=== PATIENT | male | born 1935 | race Caucasian/White ===

== ENCOUNTER 2017-03-29 08:00 | Outpatient (RCR) | payer MEDICARE, OTHER, SELFPAY ==
[2017-03-04 00:39] VITALS: BP 135/71; PULSE 114; RESP 18; TEMP 37.1; BMI 17.0
[2017-03-15 08:08] VITALS: BP 128/78; PULSE 99; RESP 18; TEMP 36.8; BMI 17.0
--- NOTE | 2017-03-15 09:07 | PN.PCM_ITS ---
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 Patient has spinal stenosis so bad that he has no feeling in his rectum. Patient has frequent large stools. during the night, and it lays against the skin of his rectal area and causes denuded skin. Patient appears here with an small superficial ulcer on the coccyx area History of Wound: Patient has been evaluated by Dr. Hitchcock for possible surgical consult, but he feels that unless there is bone exposed to continue with ulcer care as prescribed. Nutrition has been an issue and he needs to continue nutritional efforts. And if he requires frequent ulcer care than because of incontinence then so be it Progress of Wound: The ulcer is smaller everyweek now slightly removed a large portion of the thick callus and the ulcer is flatter this week. Does develop a lot of hyper granulation of the tissue around the edge of the ulcer like callus that has to be removed with nippers. His pre-albumin was 21 lower than it was at 23. The says she's been giving him a sitz bath daily and soaking the skin around the ulcer and seems to be helping also doing the dressing changes twice a day . No odor no redness noted. The patient has been offloading is much as possible. Patient is supplementing with high protein bars and diet, sggested [place] Instant breakfast with ice cream as a supplement and start vit C 1000 mg in chewies per day. Patient is also taking Z -hilary for wound healing. Patient was positive on cultures and was started on levofloxacin 750 mg p.o. daily for 14 days patient has 1 more week of antibiotic therapy. - Physical Exam Vital Signs Temp Pulse Resp BP 98.2 F 99 18 128/78 H 03/15/17 08:08 03/15/17 08:08 03/15/17 08:08 03/15/17 08:08 General: Oriented x3, Cooperative, Well developed HEENT: Atraumatic, PERRLA Oral: Moist Mucosa Neck: Supple, No JVD Lungs: Clear to auscultation, Normal air movement Cardiovascular: Regular rate, Regular Rhythm Abdomen: Bowel Sounds Present, Soft, Non Tender, No Hepato-splenomegaly Extremities: No clubbing, No edema Skin: - - Coccyx ulcer stage III Wound Measurements and Assessment WC - Nurse 1 - General Ulcer Measurement Start: 03/15/17 08:08 Freq: Status: Active Protocol: Activity Type Activity Date Activity User E-Sign Co-Sign Detail Recorded Client Recorded Date Recorded By Document 03/15/17 08:08 DL [id number] 03/15/17 08:13 DL 03/15/17 08:08 Wound Center Nurse 1 [Ulcer Assessment Protocol: WC.WD.LOC] 1. coccyx -Current Size (cm) - Length 1.5 -Current Size (cm) - Width 1.2 -Current Size (cm) - Depth 0.2 -Total Square Cm 1.80 -Photo Taken No -Exudate Amt Small (1-33%) -Exudate Type Serosanguineous -Wound Margin Thickened -Granulation Amt Large (67-100%) -Granulation Quality Red -Necrosis Amt Small (1-33%) -Necrotic Tissue Type Adherent Slough -Structure Exposed N/A -Texture (Pao-wound Skin Appearance) Callus -Moisture (Pao-wound Skin Appearance No Abnormality ) -Color (Pao-wound Skin Appearance) Rubor -Temperature (Pao-wound Skin No Abnormality Appearance) (Pt Warm) -Ulcer Cleansing Rinsed/ Irrigated with Saline -Foul Odor after Cleansing No -Anesthetic Used 4% Lidocaine Solution WC - Nurse 2 - General Ulcer CM Notes Start: 03/15/17 08:08 Freq: Status: Active Protocol: Activity Type Activity Date Activity User E-Sign Co-Sign Detail Recorded Client Recorded Date Recorded By Document 03/15/17 08:38 MW [id number] 03/15/17 08:40 MW 03/15/17 08:38 Wound Center Nurse 2 [Procedure/Treatment] -Time 08:38 -Correct Patient Yes -Correct Side, Site, Position Yes -Correct Procedure Yes -Procedure Performed Yes -Type of Procedure Debridement -Clinical Debridement Subcutaneous -Post Debridement Size (cm) - Length 1.4 -Post Debridement Size (cm) - Width 1.2 -Post Debridement Size (cm) - Depth 0.2 -Total Square Cm 1.68 -Wound/Ulcer Outcome Not Healed -Ulcer Cleansing Rinsed/ Irrigated with Saline -Foul Odor after Cleansing No -Bioengineered Tissue No -Cetacaine [place] No -Bleeding Controlled with Pressure -Treatment Response Procedure Tolerated Well [See Physician Procedure note for Specifics] Pain Scale: 0-10 Numeric [Pain] -Is Patient Pain Free? Yes Musculoskeletal: No Tenderness to Palpation of Joints or Extremities Lymphatic: No Cervical, Supraclavicular, or Inguinal Adenopathy Neurological: Cranial nerves II-XII grossly intact, Neuro grossly intact Psych/Mental Status: Normal Affect, Appropriate, Alert and oriented to time, place, person, mood and affect Debridement Note Post-Debridement Measurements/Treatment WC - Nurse 2 - General Ulcer CM Notes Start: 03/15/17 08:08 Freq: Status: Active Protocol: Activity Type Activity Date Activity User E-Sign Co-Sign Detail Recorded Client Recorded Date Recorded By Document 03/15/17 08:38 MW [id number] 03/15/17 08:40 MW 03/15/17 08:38 Wound Center Nurse 2 1. coccyx -Time 08:38 -Correct Patient Yes -Correct Side, Site, Position Yes -Correct Procedure Yes -Procedure Performed Yes -Type of Procedure Debridement -Clinical Debridement Subcutaneous -Post Debridement Size (cm) - Length 1.4 -Post Debridement Size (cm) - Width 1.2 -Post Debridement Size (cm) - Depth 0.2 -Total Square Cm 1.68 -Wound/Ulcer Outcome Not Healed -Ulcer Cleansing Rinsed/ Irrigated with Saline -Foul Odor after Cleansing No -Bioengineered Tissue No -Cetacaine [place] No -Bleeding Controlled with Pressure -Treatment Response Procedure Tolerated Well Pain Scale: 0-10 Numeric Is Patient Pain Free? Yes Wound debrided: Coccyx ulcer Wound Grade/Stage: Stage 3 Type of Debridement: Excisional debridement Anesthesia Used: 5% Lidocaine Gel Depth: Down to and including healthy tissue, in the subcutaneous layer Percentage of wound debrided: 100 Instrument Used: 5mm curette, - - Nippers Tissue Removed: Callus devitalized tissue fibrin Severity: Limited To Skin Breakdown Amount of bleeding with debridement: Moderate Bleeding Controlled with: Compression and gauze Patient tolerated procedure well Assessment/Plan Active Problems Malnutrition (Chronic) Difficulty walking (Chronic) Degenerative disc disease at L5-S1 level (Chronic) Decubitus ulcer of coccygeal region, stage 3 (Chronic) Infected decubitus ulcer (Chronic) Assessment: Chronic Pressure ulcer coccyx stage III. Malnutrition resolved. Difficulty walking. Infected decubitus ulcer Plan: Collagen hydrogel topically with collegen alginate overtop with ABD dressing and Medipore tape twice a day. continue to offload buttocks by lying flat in bed rather than in a chair as much as possible has a low air mattress. continue eating a highprotein diet and supplements. Follow-up 2 weeks. [place] instant breakfast with ice cream. Vitamin C 500 mg 2 by mouth daily. Information entered by nursing staff reviewed. This document was created using a voice recognition system. Errors in punctuation, spelling and grammar may not have been corrected prior to saving.
[2017-03-29 08:12] VITALS: BP 133/73; PULSE 104; RESP 16; TEMP 36.6; BMI 17.0
--- NOTE | 2017-03-29 10:00 | PCM.WC.PN ---
(1) Decubitus ulcer of coccygeal region, stage 3 Status: Chronic Current Visit: Yes Code(s): L89.153 - Pressure ulcer of sacral region, stage 3 (2) Infected decubitus ulcer Status: Chronic Current Visit: Yes Qualifiers: Code(s): L89.90 - Pressure ulcer of unspecified site, unspecified stage; L08.9 - Local infection of the skin and subcutaneous tissue, unspecified (3) Degenerative disc disease at L5-S1 level Status: Chronic Current Visit: Yes Code(s): M51.36 - Other intervertebral disc degeneration, lumbar region (4) Difficulty walking Status: Chronic Current Visit: Yes Code(s): R26.2 - Difficulty in walking, not elsewhere classified (5) Malnutrition Status: Chronic Current Visit: Yes Code(s): E46 - Unspecified protein-calorie malnutrition Type of Wound Date of Service: 03/29/17 Chief Complaint: 78-year-old white male emaciated living at home with his with many comorbidities. Patient has spinal stenosis so bad that he has no feeling in his rectum. Patient has frequent large stools. during the night, and it lays against the skin of his rectal area and causes denuded skin. Patient appears here with an small superficial ulcer on the coccyx area History of Wound: Patient has been evaluated by Dr. Hitchcock for possible surgical consult, but he feels that unless there is bone exposed to continue with ulcer care as prescribed. Nutrition has been an issue and he needs to continue nutritional efforts. And if he requires frequent ulcer care than because of incontinence then so be it Progress of Wound: The ulcer is smaller everyweek now . Removed a large portion of the thick callus and the ulcer is flatter this week. Does develop a lot of hyper granulation of the tissue around the edge of the ulcer like callus that has to be removed with nippers. His pre-albumin was 21 lower than it was at 23. The says he had blood drawn at Dr. Yousif's office and his pre-albumin was 25. No odor no redness noted. The patient has been offloading is much as possible. Patient is supplementing with high protein bars and diet, sggested [place] Instant breakfast with ice cream as a supplement and start vit C 1000 mg in chewies per day. Patient is also taking Z-hilary for wound healing. - Physical Exam Vital Signs Temp Pulse Resp BP 97.8 F 104 H 16 133/73 H 03/29/17 08:12 03/29/17 08:12 03/29/17 08:12 03/29/17 08:12 General: Oriented x3, Cooperative, Well developed HEENT: Atraumatic, PERRLA Oral: Moist Mucosa Neck: Supple, No JVD Lungs: Clear to auscultation, Normal air movement Cardiovascular: Regular rate, Regular Rhythm Abdomen: Bowel Sounds Present, Soft, Non Tender, No Hepato-splenomegaly Extremities: No clubbing, No edema Skin: Ulcer/ Wound - Coccyx ulcer stage III Wound Measurements and Assessment WC - Nurse 1 - General Ulcer Measurement Start: 03/15/17 08:08 Freq: Status: Active Protocol: Activity Type Activity Date Activity User E-Sign Co-Sign Detail Recorded Client Recorded Date Recorded By Document 03/29/17 08:12 DL [id number] 03/29/17 08:17 DL 03/29/17 08:12 Wound Center Nurse 1 [Ulcer Assessment Protocol: ETHAN.WD.LOC] 1. coccyx -Current Size (cm) - Length 1.3 -Current Size (cm) - Width 1 -Current Size (cm) - Depth 0.3 -Total Square Cm 1.3 -Photo Taken No -Exudate Amt Small (1-33%) -Exudate Type Serosanguineous -Wound Margin Thickened -Granulation Amt Large (67-100%) -Granulation Quality Red -Necrosis Amt Small (1-33%) -Necrotic Tissue Type Adherent Slough -Structure Exposed N/A -Texture (Pao-wound Skin Appearance) Callus -Moisture (Pao-wound Skin Appearance No Abnormality ) -Color (Pao-wound Skin Appearance) No Abnormality -Temperature (Pao-wound Skin No Abnormality Appearance) (Pt Warm) -Tenderness on Palpation (Pao-wound No Skin Appearance) -Ulcer Cleansing Rinsed/ Irrigated with Saline -Foul Odor after Cleansing No -Anesthetic Used 4% Lidocaine Solution WC - Nurse 2 - General Ulcer CM Notes Start: 03/15/17 08:08 Freq: Status: Active Protocol: Activity Type Activity Date Activity User E-Sign Co-Sign Detail Recorded Client Recorded Date Recorded By Document 03/29/17 08:32 MW [id number] 03/29/17 08:39 MW 03/29/17 08:32 Wound Center Nurse 2 [Procedure/Treatment] -Time 08:32 -Correct Patient Yes -Correct Side, Site, Position Yes -Correct Procedure Yes -Procedure Performed Yes -Type of Procedure Debridement -Clinical Debridement Subcutaneous -Post Debridement Size (cm) - Length 1.3 -Post Debridement Size (cm) - Width 1.1 -Post Debridement Size (cm) - Depth 0.2 -Total Square Cm 1.43 -Wound/Ulcer Outcome Not Healed -Ulcer Cleansing Rinsed/ Irrigated with Saline -Foul Odor after Cleansing No -Bioengineered Tissue No -Cetacaine [place] No -Bleeding Controlled with Pressure -Treatment Response Procedure Tolerated Well [See Physician Procedure note for Specifics] Pain Scale: 0-10 Numeric [Pain] -Is Patient Pain Free? Yes Musculoskeletal: No Tenderness to Palpation of Joints or Extremities Lymphatic: No Cervical, Supraclavicular, or Inguinal Adenopathy Neurological: Cranial nerves II-XII grossly intact, Neuro grossly intact Psych/Mental Status: Normal Affect, Appropriate, Alert and oriented to time, place, person, mood and affect Debridement Note Post-Debridement Measurements/Treatment WC - Nurse 2 - General Ulcer CM Notes Start: 03/15/17 08:08 Freq: Status: Active Protocol: Activity Type Activity Date Activity User E-Sign Co-Sign Detail Recorded Client Recorded Date Recorded By Document 03/15/17 08:38 MW [id number] 03/15/17 08:40 MW Document 03/29/17 08:32 MW [id number] 03/29/17 08:39 MW 03/15/1718 08:38 08:32 Wound Center Nurse 2 1. coccyx -Time 08:38 08:32 -Correct Patient Yes Yes -Correct Side, Site, Position Yes Yes -Correct Procedure Yes Yes -Procedure Performed Yes Yes -Type of Procedure Debridement Debridement -Clinical Debridement Subcutaneous Subcutaneous -Post Debridement Size (cm) - Length 1.4 1.3 -Post Debridement Size (cm) - Width 1.2 1.1 -Post Debridement Size (cm) - Depth 0.2 0.2 -Total Square Cm 1.68 1.43 -Wound/Ulcer Outcome Not Healed Not Healed -Ulcer Cleansing Rinsed/ Rinsed/ Irrigated with Irrigated with Saline Saline -Foul Odor after Cleansing No No -Bioengineered Tissue No No -Cetacaine [place] No No -Bleeding Controlled with Pressure Pressure -Treatment Response Procedure Procedure Tolerated Well Tolerated Well Pain Scale: 0-10 Numeric Is Patient Pain Free? 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 Malnutrition resolved. Difficulty walking. Infected decubitus ulcer Plan: Collagen hydrogel topically with collegen alginate overtop with ABD dressing and Medipore tape twice a day. continue to offload buttocks by lying flat in bed rather than in a chair as much as possible has a low air mattress. continue eating a highprotein diet and supplements. Follow-up 2 weeks. [place] instant breakfast with ice cream. Vitamin C 500 mg 2 by mouth daily. Information entered by nursing staff reviewed. This document was created using a voice recognition system. Errors in punctuation, spelling and grammar may not have been corrected prior to saving.
--- NOTE | 2017-03-29 10:05 | PN.PCM_ITS ---
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 Patient has spinal stenosis so bad that he has no feeling in his rectum. Patient has frequent large stools. during the night, and it lays against the skin of his rectal area and causes denuded skin. Patient appears here with an small superficial ulcer on the coccyx area History of Wound: Patient has been evaluated by Dr. Hitchcock for possible surgical consult, but he feels that unless there is bone exposed to continue with ulcer care as prescribed. Nutrition has been an issue and he needs to continue nutritional efforts. And if he requires frequent ulcer care than because of incontinence then so be it Progress of Wound: The ulcer is smaller everyweek now . Removed a large portion of the thick callus and the ulcer is flatter this week. Does develop a lot of hyper granulation of the tissue around the edge of the ulcer like callus that has to be removed with nippers. His pre-albumin was 21 lower than it was at 23. The says he had blood drawn at Dr. Yousif's office and his pre- albumin was 25. No odor no redness noted. The patient has been offloading is much as possible. Patient is supplementing with high protein bars and diet, sggested [place] Instant breakfast with ice cream as a supplement and start vit C 1000 mg in chewies per day. Patient is also taking Z-hilary for wound healing. - Physical Exam Vital Signs Temp Pulse Resp BP 97.8 F 104 H 16 133/73 H 03/29/17 08:12 03/29/17 08:12 03/29/17 08:12 03/29/17 08:12 General: Oriented x3, Cooperative, Well developed HEENT: Atraumatic, PERRLA Oral: Moist Mucosa Neck: Supple, No JVD Lungs: Clear to auscultation, Normal air movement Cardiovascular: Regular rate, Regular Rhythm Abdomen: Bowel Sounds Present, Soft, Non Tender, No Hepato-splenomegaly Extremities: No clubbing, No edema Skin: Ulcer/ Wound - Coccyx ulcer stage III Wound Measurements and Assessment WC - Nurse 1 - General Ulcer Measurement Start: 03/15/17 08:08 Freq: Status: Active Protocol: Activity Type Activity Date Activity User E-Sign Co-Sign Detail Recorded Client Recorded Date Recorded By Document 03/29/17 08:12 DL [id number] 03/29/17 08:17 DL 03/29/17 08:12 Wound Center Nurse 1 [Ulcer Assessment Protocol: ETHAN.WD.LOC] 1. coccyx -Current Size (cm) - Length 1.3 -Current Size (cm) - Width 1 -Current Size (cm) - Depth 0.3 -Total Square Cm 1.3 -Photo Taken No -Exudate Amt Small (1-33%) -Exudate Type Serosanguineous -Wound Margin Thickened -Granulation Amt Large (67-100%) -Granulation Quality Red -Necrosis Amt Small (1-33%) -Necrotic Tissue Type Adherent Slough -Structure Exposed N/A -Texture (Pao-wound Skin Appearance) Callus -Moisture (Pao-wound Skin Appearance No Abnormality ) -Color (Pao-wound Skin Appearance) No Abnormality -Temperature (Pao-wound Skin No Abnormality Appearance) (Pt Warm) -Tenderness on Palpation (Pao-wound No Skin Appearance) -Ulcer Cleansing Rinsed/ Irrigated with Saline -Foul Odor after Cleansing No -Anesthetic Used 4% Lidocaine Solution WC - Nurse 2 - General Ulcer CM Notes Start: 03/15/17 08:08 Freq: Status: Active Protocol: Activity Type Activity Date Activity User E-Sign Co-Sign Detail Recorded Client Recorded Date Recorded By Document 03/29/17 08:32 MW [id number] 03/29/17 08:39 MW 03/29/17 08:32 Wound Center Nurse 2 [Procedure/Treatment] -Time 08:32 -Correct Patient Yes -Correct Side, Site, Position Yes -Correct Procedure Yes -Procedure Performed Yes -Type of Procedure Debridement -Clinical Debridement Subcutaneous -Post Debridement Size (cm) - Length 1.3 -Post Debridement Size (cm) - Width 1.1 -Post Debridement Size (cm) - Depth 0.2 -Total Square Cm 1.43 -Wound/Ulcer Outcome Not Healed -Ulcer Cleansing Rinsed/ Irrigated with Saline -Foul Odor after Cleansing No -Bioengineered Tissue No -Cetacaine [place] No -Bleeding Controlled with Pressure -Treatment Response Procedure Tolerated Well [See Physician Procedure note for Specifics] Pain Scale: 0-10 Numeric [Pain] -Is Patient Pain Free? Yes Musculoskeletal: No Tenderness to Palpation of Joints or Extremities Lymphatic: No Cervical, Supraclavicular, or Inguinal Adenopathy Neurological: Cranial nerves II-XII grossly intact, Neuro grossly intact Psych/Mental Status: Normal Affect, Appropriate, Alert and oriented to time, place, person, mood and affect Debridement Note Post-Debridement Measurements/Treatment WC - Nurse 2 - General Ulcer CM Notes Start: 03/15/17 08:08 Freq: Status: Active Protocol: Activity Type Activity Date Activity User E-Sign Co-Sign Detail Recorded Client Recorded Date Recorded By Document 03/15/17 08:38 MW [id number] 03/15/17 08:40 MW Document 03/29/17 08:32 MW [id number] 03/29/17 08:39 MW 03/15/1718 08:38 08:32 Wound Center Nurse 2 1. coccyx -Time 08:38 08:32 -Correct Patient Yes Yes -Correct Side, Site, Position Yes Yes -Correct Procedure Yes Yes -Procedure Performed Yes Yes -Type of Procedure Debridement Debridement -Clinical Debridement Subcutaneous Subcutaneous -Post Debridement Size (cm) - Length 1.4 1.3 -Post Debridement Size (cm) - Width 1.2 1.1 -Post Debridement Size (cm) - Depth 0.2 0.2 -Total Square Cm 1.68 1.43 -Wound/Ulcer Outcome Not Healed Not Healed -Ulcer Cleansing Rinsed/ Rinsed/ Irrigated with Irrigated with Saline Saline -Foul Odor after Cleansing No No -Bioengineered Tissue No No -Cetacaine [place] No No -Bleeding Controlled with Pressure Pressure -Treatment Response Procedure Procedure Tolerated Well Tolerated Well Pain Scale: 0-10 Numeric Is Patient Pain Free? 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 Malnutrition resolved. Difficulty walking. Infected decubitus ulcer Plan: Collagen hydrogel topically with collegen alginate overtop with ABD dressing and Medipore tape twice a day. continue to offload buttocks by lying flat in bed rather than in a chair as much as possible has a low air mattress. continue eating a highprotein diet and supplements. Follow-up 2 weeks. [place] instant breakfast with ice cream. Vitamin C 500 mg 2 by mouth daily. Information entered by nursing staff reviewed. This document was created using a voice recognition system. Errors in punctuation, spelling and grammar may not have been corrected prior to saving.
== END 2017-04-03 23:59 ==
LOC: WC 08:00
PROVIDERS: Family Provider Family Medicine; PCP Family Medicine; Visit Provider Nurse Practitioner
DX: L89.153 Pressure ulcer of sacral region, stage 3 (principal); L08.9 Local infection of the skin and subcutaneous tissue, unspecified; M51.36 Other intervertebral disc degeneration, lumbar region; R26.2 Difficulty in walking, not elsewhere classified
CPT/HCPCS: 11042

== ENCOUNTER 2017-04-26 08:00 | Outpatient (RCR) | payer MEDICARE, OTHER, SELFPAY ==
[2017-03-29 08:12] VITALS: BP 133/73
[2017-04-04 00:31] VITALS: PULSE 104; RESP 16; TEMP 36.6
[2017-04-12 08:17] VITALS: BP 141/89; PULSE 100; RESP 18; TEMP 36.9; BMI 17.0
--- NOTE | 2017-04-12 13:08 | PCM.WC.PN ---
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 level Status: Chronic Current Visit: Yes Code(s): M51.36 - Other intervertebral disc degeneration, lumbar region (3) Difficulty walking Status: Chronic Current Visit: Yes Code(s): R26.2 - Difficulty in walking, not elsewhere classified (4) Infected decubitus ulcer Status: Chronic Current Visit: Yes Qualifiers: Code(s): L89.90 - Pressure ulcer of unspecified site, unspecified stage; L08.9 - Local infection of the skin and subcutaneous tissue, unspecified (5) Malnutrition Status: Chronic Current Visit: Yes Code(s): E46 - Unspecified protein-calorie malnutrition (6) Nonhealing nonsurgical wound Status: Chronic Current Visit: Yes Code(s): T14.8 - Other injury of unspecified body region Type of Wound Date of Service: 04/12/17 Chief Complaint: 78-year-old white male emaciated living at home with his with many comorbidities. Patient has spinal stenosis so bad that he has no feeling in his rectum. Patient has frequent large stools. during the night, and it lays against the skin of his rectal area and causes denuded skin. Patient appears here with an small superficial ulcer on the coccyx area History of Wound: Patient has been evaluated by Dr. Hitchcock for possible surgical consult, but he feels that unless there is bone exposed to continue with ulcer care as prescribed. Nutrition has been an issue and he needs to continue nutritional efforts. And if he requires frequent ulcer care than because of incontinence then so be it Progress of Wound: The ulcer is smaller everyweek now . Removed a large portion of the thick callus and the ulcer is flatter this week. Does develop a lot of hyper granulation of the tissue around the edge of the ulcer like callus that has to be removed with nippers. His pre-albumin was 21 lower than it was at 23. The says he had blood drawn at Dr. Yousif's office and his pre-albumin was 25. No odor no redness noted. The patient has been offloading is much as possible. Patient is supplementing with high protein bars and diet, sggested [place] Instant breakfast with ice cream as a supplement and start vit C 1000 mg in chewies per day. Patient is also taking Z-hilary for wound healing. Will apply for epi fix also for his ulcer - Physical Exam Vital Signs Temp Pulse Resp BP 98.4 F 100 18 141/89 H 04/12/17 08:17 04/12/17 08:17 04/12/17 08:17 04/12/17 08:17 General: Oriented x3, Cooperative, Well developed HEENT: Atraumatic, PERRLA Oral: Moist Mucosa Neck: Supple, No JVD Lungs: Clear to auscultation, Normal air movement Cardiovascular: Regular rate, Regular Rhythm Abdomen: Bowel Sounds Present, Soft, Non Tender, No Hepato-splenomegaly Extremities: No clubbing, No edema Skin: - - 6 ulcer stage III Wound Measurements and Assessment - Nurse 1 - General Ulcer Measurement Start: 04/12/17 08:17 Freq: Status: Active Protocol: Activity Type Activity Date Activity User E-Sign Co-Sign Detail Recorded Client Recorded Date Recorded By Document 04/12/17 08:17 [id number] 04/12/17 08:22 04/12/17 08:17 Wound Center Nurse 1 [Ulcer Assessment Protocol: .WD.LOC] 1. sacral ulcer stg III -Combined with other wound No -Current Size (cm) - Length 1.5 -Current Size (cm) - Width 0.5 -Current Size (cm) - Depth 0.2 -Total Square Cm 0.75 -Date of Last Picture (Recall this 04/12/17 field) -Photo Taken Yes -Epithelialization None Present -Tunneling No -Undermining/Tunneling No -Circular Undermining No -Classification - Thickness Full Thickness without Exposed Support Structure -Classification - Pressure Ulcer Stage 3 -Exudate Amt Small (1-33%) -Exudate Type Serosanguineous -Wound Margin Fibrotic Scar, Thickened Scar -Granulation Amt Medium (34-66%) -Granulation Quality [place] -Slough/Fibrin Yes -Necrosis Amt Medium (34-66%) -Necrotic Tissue Type Adherent Slough -Structure Exposed Fascia Fat Layer Exposed -Texture (Pao-wound Skin Appearance) Callus -Moisture (Pao-wound Skin Appearance No Abnormality ) -Color (Pao-wound Skin Appearance) Erythema -Temperature (Pao-wound Skin No Abnormality Appearance) (Pt Warm) -Tenderness on Palpation (Pao-wound No Skin Appearance) -Ulcer Cleansing Rinsed/ Irrigated with Saline -Foul Odor after Cleansing No -Anesthetic Used 5% Lidocaine Gel [Edema Assessment] -Lower Limb Edema Present No WC - Nurse 2 - General Ulcer CM Notes Start: 04/12/17 08:17 Freq: Status: Active Protocol: Activity Type Activity Date Activity User E-Sign Co-Sign Detail Recorded Client Recorded Date Recorded By Document 04/12/17 08:33 MW [id number] 04/12/17 08:38 MW 04/12/17 08:33 Wound Center Nurse 2 [Procedure/Treatment] 1. sacral ulcer stg III -Time 08:34 -Correct Patient Yes -Correct Side, Site, Position Yes -Correct Procedure Yes -Procedure Performed Yes -Type of Procedure Debridement -Clinical Debridement Subcutaneous -Post Debridement Size (cm) - Length 1.5 -Post Debridement Size (cm) - Width 1.0 -Post Debridement Size (cm) - Depth 0.2 -Total Square Cm 1.50 -Wound/Ulcer Outcome Not Healed -Ulcer Cleansing Rinsed/ Irrigated with Saline -Foul Odor after Cleansing No -Bioengineered Tissue No -Bleeding Controlled with Pressure -Treatment Response Procedure Tolerated Well [See Physician Procedure note for Specifics] Pain Scale: 0-10 Numeric [Pain] -Is Patient Pain Free? Yes Musculoskeletal: No Tenderness to Palpation of Joints or Extremities Lymphatic: No Cervical, Supraclavicular, or Inguinal Adenopathy Neurological: Cranial nerves II-XII grossly intact, Neuro grossly intact Psych/Mental Status: Normal Affect, Appropriate, Alert and oriented to time, place, person, mood and affect Debridement Note Post-Debridement Measurements/Treatment WC - Nurse 2 - General Ulcer CM Notes Start: 04/12/17 08:17 Freq: Status: Active Protocol: Activity Type Activity Date Activity User E-Sign Co-Sign Detail Recorded Client Recorded Date Recorded By Document 04/12/17 08:33 MW [id number] 04/12/17 08:38 MW 04/12/17 08:33 Wound Center Nurse 2 1. sacral ulcer stg III -Time 08:34 -Correct Patient Yes -Correct Side, Site, Position Yes -Correct Procedure Yes -Procedure Performed Yes -Type of Procedure Debridement -Clinical Debridement Subcutaneous -Post Debridement Size (cm) - Length 1.5 -Post Debridement Size (cm) - Width 1.0 -Post Debridement Size (cm) - Depth 0.2 -Total Square Cm 1.50 -Wound/Ulcer Outcome Not Healed -Ulcer Cleansing Rinsed/ Irrigated with Saline -Foul Odor after Cleansing No -Bioengineered Tissue No -Bleeding Controlled with Pressure -Treatment Response Procedure Tolerated Well Pain Scale: 0-10 Numeric Is Patient Pain Free? Yes Wound debrided: Coccyx ulcer Wound Grade/Stage: Stage III Type of Debridement: Excisional debridement Anesthesia Used: 5% Lidocaine Gel Depth: Down to and including healthy tissue, in the subcutaneous layer Percentage of wound debrided: 100 Instrument Used: 5mm curette, - - First Tissue Removed: Devitalized tissue fibrin Severity: Limited To Skin Breakdown Amount of bleeding with debridement: Moderate Bleeding Controlled with: Compression and gauze Patient tolerated procedure well Assessment/Plan Active Problems Nonhealing nonsurgical wound (Chronic) Degenerative disc disease at L5-S1 level (Chronic) Difficulty walking (Chronic) Malnutrition (Chronic) Infected decubitus ulcer (Chronic) Decubitus ulcer of coccygeal region, stage 3 (Chronic) Assessment: Chronic Pressure ulcer coccyx stage III. Malnutrition resolved. Difficulty walking. Infected decubitus ulcer Plan: Collagen hydrogel topically with collegen alginate overtop with ABD dressing and Medipore tape twice a day. continue to offload buttocks by lying flat in bed rather than in a chair as much as possible has a low air mattress. continue eating a highprotein diet and supplements. Follow-up 2 weeks\. Apply for epi-fix. [employer] instant breakfast with ice cream. Vitamin C 500 mg 2 by mouth daily. Information entered by nursing staff reviewed. This document was created using a voice recognition system. Errors in punctuation, spelling and grammar may not have been corrected prior to saving.
[2017-04-26 08:11] VITALS: BP 140/93; PULSE 93; RESP 18; TEMP 36.3; BMI 17.0
--- NOTE | 2017-04-26 09:27 | PCM.WC.PN ---
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 level Status: Chronic Current Visit: Yes Code(s): M51.36 - Other intervertebral disc degeneration, lumbar region (3) Difficulty walking Status: Chronic Current Visit: Yes Code(s): R26.2 - Difficulty in walking, not elsewhere classified (4) Infected decubitus ulcer Status: Chronic Current Visit: Yes Qualifiers: Code(s): L89.90 - Pressure ulcer of unspecified site, unspecified stage; L08.9 - Local infection of the skin and subcutaneous tissue, unspecified (5) Malnutrition Status: Chronic Current Visit: No Code(s): E46 - Unspecified protein-calorie malnutrition (6) Nonhealing nonsurgical wound Status: Chronic Current Visit: Yes Code(s): T14.8 - Other injury of unspecified body region Type of Wound Date of Service: 04/26/17 Chief Complaint: 78-year-old white male emaciated living at home with his with many comorbidities. Patient has spinal stenosis so bad that he has no feeling in his rectum. Patient has frequent large stools. during the night, and it lays against the skin of his rectal area and causes denuded skin. Patient appears here with an small superficial ulcer on the coccyx area History of Wound: Patient has been evaluated by Dr. Hitchcock for possible surgical consult, but he feels that unless there is bone exposed to continue with ulcer care as prescribed. Nutrition has been an issue and he needs to continue nutritional efforts. And if he requires frequent ulcer care than because of incontinence then so be it Progress of Wound: The ulcer is smaller everyweek now . Removed a large portion of the thick callus and the ulcer is flatter this week. Does develop a lot of hyper granulation of the tissue around the edge of the ulcer like callus that has to be removed with nippers. His pre-albumin was 21 lower than it was at 23. The says he had blood drawn at Dr. Yousif's office and his pre-albumin was 25. No odor no redness noted. The patient has been offloading is much as possible. Patient is supplementing with high protein bars and diet, sggested [place] Instant breakfast with ice cream as a supplement and start vit C 1000 mg in chewies per day. Patient is also taking Z-hilary for wound healing. Slide epi fix #1 To the coccyx area tolerated well . - Physical Exam Vital Signs Temp Pulse Resp BP 97.3 F L 93 18 140/93 H 04/26/17 08:11 04/26/17 08:11 04/26/17 08:11 04/26/17 08:11 General: Oriented x3, Cooperative, Well developed HEENT: Atraumatic, PERRLA Oral: Moist Mucosa Neck: Supple, No JVD Lungs: Clear to auscultation, Normal air movement Cardiovascular: Regular rate, Regular Rhythm Abdomen: Bowel Sounds Present, Soft, Non Tender, No Hepato-splenomegaly Extremities: No clubbing, No edema Skin: Ulcer/ Wound - 6 ulcers stage III Wound Measurements and Assessment WC - Nurse 1 - General Ulcer Measurement Start: 04/12/17 08:17 Freq: Status: Active Protocol: Activity Type Activity Date Activity User E-Sign Co-Sign Detail Recorded Client Recorded Date Recorded By Document 04/26/17 08:11 DL [id number] 04/26/17 08:20 DL 04/26/17 08:11 Wound Center Nurse 1 [Ulcer Assessment] 1. sacral ulcer stg III -Current Size (cm) - Length 1.2 -Current Size (cm) - Width 1.2 -Current Size (cm) - Depth 0.2 -Total Square Cm 1.44 -Photo Taken No -Exudate Amt Small (1-33%) -Exudate Type Serosanguineous -Wound Margin Thickened -Granulation Amt Medium (34-66%) -Granulation Quality [place] -Necrosis Amt Medium (34-66%) -Necrotic Tissue Type Adherent Slough -Structure Exposed N/A -Texture (Pao-wound Skin Appearance) Scarring -Moisture (Pao-wound Skin Appearance No Abnormality ) -Color (Pao-wound Skin Appearance) No Abnormality -Temperature (Pao-wound Skin No Abnormality Appearance) (Pt Warm) -Ulcer Cleansing Wound Cleanser -Foul Odor after Cleansing No -Anesthetic Used 4% Lidocaine Solution WC - Nurse 2 - General Ulcer CM Notes Start: 04/12/17 08:17 Freq: Status: Active Protocol: Activity Type Activity Date Activity User E-Sign Co-Sign Detail Recorded Client Recorded Date Recorded By Document 04/26/17 08:33 MW [id number] 04/26/17 08:46 MW 04/26/17 08:33 Wound Center Nurse 2 [Procedure/Treatment] -Time 08:33 -Correct Patient Yes -Correct Side, Site, Position Yes -Correct Procedure Yes -Procedure Performed Yes -Type of Procedure Debridement -Clinical Debridement Subcutaneous -Post Debridement Size (cm) - Length 1.4 -Post Debridement Size (cm) - Width 1.4 -Post Debridement Size (cm) - Depth 0.2 -Total Square Cm 1.96 -Wound/Ulcer Outcome Not Healed -Ulcer Cleansing Rinsed/ Irrigated with Saline -Foul Odor after Cleansing No -Type of bioengineered Tissue EPIFIX -Expiration Date 02/01/22 -Product Lot Number [id number] -Percent Used 100 -Saline Lot Number [id number] -Bleeding Controlled with Pressure -Treatment Response Procedure Tolerated Well [See Physician Procedure note for Specifics] Pain Scale: 0-10 Numeric [Pain] -Is Patient Pain Free? Yes Musculoskeletal: No Tenderness to Palpation of Joints or Extremities Lymphatic: No Cervical, Supraclavicular, or Inguinal Adenopathy Neurological: Cranial nerves II-XII grossly intact, Neuro grossly intact Psych/Mental Status: Normal Affect, Appropriate, Alert and oriented to time, place, person, mood and affect Debridement Note Post-Debridement Measurements/Treatment WC - Nurse 2 - General Ulcer CM Notes Start: 04/12/17 08:17 Freq: Status: Active Protocol: Activity Type Activity Date Activity User E-Sign Co-Sign Detail Recorded Client Recorded Date Recorded By Document 04/12/17 08:33 MW [id number] 04/12/17 08:38 MW Document 04/26/17 08:33 MW [id number] 04/26/17 08:46 MW 04/12/17 04/26/17 08:33 08:33 Wound Center Nurse 2 1. sacral ulcer stg III -Time 08:34 08:33 -Correct Patient Yes Yes -Correct Side, Site, Position Yes Yes -Correct Procedure Yes Yes -Procedure Performed Yes Yes -Type of Procedure Debridement Debridement -Clinical Debridement Subcutaneous Subcutaneous -Post Debridement Size (cm) - Length 1.5 1.4 -Post Debridement Size (cm) - Width 1.0 1.4 -Post Debridement Size (cm) - Depth 0.2 0.2 -Total Square Cm 1.50 1.96 -Wound/Ulcer Outcome Not Healed Not Healed -Ulcer Cleansing Rinsed/ Rinsed/ Irrigated with Irrigated with Saline Saline -Foul Odor after Cleansing No No -Bioengineered Tissue No -Type of bioengineered Tissue EPIFIX -Expiration Date 02/01/22 -Product Lot Number [id number] -Percent Used 100 -Saline Lot Number [id number] -Bleeding Controlled with Pressure Pressure -Treatment Response Procedure Procedure Tolerated Well Tolerated Well Pain Scale: 0-10 Numeric Is Patient Pain Free? 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 Malnutrition resolved. Difficulty walking. Infected decubitus ulcer resolved Plan: Collagen hydrogel topically with collegen alginate overtop with ABD dressing and Medipore tape twice a day. continue to offload buttocks by lying flat in bed rather than in a chair as much as possible has a low air mattress. continue eating a highprotein diet and supplements. Follow-up 2 weeks\. Apply for epi-fix. [place] instant breakfast with ice cream. Vitamin C 500 mg 2 by mouth daily. Information entered by nursing staff reviewed. This document was created using a voice recognition system. Errors in punctuation, spelling and grammar may not have been corrected prior to saving.
--- NOTE | 2017-04-26 09:30 | PN.PCM_ITS ---
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 level Status: Chronic Current Visit: Yes Code(s): M51.36 - Other intervertebral disc degeneration, lumbar region (3) Difficulty walking Status: Chronic Current Visit: Yes Code(s): R26.2 - Difficulty in walking, not elsewhere classified (4) Infected decubitus ulcer Status: Chronic Current Visit: Yes Qualifiers: Code(s): L89.90 - Pressure ulcer of unspecified site, unspecified stage; L08.9 - Local infection of the skin and subcutaneous tissue, unspecified (5) Malnutrition Status: Chronic Current Visit: No Code(s): E46 - Unspecified protein- calorie malnutrition (6) Nonhealing nonsurgical wound Status: Chronic Current Visit: Yes Code(s): T14.8 - Other injury of unspecified body region Type of Wound Date of Service: 04/26/17 Chief Complaint: 78-year-old white male emaciated living at home with his with many comorbidities. Patient has spinal stenosis so bad that he has no feeling in his rectum. Patient has frequent large stools. during the night, and it lays against the skin of his rectal area and causes denuded skin. Patient appears here with an small superficial ulcer on the coccyx area History of Wound: Patient has been evaluated by Dr. Hitchcock for possible surgical consult, but he feels that unless there is bone exposed to continue with ulcer care as prescribed. Nutrition has been an issue and he needs to continue nutritional efforts. And if he requires frequent ulcer care than because of incontinence then so be it Progress of Wound: The ulcer is smaller everyweek now . Removed a large portion of the thick callus and the ulcer is flatter this week. Does develop a lot of hyper granulation of the tissue around the edge of the ulcer like callus that has to be removed with nippers. His pre-albumin was 21 lower than it was at 23. The says he had blood drawn at Dr. Yousif's office and his pre- albumin was 25. No odor no redness noted. The patient has been offloading is much as possible. Patient is supplementing with high protein bars and diet, sggested [place] Instant breakfast with ice cream as a supplement and start vit C 1000 mg in chewies per day. Patient is also taking Z-hilary for wound healing. Slide epi fix #1 To the coccyx area tolerated well . - Physical Exam Vital Signs Temp Pulse Resp BP 97.3 F L 93 18 140/93 H 04/26/17 08:11 04/26/17 08:11 04/26/17 08:11 04/26/17 08:11 General: Oriented x3, Cooperative, Well developed HEENT: Atraumatic, PERRLA Oral: Moist Mucosa Neck: Supple, No JVD Lungs: Clear to auscultation, Normal air movement Cardiovascular: Regular rate, Regular Rhythm Abdomen: Bowel Sounds Present, Soft, Non Tender, No Hepato-splenomegaly Extremities: No clubbing, No edema Skin: Ulcer/ Wound - 6 ulcers stage III Wound Measurements and Assessment WC - Nurse 1 - General Ulcer Measurement Start: 04/12/17 08:17 Freq: Status: Active Protocol: Activity Type Activity Date Activity User E-Sign Co-Sign Detail Recorded Client Recorded Date Recorded By Document 04/26/17 08:11 DL [id number] 04/26/17 08:20 DL 04/26/17 08:11 Wound Center Nurse 1 [Ulcer Assessment] 1. sacral ulcer stg III -Current Size (cm) - Length 1.2 -Current Size (cm) - Width 1.2 -Current Size (cm) - Depth 0.2 -Total Square Cm 1.44 -Photo Taken No -Exudate Amt Small (1-33%) -Exudate Type Serosanguineous -Wound Margin Thickened -Granulation Amt Medium (34-66%) -Granulation Quality [place] -Necrosis Amt Medium (34-66%) -Necrotic Tissue Type Adherent Slough -Structure Exposed N/A -Texture (Pao-wound Skin Appearance) Scarring -Moisture (Pao-wound Skin Appearance No Abnormality ) -Color (Pao-wound Skin Appearance) No Abnormality -Temperature (Pao-wound Skin No Abnormality Appearance) (Pt Warm) -Ulcer Cleansing Wound Cleanser -Foul Odor after Cleansing No -Anesthetic Used 4% Lidocaine Solution WC - Nurse 2 - General Ulcer CM Notes Start: 04/12/17 08:17 Freq: Status: Active Protocol: Activity Type Activity Date Activity User E-Sign Co-Sign Detail Recorded Client Recorded Date Recorded By Document 04/26/17 08:33 MW [id number] 04/26/17 08:46 MW 04/26/17 08:33 Wound Center Nurse 2 [Procedure/Treatment] -Time 08:33 -Correct Patient Yes -Correct Side, Site, Position Yes -Correct Procedure Yes -Procedure Performed Yes -Type of Procedure Debridement -Clinical Debridement Subcutaneous -Post Debridement Size (cm) - Length 1.4 -Post Debridement Size (cm) - Width 1.4 -Post Debridement Size (cm) - Depth 0.2 -Total Square Cm 1.96 -Wound/Ulcer Outcome Not Healed -Ulcer Cleansing Rinsed/ Irrigated with Saline -Foul Odor after Cleansing No -Type of bioengineered Tissue EPIFIX -Expiration Date 02/01/22 -Product Lot Number [id number] -Percent Used 100 -Saline Lot Number [id number] -Bleeding Controlled with Pressure -Treatment Response Procedure Tolerated Well [See Physician Procedure note for Specifics] Pain Scale: 0-10 Numeric [Pain] -Is Patient Pain Free? Yes Musculoskeletal: No Tenderness to Palpation of Joints or Extremities Lymphatic: No Cervical, Supraclavicular, or Inguinal Adenopathy Neurological: Cranial nerves II-XII grossly intact, Neuro grossly intact Psych/Mental Status: Normal Affect, Appropriate, Alert and oriented to time, place, person, mood and affect Debridement Note Post-Debridement Measurements/Treatment WC - Nurse 2 - General Ulcer CM Notes Start: 04/12/17 08:17 Freq: Status: Active Protocol: Activity Type Activity Date Activity User E-Sign Co-Sign Detail Recorded Client Recorded Date Recorded By Document 04/12/17 08:33 MW [id number] 04/12/17 08:38 MW Document 04/26/17 08:33 MW [id number] 04/26/17 08:46 MW 04/12/17 04/26/17 08:33 08:33 Wound Center Nurse 2 1. sacral ulcer stg III -Time 08:34 08:33 -Correct Patient Yes Yes -Correct Side, Site, Position Yes Yes -Correct Procedure Yes Yes -Procedure Performed Yes Yes -Type of Procedure Debridement Debridement -Clinical Debridement Subcutaneous Subcutaneous -Post Debridement Size (cm) - Length 1.5 1.4 -Post Debridement Size (cm) - Width 1.0 1.4 -Post Debridement Size (cm) - Depth 0.2 0.2 -Total Square Cm 1.50 1.96 -Wound/Ulcer Outcome Not Healed Not Healed -Ulcer Cleansing Rinsed/ Rinsed/ Irrigated with Irrigated with Saline Saline -Foul Odor after Cleansing No No -Bioengineered Tissue No -Type of bioengineered Tissue EPIFIX -Expiration Date 02/01/22 -Product Lot Number [id number] -Percent Used 100 -Saline Lot Number [id number] -Bleeding Controlled with Pressure Pressure -Treatment Response Procedure Procedure Tolerated Well Tolerated Well Pain Scale: 0-10 Numeric Is Patient Pain Free? 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 Malnutrition resolved. Difficulty walking. Infected decubitus ulcer resolved Plan: Collagen hydrogel topically with collegen alginate overtop with ABD dressing and Medipore tape twice a day. continue to offload buttocks by lying flat in bed rather than in a chair as much as possible has a low air mattress. continue eating a highprotein diet and supplements. Follow-up 2 weeks\. Apply for epi-fix. [place] instant breakfast with ice cream. Vitamin C 500 mg 2 by mouth daily. Information entered by nursing staff reviewed. This document was created using a voice recognition system. Errors in punctuation, spelling and grammar may not have been corrected prior to saving.
== END 2017-05-01 23:59 ==
LOC: WC 08:00
PROVIDERS: Family Provider Family Medicine; PCP Family Medicine; Visit Provider Nurse Practitioner
DX: L89.153 Pressure ulcer of sacral region, stage 3 (principal); M51.36 Other intervertebral disc degeneration, lumbar region; R26.2 Difficulty in walking, not elsewhere classified; L08.9 Local infection of the skin and subcutaneous tissue, unspecified; R15.9 Full incontinence of feces
CPT/HCPCS: 11042; 15271; Q4131

== ENCOUNTER 2017-05-31 08:00 | Outpatient (RCR) | payer MEDICARE, OTHER, SELFPAY ==
[2017-05-02 00:28] VITALS: BP 141/89; PULSE 93; RESP 18; TEMP 36.3; BMI 17.0
[2017-05-03 08:36] VITALS: BP 149/90; PULSE 99; RESP 18; TEMP 36.9; BMI 17.0
--- NOTE | 2017-05-03 12:40 | PCM.WC.PN ---
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 level Status: Chronic Current Visit: Yes Code(s): M51.36 - Other intervertebral disc degeneration, lumbar region (3) Difficulty walking Status: Chronic Current Visit: Yes Code(s): R26.2 - Difficulty in walking, not elsewhere classified (4) Infected decubitus ulcer Status: Chronic Current Visit: Yes Qualifiers: Code(s): L89.90 - Pressure ulcer of unspecified site, unspecified stage; L08.9 - Local infection of the skin and subcutaneous tissue, unspecified (5) Nonhealing nonsurgical wound Status: Chronic Current Visit: Yes Code(s): T14.8 - Other injury of unspecified body region Type of Wound Date of Service: 05/03/17 Chief Complaint: 78-year-old white male emaciated living at home with his with many comorbidities. Patient has spinal stenosis so bad that he has no feeling in his rectum. Patient has frequent large stools. during the night, and it lays against the skin of his rectal area and causes denuded skin. Patient appears here with an small superficial ulcer on the coccyx area History of Wound: Patient has been evaluated by Dr. Hitchcock for possible surgical consult, but he feels that unless there is bone exposed to continue with ulcer care as prescribed. Nutrition has been an issue and he needs to continue nutritional efforts. And if he requires frequent ulcer care than because of incontinence then so be it Progress of Wound: Applied epi flex #1 last week and then patient proceeded to have diarrhea for 1 day following the application. It is a nurse practitioner was there and removed everything only because she said it was into the wound itself. She said she rinsed a lot but she was not sure if the skin application had was washed out. This week the ulcer looks pretty good we reapplied #2 epi fix to the wound and it seems like #1 did take a little bit and one corner the ulcer overall is developing well becoming smaller Removed a large portion of the thick callus and the ulcer is flatter this week. Does develop a lot of hyper granulation of the tissue around the edge of the ulcer like callus that has to be removed with nippers. His last pre-albumin at Dr. Dominguez office was 25 . No odor no redness noted. The patient has been offloading is much as possible. Patient is supplementing with high protein bars and diet, sggested [place] Instant breakfast with ice cream as a supplement and start vit C 1000 mg in chewies per day. Patient is also taking Z-hilary for wound healing. Slide epi fix #1 To the coccyx area tolerated well . - Physical Exam Vital Signs Temp Pulse Resp BP 98.4 F 99 18 149/90 H 05/03/17 08:36 05/03/17 08:36 05/03/17 08:36 05/03/17 08:36 General: Oriented x3, Cooperative, Well developed HEENT: Atraumatic, PERRLA Oral: Moist Mucosa Neck: Supple, No JVD Lungs: Clear to auscultation, Normal air movement Cardiovascular: Regular rate, Regular Rhythm Abdomen: Bowel Sounds Present, Soft, Non Tender, No Hepato-splenomegaly Extremities: No clubbing, No edema Skin: Ulcer/ Wound - Coccyx ulcer stage III Wound Measurements and Assessment WC - Nurse 1 - General Ulcer Measurement Start: 05/03/17 08:36 Freq: Status: Active Protocol: Activity Type Activity Date Activity User E-Sign Co-Sign Detail Recorded Client Recorded Date Recorded By Document 05/03/17 08:36 [id number] 05/03/17 08:39 05/03/17 08:36 Wound Center Nurse 1 [Ulcer Assessment] 1. sacral ulcer stg III -Combined with other wound No -Current Size (cm) - Length 1.3 -Current Size (cm) - Width 1.0 -Current Size (cm) - Depth 0.2 -Total Square Cm 1.30 -Photo Taken No -Epithelialization Small 1-33% -Tunneling No -Undermining/Tunneling No -Circular Undermining No -Classification - Thickness Full Thickness without Exposed Support Structure -Exudate Amt Small (1-33%) -Exudate Type Serosanguineous -Wound Margin Thickened -Granulation Amt Large (67-100%) -Granulation Quality [place] -Slough/Fibrin Yes -Necrosis Amt Small (1-33%) -Necrotic Tissue Type Adherent Slough -Structure Exposed Fascia Fat Layer Exposed -Texture (Pao-wound Skin Appearance) Callus -Moisture (Pao-wound Skin Appearance No Abnormality ) -Color (Pao-wound Skin Appearance) No Abnormality -Temperature (Pao-wound Skin No Abnormality Appearance) (Pt Warm) -Tenderness on Palpation (Pao-wound No Skin Appearance) -Ulcer Cleansing Rinsed/ Irrigated with Saline -Foul Odor after Cleansing No -Anesthetic Used 5% Lidocaine Gel [Edema Assessment] -Lower Limb Edema Present No WC - Nurse 2 - General Ulcer CM Notes Start: 05/03/17 08:36 Freq: Status: Active Protocol: Activity Type Activity Date Activity User E-Sign Co-Sign Detail Recorded Client Recorded Date Recorded By Document 05/03/17 08:52 MW [id number] 05/03/17 09:01 MW 05/03/17 08:52 Wound Center Nurse 2 [Procedure/Treatment] 1. sacral ulcer stg III -Time 08:59 -Correct Patient Yes -Correct Side, Site, Position Yes -Correct Procedure Yes -Procedure Performed Yes -Type of Procedure Debridement -Clinical Debridement Subcutaneous -Post Debridement Size (cm) - Length 1.3 -Post Debridement Size (cm) - Width 1.2 -Post Debridement Size (cm) - Depth 0.2 -Total Square Cm 1.56 -Wound/Ulcer Outcome Not Healed -Ulcer Cleansing Rinsed/ Irrigated with Saline -Foul Odor after Cleansing No -Type of bioengineered Tissue EPIFIX -Expiration Date 02/01/22 -Product Lot Number [id number] -Percent Used 100 -Saline Lot Number [id number] -Bleeding Controlled with Pressure -Treatment Response Procedure Tolerated Well [See Physician Procedure note for Specifics] Pain Scale: 0-10 Numeric [Pain] -Is Patient Pain Free? Yes Musculoskeletal: No Tenderness to Palpation of Joints or Extremities Lymphatic: No Cervical, Supraclavicular, or Inguinal Adenopathy Neurological: Cranial nerves II-XII grossly intact, Neuro grossly intact Psych/Mental Status: Normal Affect, Appropriate Debridement Note Post-Debridement Measurements/Treatment WC - Nurse 2 - General Ulcer CM Notes Start: 05/03/17 08:36 Freq: Status: Active Protocol: Activity Type Activity Date Activity User E-Sign Co-Sign Detail Recorded Client Recorded Date Recorded By Document 05/03/17 08:52 MW [id number] 05/03/17 09:01 MW 05/03/17 08:52 Wound Center Nurse 2 1. sacral ulcer stg III -Time 08:59 -Correct Patient Yes -Correct Side, Site, Position Yes -Correct Procedure Yes -Procedure Performed Yes -Type of Procedure Debridement -Clinical Debridement Subcutaneous -Post Debridement Size (cm) - Length 1.3 -Post Debridement Size (cm) - Width 1.2 -Post Debridement Size (cm) - Depth 0.2 -Total Square Cm 1.56 -Wound/Ulcer Outcome Not Healed -Ulcer Cleansing Rinsed/ Irrigated with Saline -Foul Odor after Cleansing No -Type of bioengineered Tissue EPIFIX -Expiration Date 02/01/22 -Product Lot Number [id number] -Percent Used 100 -Saline Lot Number [id number] -Bleeding Controlled with Pressure -Treatment Response Procedure Tolerated Well Pain Scale: 0-10 Numeric Is Patient Pain Free? 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 Malnutrition resolved. Difficulty walking. Infected decubitus ulcer resolved Plan: Epi-fix #2 Collagen hydrogel topically with veil ABD dressing and Medipore. continue to offload buttocks by lying flat in bed rather than in a chair as much as possible has a low air mattress. continue eating a highprotein diet and supplements. Follow-up 2 weeks\. [place] instant breakfast with ice cream. Vitamin C 500 mg 2 by mouth daily. Information entered by nursing staff reviewed. This document was created using a voice recognition system. Errors in punctuation, spelling and grammar may not have been corrected prior to saving.
--- NOTE | 2017-05-03 12:47 | PN.PCM_ITS ---
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 level Status: Chronic Current Visit: Yes Code(s): M51.36 - Other intervertebral disc degeneration, lumbar region (3) Difficulty walking Status: Chronic Current Visit: Yes Code(s): R26.2 - Difficulty in walking, not elsewhere classified (4) Infected decubitus ulcer Status: Chronic Current Visit: Yes Qualifiers: Code(s): L89.90 - Pressure ulcer of unspecified site, unspecified stage; L08.9 - Local infection of the skin and subcutaneous tissue, unspecified (5) Nonhealing nonsurgical wound Status: Chronic Current Visit: Yes Code(s): T14.8 - Other injury of unspecified body region Type of Wound Date of Service: 05/03/17 Chief Complaint: 78-year-old white male emaciated living at home with his with many comorbidities. Patient has spinal stenosis so bad that he has no feeling in his rectum. Patient has frequent large stools. during the night, and it lays against the skin of his rectal area and causes denuded skin. Patient appears here with an small superficial ulcer on the coccyx area History of Wound: Patient has been evaluated by Dr. Hitchcock for possible surgical consult, but he feels that unless there is bone exposed to continue with ulcer care as prescribed. Nutrition has been an issue and he needs to continue nutritional efforts. And if he requires frequent ulcer care than because of incontinence then so be it Progress of Wound: Applied epi flex #1 last week and then patient proceeded to have diarrhea for 1 day following the application. It is a nurse practitioner was there and removed everything only because she said it was into the wound itself. She said she rinsed a lot but she was not sure if the skin application had was washed out. This week the ulcer looks pretty good we reapplied #2 epi fix to the wound and it seems like #1 did take a little bit and one corner the ulcer overall is developing well becoming smaller Removed a large portion of the thick callus and the ulcer is flatter this week. Does develop a lot of hyper granulation of the tissue around the edge of the ulcer like callus that has to be removed with nippers. His last pre-albumin at Dr. Dominguez office was 25 . No odor no redness noted. The patient has been offloading is much as possible. Patient is supplementing with high protein bars and diet, sggested [place] Instant breakfast with ice cream as a supplement and start vit C 1000 mg in chewies per day. Patient is also taking Z-hilary for wound healing. Slide epi fix #1 To the coccyx area tolerated well . - Physical Exam Vital Signs Temp Pulse Resp BP 98.4 F 99 18 149/90 H 05/03/17 08:36 05/03/17 08:36 05/03/17 08:36 05/03/17 08:36 General: Oriented x3, Cooperative, Well developed HEENT: Atraumatic, PERRLA Oral: Moist Mucosa Neck: Supple, No JVD Lungs: Clear to auscultation, Normal air movement Cardiovascular: Regular rate, Regular Rhythm Abdomen: Bowel Sounds Present, Soft, Non Tender, No Hepato-splenomegaly Extremities: No clubbing, No edema Skin: Ulcer/ Wound - Coccyx ulcer stage III Wound Measurements and Assessment WC - Nurse 1 - General Ulcer Measurement Start: 05/03/17 08:36 Freq: Status: Active Protocol: Activity Type Activity Date Activity User E-Sign Co-Sign Detail Recorded Client Recorded Date Recorded By Document 05/03/17 08:36 [id number] 05/03/17 08:39 05/03/17 08:36 Wound Center Nurse 1 [Ulcer Assessment] 1. sacral ulcer stg III -Combined with other wound No -Current Size (cm) - Length 1.3 -Current Size (cm) - Width 1.0 -Current Size (cm) - Depth 0.2 -Total Square Cm 1.30 -Photo Taken No -Epithelialization Small 1-33% -Tunneling No -Undermining/Tunneling No -Circular Undermining No -Classification - Thickness Full Thickness without Exposed Support Structure -Exudate Amt Small (1-33%) -Exudate Type Serosanguineous -Wound Margin Thickened -Granulation Amt Large (67-100%) -Granulation Quality [place] -Slough/Fibrin Yes -Necrosis Amt Small (1-33%) -Necrotic Tissue Type Adherent Slough -Structure Exposed Fascia Fat Layer Exposed -Texture (Pao-wound Skin Appearance) Callus -Moisture (Pao-wound Skin Appearance No Abnormality ) -Color (Pao-wound Skin Appearance) No Abnormality -Temperature (Pao-wound Skin No Abnormality Appearance) (Pt Warm) -Tenderness on Palpation (Pao-wound No Skin Appearance) -Ulcer Cleansing Rinsed/ Irrigated with Saline -Foul Odor after Cleansing No -Anesthetic Used 5% Lidocaine Gel [Edema Assessment] -Lower Limb Edema Present No WC - Nurse 2 - General Ulcer CM Notes Start: 05/03/17 08:36 Freq: Status: Active Protocol: Activity Type Activity Date Activity User E-Sign Co-Sign Detail Recorded Client Recorded Date Recorded By Document 05/03/17 08:52 MW [id number] 05/03/17 09:01 MW 05/03/17 08:52 Wound Center Nurse 2 [Procedure/Treatment] 1. sacral ulcer stg III -Time 08:59 -Correct Patient Yes -Correct Side, Site, Position Yes -Correct Procedure Yes -Procedure Performed Yes -Type of Procedure Debridement -Clinical Debridement Subcutaneous -Post Debridement Size (cm) - Length 1.3 -Post Debridement Size (cm) - Width 1.2 -Post Debridement Size (cm) - Depth 0.2 -Total Square Cm 1.56 -Wound/Ulcer Outcome Not Healed -Ulcer Cleansing Rinsed/ Irrigated with Saline -Foul Odor after Cleansing No -Type of bioengineered Tissue EPIFIX -Expiration Date 02/01/22 -Product Lot Number [id number] -Percent Used 100 -Saline Lot Number [id number] -Bleeding Controlled with Pressure -Treatment Response Procedure Tolerated Well [See Physician Procedure note for Specifics] Pain Scale: 0-10 Numeric [Pain] -Is Patient Pain Free? Yes Musculoskeletal: No Tenderness to Palpation of Joints or Extremities Lymphatic: No Cervical, Supraclavicular, or Inguinal Adenopathy Neurological: Cranial nerves II-XII grossly intact, Neuro grossly intact Psych/Mental Status: Normal Affect, Appropriate Debridement Note Post-Debridement Measurements/Treatment WC - Nurse 2 - General Ulcer CM Notes Start: 05/03/17 08:36 Freq: Status: Active Protocol: Activity Type Activity Date Activity User E-Sign Co-Sign Detail Recorded Client Recorded Date Recorded By Document 05/03/17 08:52 MW [id number] 05/03/17 09:01 MW 05/03/17 08:52 Wound Center Nurse 2 1. sacral ulcer stg III -Time 08:59 -Correct Patient Yes -Correct Side, Site, Position Yes -Correct Procedure Yes -Procedure Performed Yes -Type of Procedure Debridement -Clinical Debridement Subcutaneous -Post Debridement Size (cm) - Length 1.3 -Post Debridement Size (cm) - Width 1.2 -Post Debridement Size (cm) - Depth 0.2 -Total Square Cm 1.56 -Wound/Ulcer Outcome Not Healed -Ulcer Cleansing Rinsed/ Irrigated with Saline -Foul Odor after Cleansing No -Type of bioengineered Tissue EPIFIX -Expiration Date 02/01/22 -Product Lot Number [id number] -Percent Used 100 -Saline Lot Number [id number] -Bleeding Controlled with Pressure -Treatment Response Procedure Tolerated Well Pain Scale: 0-10 Numeric Is Patient Pain Free? 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 Malnutrition resolved. Difficulty walking. Infected decubitus ulcer resolved Plan: Epi-fix #2 Collagen hydrogel topically with veil ABD dressing and Medipore. continue to offload buttocks by lying flat in bed rather than in a chair as much as possible has a low air mattress. continue eating a highprotein diet and supplements. Follow-up 2 weeks\. [place] instant breakfast with ice cream. Vitamin C 500 mg 2 by mouth daily. Information entered by nursing staff reviewed. This document was created using a voice recognition system. Errors in punctuation, spelling and grammar may not have been corrected prior to saving.
[2017-05-17 08:22] VITALS: BP 138/87; PULSE 103; RESP 18; TEMP 36.8; BMI 17.0
--- NOTE | 2017-05-17 09:40 | PCM.WC.PN ---
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 level Status: Chronic Current Visit: Yes Code(s): M51.36 - Other intervertebral disc degeneration, lumbar region (3) Difficulty walking Status: Chronic Current Visit: Yes Code(s): R26.2 - Difficulty in walking, not elsewhere classified (4) Infected decubitus ulcer Status: Chronic Current Visit: Yes Qualifiers: Code(s): L89.90 - Pressure ulcer of unspecified site, unspecified stage; L08.9 - Local infection of the skin and subcutaneous tissue, unspecified (5) Nonhealing nonsurgical wound Status: Chronic Current Visit: Yes Code(s): T14.8 - Other injury of unspecified body region Type of Wound Date of Service: 05/17/17 Chief Complaint: 78-year-old white male emaciated living at home with his with many comorbidities. Patient has spinal stenosis so bad that he has no feeling in his rectum. Patient has frequent large stools. during the night, and it lays against the skin of his rectal area and causes denuded skin. Patient appears here with an small superficial ulcer on the coccyx area History of Wound: Patient has been evaluated by Dr. Hitchcock for possible surgical consult, but he feels that unless there is bone exposed to continue with ulcer care as prescribed. Nutrition has been an issue and he needs to continue nutritional efforts. And if he requires frequent ulcer care than because of incontinence then so be it Progress of Wound: Applied epi flix# 2 2 weeks ago. This week the ulcer looks pretty good we reapplied #3 epi fix to the wound and it seems like skin buds are forming. Still making a large portion of the thick callus around the edge but the ulcer is flatter this week. His last pre-albumin at Dr. Dominguez office was 25 . No odor no redness noted. The patient has been offloading is much as possible. Patient is supplementing with high protein bars and diet, sggested [place] Instant breakfast with ice cream as a supplement and start vit C 1000 mg in chewies per day. Patient is also taking Z-hilary for wound healing. - Physical Exam Vital Signs Temp Pulse Resp BP 98.2 F 103 H 18 138/87 H 03/16/18 08:22 05/17/17 08:22 05/17/17 08:22 05/17/17 08:22 General: Oriented x3, Cooperative, Well developed HEENT: Atraumatic, PERRLA Oral: Moist Mucosa Neck: Supple, No JVD Lungs: Clear to auscultation, Normal air movement Cardiovascular: Regular rate, Regular Rhythm Abdomen: Bowel Sounds Present, Soft, Non Tender, No Hepato-splenomegaly Extremities: No clubbing, No edema Skin: Ulcer/ Wound - Coccyx ulcer Wound Measurements and Assessment WC - Nurse 1 - General Ulcer Measurement Start: 05/03/17 08:36 Freq: Status: Active Protocol: Activity Type Activity Date Activity User E-Sign Co-Sign Detail Recorded Client Recorded Date Recorded By Document 05/17/17 08:22 [id number] 05/17/17 08:24 TM 05/17/17 08:22 Wound Center Nurse 1 [Ulcer Assessment] 1. sacral ulcer stg III -Combined with other wound No -Current Size (cm) - Length 1.0 -Current Size (cm) - Width 1.1 -Current Size (cm) - Depth 0.2 -Total Square Cm 1.10 -Date of Last Picture (Recall this 05/17/17 field) -Photo Taken Yes -Epithelialization None Present -Tunneling No -Undermining/Tunneling No -Circular Undermining No -Classification - Thickness Full Thickness without Exposed Support Structure -Exudate Amt Small (1-33%) -Exudate Type Serosanguineous -Wound Margin Fibrotic Scar, Thickened Scar -Granulation Amt Large (67-100%) -Granulation Quality [place] -Slough/Fibrin Yes -Necrosis Amt Small (1-33%) -Necrotic Tissue Type Adherent Slough -Structure Exposed Fascia Fat Layer Exposed -Texture (Pao-wound Skin Appearance) Callus -Moisture (Pao-wound Skin Appearance Maceration ) -Color (Pao-wound Skin Appearance) No Abnormality -Temperature (Pao-wound Skin No Abnormality Appearance) (Pt Warm) -Tenderness on Palpation (Pao-wound No Skin Appearance) -Ulcer Cleansing Rinsed/ Irrigated with Saline -Foul Odor after Cleansing No -Anesthetic Used 5% Lidocaine Gel [Edema Assessment] -Lower Limb Edema Present No WC - Nurse 2 - General Ulcer CM Notes Start: 03/02/18 08:36 Freq: Status: Active Protocol: Activity Type Activity Date Activity User E-Sign Co-Sign Detail Recorded Client Recorded Date Recorded By Document 05/17/17 08:43 MW [id number] 05/17/17 08:57 MW 05/17/17 08:43 Wound Center Nurse 2 [Procedure/Treatment] 1. sacral ulcer stg III -Time 08:45 -Correct Patient Yes -Correct Side, Site, Position Yes -Correct Procedure Yes -Procedure Performed Yes -Type of Procedure Debridement -Clinical Debridement Subcutaneous -Post Debridement Size (cm) - Length 1.0 -Post Debridement Size (cm) - Width 1.1 -Post Debridement Size (cm) - Depth 0.2 -Total Square Cm 1.10 -Wound/Ulcer Outcome Not Healed -Ulcer Cleansing Rinsed/ Irrigated with Saline -Foul Odor after Cleansing No -Bioengineered Tissue Yes -Type of bioengineered Tissue EPIFIX -Expiration Date 03/04/22 -Product Lot Number [id number] -Percent Used 75 -Saline Lot Number [id number] -Bleeding Controlled with Pressure -Treatment Response Procedure Tolerated Well [See Physician Procedure note for Specifics] Pain Scale: 0-10 Numeric [Pain] -Is Patient Pain Free? Yes Musculoskeletal: No Tenderness to Palpation of Joints or Extremities Lymphatic: No Cervical, Supraclavicular, or Inguinal Adenopathy Neurological: Cranial nerves II-XII grossly intact, Neuro grossly intact Psych/Mental Status: Normal Affect, Appropriate, Alert and oriented to time, place, person, mood and affect Debridement Note Post-Debridement Measurements/Treatment WC - Nurse 2 - General Ulcer CM Notes Start: 05/03/17 08:36 Freq: Status: Active Protocol: Activity Type Activity Date Activity User E-Sign Co-Sign Detail Recorded Client Recorded Date Recorded By Document 05/03/17 08:52 MW [id number] 05/03/17 09:01 MW Document 05/17/17 08:43 MW [id number] 05/17/17 08:57 MW 05/03/17 05/17/17 08:52 08:43 Wound Center Nurse 2 1. sacral ulcer stg III -Time 08:59 08:45 -Correct Patient Yes Yes -Correct Side, Site, Position Yes Yes -Correct Procedure Yes Yes -Procedure Performed Yes Yes -Type of Procedure Debridement Debridement -Clinical Debridement Subcutaneous Subcutaneous -Post Debridement Size (cm) - Length 1.3 1.0 -Post Debridement Size (cm) - Width 1.2 1.1 -Post Debridement Size (cm) - Depth 0.2 0.2 -Total Square Cm 1.56 1.10 -Wound/Ulcer Outcome Not Healed Not Healed -Ulcer Cleansing Rinsed/ Rinsed/ Irrigated with Irrigated with Saline Saline -Foul Odor after Cleansing No No -Bioengineered Tissue Yes -Type of bioengineered Tissue EPIFIX EPIFIX -Expiration Date 02/01/22 03/04/22 -Product Lot Number [id number] -Percent Used 100 75 -Saline Lot Number [id number] -Bleeding Controlled with Pressure Pressure -Treatment Response Procedure Procedure Tolerated Well Tolerated Well Pain Scale: 0-10 Numeric Is Patient Pain Free? 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 Malnutrition resolved. Difficulty walking. Infected decubitus ulcer resolved Plan: Epi-fix #3 Collagen hydrogel topically with veil ABD dressing and Medipore. continue to offload buttocks by lying flat in bed rather than in a chair as much as possible has a low air mattress. continue eating a highprotein diet and supplements. Follow-up 1 weeks\. [place] instant breakfast with ice cream. Vitamin C 500 mg 2 by mouth daily. Information entered by nursing staff reviewed. This document was created using a voice recognition system. Errors in punctuation, spelling and grammar may not have been corrected prior to saving.
--- NOTE | 2017-05-17 09:46 | PN.PCM_ITS ---
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 level Status: Chronic Current Visit: Yes Code(s): M51.36 - Other intervertebral disc degeneration, lumbar region (3) Difficulty walking Status: Chronic Current Visit: Yes Code(s): R26.2 - Difficulty in walking, not elsewhere classified (4) Infected decubitus ulcer Status: Chronic Current Visit: Yes Qualifiers: Code(s): L89.90 - Pressure ulcer of unspecified site, unspecified stage; L08.9 - Local infection of the skin and subcutaneous tissue, unspecified (5) Nonhealing nonsurgical wound Status: Chronic Current Visit: Yes Code(s): T14.8 - Other injury of unspecified body region Type of Wound Date of Service: 05/17/17 Chief Complaint: 78-year-old white male emaciated living at home with his with many comorbidities. Patient has spinal stenosis so bad that he has no feeling in his rectum. Patient has frequent large stools. during the night, and it lays against the skin of his rectal area and causes denuded skin. Patient appears here with an small superficial ulcer on the coccyx area History of Wound: Patient has been evaluated by Dr. Hitchcock for possible surgical consult, but he feels that unless there is bone exposed to continue with ulcer care as prescribed. Nutrition has been an issue and he needs to continue nutritional efforts. And if he requires frequent ulcer care than because of incontinence then so be it Progress of Wound: Applied epi flix# 2 2 weeks ago. This week the ulcer looks pretty good we reapplied #3 epi fix to the wound and it seems like skin buds are forming. Still making a large portion of the thick callus around the edge but the ulcer is flatter this week. His last pre-albumin at Dr. Dominguez office was 25 . No odor no redness noted. The patient has been offloading is much as possible. Patient is supplementing with high protein bars and diet, sggested [place] Instant breakfast with ice cream as a supplement and start vit C 1000 mg in chewies per day. Patient is also taking Z-hilary for wound healing. - Physical Exam Vital Signs Temp Pulse Resp BP 98.2 F 103 H 18 138/87 H 03/16/18 08:22 05/17/17 08:22 05/17/17 08:22 05/17/17 08:22 General: Oriented x3, Cooperative, Well developed HEENT: Atraumatic, PERRLA Oral: Moist Mucosa Neck: Supple, No JVD Lungs: Clear to auscultation, Normal air movement Cardiovascular: Regular rate, Regular Rhythm Abdomen: Bowel Sounds Present, Soft, Non Tender, No Hepato-splenomegaly Extremities: No clubbing, No edema Skin: Ulcer/ Wound - Coccyx ulcer Wound Measurements and Assessment WC - Nurse 1 - General Ulcer Measurement Start: 05/03/17 08:36 Freq: Status: Active Protocol: Activity Type Activity Date Activity User E-Sign Co-Sign Detail Recorded Client Recorded Date Recorded By Document 05/17/17 08:22 [id number] 05/17/17 08:24 TM 05/17/17 08:22 Wound Center Nurse 1 [Ulcer Assessment] 1. sacral ulcer stg III -Combined with other wound No -Current Size (cm) - Length 1.0 -Current Size (cm) - Width 1.1 -Current Size (cm) - Depth 0.2 -Total Square Cm 1.10 -Date of Last Picture (Recall this 05/17/17 field) -Photo Taken Yes -Epithelialization None Present -Tunneling No -Undermining/Tunneling No -Circular Undermining No -Classification - Thickness Full Thickness without Exposed Support Structure -Exudate Amt Small (1-33%) -Exudate Type Serosanguineous -Wound Margin Fibrotic Scar, Thickened Scar -Granulation Amt Large (67-100%) -Granulation Quality [place] -Slough/Fibrin Yes -Necrosis Amt Small (1-33%) -Necrotic Tissue Type Adherent Slough -Structure Exposed Fascia Fat Layer Exposed -Texture (Pao-wound Skin Appearance) Callus -Moisture (Pao-wound Skin Appearance Maceration ) -Color (Pao-wound Skin Appearance) No Abnormality -Temperature (Pao-wound Skin No Abnormality Appearance) (Pt Warm) -Tenderness on Palpation (Pao-wound No Skin Appearance) -Ulcer Cleansing Rinsed/ Irrigated with Saline -Foul Odor after Cleansing No -Anesthetic Used 5% Lidocaine Gel [Edema Assessment] -Lower Limb Edema Present No WC - Nurse 2 - General Ulcer CM Notes Start: 03/02/18 08:36 Freq: Status: Active Protocol: Activity Type Activity Date Activity User E-Sign Co-Sign Detail Recorded Client Recorded Date Recorded By Document 05/17/17 08:43 MW [id number] 05/17/17 08:57 MW 05/17/17 08:43 Wound Center Nurse 2 [Procedure/Treatment] 1. sacral ulcer stg III -Time 08:45 -Correct Patient Yes -Correct Side, Site, Position Yes -Correct Procedure Yes -Procedure Performed Yes -Type of Procedure Debridement -Clinical Debridement Subcutaneous -Post Debridement Size (cm) - Length 1.0 -Post Debridement Size (cm) - Width 1.1 -Post Debridement Size (cm) - Depth 0.2 -Total Square Cm 1.10 -Wound/Ulcer Outcome Not Healed -Ulcer Cleansing Rinsed/ Irrigated with Saline -Foul Odor after Cleansing No -Bioengineered Tissue Yes -Type of bioengineered Tissue EPIFIX -Expiration Date 03/04/22 -Product Lot Number [id number] -Percent Used 75 -Saline Lot Number [id number] -Bleeding Controlled with Pressure -Treatment Response Procedure Tolerated Well [See Physician Procedure note for Specifics] Pain Scale: 0-10 Numeric [Pain] -Is Patient Pain Free? Yes Musculoskeletal: No Tenderness to Palpation of Joints or Extremities Lymphatic: No Cervical, Supraclavicular, or Inguinal Adenopathy Neurological: Cranial nerves II-XII grossly intact, Neuro grossly intact Psych/Mental Status: Normal Affect, Appropriate, Alert and oriented to time, place, person, mood and affect Debridement Note Post-Debridement Measurements/Treatment WC - Nurse 2 - General Ulcer CM Notes Start: 05/03/17 08:36 Freq: Status: Active Protocol: Activity Type Activity Date Activity User E-Sign Co-Sign Detail Recorded Client Recorded Date Recorded By Document 05/03/17 08:52 MW [id number] 05/03/17 09:01 MW Document 05/17/17 08:43 MW [id number] 05/17/17 08:57 MW 05/03/17 05/17/17 08:52 08:43 Wound Center Nurse 2 1. sacral ulcer stg III -Time 08:59 08:45 -Correct Patient Yes Yes -Correct Side, Site, Position Yes Yes -Correct Procedure Yes Yes -Procedure Performed Yes Yes -Type of Procedure Debridement Debridement -Clinical Debridement Subcutaneous Subcutaneous -Post Debridement Size (cm) - Length 1.3 1.0 -Post Debridement Size (cm) - Width 1.2 1.1 -Post Debridement Size (cm) - Depth 0.2 0.2 -Total Square Cm 1.56 1.10 -Wound/Ulcer Outcome Not Healed Not Healed -Ulcer Cleansing Rinsed/ Rinsed/ Irrigated with Irrigated with Saline Saline -Foul Odor after Cleansing No No -Bioengineered Tissue Yes -Type of bioengineered Tissue EPIFIX EPIFIX -Expiration Date 02/01/22 03/04/22 -Product Lot Number [id number] -Percent Used 100 75 -Saline Lot Number [id number] -Bleeding Controlled with Pressure Pressure -Treatment Response Procedure Procedure Tolerated Well Tolerated Well Pain Scale: 0-10 Numeric Is Patient Pain Free? 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 Malnutrition resolved. Difficulty walking. Infected decubitus ulcer resolved Plan: Epi-fix #3 Collagen hydrogel topically with veil ABD dressing and Medipore. continue to offload buttocks by lying flat in bed rather than in a chair as much as possible has a low air mattress. continue eating a highprotein diet and supplements. Follow-up 1 weeks\. [place] instant breakfast with ice cream. Vitamin C 500 mg 2 by mouth daily. Information entered by nursing staff reviewed. This document was created using a voice recognition system. Errors in punctuation, spelling and grammar may not have been corrected prior to saving.
[2017-05-24 08:07] VITALS: BP 137/76; PULSE 106; RESP 16; TEMP 35.4; BMI 17.0
--- NOTE | 2017-05-24 09:17 | PCM.WC.PN ---
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 level Status: Chronic Current Visit: Yes Code(s): M51.36 - Other intervertebral disc degeneration, lumbar region (3) Difficulty walking Status: Chronic Current Visit: Yes Code(s): R26.2 - Difficulty in walking, not elsewhere classified (4) Infected decubitus ulcer Status: Chronic Current Visit: Yes Qualifiers: Code(s): L89.90 - Pressure ulcer of unspecified site, unspecified stage; L08.9 - Local infection of the skin and subcutaneous tissue, unspecified (5) Nonhealing nonsurgical wound Status: Chronic Current Visit: Yes Code(s): T14.8 - Other injury of unspecified body region Type of Wound Date of Service: 05/24/17 Chief Complaint: 78-year-old white male emaciated living at home with his with many comorbidities. Patient has spinal stenosis so bad that he has no feeling in his rectum. Patient has frequent large stools. during the night, and it lays against the skin of his rectal area and causes denuded skin. Patient appears here with an small superficial ulcer on the coccyx area History of Wound: Patient has been evaluated by Dr. Hitchcock for possible surgical consult, but he feels that unless there is bone exposed to continue with ulcer care as prescribed. Nutrition has been an issue and he needs to continue nutritional efforts. And if he requires frequent ulcer care than because of incontinence then so be it Progress of Wound: Applied epi flix#4 this week the ulcer looks pretty good . New skin buds are forming. Still making a large portion of the thick callus around the edge but the ulcer is flatter this week. His last pre-albumin at Dr. Dominguez office was 25 . No odor no redness noted. The patient has been offloading is much as possible. Patient is supplementing with high protein bars and diet, sggested [place] Instant breakfast with ice cream as a supplement and start vit C 1000 mg in chewies per day. Patient is also taking Z-hilary for wound healing. - Physical Exam Vital Signs Temp Pulse Resp BP 95.7 F L 106 H 16 137/76 H 05/24/17 08:07 05/24/17 08:07 05/24/17 08:07 05/24/17 08:07 General: Oriented x3, Cooperative, Well developed HEENT: Atraumatic, PERRLA Oral: Moist Mucosa Neck: Supple, No JVD Lungs: Clear to auscultation, Normal air movement Cardiovascular: Regular rate, Regular Rhythm Abdomen: Bowel Sounds Present, Soft, Non Tender, No Hepato-splenomegaly Extremities: No clubbing, No edema Skin: Ulcer/ Wound - coccyx ulcer Wound Measurements and Assessment WC - Nurse 1 - General Ulcer Measurement Start: 05/03/17 08:36 Freq: Status: Active Protocol: Activity Type Activity Date Activity User E-Sign Co-Sign Detail Recorded Client Recorded Date Recorded By Document 05/24/17 08:07 [facility] [id number] 05/24/17 08:15 BMF 05/24/17 08:07 Wound Center Nurse 1 [Ulcer Assessment] 1. sacral ulcer stg III -Combined with other wound No -Current Size (cm) - Length 1.3 -Current Size (cm) - Width 1 -Current Size (cm) - Depth 0.2 -Total Square Cm 1.3 -Photo Taken No -Epithelialization None Present -Tunneling No -Undermining/Tunneling No -Exudate Amt Small (1-33%) -Exudate Type Serosanguineous -Wound Margin Distinct, Outline Attached -Granulation Amt Large (67-100%) -Granulation Quality [place] -Slough/Fibrin Yes -Necrosis Amt Small (1-33%) -Necrotic Tissue Type Adherent Slough -Structure Exposed None/Limited to Skin Breakdown -Texture (Pao-wound Skin Appearance) Callus Scarring Rash -Moisture (Pao-wound Skin Appearance Dry/Scaly ) -Color (Pao-wound Skin Appearance) Erythema -Temperature (Pao-wound Skin No Abnormality Appearance) (Pt Warm) -Tenderness on Palpation (Pao-wound No Skin Appearance) -Ulcer Cleansing Rinsed/ Irrigated with Saline -Foul Odor after Cleansing No -Anesthetic Used 4% Lidocaine Solution WC - Nurse 2 - General Ulcer CM Notes Start: 05/03/17 08:36 Freq: Status: Active Protocol: Activity Type Activity Date Activity User E-Sign Co-Sign Detail Recorded Client Recorded Date Recorded By Document 05/24/17 08:33 MW [id number] 05/24/17 08:35 MW 05/24/17 08:33 Wound Center Nurse 2 [Procedure/Treatment] -Time 08:33 -Correct Patient Yes -Correct Side, Site, Position Yes -Correct Procedure Yes -Procedure Performed Yes -Type of Procedure Debridement -Clinical Debridement Subcutaneous -Post Debridement Size (cm) - Length 1.0 -Post Debridement Size (cm) - Width 1.7 -Post Debridement Size (cm) - Depth 0.2 -Total Square Cm 1.70 -Wound/Ulcer Outcome Not Healed -Ulcer Cleansing Rinsed/ Irrigated with Saline -Foul Odor after Cleansing No -Bioengineered Tissue Yes -Type of bioengineered Tissue EPIFIX -Expiration Date 03/04/22 -Product Lot Number [id number] -Percent Used 75 -Saline Lot Number [id number] -Bleeding Controlled with Pressure -Treatment Response Procedure Tolerated Well [See Physician Procedure note for Specifics] Pain Scale: 0-10 Numeric [Pain] -Is Patient Pain Free? Yes Musculoskeletal: No Tenderness to Palpation of Joints or Extremities Lymphatic: No Cervical, Supraclavicular, or Inguinal Adenopathy Neurological: Cranial nerves II-XII grossly intact, Neuro grossly intact Psych/Mental Status: Normal Affect, Appropriate, Alert and oriented to time, place, person, mood and affect Debridement Note Post-Debridement Measurements/Treatment WC - Nurse 2 - General Ulcer CM Notes Start: 05/03/17 08:36 Freq: Status: Active Protocol: Activity Type Activity Date Activity User E-Sign Co-Sign Detail Recorded Client Recorded Date Recorded By Document 05/03/17 08:52 MW [id number] 05/03/17 09:01 MW Document 05/17/17 08:43 MW [id number] 05/17/17 08:57 MW Document 05/24/17 08:33 MW [id number] 05/24/17 08:35 MW 05/03/17 05/17/17 05/24/17 08:52 08:43 08:33 Wound Center Nurse 2 1. sacral ulcer stg III -Time 08:59 08:45 08:33 -Correct Patient Yes Yes Yes -Correct Side, Site, Position Yes Yes Yes -Correct Procedure Yes Yes Yes -Procedure Performed Yes Yes Yes -Type of Procedure Debridement Debridement Debridement -Clinical Debridement Subcutaneous Subcutaneous Subcutaneous -Post Debridement Size (cm) - Length 1.3 1.0 1.0 -Post Debridement Size (cm) - Width 1.2 1.1 1.7 -Post Debridement Size (cm) - Depth 0.2 0.2 0.2 -Total Square Cm 1.56 1.10 1.70 -Wound/Ulcer Outcome Not Healed Not Healed Not Healed -Ulcer Cleansing Rinsed/ Rinsed/ Rinsed/ Irrigated with Irrigated with Irrigated with Saline Saline Saline -Foul Odor after Cleansing No No No -Bioengineered Tissue Yes Yes -Type of bioengineered Tissue EPIFIX EPIFIX EPIFIX -Expiration Date 02/01/22 03/04/22 03/04/22 -Product Lot Number [id number] -Percent Used 100 75 75 -Saline Lot Number [id number] -Bleeding Controlled with Pressure Pressure Pressure -Treatment Response Procedure Procedure Procedure Tolerated Well Tolerated Well Tolerated Well Pain Scale: 0-10 Numeric Is Patient Pain Free? 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 Malnutrition resolved. Difficulty walking. Infected decubitus ulcer resolved Plan: Epi-fix #4 with veil ABD dressing and Medipore. continue to offload buttocks by lying flat in bed rather than in a chair as much as possible has a low air mattress. continue eating a highprotein diet and supplements. Follow-up 1 weeks\. [place] instant breakfast with ice cream. Vitamin C 500 mg 2 by mouth daily. Information entered by nursing staff reviewed. This document was created using a voice recognition system. Errors in punctuation, spelling and grammar may not have been corrected prior to saving.
--- NOTE | 2017-05-24 09:21 | PN.PCM_ITS ---
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 level Status: Chronic Current Visit: Yes Code(s): M51.36 - Other intervertebral disc degeneration, lumbar region (3) Difficulty walking Status: Chronic Current Visit: Yes Code(s): R26.2 - Difficulty in walking, not elsewhere classified (4) Infected decubitus ulcer Status: Chronic Current Visit: Yes Qualifiers: Code(s): L89.90 - Pressure ulcer of unspecified site, unspecified stage; L08.9 - Local infection of the skin and subcutaneous tissue, unspecified (5) Nonhealing nonsurgical wound Status: Chronic Current Visit: Yes Code(s): T14.8 - Other injury of unspecified body region Type of Wound Date of Service: 05/24/17 Chief Complaint: 78-year-old white male emaciated living at home with his with many comorbidities. Patient has spinal stenosis so bad that he has no feeling in his rectum. Patient has frequent large stools. during the night, and it lays against the skin of his rectal area and causes denuded skin. Patient appears here with an small superficial ulcer on the coccyx area History of Wound: Patient has been evaluated by Dr. Hitchcock for possible surgical consult, but he feels that unless there is bone exposed to continue with ulcer care as prescribed. Nutrition has been an issue and he needs to continue nutritional efforts. And if he requires frequent ulcer care than because of incontinence then so be it Progress of Wound: Applied epi flix#4 this week the ulcer looks pretty good . New skin buds are forming. Still making a large portion of the thick callus around the edge but the ulcer is flatter this week. His last pre-albumin at Dr. Dominguez office was 25 . No odor no redness noted. The patient has been offloading is much as possible. Patient is supplementing with high protein bars and diet, sggested [place] Instant breakfast with ice cream as a supplement and start vit C 1000 mg in chewies per day. Patient is also taking Z -hilary for wound healing. - Physical Exam Vital Signs Temp Pulse Resp BP 95.7 F L 106 H 16 137/76 H 05/24/17 08:07 05/24/17 08:07 05/24/17 08:07 05/24/17 08:07 General: Oriented x3, Cooperative, Well developed HEENT: Atraumatic, PERRLA Oral: Moist Mucosa Neck: Supple, No JVD Lungs: Clear to auscultation, Normal air movement Cardiovascular: Regular rate, Regular Rhythm Abdomen: Bowel Sounds Present, Soft, Non Tender, No Hepato-splenomegaly Extremities: No clubbing, No edema Skin: Ulcer/ Wound - coccyx ulcer Wound Measurements and Assessment WC - Nurse 1 - General Ulcer Measurement Start: 05/03/17 08:36 Freq: Status: Active Protocol: Activity Type Activity Date Activity User E-Sign Co-Sign Detail Recorded Client Recorded Date Recorded By Document 05/24/17 08:07 [facility] [id number] 05/24/17 08:15 BMF 05/24/17 08:07 Wound Center Nurse 1 [Ulcer Assessment] 1. sacral ulcer stg III -Combined with other wound No -Current Size (cm) - Length 1.3 -Current Size (cm) - Width 1 -Current Size (cm) - Depth 0.2 -Total Square Cm 1.3 -Photo Taken No -Epithelialization None Present -Tunneling No -Undermining/Tunneling No -Exudate Amt Small (1-33%) -Exudate Type Serosanguineous -Wound Margin Distinct, Outline Attached -Granulation Amt Large (67-100%) -Granulation Quality [place] -Slough/Fibrin Yes -Necrosis Amt Small (1-33%) -Necrotic Tissue Type Adherent Slough -Structure Exposed None/Limited to Skin Breakdown -Texture (Pao-wound Skin Appearance) Callus Scarring Rash -Moisture (Pao-wound Skin Appearance Dry/Scaly ) -Color (Pao-wound Skin Appearance) Erythema -Temperature (Pao-wound Skin No Abnormality Appearance) (Pt Warm) -Tenderness on Palpation (Pao-wound No Skin Appearance) -Ulcer Cleansing Rinsed/ Irrigated with Saline -Foul Odor after Cleansing No -Anesthetic Used 4% Lidocaine Solution WC - Nurse 2 - General Ulcer CM Notes Start: 05/03/17 08:36 Freq: Status: Active Protocol: Activity Type Activity Date Activity User E-Sign Co-Sign Detail Recorded Client Recorded Date Recorded By Document 05/24/17 08:33 MW [id number] 05/24/17 08:35 MW 05/24/17 08:33 Wound Center Nurse 2 [Procedure/Treatment] -Time 08:33 -Correct Patient Yes -Correct Side, Site, Position Yes -Correct Procedure Yes -Procedure Performed Yes -Type of Procedure Debridement -Clinical Debridement Subcutaneous -Post Debridement Size (cm) - Length 1.0 -Post Debridement Size (cm) - Width 1.7 -Post Debridement Size (cm) - Depth 0.2 -Total Square Cm 1.70 -Wound/Ulcer Outcome Not Healed -Ulcer Cleansing Rinsed/ Irrigated with Saline -Foul Odor after Cleansing No -Bioengineered Tissue Yes -Type of bioengineered Tissue EPIFIX -Expiration Date 03/04/22 -Product Lot Number [id number] -Percent Used 75 -Saline Lot Number [id number] -Bleeding Controlled with Pressure -Treatment Response Procedure Tolerated Well [See Physician Procedure note for Specifics] Pain Scale: 0-10 Numeric [Pain] -Is Patient Pain Free? Yes Musculoskeletal: No Tenderness to Palpation of Joints or Extremities Lymphatic: No Cervical, Supraclavicular, or Inguinal Adenopathy Neurological: Cranial nerves II-XII grossly intact, Neuro grossly intact Psych/Mental Status: Normal Affect, Appropriate, Alert and oriented to time, place, person, mood and affect Debridement Note Post-Debridement Measurements/Treatment WC - Nurse 2 - General Ulcer CM Notes Start: 05/03/17 08:36 Freq: Status: Active Protocol: Activity Type Activity Date Activity User E-Sign Co-Sign Detail Recorded Client Recorded Date Recorded By Document 05/03/17 08:52 MW [id number] 05/03/17 09:01 MW Document 05/17/17 08:43 MW [id number] 05/17/17 08:57 MW Document 05/24/17 08:33 MW [id number] 05/24/17 08:35 MW 05/03/17 05/17/17 05/24/17 08:52 08:43 08:33 Wound Center Nurse 2 1. sacral ulcer stg III -Time 08:59 08:45 08:33 -Correct Patient Yes Yes Yes -Correct Side, Site, Position Yes Yes Yes -Correct Procedure Yes Yes Yes -Procedure Performed Yes Yes Yes -Type of Procedure Debridement Debridement Debridement -Clinical Debridement Subcutaneous Subcutaneous Subcutaneous -Post Debridement Size (cm) - Length 1.3 1.0 1.0 -Post Debridement Size (cm) - Width 1.2 1.1 1.7 -Post Debridement Size (cm) - Depth 0.2 0.2 0.2 -Total Square Cm 1.56 1.10 1.70 -Wound/Ulcer Outcome Not Healed Not Healed Not Healed -Ulcer Cleansing Rinsed/ Rinsed/ Rinsed/ Irrigated with Irrigated with Irrigated with Saline Saline Saline -Foul Odor after Cleansing No No No -Bioengineered Tissue Yes Yes -Type of bioengineered Tissue EPIFIX EPIFIX EPIFIX -Expiration Date 02/01/22 03/04/22 03/04/22 -Product Lot Number [id number] -Percent Used 100 75 75 -Saline Lot Number [id number] -Bleeding Controlled with Pressure Pressure Pressure -Treatment Response Procedure Procedure Procedure Tolerated Well Tolerated Well Tolerated Well Pain Scale: 0-10 Numeric Is Patient Pain Free? 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 Malnutrition resolved. Difficulty walking. Infected decubitus ulcer resolved Plan: Epi-fix #4 with veil ABD dressing and Medipore. continue to offload buttocks by lying flat in bed rather than in a chair as much as possible has a low air mattress. continue eating a highprotein diet and supplements. Follow- up 1 weeks\. [place] instant breakfast with ice cream. Vitamin C 500 mg 2 by mouth daily. Information entered by nursing staff reviewed. This document was created using a voice recognition system. Errors in punctuation, spelling and grammar may not have been corrected prior to saving.
[2017-05-31 08:21] VITALS: BP 141/96; PULSE 99; RESP 18; TEMP 36.3; BMI 17.0
--- NOTE | 2017-05-31 09:19 | PCM.WC.PN ---
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 level Status: Chronic Current Visit: Yes Code(s): M51.36 - Other intervertebral disc degeneration, lumbar region (3) Difficulty walking Status: Chronic Current Visit: Yes Code(s): R26.2 - Difficulty in walking, not elsewhere classified (4) Infected decubitus ulcer Status: Chronic Current Visit: Yes Qualifiers: Code(s): L89.90 - Pressure ulcer of unspecified site, unspecified stage; L08.9 - Local infection of the skin and subcutaneous tissue, unspecified (5) Nonhealing nonsurgical wound Status: Chronic Current Visit: Yes Code(s): T14.8 - Other injury of unspecified body region Type of Wound Date of Service: 05/31/17 Chief Complaint: 78-year-old white male emaciated living at home with his with many comorbidities. Patient has spinal stenosis so bad that he has no feeling in his rectum. Patient has frequent large stools. during the night, and it lays against the skin of his rectal area and causes denuded skin. Patient appears here with an small superficial ulcer on the coccyx area History of Wound: Patient has been evaluated by Dr. Hitchcock for possible surgical consult, but he feels that unless there is bone exposed to continue with ulcer care as prescribed. Nutrition has been an issue and he needs to continue nutritional efforts. And if he requires frequent ulcer care than because of incontinence then so be it Progress of Wound: Applied epi flix#5 this week the ulcer looks pretty good . New skin buds are forming. Still making a large portion of the thick callus around the edge but the ulcer is flatter this week. His last pre-albumin at Dr. Dominguez office was 25 . No odor no redness noted. The patient has been offloading is much as possible. Patient is supplementing with high protein bars and diet, sggested [place] Instant breakfast with ice cream as a supplement and start vit C 1000 mg in chewies per day. Patient is also taking Z-hilary for wound healing. - Physical Exam Vital Signs Temp Pulse Resp BP 97.3 F L 99 18 141/96 H 05/31/17 08:21 05/31/17 08:21 03/30/18 08:21 05/31/17 08:21 General: Oriented x3, Cooperative, Well developed HEENT: Atraumatic, PERRLA Oral: Moist Mucosa Neck: Supple, No JVD Lungs: Clear to auscultation, Normal air movement Cardiovascular: Regular rate, Regular Rhythm Abdomen: Bowel Sounds Present, Soft, Non Tender, No Hepato-splenomegaly Extremities: No clubbing, No edema Skin: Ulcer/ Wound - coccyx ulcer stage III Wound Measurements and Assessment WC - Nurse 1 - General Ulcer Measurement Start: 05/03/17 08:36 Freq: Status: Active Protocol: Activity Type Activity Date Activity User E-Sign Co-Sign Detail Recorded Client Recorded Date Recorded By Document 05/31/17 08:21 [id number] 05/31/17 08:23 05/31/17 08:21 Wound Center Nurse 1 [Ulcer Assessment] 1. sacral ulcer stg III -Combined with other wound No -Current Size (cm) - Length 1.1 -Current Size (cm) - Width 1.1 -Current Size (cm) - Depth 0.3 -Total Square Cm 1.21 -Photo Taken No -Epithelialization Small 1-33% -Tunneling No -Undermining/Tunneling No -Circular Undermining No -Classification - Thickness Full Thickness without Exposed Support Structure -Exudate Amt Small (1-33%) -Exudate Type Serosanguineous -Wound Margin Thickened & Rolled Under -Granulation Amt Large (67-100%) -Granulation Quality Red -Slough/Fibrin Yes -Necrosis Amt Small (1-33%) -Necrotic Tissue Type Adherent Slough -Structure Exposed Fascia Fat Layer Exposed -Texture (Pao-wound Skin Appearance) Scarring -Moisture (Pao-wound Skin Appearance Maceration ) -Color (Pao-wound Skin Appearance) Erythema -Temperature (Pao-wound Skin No Abnormality Appearance) (Pt Warm) -Tenderness on Palpation (Pao-wound No Skin Appearance) -Ulcer Cleansing Rinsed/ Irrigated with Saline -Foul Odor after Cleansing No -Anesthetic Used 5% Lidocaine Gel [Edema Assessment] -Lower Limb Edema Present No WC - Nurse 2 - General Ulcer CM Notes Start: 05/03/17 08:36 Freq: Status: Active Protocol: Activity Type Activity Date Activity User E-Sign Co-Sign Detail Recorded Client Recorded Date Recorded By Document 05/31/17 08:42 MW [id number] 05/31/17 08:50 MW 05/31/17 08:42 Wound Center Nurse 2 [Procedure/Treatment] 1. sacral ulcer stg III -Time 08:43 -Correct Patient Yes -Correct Side, Site, Position Yes -Correct Procedure Yes -Procedure Performed Yes -Type of Procedure Debridement -Clinical Debridement Subcutaneous -Post Debridement Size (cm) - Length 1.0 -Post Debridement Size (cm) - Width 1.0 -Post Debridement Size (cm) - Depth 0.2 -Total Square Cm 1.00 -Wound/Ulcer Outcome Not Healed -Ulcer Cleansing Rinsed/ Irrigated with Saline -Foul Odor after Cleansing No -Bioengineered Tissue Yes -Type of bioengineered Tissue EPIFIX -Expiration Date 03/04/22 -Product Lot Number [id number] -Percent Used 50 -Saline Lot Number [id number] -Bleeding Controlled with Pressure -Treatment Response Procedure Tolerated Well [See Physician Procedure note for Specifics] Pain Scale: 0-10 Numeric [Pain] -Is Patient Pain Free? Yes Musculoskeletal: No Tenderness to Palpation of Joints or Extremities Lymphatic: No Cervical, Supraclavicular, or Inguinal Adenopathy Neurological: Cranial nerves II-XII grossly intact, Neuro grossly intact Psych/Mental Status: Normal Affect, Appropriate Debridement Note Post-Debridement Measurements/Treatment WC - Nurse 2 - General Ulcer CM Notes Start: 05/03/17 08:36 Freq: Status: Active Protocol: Activity Type Activity Date Activity User E-Sign Co-Sign Detail Recorded Client Recorded Date Recorded By Document 05/03/17 08:52 MW [id number] 05/03/17 09:01 MW Document 05/17/17 08:43 MW [id number] 05/17/17 08:57 MW Document 05/24/17 08:33 MW [id number] 05/24/17 08:35 MW Document 05/31/17 08:42 MW [id number] 05/31/17 08:50 MW 05/03/17 05/17/17 05/24/17 08:52 08:43 08:33 Wound Center Nurse 2 1. sacral ulcer stg III -Time 08:59 08:45 08:33 -Correct Patient Yes Yes Yes -Correct Side, Site, Position Yes Yes Yes -Correct Procedure Yes Yes Yes -Procedure Performed Yes Yes Yes -Type of Procedure Debridement Debridement Debridement -Clinical Debridement Subcutaneous Subcutaneous Subcutaneous -Post Debridement Size (cm) - Length 1.3 1.0 1.0 -Post Debridement Size (cm) - Width 1.2 1.1 1.7 -Post Debridement Size (cm) - Depth 0.2 0.2 0.2 -Total Square Cm 1.56 1.10 1.70 -Wound/Ulcer Outcome Not Healed Not Healed Not Healed -Ulcer Cleansing Rinsed/ Rinsed/ Rinsed/ Irrigated with Irrigated with Irrigated with Saline Saline Saline -Foul Odor after Cleansing No No No -Bioengineered Tissue Yes Yes -Type of bioengineered Tissue EPIFIX EPIFIX EPIFIX -Expiration Date 02/01/22 03/04/22 03/04/22 -Product Lot Number [id number] -Percent Used 100 75 75 -Saline Lot Number [id number] -Bleeding Controlled with Pressure Pressure Pressure -Treatment Response Procedure Procedure Procedure Tolerated Well Tolerated Well Tolerated Well Pain Scale: 0-10 Numeric Is Patient Pain Free? Yes Yes Yes 05/31/17 08:42 Wound Center Nurse 2 1. sacral ulcer stg III -Time 08:43 -Correct Patient Yes -Correct Side, Site, Position Yes -Correct Procedure Yes -Procedure Performed Yes -Type of Procedure Debridement -Clinical Debridement Subcutaneous -Post Debridement Size (cm) - Length 1.0 -Post Debridement Size (cm) - Width 1.0 -Post Debridement Size (cm) - Depth 0.2 -Total Square Cm 1.00 -Wound/Ulcer Outcome Not Healed -Ulcer Cleansing Rinsed/ Irrigated with Saline -Foul Odor after Cleansing No -Bioengineered Tissue Yes -Type of bioengineered Tissue EPIFIX -Expiration Date 03/04/22 -Product Lot Number [id number] -Percent Used 50 -Saline Lot Number [id number] -Bleeding Controlled with Pressure -Treatment Response Procedure Tolerated Well Pain Scale: 0-10 Numeric Is Patient Pain Free? 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 Malnutrition resolved. Difficulty walking. Infected decubitus ulcer resolved Plan: Epi-fix #5 with veil ABD dressing and Medipore. continue to offload buttocks by lying flat in bed rather than in a chair as much as possible has a low air mattress. continue eating a highprotein diet and supplements. Follow-up 1 weeks\. [place] instant breakfast with ice cream. Vitamin C 500 mg 2 by mouth daily. Information entered by nursing staff reviewed. This document was created using a voice recognition system. Errors in punctuation, spelling and grammar may not have been corrected prior to saving.
--- NOTE | 2017-05-31 09:22 | PN.PCM_ITS ---
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 level Status: Chronic Current Visit: Yes Code(s): M51.36 - Other intervertebral disc degeneration, lumbar region (3) Difficulty walking Status: Chronic Current Visit: Yes Code(s): R26.2 - Difficulty in walking, not elsewhere classified (4) Infected decubitus ulcer Status: Chronic Current Visit: Yes Qualifiers: Code(s): L89.90 - Pressure ulcer of unspecified site, unspecified stage; L08.9 - Local infection of the skin and subcutaneous tissue, unspecified (5) Nonhealing nonsurgical wound Status: Chronic Current Visit: Yes Code(s): T14.8 - Other injury of unspecified body region Type of Wound Date of Service: 05/31/17 Chief Complaint: 78-year-old white male emaciated living at home with his with many comorbidities. Patient has spinal stenosis so bad that he has no feeling in his rectum. Patient has frequent large stools. during the night, and it lays against the skin of his rectal area and causes denuded skin. Patient appears here with an small superficial ulcer on the coccyx area History of Wound: Patient has been evaluated by Dr. Hitchcock for possible surgical consult, but he feels that unless there is bone exposed to continue with ulcer care as prescribed. Nutrition has been an issue and he needs to continue nutritional efforts. And if he requires frequent ulcer care than because of incontinence then so be it Progress of Wound: Applied epi flix#5 this week the ulcer looks pretty good . New skin buds are forming. Still making a large portion of the thick callus around the edge but the ulcer is flatter this week. His last pre-albumin at Dr. Dominguez office was 25 . No odor no redness noted. The patient has been offloading is much as possible. Patient is supplementing with high protein bars and diet, sggested [place] Instant breakfast with ice cream as a supplement and start vit C 1000 mg in chewies per day. Patient is also taking Z -hilary for wound healing. - Physical Exam Vital Signs Temp Pulse Resp BP 97.3 F L 99 18 141/96 H 05/31/17 08:21 05/31/17 08:21 03/30/18 08:21 05/31/17 08:21 General: Oriented x3, Cooperative, Well developed HEENT: Atraumatic, PERRLA Oral: Moist Mucosa Neck: Supple, No JVD Lungs: Clear to auscultation, Normal air movement Cardiovascular: Regular rate, Regular Rhythm Abdomen: Bowel Sounds Present, Soft, Non Tender, No Hepato-splenomegaly Extremities: No clubbing, No edema Skin: Ulcer/ Wound - coccyx ulcer stage III Wound Measurements and Assessment WC - Nurse 1 - General Ulcer Measurement Start: 05/03/17 08:36 Freq: Status: Active Protocol: Activity Type Activity Date Activity User E-Sign Co-Sign Detail Recorded Client Recorded Date Recorded By Document 05/31/17 08:21 [id number] 05/31/17 08:23 05/31/17 08:21 Wound Center Nurse 1 [Ulcer Assessment] 1. sacral ulcer stg III -Combined with other wound No -Current Size (cm) - Length 1.1 -Current Size (cm) - Width 1.1 -Current Size (cm) - Depth 0.3 -Total Square Cm 1.21 -Photo Taken No -Epithelialization Small 1-33% -Tunneling No -Undermining/Tunneling No -Circular Undermining No -Classification - Thickness Full Thickness without Exposed Support Structure -Exudate Amt Small (1-33%) -Exudate Type Serosanguineous -Wound Margin Thickened & Rolled Under -Granulation Amt Large (67-100%) -Granulation Quality Red -Slough/Fibrin Yes -Necrosis Amt Small (1-33%) -Necrotic Tissue Type Adherent Slough -Structure Exposed Fascia Fat Layer Exposed -Texture (Pao-wound Skin Appearance) Scarring -Moisture (Pao-wound Skin Appearance Maceration ) -Color (Pao-wound Skin Appearance) Erythema -Temperature (Pao-wound Skin No Abnormality Appearance) (Pt Warm) -Tenderness on Palpation (Pao-wound No Skin Appearance) -Ulcer Cleansing Rinsed/ Irrigated with Saline -Foul Odor after Cleansing No -Anesthetic Used 5% Lidocaine Gel [Edema Assessment] -Lower Limb Edema Present No WC - Nurse 2 - General Ulcer CM Notes Start: 05/03/17 08:36 Freq: Status: Active Protocol: Activity Type Activity Date Activity User E-Sign Co-Sign Detail Recorded Client Recorded Date Recorded By Document 05/31/17 08:42 MW [id number] 05/31/17 08:50 MW 05/31/17 08:42 Wound Center Nurse 2 [Procedure/Treatment] 1. sacral ulcer stg III -Time 08:43 -Correct Patient Yes -Correct Side, Site, Position Yes -Correct Procedure Yes -Procedure Performed Yes -Type of Procedure Debridement -Clinical Debridement Subcutaneous -Post Debridement Size (cm) - Length 1.0 -Post Debridement Size (cm) - Width 1.0 -Post Debridement Size (cm) - Depth 0.2 -Total Square Cm 1.00 -Wound/Ulcer Outcome Not Healed -Ulcer Cleansing Rinsed/ Irrigated with Saline -Foul Odor after Cleansing No -Bioengineered Tissue Yes -Type of bioengineered Tissue EPIFIX -Expiration Date 03/04/22 -Product Lot Number [id number] -Percent Used 50 -Saline Lot Number [id number] -Bleeding Controlled with Pressure -Treatment Response Procedure Tolerated Well [See Physician Procedure note for Specifics] Pain Scale: 0-10 Numeric [Pain] -Is Patient Pain Free? Yes Musculoskeletal: No Tenderness to Palpation of Joints or Extremities Lymphatic: No Cervical, Supraclavicular, or Inguinal Adenopathy Neurological: Cranial nerves II-XII grossly intact, Neuro grossly intact Psych/Mental Status: Normal Affect, Appropriate Debridement Note Post-Debridement Measurements/Treatment WC - Nurse 2 - General Ulcer CM Notes Start: 05/03/17 08:36 Freq: Status: Active Protocol: Activity Type Activity Date Activity User E-Sign Co-Sign Detail Recorded Client Recorded Date Recorded By Document 05/03/17 08:52 MW [id number] 05/03/17 09:01 MW Document 05/17/17 08:43 MW [id number] 05/17/17 08:57 MW Document 05/24/17 08:33 MW [id number] 05/24/17 08:35 MW Document 05/31/17 08:42 MW [id number] 05/31/17 08:50 MW 05/03/17 05/17/17 05/24/17 08:52 08:43 08:33 Wound Center Nurse 2 1. sacral ulcer stg III -Time 08:59 08:45 08:33 -Correct Patient Yes Yes Yes -Correct Side, Site, Position Yes Yes Yes -Correct Procedure Yes Yes Yes -Procedure Performed Yes Yes Yes -Type of Procedure Debridement Debridement Debridement -Clinical Debridement Subcutaneous Subcutaneous Subcutaneous -Post Debridement Size (cm) - Length 1.3 1.0 1.0 -Post Debridement Size (cm) - Width 1.2 1.1 1.7 -Post Debridement Size (cm) - Depth 0.2 0.2 0.2 -Total Square Cm 1.56 1.10 1.70 -Wound/Ulcer Outcome Not Healed Not Healed Not Healed -Ulcer Cleansing Rinsed/ Rinsed/ Rinsed/ Irrigated with Irrigated with Irrigated with Saline Saline Saline -Foul Odor after Cleansing No No No -Bioengineered Tissue Yes Yes -Type of bioengineered Tissue EPIFIX EPIFIX EPIFIX -Expiration Date 02/01/22 03/04/22 03/04/22 -Product Lot Number [id number] -Percent Used 100 75 75 -Saline Lot Number [id number] -Bleeding Controlled with Pressure Pressure Pressure -Treatment Response Procedure Procedure Procedure Tolerated Well Tolerated Well Tolerated Well Pain Scale: 0-10 Numeric Is Patient Pain Free? Yes Yes Yes 05/31/17 08:42 Wound Center Nurse 2 1. sacral ulcer stg III -Time 08:43 -Correct Patient Yes -Correct Side, Site, Position Yes -Correct Procedure Yes -Procedure Performed Yes -Type of Procedure Debridement -Clinical Debridement Subcutaneous -Post Debridement Size (cm) - Length 1.0 -Post Debridement Size (cm) - Width 1.0 -Post Debridement Size (cm) - Depth 0.2 -Total Square Cm 1.00 -Wound/Ulcer Outcome Not Healed -Ulcer Cleansing Rinsed/ Irrigated with Saline -Foul Odor after Cleansing No -Bioengineered Tissue Yes -Type of bioengineered Tissue EPIFIX -Expiration Date 03/04/22 -Product Lot Number [id number] -Percent Used 50 -Saline Lot Number [id number] -Bleeding Controlled with Pressure -Treatment Response Procedure Tolerated Well Pain Scale: 0-10 Numeric Is Patient Pain Free? 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 Malnutrition resolved. Difficulty walking. Infected decubitus ulcer resolved Plan: Epi-fix #5 with veil ABD dressing and Medipore. continue to offload buttocks by lying flat in bed rather than in a chair as much as possible has a low air mattress. continue eating a highprotein diet and supplements. Follow- up 1 weeks\. [place] instant breakfast with ice cream. Vitamin C 500 mg 2 by mouth daily. Information entered by nursing staff reviewed. This document was created using a voice recognition system. Errors in punctuation, spelling and grammar may not have been corrected prior to saving.
== END 2017-06-01 23:59 ==
LOC: WC 08:00
PROVIDERS: Family Provider Family Medicine; PCP Family Medicine; Visit Provider Nurse Practitioner
DX: L89.153 Pressure ulcer of sacral region, stage 3 (principal); M51.36 Other intervertebral disc degeneration, lumbar region; R26.2 Difficulty in walking, not elsewhere classified; L08.9 Local infection of the skin and subcutaneous tissue, unspecified
CPT/HCPCS: 15271; Q4131

== ENCOUNTER 2017-06-21 08:00 | Outpatient (RCR) | payer MEDICARE, OTHER, SELFPAY ==
[2017-06-02 00:28] VITALS: BP 141/89; PULSE 99; RESP 18; TEMP 36.3; BMI 17.0
[2017-06-07 08:09] VITALS: BP 140/79; PULSE 99; RESP 18; TEMP 36.6; BMI 17.0
--- NOTE | 2017-06-07 08:44 | PCM.WC.PN ---
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-S1 level Status: Chronic Current Visit: No Code(s): M51.36 - Other intervertebral disc degeneration, lumbar region (3) Infected decubitus ulcer Status: Chronic Current Visit: No Qualifiers: Code(s): L89.90 - Pressure ulcer of unspecified site, unspecified stage; L08.9 - Local infection of the skin and subcutaneous tissue, unspecified (4) Malnutrition Status: Chronic Current Visit: No Code(s): E46 - Unspecified protein-calorie malnutrition (5) Nonhealing nonsurgical wound Status: Chronic Current Visit: Yes Code(s): T14.8 - Other injury of unspecified body region Type of Wound Date of Service: 06/07/17 Chief Complaint: 78-year-old white male emaciated living at home with his with many comorbidities. Patient has spinal stenosis so bad that he has no feeling in his rectum. Patient has frequent large stools. during the night, and it lays against the skin of his rectal area and causes denuded skin. Patient appears here with an small superficial ulcer on the coccyx area History of Wound: Patient has been evaluated by Dr. Hitchcock for possible surgical consult, but he feels that unless there is bone exposed to continue with ulcer care as prescribed. Nutrition has been an issue and he needs to continue nutritional efforts. And if he requires frequent ulcer care than because of incontinence then so be it Progress of Wound: Applied epi flix#6 this week the ulcer looks pretty good . New skin buds are forming. Still making a large portion of the thick callus around the edge but the ulcer is flatter this week. Is medically necessary to heal this ulcer and is doing a very good job. His last pre-albumin at Dr. Dominguez office was 25 . No odor no redness noted. The patient has been offloading is much as possible. Patient is supplementing with high protein bars and diet, sggested [place] Instant breakfast with ice cream as a supplement and start vit C 1000 mg in chewies per day. Patient is also taking Z-hilary for wound healing. - Physical Exam Vital Signs Temp Pulse Resp BP 97.8 F 99 18 140/79 H 06/07/17 08:09 06/07/17 08:09 06/07/17 08:09 06/07/17 08:09 General: Oriented x3, Cooperative, Well developed HEENT: Atraumatic, PERRLA Oral: Moist Mucosa Neck: Supple, No JVD Lungs: Clear to auscultation, Normal air movement Cardiovascular: Regular rate, Regular Rhythm Abdomen: Bowel Sounds Present, Soft, Non Tender, No Hepato-splenomegaly Extremities: No clubbing, No edema Skin: Ulcer/ Wound, - - Coccyx ulcer Wound Measurements and Assessment WC - Nurse 1 - General Ulcer Measurement Start: 06/07/17 08:09 Freq: Status: Active Protocol: Activity Type Activity Date Activity User E-Sign Co-Sign Detail Recorded Client Recorded Date Recorded By Document 06/07/17 08:09 [id number] 06/07/17 08:11 TM 06/07/17 08:09 Wound Center Nurse 1 [Ulcer Assessment] 1. sacral ulcer stg III -Combined with other wound No -Current Size (cm) - Length 1.2 -Current Size (cm) - Width 1.0 -Current Size (cm) - Depth 0.2 -Total Square Cm 1.20 -Photo Taken No -Epithelialization Small 1-33% -Tunneling No -Undermining/Tunneling No -Circular Undermining No -Classification - Thickness Full Thickness without Exposed Support Structure -Exudate Amt Small (1-33%) -Exudate Type Serosanguineous -Wound Margin Fibrotic Scar, Thickened Scar -Granulation Amt Large (67-100%) -Granulation Quality Pale [place] -Slough/Fibrin Yes -Necrosis Amt Small (1-33%) -Necrotic Tissue Type Adherent Slough -Structure Exposed Fascia Fat Layer Exposed -Texture (Pao-wound Skin Appearance) Callus Scarring -Moisture (Pao-wound Skin Appearance Maceration ) -Color (Pao-wound Skin Appearance) No Abnormality -Temperature (Pao-wound Skin No Abnormality Appearance) (Pt Warm) -Tenderness on Palpation (Pao-wound No Skin Appearance) -Ulcer Cleansing Rinsed/ Irrigated with Saline -Foul Odor after Cleansing No -Anesthetic Used 4% Lidocaine Solution [Edema Assessment] -Lower Limb Edema Present No WC - Nurse 2 - General Ulcer CM Notes Start: 06/07/17 08:09 Freq: Status: Active Protocol: Activity Type Activity Date Activity User E-Sign Co-Sign Detail Recorded Client Recorded Date Recorded By Document 06/07/17 08:30 MW [id number] 06/07/17 08:42 MW 06/07/17 08:30 Wound Center Nurse 2 [Procedure/Treatment] 1. sacral ulcer stg III -Time 08:32 -Correct Patient Yes -Correct Side, Site, Position Yes -Correct Procedure Yes -Procedure Performed Yes -Type of Procedure Debridement -Clinical Debridement Subcutaneous -Post Debridement Size (cm) - Length 1.0 -Post Debridement Size (cm) - Width 0.8 -Post Debridement Size (cm) - Depth 0.2 -Total Square Cm 0.80 -Wound/Ulcer Outcome Not Healed -Ulcer Cleansing Rinsed/ Irrigated with Saline -Foul Odor after Cleansing No -Bioengineered Tissue Yes -Type of bioengineered Tissue EPIFIX -Expiration Date 03/04/22 -Product Lot Number [id number] -Percent Used 25 -Saline Lot Number [id number] -Bleeding Controlled with Pressure -Treatment Response Procedure Tolerated Well [See Physician Procedure note for Specifics] Pain Scale: 0-10 Numeric [Pain] -Is Patient Pain Free? Yes Musculoskeletal: No Tenderness to Palpation of Joints or Extremities Lymphatic: No Cervical, Supraclavicular, or Inguinal Adenopathy Neurological: Cranial nerves II-XII grossly intact, Neuro grossly intact Psych/Mental Status: Normal Affect, Appropriate, Alert and oriented to time, place, person, mood and affect Debridement Note Post-Debridement Measurements/Treatment WC - Nurse 2 - General Ulcer CM Notes Start: 06/07/17 08:09 Freq: Status: Active Protocol: Activity Type Activity Date Activity User E-Sign Co-Sign Detail Recorded Client Recorded Date Recorded By Document 06/07/17 08:30 MW [id number] 06/07/17 08:42 MW 06/07/17 08:30 Wound Center Nurse 2 1. sacral ulcer stg III -Time 08:32 -Correct Patient Yes -Correct Side, Site, Position Yes -Correct Procedure Yes -Procedure Performed Yes -Type of Procedure Debridement -Clinical Debridement Subcutaneous -Post Debridement Size (cm) - Length 1.0 -Post Debridement Size (cm) - Width 0.8 -Post Debridement Size (cm) - Depth 0.2 -Total Square Cm 0.80 -Wound/Ulcer Outcome Not Healed -Ulcer Cleansing Rinsed/ Irrigated with Saline -Foul Odor after Cleansing No -Bioengineered Tissue Yes -Type of bioengineered Tissue EPIFIX -Expiration Date 03/04/22 -Product Lot Number [id number] -Percent Used 25 -Saline Lot Number [id number] -Bleeding Controlled with Pressure -Treatment Response Procedure Tolerated Well Pain Scale: 0-10 Numeric Is Patient Pain Free? Yes Wound debrided: Coccyx ulcer Wound Grade/Stage: Stage III Type of Debridement: Excisional debridement Anesthesia Used: 5% Lidocaine Gel Depth: Down to and including healthy tissue, in the subcutaneous layer Instrument Used: 7mm curette Tissue Removed: Fibrin callus Severity: Limited To Skin Breakdown Amount of bleeding with debridement: None Bleeding Controlled with: Pressure Patient tolerated procedure well Assessment/Plan Active Problems Nonhealing nonsurgical wound (Chronic) Assessment: Chronic Pressure ulcer coccyx stage III. Malnutrition resolved. Difficulty walking. Infected decubitus ulcer resolved Plan: Epi-fix #6 with veil ABD dressing and Medipore. continue to offload buttocks by lying flat in bed rather than in a chair as much as possible has a low air mattress. continue eating a highprotein diet and supplements. Follow-up 1 weeks\. [place] instant breakfast with ice cream. Vitamin C 500 mg 2 by mouth daily. Information entered by nursing staff reviewed. This document was created using a voice recognition system. Errors in punctuation, spelling and grammar may not have been corrected prior to saving.
--- NOTE | 2017-06-07 08:47 | PN.PCM_ITS ---
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-S1 level Status: Chronic Current Visit: No Code(s): M51.36 - Other intervertebral disc degeneration, lumbar region (3) Infected decubitus ulcer Status: Chronic Current Visit: No Qualifiers: Code(s): L89.90 - Pressure ulcer of unspecified site, unspecified stage; L08.9 - Local infection of the skin and subcutaneous tissue, unspecified (4) Malnutrition Status: Chronic Current Visit: No Code(s): E46 - Unspecified protein- calorie malnutrition (5) Nonhealing nonsurgical wound Status: Chronic Current Visit: Yes Code(s): T14.8 - Other injury of unspecified body region Type of Wound Date of Service: 06/07/17 Chief Complaint: 78-year-old white male emaciated living at home with his with many comorbidities. Patient has spinal stenosis so bad that he has no feeling in his rectum. Patient has frequent large stools. during the night, and it lays against the skin of his rectal area and causes denuded skin. Patient appears here with an small superficial ulcer on the coccyx area History of Wound: Patient has been evaluated by Dr. Hitchcock for possible surgical consult, but he feels that unless there is bone exposed to continue with ulcer care as prescribed. Nutrition has been an issue and he needs to continue nutritional efforts. And if he requires frequent ulcer care than because of incontinence then so be it Progress of Wound: Applied epi flix#6 this week the ulcer looks pretty good . New skin buds are forming. Still making a large portion of the thick callus around the edge but the ulcer is flatter this week. Is medically necessary to heal this ulcer and is doing a very good job. His last pre-albumin at Dr. Dominguez office was 25 . No odor no redness noted. The patient has been offloading is much as possible. Patient is supplementing with high protein bars and diet, sggested [place] Instant breakfast with ice cream as a supplement and start vit C 1000 mg in chewies per day. Patient is also taking Z -hilary for wound healing. - Physical Exam Vital Signs Temp Pulse Resp BP 97.8 F 99 18 140/79 H 06/07/17 08:09 06/07/17 08:09 06/07/17 08:09 06/07/17 08:09 General: Oriented x3, Cooperative, Well developed HEENT: Atraumatic, PERRLA Oral: Moist Mucosa Neck: Supple, No JVD Lungs: Clear to auscultation, Normal air movement Cardiovascular: Regular rate, Regular Rhythm Abdomen: Bowel Sounds Present, Soft, Non Tender, No Hepato-splenomegaly Extremities: No clubbing, No edema Skin: Ulcer/ Wound, - - Coccyx ulcer Wound Measurements and Assessment WC - Nurse 1 - General Ulcer Measurement Start: 06/07/17 08:09 Freq: Status: Active Protocol: Activity Type Activity Date Activity User E-Sign Co-Sign Detail Recorded Client Recorded Date Recorded By Document 06/07/17 08:09 [id number] 06/07/17 08:11 TM 06/07/17 08:09 Wound Center Nurse 1 [Ulcer Assessment] 1. sacral ulcer stg III -Combined with other wound No -Current Size (cm) - Length 1.2 -Current Size (cm) - Width 1.0 -Current Size (cm) - Depth 0.2 -Total Square Cm 1.20 -Photo Taken No -Epithelialization Small 1-33% -Tunneling No -Undermining/Tunneling No -Circular Undermining No -Classification - Thickness Full Thickness without Exposed Support Structure -Exudate Amt Small (1-33%) -Exudate Type Serosanguineous -Wound Margin Fibrotic Scar, Thickened Scar -Granulation Amt Large (67-100%) -Granulation Quality Pale [place] -Slough/Fibrin Yes -Necrosis Amt Small (1-33%) -Necrotic Tissue Type Adherent Slough -Structure Exposed Fascia Fat Layer Exposed -Texture (Pao-wound Skin Appearance) Callus Scarring -Moisture (Pao-wound Skin Appearance Maceration ) -Color (Pao-wound Skin Appearance) No Abnormality -Temperature (Pao-wound Skin No Abnormality Appearance) (Pt Warm) -Tenderness on Palpation (Pao-wound No Skin Appearance) -Ulcer Cleansing Rinsed/ Irrigated with Saline -Foul Odor after Cleansing No -Anesthetic Used 4% Lidocaine Solution [Edema Assessment] -Lower Limb Edema Present No WC - Nurse 2 - General Ulcer CM Notes Start: 06/07/17 08:09 Freq: Status: Active Protocol: Activity Type Activity Date Activity User E-Sign Co-Sign Detail Recorded Client Recorded Date Recorded By Document 06/07/17 08:30 MW [id number] 06/07/17 08:42 MW 06/07/17 08:30 Wound Center Nurse 2 [Procedure/Treatment] 1. sacral ulcer stg III -Time 08:32 -Correct Patient Yes -Correct Side, Site, Position Yes -Correct Procedure Yes -Procedure Performed Yes -Type of Procedure Debridement -Clinical Debridement Subcutaneous -Post Debridement Size (cm) - Length 1.0 -Post Debridement Size (cm) - Width 0.8 -Post Debridement Size (cm) - Depth 0.2 -Total Square Cm 0.80 -Wound/Ulcer Outcome Not Healed -Ulcer Cleansing Rinsed/ Irrigated with Saline -Foul Odor after Cleansing No -Bioengineered Tissue Yes -Type of bioengineered Tissue EPIFIX -Expiration Date 03/04/22 -Product Lot Number [id number] -Percent Used 25 -Saline Lot Number [id number] -Bleeding Controlled with Pressure -Treatment Response Procedure Tolerated Well [See Physician Procedure note for Specifics] Pain Scale: 0-10 Numeric [Pain] -Is Patient Pain Free? Yes Musculoskeletal: No Tenderness to Palpation of Joints or Extremities Lymphatic: No Cervical, Supraclavicular, or Inguinal Adenopathy Neurological: Cranial nerves II-XII grossly intact, Neuro grossly intact Psych/Mental Status: Normal Affect, Appropriate, Alert and oriented to time, place, person, mood and affect Debridement Note Post-Debridement Measurements/Treatment WC - Nurse 2 - General Ulcer CM Notes Start: 06/07/17 08:09 Freq: Status: Active Protocol: Activity Type Activity Date Activity User E-Sign Co-Sign Detail Recorded Client Recorded Date Recorded By Document 06/07/17 08:30 MW [id number] 06/07/17 08:42 MW 06/07/17 08:30 Wound Center Nurse 2 1. sacral ulcer stg III -Time 08:32 -Correct Patient Yes -Correct Side, Site, Position Yes -Correct Procedure Yes -Procedure Performed Yes -Type of Procedure Debridement -Clinical Debridement Subcutaneous -Post Debridement Size (cm) - Length 1.0 -Post Debridement Size (cm) - Width 0.8 -Post Debridement Size (cm) - Depth 0.2 -Total Square Cm 0.80 -Wound/Ulcer Outcome Not Healed -Ulcer Cleansing Rinsed/ Irrigated with Saline -Foul Odor after Cleansing No -Bioengineered Tissue Yes -Type of bioengineered Tissue EPIFIX -Expiration Date 03/04/22 -Product Lot Number [id number] -Percent Used 25 -Saline Lot Number [id number] -Bleeding Controlled with Pressure -Treatment Response Procedure Tolerated Well Pain Scale: 0-10 Numeric Is Patient Pain Free? Yes Wound debrided: Coccyx ulcer Wound Grade/Stage: Stage III Type of Debridement: Excisional debridement Anesthesia Used: 5% Lidocaine Gel Depth: Down to and including healthy tissue, in the subcutaneous layer Instrument Used: 7mm curette Tissue Removed: Fibrin callus Severity: Limited To Skin Breakdown Amount of bleeding with debridement: None Bleeding Controlled with: Pressure Patient tolerated procedure well Assessment/Plan Active Problems Nonhealing nonsurgical wound (Chronic) Assessment: Chronic Pressure ulcer coccyx stage III. Malnutrition resolved. Difficulty walking. Infected decubitus ulcer resolved Plan: Epi-fix #6 with veil ABD dressing and Medipore. continue to offload buttocks by lying flat in bed rather than in a chair as much as possible has a low air mattress. continue eating a highprotein diet and supplements. Follow- up 1 weeks\. [place] instant breakfast with ice cream. Vitamin C 500 mg 2 by mouth daily. Information entered by nursing staff reviewed. This document was created using a voice recognition system. Errors in punctuation, spelling and grammar may not have been corrected prior to saving.
[2017-06-14 08:28] VITALS: BP 134/69; PULSE 98; RESP 16; TEMP 36.4; BMI 17.0
--- NOTE | 2017-06-14 09:42 | PCM.WC.PN ---
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-S1 level Status: Chronic Current Visit: No Code(s): M51.36 - Other intervertebral disc degeneration, lumbar region (3) Infected decubitus ulcer Status: Chronic Current Visit: No Qualifiers: Code(s): L89.90 - Pressure ulcer of unspecified site, unspecified stage; L08.9 - Local infection of the skin and subcutaneous tissue, unspecified (4) Malnutrition Status: Chronic Current Visit: No Code(s): E46 - Unspecified protein-calorie malnutrition (5) Nonhealing nonsurgical wound Status: Chronic Current Visit: Yes Code(s): T14.8 - Other injury of unspecified body region Type of Wound Date of Service: 06/14/17 Chief Complaint: 78-year-old white male emaciated living at home with his with many comorbidities. Patient has spinal stenosis so bad that he has no feeling in his rectum. Patient has frequent large stools. during the night, and it lays against the skin of his rectal area and causes denuded skin. Patient appears here with an small superficial ulcer on the coccyx area History of Wound: Patient has been evaluated by Dr. Hitchcock for possible surgical consult, but he feels that unless there is bone exposed to continue with ulcer care as prescribed. Nutrition has been an issue and he needs to continue nutritional efforts. And if he requires frequent ulcer care than because of incontinence then so be it Progress of Wound: Applied epi flix#7 this week the ulcer looks pretty good . New skin buds are forming. Still making a large portion of the thick callus around the edge but the ulcer is flatter this week. Is medically necessary to heal this ulcer and is doing a very good job. His last pre-albumin at Dr. Dominguez office was 25 . No odor no redness noted. The patient has been offloading is much as possible. Patient is supplementing with high protein bars and diet, sggested [place] Instant breakfast with ice cream as a supplement and start vit C 1000 mg in chewies per day. Patient is also taking Z-hilary for wound healing. - Physical Exam Vital Signs Temp Pulse Resp BP 97.5 F L 98 16 134/69 H 06/14/17 08:28 06/14/17 08:28 06/14/17 08:28 06/14/17 08:28 General: Oriented x3, Cooperative, Well developed HEENT: Atraumatic, PERRLA Oral: Moist Mucosa Neck: Supple, No JVD Lungs: Clear to auscultation, Normal air movement Cardiovascular: Regular rate, Regular Rhythm Abdomen: Bowel Sounds Present, Soft, Non Tender, No Hepato-splenomegaly Extremities: No clubbing, No edema Skin: Ulcer/ Wound - Coccyx ulcer stage III Wound Measurements and Assessment WC - Nurse 1 - General Ulcer Measurement Start: 06/07/17 08:09 Freq: Status: Active Protocol: Activity Type Activity Date Activity User E-Sign Co-Sign Detail Recorded Client Recorded Date Recorded By Document 06/14/17 08:28 DV [id number] 06/14/17 08:36 DV 06/14/17 08:28 Wound Center Nurse 1 [Ulcer Assessment] 1. sacral ulcer stg III -Combined with other wound No -Current Size (cm) - Length 1.2 -Current Size (cm) - Width 0.8 -Current Size (cm) - Depth 0.2 -Total Square Cm 0.96 -Date of Last Picture (Recall this 06/14/17 field) -Photo Taken Yes -Epithelialization None Present -Tunneling No -Undermining/Tunneling No -Classification - Thickness Full Thickness without Exposed Support Structure -Exudate Amt Medium (34-66%) -Exudate Type Serosanguineous -Wound Margin Indistinct, Non -Visible -Granulation Amt Small (1-33%) -Granulation Quality Pale [place] -Slough/Fibrin Yes -Necrosis Amt Medium (34-66%) -Necrotic Tissue Type Adherent Slough -Structure Exposed None/Limited to Skin Breakdown -Texture (Pao-wound Skin Appearance) Assessed Scarring -Moisture (Pao-wound Skin Appearance Assessed ) Weeping -Color (Pao-wound Skin Appearance) No Abnormality Assessed -Temperature (Pao-wound Skin No Abnormality Appearance) (Pt Warm) -Ulcer Cleansing Rinsed/ Irrigated with Saline -Foul Odor after Cleansing No -Anesthetic Used 4% Lidocaine Solution WC - Nurse 2 - General Ulcer CM Notes Start: 06/07/17 08:09 Freq: Status: Active Protocol: Activity Type Activity Date Activity User E-Sign Co-Sign Detail Recorded Client Recorded Date Recorded By Document 04/13/18 08:54 MW [id number] 06/14/17 09:04 MW 06/14/17 08:54 Wound Center Nurse 2 [Procedure/Treatment] -Time 08:56 -Correct Patient Yes -Correct Side, Site, Position Yes -Correct Procedure Yes -Procedure Performed Yes -Type of Procedure Debridement -Clinical Debridement Subcutaneous -Post Debridement Size (cm) - Length 1.0 -Post Debridement Size (cm) - Width 0.9 -Post Debridement Size (cm) - Depth 0.2 -Total Square Cm 0.90 -Wound/Ulcer Outcome Not Healed -Ulcer Cleansing Rinsed/ Irrigated with Saline -Foul Odor after Cleansing No -Bioengineered Tissue Yes -Type of bioengineered Tissue EPIFIX -Expiration Date 03/04/22 -Product Lot Number [id number] -Saline Lot Number [id number] -Bleeding Controlled with Pressure -Treatment Response Procedure Tolerated Well [See Physician Procedure note for Specifics] Pain Scale: 0-10 Numeric [Pain] -Is Patient Pain Free? Yes Musculoskeletal: No Tenderness to Palpation of Joints or Extremities Lymphatic: No Cervical, Supraclavicular, or Inguinal Adenopathy Neurological: Cranial nerves II-XII grossly intact, Neuro grossly intact Psych/Mental Status: Normal Affect, Appropriate, Alert and oriented to time, place, person, mood and affect Debridement Note Post-Debridement Measurements/Treatment WC - Nurse 2 - General Ulcer CM Notes Start: 06/07/17 08:09 Freq: Status: Active Protocol: Activity Type Activity Date Activity User E-Sign Co-Sign Detail Recorded Client Recorded Date Recorded By Document 06/07/17 08:30 MW [id number] 06/07/17 08:42 MW Document 06/14/17 08:54 MW [id number] 06/14/17 09:04 MW 06/07/17 06/14/17 08:30 08:54 Wound Center Nurse 2 1. sacral ulcer stg III -Time 08:32 08:56 -Correct Patient Yes Yes -Correct Side, Site, Position Yes Yes -Correct Procedure Yes Yes -Procedure Performed Yes Yes -Type of Procedure Debridement Debridement -Clinical Debridement Subcutaneous Subcutaneous -Post Debridement Size (cm) - Length 1.0 1.0 -Post Debridement Size (cm) - Width 0.8 0.9 -Post Debridement Size (cm) - Depth 0.2 0.2 -Total Square Cm 0.80 0.90 -Wound/Ulcer Outcome Not Healed Not Healed -Ulcer Cleansing Rinsed/ Rinsed/ Irrigated with Irrigated with Saline Saline -Foul Odor after Cleansing No No -Bioengineered Tissue Yes Yes -Type of bioengineered Tissue EPIFIX EPIFIX -Expiration Date 03/04/22 03/04/22 -Product Lot Number [id number] -Percent Used 25 -Saline Lot Number [id number] -Bleeding Controlled with Pressure Pressure -Treatment Response Procedure Procedure Tolerated Well Tolerated Well Pain Scale: 0-10 Numeric Is Patient Pain Free? Yes Yes Wound debrided: coccyx ulcer Wound Grade/Stage: Stage III Type of Debridement: Excisional debridement Anesthesia Used: 5% Lidocaine Gel Depth: Down to and including healthy tissue, in the subcutaneous layer Percentage of wound debrided: 100 Instrument Used: 7mm curette, - - nippers Tissue Removed: Fibrin and callus Severity: Limited To Skin Breakdown Amount of bleeding with debridement: Moderate Bleeding Controlled with: Compression and gauze Patient tolerated procedure well Assessment/Plan Active Problems Nonhealing nonsurgical wound (Chronic) Assessment: Chronic Pressure ulcer coccyx stage III. Malnutrition resolved. Difficulty walking. Infected decubitus ulcer resolved Plan: Epi-fix #7 with veil steri-strips ABD dressing and Medipore. continue to offload buttocks by lying flat in bed rather than in a chair as much as possible has a low air mattress. continue eating a highprotein diet and supplements. Follow-up 1 weeks\. Max instant breakfast with ice cream. Vitamin C 500 mg 2 by mouth daily. Information entered by nursing staff reviewed. This document was created using a voice recognition system. Errors in punctuation, spelling and grammar may not have been corrected prior to saving.
--- NOTE | 2017-06-14 09:45 | PN.PCM_ITS ---
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-S1 level Status: Chronic Current Visit: No Code(s): M51.36 - Other intervertebral disc degeneration, lumbar region (3) Infected decubitus ulcer Status: Chronic Current Visit: No Qualifiers: Code(s): L89.90 - Pressure ulcer of unspecified site, unspecified stage; L08.9 - Local infection of the skin and subcutaneous tissue, unspecified (4) Malnutrition Status: Chronic Current Visit: No Code(s): E46 - Unspecified protein- calorie malnutrition (5) Nonhealing nonsurgical wound Status: Chronic Current Visit: Yes Code(s): T14.8 - Other injury of unspecified body region Type of Wound Date of Service: 06/14/17 Chief Complaint: 78-year-old white male emaciated living at home with his with many comorbidities. Patient has spinal stenosis so bad that he has no feeling in his rectum. Patient has frequent large stools. during the night, and it lays against the skin of his rectal area and causes denuded skin. Patient appears here with an small superficial ulcer on the coccyx area History of Wound: Patient has been evaluated by Dr. Hitchcock for possible surgical consult, but he feels that unless there is bone exposed to continue with ulcer care as prescribed. Nutrition has been an issue and he needs to continue nutritional efforts. And if he requires frequent ulcer care than because of incontinence then so be it Progress of Wound: Applied epi flix#7 this week the ulcer looks pretty good . New skin buds are forming. Still making a large portion of the thick callus around the edge but the ulcer is flatter this week. Is medically necessary to heal this ulcer and is doing a very good job. His last pre-albumin at Dr. Dominguez office was 25 . No odor no redness noted. The patient has been offloading is much as possible. Patient is supplementing with high protein bars and diet, sggested [place] Instant breakfast with ice cream as a supplement and start vit C 1000 mg in chewies per day. Patient is also taking Z -hilary for wound healing. - Physical Exam Vital Signs Temp Pulse Resp BP 97.5 F L 98 16 134/69 H 06/14/17 08:28 06/14/17 08:28 06/14/17 08:28 06/14/17 08:28 General: Oriented x3, Cooperative, Well developed HEENT: Atraumatic, PERRLA Oral: Moist Mucosa Neck: Supple, No JVD Lungs: Clear to auscultation, Normal air movement Cardiovascular: Regular rate, Regular Rhythm Abdomen: Bowel Sounds Present, Soft, Non Tender, No Hepato-splenomegaly Extremities: No clubbing, No edema Skin: Ulcer/ Wound - Coccyx ulcer stage III Wound Measurements and Assessment WC - Nurse 1 - General Ulcer Measurement Start: 06/07/17 08:09 Freq: Status: Active Protocol: Activity Type Activity Date Activity User E-Sign Co-Sign Detail Recorded Client Recorded Date Recorded By Document 06/14/17 08:28 DV [id number] 06/14/17 08:36 DV 06/14/17 08:28 Wound Center Nurse 1 [Ulcer Assessment] 1. sacral ulcer stg III -Combined with other wound No -Current Size (cm) - Length 1.2 -Current Size (cm) - Width 0.8 -Current Size (cm) - Depth 0.2 -Total Square Cm 0.96 -Date of Last Picture (Recall this 06/14/17 field) -Photo Taken Yes -Epithelialization None Present -Tunneling No -Undermining/Tunneling No -Classification - Thickness Full Thickness without Exposed Support Structure -Exudate Amt Medium (34-66%) -Exudate Type Serosanguineous -Wound Margin Indistinct, Non -Visible -Granulation Amt Small (1-33%) -Granulation Quality Pale [place] -Slough/Fibrin Yes -Necrosis Amt Medium (34-66%) -Necrotic Tissue Type Adherent Slough -Structure Exposed None/Limited to Skin Breakdown -Texture (Pao-wound Skin Appearance) Assessed Scarring -Moisture (Pao-wound Skin Appearance Assessed ) Weeping -Color (Pao-wound Skin Appearance) No Abnormality Assessed -Temperature (Pao-wound Skin No Abnormality Appearance) (Pt Warm) -Ulcer Cleansing Rinsed/ Irrigated with Saline -Foul Odor after Cleansing No -Anesthetic Used 4% Lidocaine Solution WC - Nurse 2 - General Ulcer CM Notes Start: 06/07/17 08:09 Freq: Status: Active Protocol: Activity Type Activity Date Activity User E-Sign Co-Sign Detail Recorded Client Recorded Date Recorded By Document 04/13/18 08:54 MW [id number] 06/14/17 09:04 MW 06/14/17 08:54 Wound Center Nurse 2 [Procedure/Treatment] -Time 08:56 -Correct Patient Yes -Correct Side, Site, Position Yes -Correct Procedure Yes -Procedure Performed Yes -Type of Procedure Debridement -Clinical Debridement Subcutaneous -Post Debridement Size (cm) - Length 1.0 -Post Debridement Size (cm) - Width 0.9 -Post Debridement Size (cm) - Depth 0.2 -Total Square Cm 0.90 -Wound/Ulcer Outcome Not Healed -Ulcer Cleansing Rinsed/ Irrigated with Saline -Foul Odor after Cleansing No -Bioengineered Tissue Yes -Type of bioengineered Tissue EPIFIX -Expiration Date 03/04/22 -Product Lot Number [id number] -Saline Lot Number [id number] -Bleeding Controlled with Pressure -Treatment Response Procedure Tolerated Well [See Physician Procedure note for Specifics] Pain Scale: 0-10 Numeric [Pain] -Is Patient Pain Free? Yes Musculoskeletal: No Tenderness to Palpation of Joints or Extremities Lymphatic: No Cervical, Supraclavicular, or Inguinal Adenopathy Neurological: Cranial nerves II-XII grossly intact, Neuro grossly intact Psych/Mental Status: Normal Affect, Appropriate, Alert and oriented to time, place, person, mood and affect Debridement Note Post-Debridement Measurements/Treatment WC - Nurse 2 - General Ulcer CM Notes Start: 06/07/17 08:09 Freq: Status: Active Protocol: Activity Type Activity Date Activity User E-Sign Co-Sign Detail Recorded Client Recorded Date Recorded By Document 06/07/17 08:30 MW [id number] 06/07/17 08:42 MW Document 06/14/17 08:54 MW [id number] 06/14/17 09:04 MW 06/07/17 06/14/17 08:30 08:54 Wound Center Nurse 2 1. sacral ulcer stg III -Time 08:32 08:56 -Correct Patient Yes Yes -Correct Side, Site, Position Yes Yes -Correct Procedure Yes Yes -Procedure Performed Yes Yes -Type of Procedure Debridement Debridement -Clinical Debridement Subcutaneous Subcutaneous -Post Debridement Size (cm) - Length 1.0 1.0 -Post Debridement Size (cm) - Width 0.8 0.9 -Post Debridement Size (cm) - Depth 0.2 0.2 -Total Square Cm 0.80 0.90 -Wound/Ulcer Outcome Not Healed Not Healed -Ulcer Cleansing Rinsed/ Rinsed/ Irrigated with Irrigated with Saline Saline -Foul Odor after Cleansing No No -Bioengineered Tissue Yes Yes -Type of bioengineered Tissue EPIFIX EPIFIX -Expiration Date 03/04/22 03/04/22 -Product Lot Number [id number] -Percent Used 25 -Saline Lot Number [id number] -Bleeding Controlled with Pressure Pressure -Treatment Response Procedure Procedure Tolerated Well Tolerated Well Pain Scale: 0-10 Numeric Is Patient Pain Free? Yes Yes Wound debrided: coccyx ulcer Wound Grade/Stage: Stage III Type of Debridement: Excisional debridement Anesthesia Used: 5% Lidocaine Gel Depth: Down to and including healthy tissue, in the subcutaneous layer Percentage of wound debrided: 100 Instrument Used: 7mm curette, - - nippers Tissue Removed: Fibrin and callus Severity: Limited To Skin Breakdown Amount of bleeding with debridement: Moderate Bleeding Controlled with: Compression and gauze Patient tolerated procedure well Assessment/Plan Active Problems Nonhealing nonsurgical wound (Chronic) Assessment: Chronic Pressure ulcer coccyx stage III. Malnutrition resolved. Difficulty walking. Infected decubitus ulcer resolved Plan: Epi-fix #7 with veil steri-strips ABD dressing and Medipore. continue to offload buttocks by lying flat in bed rather than in a chair as much as possible has a low air mattress. continue eating a highprotein diet and supplements. Follow-up 1 weeks\. [place] instant breakfast with ice cream. Vitamin C 500 mg 2 by mouth daily. Information entered by nursing staff reviewed. This document was created using a voice recognition system. Errors in punctuation, spelling and grammar may not have been corrected prior to saving.
[2017-06-21 08:19] VITALS: BP 136/77; PULSE 102; RESP 18; TEMP 36.3; BMI 17.0
--- NOTE | 2017-06-21 09:10 | PCM.WC.PN ---
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 level Status: Chronic Current Visit: Yes Code(s): M51.36 - Other intervertebral disc degeneration, lumbar region (3) Infected decubitus ulcer Status: Chronic Current Visit: Yes Qualifiers: Code(s): L89.90 - Pressure ulcer of unspecified site, unspecified stage; L08.9 - Local infection of the skin and subcutaneous tissue, unspecified (4) Malnutrition Status: Chronic Current Visit: Yes Code(s): E46 - Unspecified protein-calorie malnutrition (5) Nonhealing nonsurgical wound Status: Chronic Current Visit: Yes Code(s): T14.8 - Other injury of unspecified body region Type of Wound Date of Service: 06/21/17 Chief Complaint: 78-year-old white male emaciated living at home with his with many comorbidities. Patient has spinal stenosis so bad that he has no feeling in his rectum. Patient has frequent large stools. during the night, and it lays against the skin of his rectal area and causes denuded skin. Patient appears here with an small superficial ulcer on the coccyx area History of Wound: Patient has been evaluated by Dr. Hitchcock for possible surgical consult, but he feels that unless there is bone exposed to continue with ulcer care as prescribed. Nutrition has been an issue and he needs to continue nutritional efforts. And if he requires frequent ulcer care than because of incontinence then so be it Progress of Wound: Applied epi flix#8 this week the ulcer looks pretty good . New skin buds are forming. Still making a large portion of the thick callus around the edge but the ulcer is flatter this week. Is medically necessary to heal this ulcer and is doing a very good job. His last pre-albumin at Dr. Dominguez office was 25 recheck CBC and a prealbumin today. No odor no redness noted. The patient has been offloading is much as possible. Patient is supplementing with high protein bars and diet, sggested [place] Instant breakfast with ice cream as a supplement and start vit C 1000 mg in chewies per day. Patient is also taking Z-hilary for wound healing. - Physical Exam Vital Signs Temp Pulse Resp BP 97.3 F L 102 H 18 136/77 H 06/21/17 08:19 06/21/17 08:19 06/21/17 08:19 06/21/17 08:19 General: Oriented x3, Cooperative, Well developed HEENT: Atraumatic, PERRLA Oral: Moist Mucosa Neck: Supple, No JVD Lungs: Clear to auscultation, Normal air movement Cardiovascular: Regular rate, Regular Rhythm Abdomen: Bowel Sounds Present, Soft, Non Tender, No Hepato-splenomegaly Extremities: No clubbing, No edema Skin: Ulcer/ Wound - 6 ulcer stage III Wound Measurements and Assessment WC - Nurse 1 - General Ulcer Measurement Start: 06/07/17 08:09 Freq: Status: Active Protocol: Activity Type Activity Date Activity User E-Sign Co-Sign Detail Recorded Client Recorded Date Recorded By Document 06/21/17 08:19 [id number] 06/21/17 08:21 TM 06/21/17 08:19 Wound Center Nurse 1 [Ulcer Assessment] 1. sacral ulcer stg III -Combined with other wound No -Current Size (cm) - Length 1.4 -Current Size (cm) - Width 1.4 -Current Size (cm) - Depth 0.1 -Total Square Cm 1.96 -Date of Last Picture (Recall this 06/21/17 field) -Photo Taken Yes -Epithelialization Small 1-33% -Tunneling No -Undermining/Tunneling No -Circular Undermining No -Classification - Thickness Full Thickness without Exposed Support Structure -Exudate Amt Small (1-33%) -Exudate Type Serosanguineous -Wound Margin Fibrotic Scar, Thickened Scar -Granulation Amt Large (67-100%) -Granulation Quality Red -Slough/Fibrin Yes -Necrosis Amt Small (1-33%) -Necrotic Tissue Type Adherent Slough -Structure Exposed Fascia Fat Layer Exposed -Texture (Pao-wound Skin Appearance) No Abnormality -Moisture (Pao-wound Skin Appearance Maceration ) -Color (Pao-wound Skin Appearance) Erythema -Temperature (Pao-wound Skin No Abnormality Appearance) (Pt Warm) -Tenderness on Palpation (Pao-wound No Skin Appearance) -Ulcer Cleansing Rinsed/ Irrigated with Saline -Foul Odor after Cleansing No -Anesthetic Used 5% Lidocaine Gel [Edema Assessment] -Lower Limb Edema Present No WC - Nurse 2 - General Ulcer CM Notes Start: 06/07/17 08:09 Freq: Status: Active Protocol: Activity Type Activity Date Activity User E-Sign Co-Sign Detail Recorded Client Recorded Date Recorded By Document 06/21/17 08:45 MW [id number] 06/21/17 08:46 MW 06/21/17 08:45 Wound Center Nurse 2 [Procedure/Treatment] 1. sacral ulcer stg III -Time 08:45 -Correct Patient Yes -Correct Side, Site, Position Yes -Correct Procedure Yes -Procedure Performed Yes -Type of Procedure Debridement -Clinical Debridement Subcutaneous -Post Debridement Size (cm) - Length 1.0 -Post Debridement Size (cm) - Width 1.0 -Post Debridement Size (cm) - Depth 0.2 -Total Square Cm 1.00 -Wound/Ulcer Outcome Not Healed -Ulcer Cleansing Rinsed/ Irrigated with Saline -Foul Odor after Cleansing No -Bioengineered Tissue Yes -Type of bioengineered Tissue EPIFIX -Expiration Date 03/04/22 -Product Lot Number [id number] -Percent Used 100 -Saline Lot Number [id number] -Bleeding Controlled with Pressure -Treatment Response Procedure Tolerated Well [See Physician Procedure note for Specifics] Pain Scale: 0-10 Numeric [Pain] -Is Patient Pain Free? Yes Musculoskeletal: No Tenderness to Palpation of Joints or Extremities Lymphatic: No Cervical, Supraclavicular, or Inguinal Adenopathy Neurological: Cranial nerves II-XII grossly intact, Neuro grossly intact Psych/Mental Status: Normal Affect, Appropriate, Alert and oriented to time, place, person, mood and affect Debridement Note Post-Debridement Measurements/Treatment WC - Nurse 2 - General Ulcer CM Notes Start: 06/07/17 08:09 Freq: Status: Active Protocol: Activity Type Activity Date Activity User E-Sign Co-Sign Detail Recorded Client Recorded Date Recorded By Document 06/07/17 08:30 MW [id number] 06/07/17 08:42 MW Document 06/14/17 08:54 MW [id number] 06/14/17 09:04 MW Document 06/21/17 08:45 MW [id number] 06/21/17 08:46 MW 06/07/17 06/14/17 06/21/17 08:30 08:54 08:45 Wound Center Nurse 2 1. sacral ulcer stg III -Time 08:32 08:56 08:45 -Correct Patient Yes Yes Yes -Correct Side, Site, Position Yes Yes Yes -Correct Procedure Yes Yes Yes -Procedure Performed Yes Yes Yes -Type of Procedure Debridement Debridement Debridement -Clinical Debridement Subcutaneous Subcutaneous Subcutaneous -Post Debridement Size (cm) - Length 1.0 1.0 1.0 -Post Debridement Size (cm) - Width 0.8 0.9 1.0 -Post Debridement Size (cm) - Depth 0.2 0.2 0.2 -Total Square Cm 0.80 0.90 1.00 -Wound/Ulcer Outcome Not Healed Not Healed Not Healed -Ulcer Cleansing Rinsed/ Rinsed/ Rinsed/ Irrigated with Irrigated with Irrigated with Saline Saline Saline -Foul Odor after Cleansing No No No -Bioengineered Tissue Yes Yes Yes -Type of bioengineered Tissue EPIFIX EPIFIX EPIFIX -Expiration Date 03/04/22 03/04/22 03/04/22 -Product Lot Number [id number] -Percent Used 25 100 -Saline Lot Number [id number] -Bleeding Controlled with Pressure Pressure Pressure -Treatment Response Procedure Procedure Procedure Tolerated Well Tolerated Well Tolerated Well Pain Scale: 0-10 Numeric Is Patient Pain Free? Yes Yes Yes Wound debrided: coccyx ulcer stage III Wound Grade/Stage: stage III Type of Debridement: Excisional debridement Anesthesia Used: 5% Lidocaine Gel Depth: Down to and including healthy tissue, in the subcutaneous layer Percentage of wound debrided: 100 Instrument Used: 7mm curette, - - Ears Tissue Removed: Fibrin and devitalized tissue callus Severity: Limited To Skin Breakdown Amount of bleeding with debridement: Moderate Patient tolerated procedure well Assessment/Plan Active Problems Nonhealing nonsurgical wound (Chronic) Degenerative disc disease at L5-S1 level (Chronic) Malnutrition (Chronic) Infected decubitus ulcer (Chronic) Decubitus ulcer of coccygeal region, stage 3 (Chronic) Assessment: Chronic Pressure ulcer coccyx stage III. Malnutrition resolved. Difficulty walking. Infected decubitus ulcer resolved Plan: Epi-fix #8 with veil steri-strips ABD dressing and Medipore. continue to offload buttocks by lying flat in bed rather than in a chair as much as possible has a low air mattress. continue eating a highprotein diet and supplements. Follow-up 2 weeks\. [place] instant breakfast with ice cream. Vitamin C 500 mg 2 by mouth daily. Information entered by nursing staff reviewed. This document was created using a voice recognition system. Errors in punctuation, spelling and grammar may not have been corrected prior to saving.
--- NOTE | 2017-06-21 09:13 | PN.PCM_ITS ---
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 level Status: Chronic Current Visit: Yes Code(s): M51.36 - Other intervertebral disc degeneration, lumbar region (3) Infected decubitus ulcer Status: Chronic Current Visit: Yes Qualifiers: Code(s): L89.90 - Pressure ulcer of unspecified site, unspecified stage; L08.9 - Local infection of the skin and subcutaneous tissue, unspecified (4) Malnutrition Status: Chronic Current Visit: Yes Code(s): E46 - Unspecified protein- calorie malnutrition (5) Nonhealing nonsurgical wound Status: Chronic Current Visit: Yes Code(s): T14.8 - Other injury of unspecified body region Type of Wound Date of Service: 06/21/17 Chief Complaint: 78-year-old white male emaciated living at home with his with many comorbidities. Patient has spinal stenosis so bad that he has no feeling in his rectum. Patient has frequent large stools. during the night, and it lays against the skin of his rectal area and causes denuded skin. Patient appears here with an small superficial ulcer on the coccyx area History of Wound: Patient has been evaluated by Dr. Hitchcock for possible surgical consult, but he feels that unless there is bone exposed to continue with ulcer care as prescribed. Nutrition has been an issue and he needs to continue nutritional efforts. And if he requires frequent ulcer care than because of incontinence then so be it Progress of Wound: Applied epi flix#8 this week the ulcer looks pretty good . New skin buds are forming. Still making a large portion of the thick callus around the edge but the ulcer is flatter this week. Is medically necessary to heal this ulcer and is doing a very good job. His last pre-albumin at Dr. Dominguez office was 25 recheck CBC and a prealbumin today. No odor no redness noted. The patient has been offloading is much as possible. Patient is supplementing with high protein bars and diet, sggested [place] Instant breakfast with ice cream as a supplement and start vit C 1000 mg in chewies per day. Patient is also taking Z-hilary for wound healing. - Physical Exam Vital Signs Temp Pulse Resp BP 97.3 F L 102 H 18 136/77 H 06/21/17 08:19 06/21/17 08:19 06/21/17 08:19 06/21/17 08:19 General: Oriented x3, Cooperative, Well developed HEENT: Atraumatic, PERRLA Oral: Moist Mucosa Neck: Supple, No JVD Lungs: Clear to auscultation, Normal air movement Cardiovascular: Regular rate, Regular Rhythm Abdomen: Bowel Sounds Present, Soft, Non Tender, No Hepato-splenomegaly Extremities: No clubbing, No edema Skin: Ulcer/ Wound - 6 ulcer stage III Wound Measurements and Assessment WC - Nurse 1 - General Ulcer Measurement Start: 06/07/17 08:09 Freq: Status: Active Protocol: Activity Type Activity Date Activity User E-Sign Co-Sign Detail Recorded Client Recorded Date Recorded By Document 06/21/17 08:19 [id number] 06/21/17 08:21 TM 06/21/17 08:19 Wound Center Nurse 1 [Ulcer Assessment] 1. sacral ulcer stg III -Combined with other wound No -Current Size (cm) - Length 1.4 -Current Size (cm) - Width 1.4 -Current Size (cm) - Depth 0.1 -Total Square Cm 1.96 -Date of Last Picture (Recall this 06/21/17 field) -Photo Taken Yes -Epithelialization Small 1-33% -Tunneling No -Undermining/Tunneling No -Circular Undermining No -Classification - Thickness Full Thickness without Exposed Support Structure -Exudate Amt Small (1-33%) -Exudate Type Serosanguineous -Wound Margin Fibrotic Scar, Thickened Scar -Granulation Amt Large (67-100%) -Granulation Quality Red -Slough/Fibrin Yes -Necrosis Amt Small (1-33%) -Necrotic Tissue Type Adherent Slough -Structure Exposed Fascia Fat Layer Exposed -Texture (Pao-wound Skin Appearance) No Abnormality -Moisture (Pao-wound Skin Appearance Maceration ) -Color (Pao-wound Skin Appearance) Erythema -Temperature (Pao-wound Skin No Abnormality Appearance) (Pt Warm) -Tenderness on Palpation (Pao-wound No Skin Appearance) -Ulcer Cleansing Rinsed/ Irrigated with Saline -Foul Odor after Cleansing No -Anesthetic Used 5% Lidocaine Gel [Edema Assessment] -Lower Limb Edema Present No WC - Nurse 2 - General Ulcer CM Notes Start: 06/07/17 08:09 Freq: Status: Active Protocol: Activity Type Activity Date Activity User E-Sign Co-Sign Detail Recorded Client Recorded Date Recorded By Document 06/21/17 08:45 MW [id number] 06/21/17 08:46 MW 06/21/17 08:45 Wound Center Nurse 2 [Procedure/Treatment] 1. sacral ulcer stg III -Time 08:45 -Correct Patient Yes -Correct Side, Site, Position Yes -Correct Procedure Yes -Procedure Performed Yes -Type of Procedure Debridement -Clinical Debridement Subcutaneous -Post Debridement Size (cm) - Length 1.0 -Post Debridement Size (cm) - Width 1.0 -Post Debridement Size (cm) - Depth 0.2 -Total Square Cm 1.00 -Wound/Ulcer Outcome Not Healed -Ulcer Cleansing Rinsed/ Irrigated with Saline -Foul Odor after Cleansing No -Bioengineered Tissue Yes -Type of bioengineered Tissue EPIFIX -Expiration Date 03/04/22 -Product Lot Number [id number] -Percent Used 100 -Saline Lot Number [id number] -Bleeding Controlled with Pressure -Treatment Response Procedure Tolerated Well [See Physician Procedure note for Specifics] Pain Scale: 0-10 Numeric [Pain] -Is Patient Pain Free? Yes Musculoskeletal: No Tenderness to Palpation of Joints or Extremities Lymphatic: No Cervical, Supraclavicular, or Inguinal Adenopathy Neurological: Cranial nerves II-XII grossly intact, Neuro grossly intact Psych/Mental Status: Normal Affect, Appropriate, Alert and oriented to time, place, person, mood and affect Debridement Note Post-Debridement Measurements/Treatment WC - Nurse 2 - General Ulcer CM Notes Start: 06/07/17 08:09 Freq: Status: Active Protocol: Activity Type Activity Date Activity User E-Sign Co-Sign Detail Recorded Client Recorded Date Recorded By Document 06/07/17 08:30 MW [id number] 06/07/17 08:42 MW Document 06/14/17 08:54 MW [id number] 06/14/17 09:04 MW Document 06/21/17 08:45 MW [id number] 06/21/17 08:46 MW 06/07/17 06/14/17 06/21/17 08:30 08:54 08:45 Wound Center Nurse 2 1. sacral ulcer stg III -Time 08:32 08:56 08:45 -Correct Patient Yes Yes Yes -Correct Side, Site, Position Yes Yes Yes -Correct Procedure Yes Yes Yes -Procedure Performed Yes Yes Yes -Type of Procedure Debridement Debridement Debridement -Clinical Debridement Subcutaneous Subcutaneous Subcutaneous -Post Debridement Size (cm) - Length 1.0 1.0 1.0 -Post Debridement Size (cm) - Width 0.8 0.9 1.0 -Post Debridement Size (cm) - Depth 0.2 0.2 0.2 -Total Square Cm 0.80 0.90 1.00 -Wound/Ulcer Outcome Not Healed Not Healed Not Healed -Ulcer Cleansing Rinsed/ Rinsed/ Rinsed/ Irrigated with Irrigated with Irrigated with Saline Saline Saline -Foul Odor after Cleansing No No No -Bioengineered Tissue Yes Yes Yes -Type of bioengineered Tissue EPIFIX EPIFIX EPIFIX -Expiration Date 03/04/22 03/04/22 03/04/22 -Product Lot Number [id number] -Percent Used 25 100 -Saline Lot Number [id number] -Bleeding Controlled with Pressure Pressure Pressure -Treatment Response Procedure Procedure Procedure Tolerated Well Tolerated Well Tolerated Well Pain Scale: 0-10 Numeric Is Patient Pain Free? Yes Yes Yes Wound debrided: coccyx ulcer stage III Wound Grade/Stage: stage III Type of Debridement: Excisional debridement Anesthesia Used: 5% Lidocaine Gel Depth: Down to and including healthy tissue, in the subcutaneous layer Percentage of wound debrided: 100 Instrument Used: 7mm curette, - - Ears Tissue Removed: Fibrin and devitalized tissue callus Severity: Limited To Skin Breakdown Amount of bleeding with debridement: Moderate Patient tolerated procedure well Assessment/Plan Active Problems Nonhealing nonsurgical wound (Chronic) Degenerative disc disease at L5-S1 level (Chronic) Malnutrition (Chronic) Infected decubitus ulcer (Chronic) Decubitus ulcer of coccygeal region, stage 3 (Chronic) Assessment: Chronic Pressure ulcer coccyx stage III. Malnutrition resolved. Difficulty walking. Infected decubitus ulcer resolved Plan: Epi-fix #8 with veil steri-strips ABD dressing and Medipore. continue to offload buttocks by lying flat in bed rather than in a chair as much as possible has a low air mattress. continue eating a highprotein diet and supplements. Follow-up 2 weeks\. [place] instant breakfast with ice cream. Vitamin C 500 mg 2 by mouth daily. Information entered by nursing staff reviewed. This document was created using a voice recognition system. Errors in punctuation, spelling and grammar may not have been corrected prior to saving.
[2017-06-21 16:08] LABS: Absolute Lymphocyte Count 0.99 X10^3/ul (0.83-4.51); Absolute Neutrophil Count 4.8 X10^3/uL (2.0-7.7); Basophil# 0.05 X10^3/uL; Basophil% 0.8 % (0-1); Eosinophil# 0.13 X10^3/uL; Hematocrit 44.8 % (40-54); Hemoglobin 14.4 g/dl (13.0-16.5); Lymphocyte # 0.99 X10^3/ul (4.0); Lymphocyte % 15.6 % (19-41); Mean Corp Hgb Conc 32.1 g/gl (32-36); Mean Corpuscular Hgb 31.2 pg (27.0-32.0); Mean Platelet Vol. 9.7 fl (6.2-12.0); Monocyte# 0.36 X10^3/uL; Monocyte% 5.7 % (0-10); Neutrophil # 4.83 X10^3/uL (2.7-7.7); Neutrophil % 75.9 % (47-70); Platelet Count 323 K/mm3 (150-450); RBC Distribution Width CV 13.7 % (11.6-14.6); RBC Distribution Width SD 48.5 fl (35.1-43.9); Red Blood Count 4.62 M/mm3 (4.6-6.2); White Blood Count 6.4 K/mm3 (4.4-11.0)
[2017-06-21 16:17] LABS: Prealbumin 20.2 mg/dL (20.0-40.0)
[2017-06-21 16:24] LABS: POSITIVE COUNT NO; POSITIVE DIFFERENTIAL NO; POSITIVE MORPHOLOGY NO
== END 2017-07-01 23:59 ==
LOC: WC 08:00
PROVIDERS: Family Provider Family Medicine; PCP Family Medicine; Visit Provider Nurse Practitioner
DX: L89.153 Pressure ulcer of sacral region, stage 3 (principal); M51.36 Other intervertebral disc degeneration, lumbar region; L08.9 Local infection of the skin and subcutaneous tissue, unspecified; R32 Unspecified urinary incontinence; L84 Corns and callosities
CPT/HCPCS: 15271; 84134; 85025; Q4131

== ENCOUNTER 2017-07-26 08:00 | Outpatient (RCR) | payer MEDICARE, OTHER, SELFPAY ==
[2017-07-02 00:27] VITALS: BP 141/89; PULSE 102; RESP 18; TEMP 36.3; BMI 17.0
[2017-07-05 08:33] VITALS: BP 135/74; PULSE 101; RESP 18; TEMP 36.6; BMI 17.0
--- NOTE | 2017-07-05 09:12 | PCM.WC.PN ---
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 level Status: Chronic Current Visit: Yes Code(s): M51.36 - Other intervertebral disc degeneration, lumbar region (3) Infected decubitus ulcer Status: Chronic Current Visit: Yes Qualifiers: Code(s): L89.90 - Pressure ulcer of unspecified site, unspecified stage; L08.9 - Local infection of the skin and subcutaneous tissue, unspecified (4) Malnutrition Status: Chronic Current Visit: No Code(s): E46 - Unspecified protein-calorie malnutrition (5) Nonhealing nonsurgical wound Status: Chronic Current Visit: Yes Code(s): T14.8 - Other injury of unspecified body region Type of Wound Date of Service: 07/05/17 Chief Complaint: 78-year-old white male emaciated living at home with his with many comorbidities. Patient has spinal stenosis so bad that he has no feeling in his rectum. Patient has frequent large stools. during the night, and it lays against the skin of his rectal area and causes denuded skin. Patient appears here with an small superficial ulcer on the coccyx area History of Wound: Patient has been evaluated by Dr. Hitchcock for possible surgical consult, but he feels that unless there is bone exposed to continue with ulcer care as prescribed. Nutrition has been an issue and he needs to continue nutritional efforts. And if he requires frequent ulcer care than because of incontinence then so be it Progress of Wound: Applied epi flix#9 this week the ulcer looks pretty good . New skin buds are forming. Still making a large portion of the thick callus around the edge but the ulcer is flatter this week. Is medically necessary to heal this ulcer and is doing a very good job. His last pre-albumin at Dr. Dominguez office was 25 recheck 06/21/17 id now down to 20.2 CBC shows no anemia. No odor no redness noted. The patient has been offloading is much as possible. Patient is supplementing with high protein bars and diet, sggested [place] Instant breakfast with ice cream as a supplement and start vit C 1000 mg in chewies per day. Patient is also taking Z-hilary for wound healing. - Physical Exam Vital Signs Temp Pulse Resp BP 97.8 F 101 H 18 135/74 H 07/05/17 08:33 07/05/17 08:33 07/05/17 08:33 07/05/17 08:33 General: Oriented x3, Cooperative, Well developed HEENT: Atraumatic, PERRLA Oral: Moist Mucosa Neck: Supple, No JVD Lungs: Clear to auscultation, Normal air movement Cardiovascular: Regular rate, Regular Rhythm Abdomen: Bowel Sounds Present, Soft, Non Tender, No Hepato-splenomegaly Extremities: No clubbing, No edema Skin: Ulcer/ Wound - Coccyx ulcer stage III Wound Measurements and Assessment WC - Nurse 1 - General Ulcer Measurement Start: 07/05/17 08:33 Freq: Status: Active Protocol: Activity Type Activity Date Activity User E-Sign Co-Sign Detail Recorded Client Recorded Date Recorded By Document 07/05/17 08:33 [id number] 07/05/17 08:37 07/05/17 08:33 Wound Center Nurse 1 [Ulcer Assessment] 1. sacral ulcer stg III -Combined with other wound No -Current Size (cm) - Length 1.5 -Current Size (cm) - Width 1.2 -Current Size (cm) - Depth 0.3 -Total Square Cm 1.80 -Epithelialization None Present -Tunneling No -Undermining/Tunneling No -Circular Undermining No -Classification - Thickness Full Thickness without Exposed Support Structure -Exudate Amt Small (1-33%) -Exudate Type Serosanguineous -Wound Margin Fibrotic Scar, Thickened Scar -Granulation Amt Small (1-33%) -Granulation Quality Red -Slough/Fibrin Yes -Necrosis Amt None Present (0 %) -Necrotic Tissue Type Adherent Slough -Structure Exposed Fascia Fat Layer Exposed -Texture (Pao-wound Skin Appearance) Friable Scarring -Moisture (Pao-wound Skin Appearance Maceration ) -Color (Pao-wound Skin Appearance) No Abnormality -Temperature (Pao-wound Skin No Abnormality Appearance) (Pt Warm) -Tenderness on Palpation (Pao-wound No Skin Appearance) -Ulcer Cleansing Rinsed/ Irrigated with Saline -Foul Odor after Cleansing No -Anesthetic Used 4% Lidocaine Solution [Edema Assessment] -Lower Limb Edema Present No Musculoskeletal: No Tenderness to Palpation of Joints or Extremities Lymphatic: No Cervical, Supraclavicular, or Inguinal Adenopathy Neurological: Cranial nerves II-XII grossly intact, Neuro grossly intact Psych/Mental Status: Normal Affect, Appropriate Debridement Note Wound debrided: Coccyx ulcer Wound Grade/Stage: Stage III Type of Debridement: Excisional debridement Anesthesia Used: 5% Lidocaine Gel Depth: Down to and including healthy tissue, in the subcutaneous layer Percentage of wound debrided: 100 Instrument Used: 7mm curette, Forceps, - - Nippers Tissue Removed: Fibrin and callus Severity: Limited To Skin Breakdown Amount of bleeding with debridement: Mild Bleeding Controlled with: Compression and gauze Patient tolerated procedure well Assessment/Plan Active Problems Nonhealing nonsurgical wound (Chronic) 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 Malnutrition resolved. Difficulty walking. Infected decubitus ulcer resolved Plan: Epi-fix #9 with veil steri-strips ABD dressing and Medipore. continue to offload buttocks by lying flat in bed rather than in a chair as much as possible has a low air mattress. continue eating a highprotein diet and supplements. Follow-up 1 weeks\. [place] instant breakfast with ice cream. Vitamin C 500 mg 2 by mouth daily. Information entered by nursing staff reviewed. This document was created using a voice recognition system. Errors in punctuation, spelling and grammar may not have been corrected prior to saving.
[2017-07-26 08:26] VITALS: BP 137/83; PULSE 94; RESP 18; TEMP 36.5; BMI 17.0
--- NOTE | 2017-07-26 09:26 | PCM.WC.PN ---
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 level Status: Chronic Current Visit: Yes Code(s): M51.36 - Other intervertebral disc degeneration, lumbar region (3) Infected decubitus ulcer Status: Chronic Current Visit: Yes Qualifiers: Code(s): L89.90 - Pressure ulcer of unspecified site, unspecified stage; L08.9 - Local infection of the skin and subcutaneous tissue, unspecified (4) Malnutrition Status: Chronic Current Visit: No Code(s): E46 - Unspecified protein-calorie malnutrition (5) Nonhealing nonsurgical wound Status: Chronic Current Visit: Yes Code(s): T14.8 - Other injury of unspecified body region Type of Wound Date of Service: 07/26/17 Chief Complaint: 78-year-old white male emaciated living at home with his with many comorbidities. Patient has spinal stenosis so bad that he has no feeling in his rectum. Patient has frequent large stools. during the night, and it lays against the skin of his rectal area and causes denuded skin. Patient appears here with an small superficial ulcer on the coccyx area History of Wound: Patient has been evaluated by Dr. Hitchcock for possible surgical consult, but he feels that unless there is bone exposed to continue with ulcer care as prescribed. Nutrition has been an issue and he needs to continue nutritional efforts. And if he requires frequent ulcer care than because of incontinence then so be it Progress of Wound: Applied epi flix#10 this week the ulcer looks pretty good . Has not been here for 3 weeks though still callus build up around the edge ,skin buds developing. Is medically necessary to heal this ulcer and is doing a very good job. His last pre-albumin at Dr. Dominguez office was 25 recheck 06/21/17 id now down to 20.2 CBC shows no anemia. No odor no redness noted. The patient has been offloading is much as possible. Patient is supplementing with high protein bars and diet, sggested [place] Instant breakfast with ice cream as a supplement and start vit C 1000 mg in chewies per day. Patient is also taking Z-hilary for wound healing. Will apply for theraskin next. - Physical Exam Vital Signs Temp Pulse Resp BP 97.7 F L 94 18 137/83 H 07/26/17 08:26 07/26/17 08:26 07/26/17 08:26 07/26/17 08:26 General: Oriented x3, Cooperative, Well developed HEENT: Atraumatic, PERRLA Oral: Moist Mucosa Neck: Supple, No JVD Lungs: Clear to auscultation, Normal air movement Cardiovascular: Regular rate, Regular Rhythm Abdomen: Bowel Sounds Present, Soft, Non Tender, No Hepato-splenomegaly Extremities: No clubbing, No edema Skin: Ulcer/ Wound - coccyx ulcer stage 3 Wound Measurements and Assessment WC - Nurse 1 - General Ulcer Measurement Start: 07/05/17 08:33 Freq: Status: Active Protocol: Activity Type Activity Date Activity User E-Sign Co-Sign Detail Recorded Client Recorded Date Recorded By Document 07/26/17 08:26 DV [id number] 07/26/17 08:29 DV 07/26/17 08:26 Wound Center Nurse 1 [Ulcer Assessment] 1. sacral ulcer stg III -Combined with other wound No -Current Size (cm) - Length 1.7 -Current Size (cm) - Width 1.0 -Current Size (cm) - Depth 0.3 -Total Square Cm 1.70 -Photo Taken Yes -Epithelialization None Present -Tunneling No -Undermining/Tunneling No -Circular Undermining No -Classification - Thickness Full Thickness without Exposed Support Structure -Exudate Amt None Present (0 %) -Wound Margin Indistinct, Non -Visible -Granulation Amt None Present (0 %) -Granulation Quality N/A -Slough/Fibrin Yes -Necrosis Amt Large (67-100%) -Necrotic Tissue Type Adherent Slough -Structure Exposed None/Limited to Skin Breakdown -Texture (Pao-wound Skin Appearance) No Abnormality Assessed -Moisture (Pao-wound Skin Appearance Assessed ) Dry/Scaly -Color (Pao-wound Skin Appearance) No Abnormality Assessed -Temperature (Pao-wound Skin No Abnormality Appearance) (Pt Warm) -Tenderness on Palpation (Pao-wound No Skin Appearance) -Ulcer Cleansing Rinsed/ Irrigated with Saline -Foul Odor after Cleansing No WC - Nurse 2 - General Ulcer CM Notes Start: 07/05/17 08:33 Freq: Status: Active Protocol: Activity Type Activity Date Activity User E-Sign Co-Sign Detail Recorded Client Recorded Date Recorded By Document 07/26/17 08:59 DV [id number] 07/26/17 09:15 DV 07/26/17 08:59 Wound Center Nurse 2 [Procedure/Treatment] -Time 09:00 -Correct Patient Yes -Correct Side, Site, Position Yes -Correct Procedure Yes -Procedure Performed Yes -Type of Procedure Debridement -Clinical Debridement Subcutaneous -Post Debridement Size (cm) - Length 1.4 -Post Debridement Size (cm) - Width 1.0 -Post Debridement Size (cm) - Depth 0.3 -Total Square Cm 1.40 -Wound/Ulcer Outcome Not Healed -Ulcer Cleansing Rinsed/ Irrigated with Saline -Foul Odor after Cleansing No -Bioengineered Tissue Yes -Type of bioengineered Tissue EPIFIX -Expiration Date 05/02/22 -Product Lot Number [id number] -Percent Used 95 -Saline Lot Number [id number] -Topical Lidocaine (%) 4 -Bleeding Controlled with Pressure -Treatment Response Procedure Tolerated Well [See Physician Procedure note for Specifics] Pain Scale: 0-10 Numeric [Pain] -Is Patient Pain Free? Yes Musculoskeletal: No Tenderness to Palpation of Joints or Extremities Lymphatic: No Cervical, Supraclavicular, or Inguinal Adenopathy Neurological: Cranial nerves II-XII grossly intact, Neuro grossly intact Psych/Mental Status: Normal Affect, Appropriate, Alert and oriented to time, place, person, mood and affect Debridement Note Post-Debridement Measurements/Treatment WC - Nurse 2 - General Ulcer CM Notes Start: 07/05/17 08:33 Freq: Status: Active Protocol: Activity Type Activity Date Activity User E-Sign Co-Sign Detail Recorded Client Recorded Date Recorded By Document 07/26/17 08:59 DV [id number] 07/26/17 09:15 DV 07/26/17 08:59 Wound Center Nurse 2 1. sacral ulcer stg III -Time 09:00 -Correct Patient Yes -Correct Side, Site, Position Yes -Correct Procedure Yes -Procedure Performed Yes -Type of Procedure Debridement -Clinical Debridement Subcutaneous -Post Debridement Size (cm) - Length 1.4 -Post Debridement Size (cm) - Width 1.0 -Post Debridement Size (cm) - Depth 0.3 -Total Square Cm 1.40 -Wound/Ulcer Outcome Not Healed -Ulcer Cleansing Rinsed/ Irrigated with Saline -Foul Odor after Cleansing No -Bioengineered Tissue Yes -Type of bioengineered Tissue EPIFIX -Expiration Date 05/02/22 -Product Lot Number [id number] -Percent Used 95 -Saline Lot Number [id number] -Topical Lidocaine (%) 4 -Bleeding Controlled with Pressure -Treatment Response Procedure Tolerated Well Pain Scale: 0-10 Numeric Is Patient Pain Free? 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 Malnutrition resolved. Difficulty walking. Infected decubitus ulcer resolved Plan: Epi-fix #10 with veil steri-strips ABD dressing and Medipore. continue to offload buttocks by lying flat in bed rather than in a chair as much as possible has a low air mattress. continue eating a highprotein diet and supplements. Follow-up 1 week. [place] instant breakfast with ice cream. Vitamin C 500 mg 2 by mouth daily. Information entered by nursing staff reviewed. This document was created using a voice recognition system. Errors in punctuation, spelling and grammar may not have been corrected prior to saving.
--- NOTE | 2017-07-26 09:32 | PN.PCM_ITS ---
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 level Status: Chronic Current Visit: Yes Code(s): M51.36 - Other intervertebral disc degeneration, lumbar region (3) Infected decubitus ulcer Status: Chronic Current Visit: Yes Qualifiers: Code(s): L89.90 - Pressure ulcer of unspecified site, unspecified stage; L08.9 - Local infection of the skin and subcutaneous tissue, unspecified (4) Malnutrition Status: Chronic Current Visit: No Code(s): E46 - Unspecified protein- calorie malnutrition (5) Nonhealing nonsurgical wound Status: Chronic Current Visit: Yes Code(s): T14.8 - Other injury of unspecified body region Type of Wound Date of Service: 07/26/17 Chief Complaint: 78-year-old white male emaciated living at home with his with many comorbidities. Patient has spinal stenosis so bad that he has no feeling in his rectum. Patient has frequent large stools. during the night, and it lays against the skin of his rectal area and causes denuded skin. Patient appears here with an small superficial ulcer on the coccyx area History of Wound: Patient has been evaluated by Dr. Hitchcock for possible surgical consult, but he feels that unless there is bone exposed to continue with ulcer care as prescribed. Nutrition has been an issue and he needs to continue nutritional efforts. And if he requires frequent ulcer care than because of incontinence then so be it Progress of Wound: Applied epi flix#10 this week the ulcer looks pretty good . Has not been here for 3 weeks though still callus build up around the edge , skin buds developing. Is medically necessary to heal this ulcer and is doing a very good job. His last pre-albumin at Dr. Dominguez office was 25 recheck id now down to 20.2 CBC shows no anemia. No odor no redness noted. The patient has been offloading is much as possible. Patient is supplementing with high protein bars and diet, sggested [place] Instant breakfast with ice cream as a supplement and start vit C 1000 mg in chewies per day. Patient is also taking Z-hilary for wound healing. Will apply for theraskin next. - Physical Exam Vital Signs Temp Pulse Resp BP 97.7 F L 94 18 137/83 H 07/26/17 08:26 07/26/17 08:26 07/26/17 08:26 07/26/17 08:26 General: Oriented x3, Cooperative, Well developed HEENT: Atraumatic, PERRLA Oral: Moist Mucosa Neck: Supple, No JVD Lungs: Clear to auscultation, Normal air movement Cardiovascular: Regular rate, Regular Rhythm Abdomen: Bowel Sounds Present, Soft, Non Tender, No Hepato-splenomegaly Extremities: No clubbing, No edema Skin: Ulcer/ Wound - coccyx ulcer stage 3 Wound Measurements and Assessment WC - Nurse 1 - General Ulcer Measurement Start: 07/05/17 08:33 Freq: Status: Active Protocol: Activity Type Activity Date Activity User E-Sign Co-Sign Detail Recorded Client Recorded Date Recorded By Document 07/26/17 08:26 DV [id number] 07/26/17 08:29 DV 07/26/17 08:26 Wound Center Nurse 1 [Ulcer Assessment] 1. sacral ulcer stg III -Combined with other wound No -Current Size (cm) - Length 1.7 -Current Size (cm) - Width 1.0 -Current Size (cm) - Depth 0.3 -Total Square Cm 1.70 -Photo Taken Yes -Epithelialization None Present -Tunneling No -Undermining/Tunneling No -Circular Undermining No -Classification - Thickness Full Thickness without Exposed Support Structure -Exudate Amt None Present (0 %) -Wound Margin Indistinct, Non -Visible -Granulation Amt None Present (0 %) -Granulation Quality N/A -Slough/Fibrin Yes -Necrosis Amt Large (67-100%) -Necrotic Tissue Type Adherent Slough -Structure Exposed None/Limited to Skin Breakdown -Texture (Pao-wound Skin Appearance) No Abnormality Assessed -Moisture (Pao-wound Skin Appearance Assessed ) Dry/Scaly -Color (Pao-wound Skin Appearance) No Abnormality Assessed -Temperature (Pao-wound Skin No Abnormality Appearance) (Pt Warm) -Tenderness on Palpation (Pao-wound No Skin Appearance) -Ulcer Cleansing Rinsed/ Irrigated with Saline -Foul Odor after Cleansing No WC - Nurse 2 - General Ulcer CM Notes Start: 07/05/17 08:33 Freq: Status: Active Protocol: Activity Type Activity Date Activity User E-Sign Co-Sign Detail Recorded Client Recorded Date Recorded By Document 07/26/17 08:59 DV [id number] 07/26/17 09:15 DV 07/26/17 08:59 Wound Center Nurse 2 [Procedure/Treatment] -Time 09:00 -Correct Patient Yes -Correct Side, Site, Position Yes -Correct Procedure Yes -Procedure Performed Yes -Type of Procedure Debridement -Clinical Debridement Subcutaneous -Post Debridement Size (cm) - Length 1.4 -Post Debridement Size (cm) - Width 1.0 -Post Debridement Size (cm) - Depth 0.3 -Total Square Cm 1.40 -Wound/Ulcer Outcome Not Healed -Ulcer Cleansing Rinsed/ Irrigated with Saline -Foul Odor after Cleansing No -Bioengineered Tissue Yes -Type of bioengineered Tissue EPIFIX -Expiration Date 05/02/22 -Product Lot Number [id number] -Percent Used 95 -Saline Lot Number [id number] -Topical Lidocaine (%) 4 -Bleeding Controlled with Pressure -Treatment Response Procedure Tolerated Well [See Physician Procedure note for Specifics] Pain Scale: 0-10 Numeric [Pain] -Is Patient Pain Free? Yes Musculoskeletal: No Tenderness to Palpation of Joints or Extremities Lymphatic: No Cervical, Supraclavicular, or Inguinal Adenopathy Neurological: Cranial nerves II-XII grossly intact, Neuro grossly intact Psych/Mental Status: Normal Affect, Appropriate, Alert and oriented to time, place, person, mood and affect Debridement Note Post-Debridement Measurements/Treatment WC - Nurse 2 - General Ulcer CM Notes Start: 07/05/17 08:33 Freq: Status: Active Protocol: Activity Type Activity Date Activity User E-Sign Co-Sign Detail Recorded Client Recorded Date Recorded By Document 07/26/17 08:59 DV [id number] 07/26/17 09:15 DV 07/26/17 08:59 Wound Center Nurse 2 1. sacral ulcer stg III -Time 09:00 -Correct Patient Yes -Correct Side, Site, Position Yes -Correct Procedure Yes -Procedure Performed Yes -Type of Procedure Debridement -Clinical Debridement Subcutaneous -Post Debridement Size (cm) - Length 1.4 -Post Debridement Size (cm) - Width 1.0 -Post Debridement Size (cm) - Depth 0.3 -Total Square Cm 1.40 -Wound/Ulcer Outcome Not Healed -Ulcer Cleansing Rinsed/ Irrigated with Saline -Foul Odor after Cleansing No -Bioengineered Tissue Yes -Type of bioengineered Tissue EPIFIX -Expiration Date 05/02/22 -Product Lot Number [id number] -Percent Used 95 -Saline Lot Number [id number] -Topical Lidocaine (%) 4 -Bleeding Controlled with Pressure -Treatment Response Procedure Tolerated Well Pain Scale: 0-10 Numeric Is Patient Pain Free? 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 Malnutrition resolved. Difficulty walking. Infected decubitus ulcer resolved Plan: Epi-fix #10 with veil steri-strips ABD dressing and Medipore. continue to offload buttocks by lying flat in bed rather than in a chair as much as possible has a low air mattress. continue eating a highprotein diet and supplements. Follow-up 1 week. [place] instant breakfast with ice cream. Vitamin C 500 mg 2 by mouth daily. Information entered by nursing staff reviewed. This document was created using a voice recognition system. Errors in punctuation, spelling and grammar may not have been corrected prior to saving.
== END 2017-08-01 23:59 ==
LOC: WC 08:00
PROVIDERS: Family Provider Family Medicine; PCP Family Medicine; Visit Provider Nurse Practitioner
DX: L89.153 Pressure ulcer of sacral region, stage 3 (principal); L08.9 Local infection of the skin and subcutaneous tissue, unspecified; M51.36 Other intervertebral disc degeneration, lumbar region; E46 Unspecified protein-calorie malnutrition
CPT/HCPCS: 15271; Q4131

== ENCOUNTER → 2017-07-30 15:04 | Outpatient (CLI) | payer MEDICARE, OTHER, SELFPAY ==
[2017-07-30 15:08] LABS: Mucous, Urine 0 SEEN /hpf (<or=2+); Red Blood Cells-Urine 0 SEEN /hpf (0-5); Squamous Epithelial Cells - UA 0 SEEN /hpf (0-5)
[2017-07-30 17:41] LABS: Color, Urine Yellow (Yellow); Glucose, Dipstick Normal (Normal); Ketone-Dipstick Negative (Negative); Leukocyte Esterase-Dipstick 500 /ul (Negative); Nitrite-Dipstick Negative (Negative); Occult Blood-Urine 10 /ul (Negative); Protein-Dipstick Negative (Negative); Specific Gravity, Urine 1.005 (1.002-1.030); Urine Bilirubin Dipstick Negative (Negative); Urine Clarity Clear (Clear); Urine Urobilinogen Normal (Normal)
[2017-07-30 17:52] LABS: Bacteria 1+ /hpf (None Seen); White Blood Cells 10-25 SEEN /hpf (0-5)
== END ==
PROVIDERS: Family Provider Family Medicine; PCP Family Medicine; Visit Provider Family Medicine
DX: R30.0 Dysuria (principal)
CPT/HCPCS: 81001; 87086; 87088; 87186

== ENCOUNTER 2017-08-30 08:00 | Outpatient (RCR) | payer MEDICARE, OTHER, SELFPAY ==
[2017-08-02 00:28] VITALS: BP 137/83; PULSE 94; RESP 18; TEMP 36.5; BMI 17.0
[2017-08-02 08:19] VITALS: BP 132/75; PULSE 94; RESP 18; TEMP 36.6; BMI 17.0
--- NOTE | 2017-08-02 08:41 | PCM.WC.PN ---
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 level Status: Chronic Current Visit: Yes Code(s): M51.36 - Other intervertebral disc degeneration, lumbar region (3) Difficulty walking Status: Chronic Current Visit: Yes Code(s): R26.2 - Difficulty in walking, not elsewhere classified (4) Malnutrition Status: Chronic Current Visit: Yes Code(s): E46 - Unspecified protein-calorie malnutrition (5) Nonhealing nonsurgical wound Status: Chronic Current Visit: Yes Code(s): T14.8 - Other injury of unspecified body region Type of Wound Date of Service: 08/02/17 Chief Complaint: 78-year-old white male emaciated living at home with his with many comorbidities. Patient has spinal stenosis so bad that he has no feeling in his rectum. Patient has frequent large stools. during the night, and it lays against the skin of his rectal area and causes denuded skin. Patient appears here with an small superficial ulcer on the coccyx area History of Wound: Patient has been evaluated by Dr. Hitchcock for possible surgical consult, but he feels that unless there is bone exposed to continue with ulcer care as prescribed. Nutrition has been an issue and he needs to continue nutritional efforts. And if he requires frequent ulcer care than because of incontinence then so be it Progress of Wound: Applied epi flix#10 this past week the ulcer looks pretty good . The ulcer is slowly closing with scar tissue but closing. Is medically necessary to heal this ulcer and the skin substitues have shown to help in this capacity and is doing a very good job. His last pre-albumin at Dr. Dominguez office was 25 recheck 06/21/17 id now down to 20.2 CBC shows no anemia. No odor no redness noted. The patient has been offloading is much as possible. We started promogran this week and see how it works to close and will apply for another skin substutute. Patient is supplementing with high protein bars and diet, sggested [place] Instant breakfast with ice cream as a supplement and start vit C 1000 mg in chewies per day. Patient is also taking Z-hilary for wound healing. Will apply for theraskin next. - Physical Exam Vital Signs Temp Pulse Resp BP 97.8 F 94 18 132/75 H 08/02/17 08:19 08/02/17 08:19 08/02/17 08:19 08/02/17 08:19 General: Oriented x3, Cooperative, Well developed HEENT: Atraumatic, PERRLA Oral: Moist Mucosa Neck: Supple, No JVD Lungs: Clear to auscultation, Normal air movement Cardiovascular: Regular rate, Regular Rhythm Abdomen: Bowel Sounds Present, Soft, Non Tender, No Hepato-splenomegaly Extremities: No clubbing, No edema Skin: Ulcer/ Wound - skin ulcer stage 3 on the coccxy Wound Measurements and Assessment WC - Nurse 1 - General Ulcer Measurement Start: 08/02/17 08:18 Freq: Status: Active Protocol: Activity Type Activity Date Activity User E-Sign Co-Sign Detail Recorded Client Recorded Date Recorded By Document 08/02/17 08:19 DL [id number] 08/02/17 08:21 DL 08/02/17 08:19 Wound Center Nurse 1 [Ulcer Assessment] 1. sacral ulcer stg III -Current Size (cm) - Length 1.2 -Current Size (cm) - Width 0.8 -Current Size (cm) - Depth 0.3 -Total Square Cm 0.96 -Photo Taken No -Maximum Distance #2 (cm) 0.3 -Circular Undermining Yes -Exudate Amt Small (1-33%) -Exudate Type Serosanguineous -Wound Margin Thickened -Granulation Amt Medium (34-66%) -Granulation Quality Red -Necrosis Amt Medium (34-66%) -Necrotic Tissue Type Adherent Slough -Structure Exposed N/A -Texture (Pao-wound Skin Appearance) Callus Scarring -Moisture (Pao-wound Skin Appearance No Abnormality ) -Color (Pao-wound Skin Appearance) No Abnormality -Temperature (Pao-wound Skin No Abnormality Appearance) (Pt Warm) -Ulcer Cleansing Rinsed/ Irrigated with Saline -Foul Odor after Cleansing No -Anesthetic Used 4% Lidocaine Solution WC - Nurse 2 - General Ulcer CM Notes Start: 08/02/17 08:18 Freq: Status: Active Protocol: Activity Type Activity Date Activity User E-Sign Co-Sign Detail Recorded Client Recorded Date Recorded By Document 08/02/17 08:33 [email or web address] [id number] 08/02/17 08:33 08/02/17 08:33 Wound Center Nurse 2 [Procedure/Treatment] -Time 08:33 -Correct Patient Yes -Correct Side, Site, Position Yes -Correct Procedure Yes -Procedure Performed Yes -Type of Procedure Debridement -Clinical Debridement Subcutaneous -Post Debridement Size (cm) - Length 1 -Post Debridement Size (cm) - Width 1 -Post Debridement Size (cm) - Depth 0.3 -Total Square Cm 1 -Wound/Ulcer Outcome Not Healed -Ulcer Cleansing Rinsed/ Irrigated with Saline -Foul Odor after Cleansing No -Bioengineered Tissue No -Bleeding Controlled with Pressure -Treatment Response Procedure Tolerated Well [See Physician Procedure note for Specifics] Pain Scale: 0-10 Numeric [Pain] -Is Patient Pain Free? Yes Musculoskeletal: No Tenderness to Palpation of Joints or Extremities Lymphatic: No Cervical, Supraclavicular, or Inguinal Adenopathy Neurological: Cranial nerves II-XII grossly intact, Neuro grossly intact Psych/Mental Status: Normal Affect, Appropriate Debridement Note Post-Debridement Measurements/Treatment WC - Nurse 2 - General Ulcer CM Notes Start: 08/02/17 08:18 Freq: Status: Active Protocol: Activity Type Activity Date Activity User E-Sign Co-Sign Detail Recorded Client Recorded Date Recorded By Document 08/02/17 08:33 [id number] 08/02/17 08:33 08/02/17 08:33 Wound Center Nurse 2 1. sacral ulcer stg III -Time 08:33 -Correct Patient Yes -Correct Side, Site, Position Yes -Correct Procedure Yes -Procedure Performed Yes -Type of Procedure Debridement -Clinical Debridement Subcutaneous -Post Debridement Size (cm) - Length 1 -Post Debridement Size (cm) - Width 1 -Post Debridement Size (cm) - Depth 0.3 -Total Square Cm 1 -Wound/Ulcer Outcome Not Healed -Ulcer Cleansing Rinsed/ Irrigated with Saline -Foul Odor after Cleansing No -Bioengineered Tissue No -Bleeding Controlled with Pressure -Treatment Response Procedure Tolerated Well Pain Scale: 0-10 Numeric Is Patient Pain Free? Yes Wound debrided: coccyx ulcer Wound Grade/Stage: stage3 Type of Debridement: Excisional debridement Anesthesia Used: 5% Lidocaine Gel Depth: Down to and including healthy tissue, in the subcutaneous layer Percentage of wound debrided: 100 Instrument Used: 5mm curette, - - nippers Tissue Removed: callus and fibrin Severity: Limited To Skin Breakdown Amount of bleeding with debridement: Mild Bleeding Controlled with: Compression and gauze Patient tolerated procedure well Assessment/Plan recultured ulcer Active Problems Nonhealing nonsurgical wound (Chronic) Degenerative disc disease at L5-S1 level (Chronic) Difficulty walking (Chronic) Malnutrition (Chronic) Decubitus ulcer of coccygeal region, stage 3 (Chronic) Assessment: Chronic Pressure ulcer coccyx stage III. Malnutrition resolved. Difficulty walking. Infected decubitus ulcer Plan: promogran moistened with moistened fluff guaze ABD dressing and Medipore. continue to offload buttocks by lying flat in bed rather than in a chair as much as possible has a low air mattress. continue eating a highprotein diet and supplements. will call with Cx results. Follow-up 1 week. [place] instant breakfast with ice cream. Vitamin C 500 mg 2 by mouth daily. Information entered by nursing staff reviewed. This document was created using a voice recognition system. Errors in punctuation, spelling and grammar may not have been corrected prior to saving.
--- NOTE | 2017-08-02 08:50 | PN.PCM_ITS ---
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 level Status: Chronic Current Visit: Yes Code(s): M51.36 - Other intervertebral disc degeneration, lumbar region (3) Difficulty walking Status: Chronic Current Visit: Yes Code(s): R26.2 - Difficulty in walking, not elsewhere classified (4) Malnutrition Status: Chronic Current Visit: Yes Code(s): E46 - Unspecified protein- calorie malnutrition (5) Nonhealing nonsurgical wound Status: Chronic Current Visit: Yes Code(s): T14.8 - Other injury of unspecified body region Type of Wound Date of Service: 08/02/17 Chief Complaint: 78-year-old white male emaciated living at home with his with many comorbidities. Patient has spinal stenosis so bad that he has no feeling in his rectum. Patient has frequent large stools. during the night, and it lays against the skin of his rectal area and causes denuded skin. Patient appears here with an small superficial ulcer on the coccyx area History of Wound: Patient has been evaluated by Dr. Hitchcock for possible surgical consult, but he feels that unless there is bone exposed to continue with ulcer care as prescribed. Nutrition has been an issue and he needs to continue nutritional efforts. And if he requires frequent ulcer care than because of incontinence then so be it Progress of Wound: Applied epi flix#10 this past week the ulcer looks pretty good . The ulcer is slowly closing with scar tissue but closing. Is medically necessary to heal this ulcer and the skin substitues have shown to help in this capacity and is doing a very good job. His last pre-albumin at Dr. Dominguez office was 25 recheck 06/21/17 id now down to 20.2 CBC shows no anemia. No odor no redness noted. The patient has been offloading is much as possible. We started promogran this week and see how it works to close and will apply for another skin substutute. Patient is supplementing with high protein bars and diet, sggested [place] Instant breakfast with ice cream as a supplement and start vit C 1000 mg in chewies per day. Patient is also taking Z-hilary for wound healing. Will apply for theraskin next. - Physical Exam Vital Signs Temp Pulse Resp BP 97.8 F 94 18 132/75 H 08/02/17 08:19 08/02/17 08:19 08/02/17 08:19 08/02/17 08:19 General: Oriented x3, Cooperative, Well developed HEENT: Atraumatic, PERRLA Oral: Moist Mucosa Neck: Supple, No JVD Lungs: Clear to auscultation, Normal air movement Cardiovascular: Regular rate, Regular Rhythm Abdomen: Bowel Sounds Present, Soft, Non Tender, No Hepato-splenomegaly Extremities: No clubbing, No edema Skin: Ulcer/ Wound - skin ulcer stage 3 on the coccxy Wound Measurements and Assessment WC - Nurse 1 - General Ulcer Measurement Start: 08/02/17 08:18 Freq: Status: Active Protocol: Activity Type Activity Date Activity User E-Sign Co-Sign Detail Recorded Client Recorded Date Recorded By Document 08/02/17 08:19 DL [id number] 08/02/17 08:21 DL 08/02/17 08:19 Wound Center Nurse 1 [Ulcer Assessment] 1. sacral ulcer stg III -Current Size (cm) - Length 1.2 -Current Size (cm) - Width 0.8 -Current Size (cm) - Depth 0.3 -Total Square Cm 0.96 -Photo Taken No -Maximum Distance #2 (cm) 0.3 -Circular Undermining Yes -Exudate Amt Small (1-33%) -Exudate Type Serosanguineous -Wound Margin Thickened -Granulation Amt Medium (34-66%) -Granulation Quality Red -Necrosis Amt Medium (34-66%) -Necrotic Tissue Type Adherent Slough -Structure Exposed N/A -Texture (Pao-wound Skin Appearance) Callus Scarring -Moisture (Pao-wound Skin Appearance No Abnormality ) -Color (Pao-wound Skin Appearance) No Abnormality -Temperature (Pao-wound Skin No Abnormality Appearance) (Pt Warm) -Ulcer Cleansing Rinsed/ Irrigated with Saline -Foul Odor after Cleansing No -Anesthetic Used 4% Lidocaine Solution WC - Nurse 2 - General Ulcer CM Notes Start: 08/02/17 08:18 Freq: Status: Active Protocol: Activity Type Activity Date Activity User E-Sign Co-Sign Detail Recorded Client Recorded Date Recorded By Document 08/02/17 08:33 JOVON [id number] 08/02/17 08:33 08/02/17 08:33 Wound Center Nurse 2 [Procedure/Treatment] -Time 08:33 -Correct Patient Yes -Correct Side, Site, Position Yes -Correct Procedure Yes -Procedure Performed Yes -Type of Procedure Debridement -Clinical Debridement Subcutaneous -Post Debridement Size (cm) - Length 1 -Post Debridement Size (cm) - Width 1 -Post Debridement Size (cm) - Depth 0.3 -Total Square Cm 1 -Wound/Ulcer Outcome Not Healed -Ulcer Cleansing Rinsed/ Irrigated with Saline -Foul Odor after Cleansing No -Bioengineered Tissue No -Bleeding Controlled with Pressure -Treatment Response Procedure Tolerated Well [See Physician Procedure note for Specifics] Pain Scale: 0-10 Numeric [Pain] -Is Patient Pain Free? Yes Musculoskeletal: No Tenderness to Palpation of Joints or Extremities Lymphatic: No Cervical, Supraclavicular, or Inguinal Adenopathy Neurological: Cranial nerves II-XII grossly intact, Neuro grossly intact Psych/Mental Status: Normal Affect, Appropriate Debridement Note Post-Debridement Measurements/Treatment WC - Nurse 2 - General Ulcer CM Notes Start: 08/02/17 08:18 Freq: Status: Active Protocol: Activity Type Activity Date Activity User E-Sign Co-Sign Detail Recorded Client Recorded Date Recorded By Document 08/02/17 08:33 [id number] 08/02/17 08:33 08/02/17 08:33 Wound Center Nurse 2 1. sacral ulcer stg III -Time 08:33 -Correct Patient Yes -Correct Side, Site, Position Yes -Correct Procedure Yes -Procedure Performed Yes -Type of Procedure Debridement -Clinical Debridement Subcutaneous -Post Debridement Size (cm) - Length 1 -Post Debridement Size (cm) - Width 1 -Post Debridement Size (cm) - Depth 0.3 -Total Square Cm 1 -Wound/Ulcer Outcome Not Healed -Ulcer Cleansing Rinsed/ Irrigated with Saline -Foul Odor after Cleansing No -Bioengineered Tissue No -Bleeding Controlled with Pressure -Treatment Response Procedure Tolerated Well Pain Scale: 0-10 Numeric Is Patient Pain Free? Yes Wound debrided: coccyx ulcer Wound Grade/Stage: stage3 Type of Debridement: Excisional debridement Anesthesia Used: 5% Lidocaine Gel Depth: Down to and including healthy tissue, in the subcutaneous layer Percentage of wound debrided: 100 Instrument Used: 5mm curette, - - nippers Tissue Removed: callus and fibrin Severity: Limited To Skin Breakdown Amount of bleeding with debridement: Mild Bleeding Controlled with: Compression and gauze Patient tolerated procedure well Assessment/Plan recultured ulcer Active Problems Nonhealing nonsurgical wound (Chronic) Degenerative disc disease at L5-S1 level (Chronic) Difficulty walking (Chronic) Malnutrition (Chronic) Decubitus ulcer of coccygeal region, stage 3 (Chronic) Assessment: Chronic Pressure ulcer coccyx stage III. Malnutrition resolved. Difficulty walking. Infected decubitus ulcer Plan: promogran moistened with moistened fluff guaze ABD dressing and Medipore. continue to offload buttocks by lying flat in bed rather than in a chair as much as possible has a low air mattress. continue eating a highprotein diet and supplements. will call with Cx results. Follow-up 1 week. [place] instant breakfast with ice cream. Vitamin C 500 mg 2 by mouth daily. Information entered by nursing staff reviewed. This document was created using a voice recognition system. Errors in punctuation, spelling and grammar may not have been corrected prior to saving.
[2017-08-16 08:15] VITALS: BP 140/85; PULSE 101; RESP 16; TEMP 36; BMI 17.0
--- NOTE | 2017-08-16 09:25 | PCM.WC.PN ---
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 level Status: Chronic Current Visit: Yes Code(s): M51.36 - Other intervertebral disc degeneration, lumbar region (3) Difficulty walking Status: Chronic Current Visit: Yes Code(s): R26.2 - Difficulty in walking, not elsewhere classified (4) Malnutrition Status: Chronic Current Visit: Yes Code(s): E46 - Unspecified protein-calorie malnutrition (5) Nonhealing nonsurgical wound Status: Chronic Current Visit: Yes Code(s): T14.8 - Other injury of unspecified body region Type of Wound Date of Service: 08/16/17 Chief Complaint: 78-year-old white male emaciated living at home with his with many comorbidities. Patient has spinal stenosis so bad that he has no feeling in his rectum. Patient has frequent large stools. during the night, and it lays against the skin of his rectal area and causes denuded skin. Patient appears here with an small superficial ulcer on the coccyx area History of Wound: Patient has been evaluated by Dr. Hitchcock for possible surgical consult, but he feels that unless there is bone exposed to continue with ulcer care as prescribed. Nutrition has been an issue and he needs to continue nutritional efforts. And if he requires frequent ulcer care than because of incontinence then so be it Progress of Wound: Applied epi flix#11 this past week the ulcer looks pretty good . The ulcer is slowly closing with scar tissue but closing. Is medically necessary to heal this ulcer and the skin substitues have shown to help in this capacity and is doing a very good job. His last pre-albumin at Dr. Dominguez office was 25 recheck 06/21/17 id now down to 20.2 CBC shows no anemia. No odor no redness noted. The patient has been offloading is much as possible. We started promogran this week and see how it works to close and will apply for another skin substutute. Patient is supplementing with high protein bars and diet, sggested [place] Instant breakfast with ice cream as a supplement and start vit C 1000 mg in chewies per day. Patient is also taking Z-hilary for wound healing. Will apply for theraskin next. - Physical Exam Vital Signs Temp Pulse Resp BP 96.8 F L 101 H 16 140/85 H 08/16/17 08:15 08/16/17 08:15 08/16/17 08:15 08/16/17 08:15 General: Oriented x3, Cooperative, Well developed HEENT: Atraumatic, PERRLA Oral: Moist Mucosa Neck: Supple, No JVD Lungs: Clear to auscultation, Normal air movement Cardiovascular: Regular rate, Regular Rhythm Abdomen: Bowel Sounds Present, Soft, Non Tender, No Hepato-splenomegaly Extremities: No clubbing, No edema Skin: - - Coccyx ulcer stage III Wound Measurements and Assessment WC - Nurse 1 - General Ulcer Measurement Start: 08/02/17 08:18 Freq: Status: Active Protocol: Activity Type Activity Date Activity User E-Sign Co-Sign Detail Recorded Client Recorded Date Recorded By Document 08/16/17 08:15 DL [id number] 08/16/17 08:19 DL 08/16/17 08:15 Wound Center Nurse 1 [Ulcer Assessment] 1. sacral ulcer stg III -Current Size (cm) - Length 1.4 -Current Size (cm) - Width 0.5 -Current Size (cm) - Depth 0.3 -Total Square Cm 0.70 -Photo Taken Yes -Maximum Distance #2 (cm) 0.3 -Circular Undermining Yes -Exudate Amt Medium (34-66%) -Exudate Type Serosanguineous -Wound Margin Thickened & Rolled Under -Granulation Amt Medium (34-66%) -Granulation Quality Red -Necrosis Amt Small (1-33%) -Necrotic Tissue Type Adherent Slough -Structure Exposed N/A -Texture (Pao-wound Skin Appearance) Callus -Moisture (Pao-wound Skin Appearance Maceration ) -Color (Pao-wound Skin Appearance) No Abnormality -Temperature (Pao-wound Skin No Abnormality Appearance) (Pt Warm) -Ulcer Cleansing Rinsed/ Irrigated with Saline -Anesthetic Used 4% Lidocaine Solution WC - Nurse 2 - General Ulcer CM Notes Start: 08/02/17 08:18 Freq: Status: Active Protocol: Activity Type Activity Date Activity User E-Sign Co-Sign Detail Recorded Client Recorded Date Recorded By Document 08/16/17 08:44 DV [id number] 08/16/17 08:52 DV 08/16/17 08:44 Wound Center Nurse 2 [Procedure/Treatment] -Time 08:48 -Correct Patient Yes -Correct Side, Site, Position Yes -Correct Procedure Yes -Procedure Performed Yes -Type of Procedure Debridement -Clinical Debridement Subcutaneous -Post Debridement Size (cm) - Length 1.0 -Post Debridement Size (cm) - Width 1.0 -Post Debridement Size (cm) - Depth 0.2 -Total Square Cm 1.00 -Wound/Ulcer Outcome Not Healed -Ulcer Cleansing Rinsed/ Irrigated with Saline -Foul Odor after Cleansing No -Bioengineered Tissue Yes -Type of bioengineered Tissue EPIFIX -Expiration Date 06/02/22 -Product Lot Number [id number] -Percent Used 100 -Saline Lot Number [id number] -Bleeding Controlled with Pressure -Treatment Response Procedure Tolerated Well [See Physician Procedure note for Specifics] Pain Scale: 0-10 Numeric [Pain] -Is Patient Pain Free? Yes Musculoskeletal: No Tenderness to Palpation of Joints or Extremities Lymphatic: No Cervical, Supraclavicular, or Inguinal Adenopathy Neurological: Cranial nerves II-XII grossly intact, Neuro grossly intact Psych/Mental Status: Normal Affect, Appropriate, Alert and oriented to time, place, person, mood and affect Debridement Note Post-Debridement Measurements/Treatment WC - Nurse 2 - General Ulcer CM Notes Start: 08/02/17 08:18 Freq: Status: Active Protocol: Activity Type Activity Date Activity User E-Sign Co-Sign Detail Recorded Client Recorded Date Recorded By Document 08/02/17 08:33 [email or web address] [id number] 08/02/17 08:33 Document 08/16/17 08:44 DV [id number] 08/16/17 08:52 DV 08/02/17 08/16/17 08:33 08:44 Wound Center Nurse 2 1. sacral ulcer stg III -Time 08:33 08:48 -Correct Patient Yes Yes -Correct Side, Site, Position Yes Yes -Correct Procedure Yes Yes -Procedure Performed Yes Yes -Type of Procedure Debridement Debridement -Clinical Debridement Subcutaneous Subcutaneous -Post Debridement Size (cm) - Length 1 1.0 -Post Debridement Size (cm) - Width 1 1.0 -Post Debridement Size (cm) - Depth 0.3 0.2 -Total Square Cm 1 1.00 -Wound/Ulcer Outcome Not Healed Not Healed -Ulcer Cleansing Rinsed/ Rinsed/ Irrigated with Irrigated with Saline Saline -Foul Odor after Cleansing No No -Bioengineered Tissue No Yes -Type of bioengineered Tissue EPIFIX -Expiration Date 06/02/22 -Product Lot Number [id number] -Percent Used 100 -Saline Lot Number [id number] -Bleeding Controlled with Pressure Pressure -Treatment Response Procedure Procedure Tolerated Well Tolerated Well Pain Scale: 0-10 Numeric Is Patient Pain Free? 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 Malnutrition resolved. Difficulty walking. Infected decubitus ulcer Plan: Epi fix #11 covered with thin veil and Steri-Strips gauze dressing and tape Medipore. continue to offload buttocks by lying flat in bed rather than in a chair as much as possible has a low air mattress. continue eating a highprotein diet and supplements. Finish aloe up 1 week antibiotics of ciprofloxacin. Follow-up 1 week. [place] instant breakfast with ice cream. Vitamin C 500 mg 2 by mouth daily. Information entered by nursing staff reviewed. This document was created using a voice recognition system. Errors in punctuation, spelling and grammar may not have been corrected prior to saving.
--- NOTE | 2017-08-16 09:30 | PN.PCM_ITS ---
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 level Status: Chronic Current Visit: Yes Code(s): M51.36 - Other intervertebral disc degeneration, lumbar region (3) Difficulty walking Status: Chronic Current Visit: Yes Code(s): R26.2 - Difficulty in walking, not elsewhere classified (4) Malnutrition Status: Chronic Current Visit: Yes Code(s): E46 - Unspecified protein- calorie malnutrition (5) Nonhealing nonsurgical wound Status: Chronic Current Visit: Yes Code(s): T14.8 - Other injury of unspecified body region Type of Wound Date of Service: 08/16/17 Chief Complaint: 78-year-old white male emaciated living at home with his with many comorbidities. Patient has spinal stenosis so bad that he has no feeling in his rectum. Patient has frequent large stools. during the night, and it lays against the skin of his rectal area and causes denuded skin. Patient appears here with an small superficial ulcer on the coccyx area History of Wound: Patient has been evaluated by Dr. Hitchcock for possible surgical consult, but he feels that unless there is bone exposed to continue with ulcer care as prescribed. Nutrition has been an issue and he needs to continue nutritional efforts. And if he requires frequent ulcer care than because of incontinence then so be it Progress of Wound: Applied epi flix#11 this past week the ulcer looks pretty good . The ulcer is slowly closing with scar tissue but closing. Is medically necessary to heal this ulcer and the skin substitues have shown to help in this capacity and is doing a very good job. His last pre-albumin at Dr. Dominguez office was 25 recheck 06/21/17 id now down to 20.2 CBC shows no anemia. No odor no redness noted. The patient has been offloading is much as possible. We started promogran this week and see how it works to close and will apply for another skin substutute. Patient is supplementing with high protein bars and diet, sggested [place] Instant breakfast with ice cream as a supplement and start vit C 1000 mg in chewies per day. Patient is also taking Z-hilary for wound healing. Will apply for theraskin next. - Physical Exam Vital Signs Temp Pulse Resp BP 96.8 F L 101 H 16 140/85 H 08/16/17 08:15 08/16/17 08:15 08/16/17 08:15 08/16/17 08:15 General: Oriented x3, Cooperative, Well developed HEENT: Atraumatic, PERRLA Oral: Moist Mucosa Neck: Supple, No JVD Lungs: Clear to auscultation, Normal air movement Cardiovascular: Regular rate, Regular Rhythm Abdomen: Bowel Sounds Present, Soft, Non Tender, No Hepato-splenomegaly Extremities: No clubbing, No edema Skin: - - Coccyx ulcer stage III Wound Measurements and Assessment WC - Nurse 1 - General Ulcer Measurement Start: 08/02/17 08:18 Freq: Status: Active Protocol: Activity Type Activity Date Activity User E-Sign Co-Sign Detail Recorded Client Recorded Date Recorded By Document 08/16/17 08:15 DL [id number] 08/16/17 08:19 DL 08/16/17 08:15 Wound Center Nurse 1 [Ulcer Assessment] 1. sacral ulcer stg III -Current Size (cm) - Length 1.4 -Current Size (cm) - Width 0.5 -Current Size (cm) - Depth 0.3 -Total Square Cm 0.70 -Photo Taken Yes -Maximum Distance #2 (cm) 0.3 -Circular Undermining Yes -Exudate Amt Medium (34-66%) -Exudate Type Serosanguineous -Wound Margin Thickened & Rolled Under -Granulation Amt Medium (34-66%) -Granulation Quality Red -Necrosis Amt Small (1-33%) -Necrotic Tissue Type Adherent Slough -Structure Exposed N/A -Texture (Pao-wound Skin Appearance) Callus -Moisture (Pao-wound Skin Appearance Maceration ) -Color (Pao-wound Skin Appearance) No Abnormality -Temperature (Pao-wound Skin No Abnormality Appearance) (Pt Warm) -Ulcer Cleansing Rinsed/ Irrigated with Saline -Anesthetic Used 4% Lidocaine Solution WC - Nurse 2 - General Ulcer CM Notes Start: 08/02/17 08:18 Freq: Status: Active Protocol: Activity Type Activity Date Activity User E-Sign Co-Sign Detail Recorded Client Recorded Date Recorded By Document 08/16/17 08:44 DV [id number] 08/16/17 08:52 DV 08/16/17 08:44 Wound Center Nurse 2 [Procedure/Treatment] -Time 08:48 -Correct Patient Yes -Correct Side, Site, Position Yes -Correct Procedure Yes -Procedure Performed Yes -Type of Procedure Debridement -Clinical Debridement Subcutaneous -Post Debridement Size (cm) - Length 1.0 -Post Debridement Size (cm) - Width 1.0 -Post Debridement Size (cm) - Depth 0.2 -Total Square Cm 1.00 -Wound/Ulcer Outcome Not Healed -Ulcer Cleansing Rinsed/ Irrigated with Saline -Foul Odor after Cleansing No -Bioengineered Tissue Yes -Type of bioengineered Tissue EPIFIX -Expiration Date 06/02/22 -Product Lot Number [id number] -Percent Used 100 -Saline Lot Number [id number] -Bleeding Controlled with Pressure -Treatment Response Procedure Tolerated Well [See Physician Procedure note for Specifics] Pain Scale: 0-10 Numeric [Pain] -Is Patient Pain Free? Yes Musculoskeletal: No Tenderness to Palpation of Joints or Extremities Lymphatic: No Cervical, Supraclavicular, or Inguinal Adenopathy Neurological: Cranial nerves II-XII grossly intact, Neuro grossly intact Psych/Mental Status: Normal Affect, Appropriate, Alert and oriented to time, place, person, mood and affect Debridement Note Post-Debridement Measurements/Treatment WC - Nurse 2 - General Ulcer CM Notes Start: 08/02/17 08:18 Freq: Status: Active Protocol: Activity Type Activity Date Activity User E-Sign Co-Sign Detail Recorded Client Recorded Date Recorded By Document 08/02/17 08:33 JF [id number] 08/02/17 08:33 Document 08/16/17 08:44 DV [id number] 08/16/17 08:52 DV 08/02/17 08/16/17 08:33 08:44 Wound Center Nurse 2 1. sacral ulcer stg III -Time 08:33 08:48 -Correct Patient Yes Yes -Correct Side, Site, Position Yes Yes -Correct Procedure Yes Yes -Procedure Performed Yes Yes -Type of Procedure Debridement Debridement -Clinical Debridement Subcutaneous Subcutaneous -Post Debridement Size (cm) - Length 1 1.0 -Post Debridement Size (cm) - Width 1 1.0 -Post Debridement Size (cm) - Depth 0.3 0.2 -Total Square Cm 1 1.00 -Wound/Ulcer Outcome Not Healed Not Healed -Ulcer Cleansing Rinsed/ Rinsed/ Irrigated with Irrigated with Saline Saline -Foul Odor after Cleansing No No -Bioengineered Tissue No Yes -Type of bioengineered Tissue EPIFIX -Expiration Date 06/02/22 -Product Lot Number [id number] -Percent Used 100 -Saline Lot Number [id number] -Bleeding Controlled with Pressure Pressure -Treatment Response Procedure Procedure Tolerated Well Tolerated Well Pain Scale: 0-10 Numeric Is Patient Pain Free? 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 Malnutrition resolved. Difficulty walking. Infected decubitus ulcer Plan: Epi fix #11 covered with thin veil and Steri-Strips gauze dressing and tape Medipore. continue to offload buttocks by lying flat in bed rather than in a chair as much as possible has a low air mattress. continue eating a highprotein diet and supplements. Finish aloe up 1 week antibiotics of ciprofloxacin. Follow-up 1 week. [place] instant breakfast with ice cream. Vitamin C 500 mg 2 by mouth daily. Information entered by nursing staff reviewed. This document was created using a voice recognition system. Errors in punctuation, spelling and grammar may not have been corrected prior to saving.
[2017-08-23 08:14] VITALS: BP 133/79; PULSE 96; RESP 18; TEMP 36; BMI 17.0
--- NOTE | 2017-08-23 13:04 | PCM.WC.PN ---
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 level Status: Chronic Current Visit: Yes Code(s): M51.36 - Other intervertebral disc degeneration, lumbar region (3) Difficulty walking Status: Chronic Current Visit: Yes Code(s): R26.2 - Difficulty in walking, not elsewhere classified (4) Malnutrition Status: Chronic Current Visit: Yes Code(s): E46 - Unspecified protein-calorie malnutrition (5) Nonhealing nonsurgical wound Status: Chronic Current Visit: Yes Code(s): T14.8 - Other injury of unspecified body region Type of Wound Date of Service: 08/23/17 Chief Complaint: 78-year-old white male emaciated living at home with his with many comorbidities. Patient has spinal stenosis so bad that he has no feeling in his rectum. Patient has frequent large stools. during the night, and it lays against the skin of his rectal area and causes denuded skin. Patient appears here with an small superficial ulcer on the coccyx area History of Wound: Patient has been evaluated by Dr. Hitchcock for possible surgical consult, but he feels that unless there is bone exposed to continue with ulcer care as prescribed. Nutrition has been an issue and he needs to continue nutritional efforts. And if he requires frequent ulcer care than because of incontinence then so be it Progress of Wound: Applied epi flix#12 this past week the ulcer looks pretty good . The ulcer is slowly closing with scar tissue but closing. Is medically necessary to heal this ulcer and the skin substitues have shown to help in this capacity and is doing a very good job. His last pre-albumin at Dr. Dominguez office was 25 recheck 06/21/17 id now down to 20.2 CBC shows no anemia. No odor no redness noted. The patient has been offloading is much as possible. We started promogran this week and see how it works to close and will apply for another skin substutute. Patient is supplementing with high protein bars and diet, sggested [place] Instant breakfast with ice cream as a supplement and start vit C 1000 mg in chewies per day. Patient is also taking Z-hilary for wound healing. Will apply for theraskin next. - Physical Exam Vital Signs Temp Pulse Resp BP 96.8 F L 96 18 133/79 H 08/23/17 08:14 08/23/17 08:14 08/23/17 08:14 08/23/17 08:14 General: Oriented x3, Cooperative, Well developed HEENT: Atraumatic, PERRLA Oral: Moist Mucosa Neck: Supple, No JVD Lungs: Clear to auscultation, Normal air movement Cardiovascular: Regular rate, Regular Rhythm Abdomen: Bowel Sounds Present, Soft, Non Tender, No Hepato-splenomegaly Extremities: No clubbing, No edema Skin: Ulcer/ Wound - coccyx area Wound Measurements and Assessment WC - Nurse 1 - General Ulcer Measurement Start: 08/02/17 08:18 Freq: Status: Active Protocol: Activity Type Activity Date Activity User E-Sign Co-Sign Detail Recorded Client Recorded Date Recorded By Document 08/23/17 08:14 [id number] 08/23/17 08:32 CS 08/23/17 08:14 Wound Center Nurse 1 [Ulcer Assessment] 1. sacral ulcer stg III -Combined with other wound No -Current Size (cm) - Length 1 -Current Size (cm) - Width 0.5 -Current Size (cm) - Depth 0.6 -Total Square Cm 0.5 -Date of Last Picture (Recall this 08/23/17 field) -Photo Taken Yes -Epithelialization None Present -Undermining/Tunneling Yes -Undermining/Tunneling Starts (O' 1 clock) -Undermining/Tunneling Ends (O'clock) 4 -Undermining/Tunneling Starts #2 (O' 7 clock) -Undermining/Tunneling Ends #2 (O' 10 clock) -Maximum Distance #2 (cm) 0.4 -Circular Undermining No -Classification - Thickness Full Thickness without Exposed Support Structure -Exudate Amt Small (1-33%) -Wound Margin Distinct, Outline Attached -Granulation Amt None Present (0 %) -Granulation Quality N/A -Slough/Fibrin Yes -Necrosis Amt Large (67-100%) -Necrotic Tissue Type Adherent Slough -Structure Exposed None/Limited to Skin Breakdown -Texture (Pao-wound Skin Appearance) Assessed Callus -Moisture (Pao-wound Skin Appearance Assessed ) Maceration -Color (Pao-wound Skin Appearance) No Abnormality Assessed -Temperature (Pao-wound Skin No Abnormality Appearance) (Pt Warm) -Tenderness on Palpation (Pao-wound No Skin Appearance) -Ulcer Cleansing Rinsed/ Irrigated with Saline -Foul Odor after Cleansing No -Anesthetic Used 4% Lidocaine Solution [Edema Assessment] -Lower Limb Edema Present NA - Nurse 2 - General Ulcer CM Notes Start: 08/02/17 08:18 Freq: Status: Active Protocol: Activity Type Activity Date Activity User E-Sign Co-Sign Detail Recorded Client Recorded Date Recorded By Document 08/23/17 09:44 DV [id number] 08/23/17 09:53 DV 08/23/17 09:44 Wound Center Nurse 2 [Procedure/Treatment] 1. sacral ulcer stg III -Time 09:45 -Correct Patient Yes -Correct Side, Site, Position Yes -Correct Procedure Yes -Procedure Performed Yes -Type of Procedure Debridement -Clinical Debridement Subcutaneous -Post Debridement Size (cm) - Length 1.0 -Post Debridement Size (cm) - Width 0.5 -Post Debridement Size (cm) - Depth 0.3 -Total Square Cm 0.50 -Wound/Ulcer Outcome Not Healed -Ulcer Cleansing Rinsed/ Irrigated with Saline -Foul Odor after Cleansing No -Bioengineered Tissue Yes -Type of bioengineered Tissue EPIFIX -Expiration Date 06/02/22 -Product Lot Number [id number] -Percent Used 100 -Bleeding Controlled with NA -Other HYDROGEL -Treatment Response Procedure Tolerated Well [See Physician Procedure note for Specifics] Pain Scale: 0-10 Numeric [Pain] -Is Patient Pain Free? Yes Musculoskeletal: No Tenderness to Palpation of Joints or Extremities Lymphatic: No Cervical, Supraclavicular, or Inguinal Adenopathy Neurological: Cranial nerves II-XII grossly intact, Neuro grossly intact Psych/Mental Status: Normal Affect, Appropriate, Alert and oriented to time, place, person, mood and affect Debridement Note Post-Debridement Measurements/Treatment WC - Nurse 2 - General Ulcer CM Notes Start: 08/02/17 08:18 Freq: Status: Active Protocol: Activity Type Activity Date Activity User E-Sign Co-Sign Detail Recorded Client Recorded Date Recorded By Document 08/02/17 08:33 JF [id number] 08/02/17 08:33 JF Document 08/16/17 08:44 DV [id number] 08/16/17 08:52 DV Document 08/23/17 09:44 DV [id number] 08/23/17 09:53 DV 08/02/17 08/16/17 08/23/17 08:33 08:44 09:44 Wound Center Nurse 2 1. sacral ulcer stg III -Time 08:33 08:48 09:45 -Correct Patient Yes Yes Yes -Correct Side, Site, Position Yes Yes Yes -Correct Procedure Yes Yes Yes -Procedure Performed Yes Yes Yes -Type of Procedure Debridement Debridement Debridement -Clinical Debridement Subcutaneous Subcutaneous Subcutaneous -Post Debridement Size (cm) - Length 1 1.0 1.0 -Post Debridement Size (cm) - Width 1 1.0 0.5 -Post Debridement Size (cm) - Depth 0.3 0.2 0.3 -Total Square Cm 1 1.00 0.50 -Wound/Ulcer Outcome Not Healed Not Healed Not Healed -Ulcer Cleansing Rinsed/ Rinsed/ Rinsed/ Irrigated with Irrigated with Irrigated with Saline Saline Saline -Foul Odor after Cleansing No No No -Bioengineered Tissue No Yes Yes -Type of bioengineered Tissue EPIFIX EPIFIX -Expiration Date 06/02/22 06/02/22 -Product Lot Number [id number] -Percent Used 100 100 -Saline Lot Number [id number] -Bleeding Controlled with Pressure Pressure NA -Other HYDROGEL -Treatment Response Procedure Procedure Procedure Tolerated Well Tolerated Well Tolerated Well Pain Scale: 0-10 Numeric Is Patient Pain Free? 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 Malnutrition resolved. Difficulty walking. Infected decubitus ulcer Plan: Epi fix #11 covered with thin veil and Steri-Strips gauze dressing and tape Medipore. Continue finishing antibiotic therapy. continue to offload buttocks by lying flat in bed rather than in a chair as much as possible has a low air mattress. continue eating a highprotein diet and supplements. Finish aloe up 1 week antibiotics of ciprofloxacin. Follow-up 1 week. [place] instant breakfast with ice cream. Vitamin C 500 mg 2 by mouth daily. Information entered by nursing staff reviewed. This document was created using a voice recognition system. Errors in punctuation, spelling and grammar may not have been corrected prior to saving.
--- NOTE | 2017-08-23 13:07 | PN.PCM_ITS ---
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 level Status: Chronic Current Visit: Yes Code(s): M51.36 - Other intervertebral disc degeneration, lumbar region (3) Difficulty walking Status: Chronic Current Visit: Yes Code(s): R26.2 - Difficulty in walking, not elsewhere classified (4) Malnutrition Status: Chronic Current Visit: Yes Code(s): E46 - Unspecified protein- calorie malnutrition (5) Nonhealing nonsurgical wound Status: Chronic Current Visit: Yes Code(s): T14.8 - Other injury of unspecified body region Type of Wound Date of Service: 08/23/17 Chief Complaint: 78-year-old white male emaciated living at home with his with many comorbidities. Patient has spinal stenosis so bad that he has no feeling in his rectum. Patient has frequent large stools. during the night, and it lays against the skin of his rectal area and causes denuded skin. Patient appears here with an small superficial ulcer on the coccyx area History of Wound: Patient has been evaluated by Dr. Hitchcock for possible surgical consult, but he feels that unless there is bone exposed to continue with ulcer care as prescribed. Nutrition has been an issue and he needs to continue nutritional efforts. And if he requires frequent ulcer care than because of incontinence then so be it Progress of Wound: Applied epi flix#12 this past week the ulcer looks pretty good . The ulcer is slowly closing with scar tissue but closing. Is medically necessary to heal this ulcer and the skin substitues have shown to help in this capacity and is doing a very good job. His last pre-albumin at Dr. Dominguez office was 25 recheck 06/21/17 id now down to 20.2 CBC shows no anemia. No odor no redness noted. The patient has been offloading is much as possible. We started promogran this week and see how it works to close and will apply for another skin substutute. Patient is supplementing with high protein bars and diet, sggested [place] Instant breakfast with ice cream as a supplement and start vit C 1000 mg in chewies per day. Patient is also taking Z-hilary for wound healing. Will apply for theraskin next. - Physical Exam Vital Signs Temp Pulse Resp BP 96.8 F L 96 18 133/79 H 08/23/17 08:14 08/23/17 08:14 08/23/17 08:14 08/23/17 08:14 General: Oriented x3, Cooperative, Well developed HEENT: Atraumatic, PERRLA Oral: Moist Mucosa Neck: Supple, No JVD Lungs: Clear to auscultation, Normal air movement Cardiovascular: Regular rate, Regular Rhythm Abdomen: Bowel Sounds Present, Soft, Non Tender, No Hepato-splenomegaly Extremities: No clubbing, No edema Skin: Ulcer/ Wound - coccyx area Wound Measurements and Assessment WC - Nurse 1 - General Ulcer Measurement Start: 08/02/17 08:18 Freq: Status: Active Protocol: Activity Type Activity Date Activity User E-Sign Co-Sign Detail Recorded Client Recorded Date Recorded By Document 08/23/17 08:14 [id number] 08/23/17 08:32 CS 08/23/17 08:14 Wound Center Nurse 1 [Ulcer Assessment] 1. sacral ulcer stg III -Combined with other wound No -Current Size (cm) - Length 1 -Current Size (cm) - Width 0.5 -Current Size (cm) - Depth 0.6 -Total Square Cm 0.5 -Date of Last Picture (Recall this 08/23/17 field) -Photo Taken Yes -Epithelialization None Present -Undermining/Tunneling Yes -Undermining/Tunneling Starts (O' 1 clock) -Undermining/Tunneling Ends (O'clock) 4 -Undermining/Tunneling Starts #2 (O' 7 clock) -Undermining/Tunneling Ends #2 (O' 10 clock) -Maximum Distance #2 (cm) 0.4 -Circular Undermining No -Classification - Thickness Full Thickness without Exposed Support Structure -Exudate Amt Small (1-33%) -Wound Margin Distinct, Outline Attached -Granulation Amt None Present (0 %) -Granulation Quality N/A -Slough/Fibrin Yes -Necrosis Amt Large (67-100%) -Necrotic Tissue Type Adherent Slough -Structure Exposed None/Limited to Skin Breakdown -Texture (Pao-wound Skin Appearance) Assessed Callus -Moisture (Pao-wound Skin Appearance Assessed ) Maceration -Color (Pao-wound Skin Appearance) No Abnormality Assessed -Temperature (Pao-wound Skin No Abnormality Appearance) (Pt Warm) -Tenderness on Palpation (Pao-wound No Skin Appearance) -Ulcer Cleansing Rinsed/ Irrigated with Saline -Foul Odor after Cleansing No -Anesthetic Used 4% Lidocaine Solution [Edema Assessment] -Lower Limb Edema Present NA - Nurse 2 - General Ulcer CM Notes Start: 08/02/17 08:18 Freq: Status: Active Protocol: Activity Type Activity Date Activity User E-Sign Co-Sign Detail Recorded Client Recorded Date Recorded By Document 08/23/17 09:44 DV [id number] 08/23/17 09:53 DV 08/23/17 09:44 Wound Center Nurse 2 [Procedure/Treatment] 1. sacral ulcer stg III -Time 09:45 -Correct Patient Yes -Correct Side, Site, Position Yes -Correct Procedure Yes -Procedure Performed Yes -Type of Procedure Debridement -Clinical Debridement Subcutaneous -Post Debridement Size (cm) - Length 1.0 -Post Debridement Size (cm) - Width 0.5 -Post Debridement Size (cm) - Depth 0.3 -Total Square Cm 0.50 -Wound/Ulcer Outcome Not Healed -Ulcer Cleansing Rinsed/ Irrigated with Saline -Foul Odor after Cleansing No -Bioengineered Tissue Yes -Type of bioengineered Tissue EPIFIX -Expiration Date 06/02/22 -Product Lot Number [id number] -Percent Used 100 -Bleeding Controlled with NA -Other HYDROGEL -Treatment Response Procedure Tolerated Well [See Physician Procedure note for Specifics] Pain Scale: 0-10 Numeric [Pain] -Is Patient Pain Free? Yes Musculoskeletal: No Tenderness to Palpation of Joints or Extremities Lymphatic: No Cervical, Supraclavicular, or Inguinal Adenopathy Neurological: Cranial nerves II-XII grossly intact, Neuro grossly intact Psych/Mental Status: Normal Affect, Appropriate, Alert and oriented to time, place, person, mood and affect Debridement Note Post-Debridement Measurements/Treatment WC - Nurse 2 - General Ulcer CM Notes Start: 08/02/17 08:18 Freq: Status: Active Protocol: Activity Type Activity Date Activity User E-Sign Co-Sign Detail Recorded Client Recorded Date Recorded By Document 08/02/17 08:33 JF [id number] 08/02/17 08:33 JF Document 08/16/17 08:44 DV [id number] 08/16/17 08:52 DV Document 08/23/17 09:44 DV [id number] 08/23/17 09:53 DV 08/02/17 08/16/17 08/23/17 08:33 08:44 09:44 Wound Center Nurse 2 1. sacral ulcer stg III -Time 08:33 08:48 09:45 -Correct Patient Yes Yes Yes -Correct Side, Site, Position Yes Yes Yes -Correct Procedure Yes Yes Yes -Procedure Performed Yes Yes Yes -Type of Procedure Debridement Debridement Debridement -Clinical Debridement Subcutaneous Subcutaneous Subcutaneous -Post Debridement Size (cm) - Length 1 1.0 1.0 -Post Debridement Size (cm) - Width 1 1.0 0.5 -Post Debridement Size (cm) - Depth 0.3 0.2 0.3 -Total Square Cm 1 1.00 0.50 -Wound/Ulcer Outcome Not Healed Not Healed Not Healed -Ulcer Cleansing Rinsed/ Rinsed/ Rinsed/ Irrigated with Irrigated with Irrigated with Saline Saline Saline -Foul Odor after Cleansing No No No -Bioengineered Tissue No Yes Yes -Type of bioengineered Tissue EPIFIX EPIFIX -Expiration Date 06/02/22 06/02/22 -Product Lot Number [id number] -Percent Used 100 100 -Saline Lot Number [id number] -Bleeding Controlled with Pressure Pressure NA -Other HYDROGEL -Treatment Response Procedure Procedure Procedure Tolerated Well Tolerated Well Tolerated Well Pain Scale: 0-10 Numeric Is Patient Pain Free? 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 Malnutrition resolved. Difficulty walking. Infected decubitus ulcer Plan: Epi fix #11 covered with thin veil and Steri-Strips gauze dressing and tape Medipore. Continue finishing antibiotic therapy. continue to offload buttocks by lying flat in bed rather than in a chair as much as possible has a low air mattress. continue eating a highprotein diet and supplements. Finish aloe up 1 week antibiotics of ciprofloxacin. Follow-up 1 week. [place] instant breakfast with ice cream. Vitamin C 500 mg 2 by mouth daily. Information entered by nursing staff reviewed. This document was created using a voice recognition system. Errors in punctuation, spelling and grammar may not have been corrected prior to saving.
[2017-08-30 08:13] VITALS: BP 132/74; PULSE 93; RESP 18; TEMP 36.6; BMI 17.0
--- NOTE | 2017-08-30 09:49 | PCM.WC.PN ---
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 level Status: Chronic Current Visit: Yes Code(s): M51.36 - Other intervertebral disc degeneration, lumbar region (3) Difficulty walking Status: Chronic Current Visit: Yes Code(s): R26.2 - Difficulty in walking, not elsewhere classified (4) Malnutrition Status: Chronic Current Visit: Yes Code(s): E46 - Unspecified protein-calorie malnutrition (5) Nonhealing nonsurgical wound Status: Chronic Current Visit: Yes Code(s): T14.8 - Other injury of unspecified body region Type of Wound Date of Service: 08/30/17 Chief Complaint: 78-year-old white male emaciated living at home with his with many comorbidities. Patient has spinal stenosis so bad that he has no feeling in his rectum. Patient has frequent large stools. during the night, and it lays against the skin of his rectal area and causes denuded skin. Patient appears here with an small superficial ulcer on the coccyx area History of Wound: Patient has been evaluated by Dr. Hitchcock for possible surgical consult, but he feels that unless there is bone exposed to continue with ulcer care as prescribed. Nutrition has been an issue and he needs to continue nutritional efforts. And if he requires frequent ulcer care than because of incontinence then so be it Progress of Wound: Applied epi flix#13 this past week the ulcer looks pretty good . The ulcer is slowly closing with scar tissue but closing. Is medically necessary to heal this ulcer and the skin substitues have shown to help in this capacity and is doing a very good job. His last pre-albumin at Dr. Dominguez office was 25 recheck 06/21/17 id now down to 20.2 CBC shows no anemia. No odor no redness noted. The patient has been offloading is much as possible. We started promogran this week and see how it works to close and will apply for another skin substutute. Patient is supplementing with high protein bars and diet, sggested [place] Instant breakfast with ice cream as a supplement and start vit C 1000 mg in chewies per day. Patient is also taking Z-hilary for wound healing. Will apply for theraskin next. - Physical Exam Vital Signs Temp Pulse Resp BP 97.8 F 93 18 132/74 H 08/30/17 08:13 08/30/17 08:13 08/30/17 08:13 08/30/17 08:13 General: Oriented x3, Cooperative, Well developed HEENT: Atraumatic, PERRLA Oral: Moist Mucosa Neck: Supple, No JVD Lungs: Clear to auscultation, Normal air movement Cardiovascular: Regular rate, Regular Rhythm Abdomen: Bowel Sounds Present, Soft, Non Tender, No Hepato-splenomegaly Extremities: No clubbing, No edema Skin: Ulcer/ Wound - Coccyx ulcer stage III Wound Measurements and Assessment WC - Nurse 1 - General Ulcer Measurement Start: 08/02/17 08:18 Freq: Status: Active Protocol: Activity Type Activity Date Activity User E-Sign Co-Sign Detail Recorded Client Recorded Date Recorded By Document 08/30/17 08:13 DL [id number] 08/30/17 08:19 DL 08/30/17 08:13 Wound Center Nurse 1 [Ulcer Assessment] 1. sacral ulcer stg III -Combined with other wound No -Current Size (cm) - Length 0.9 -Current Size (cm) - Width 0.7 -Current Size (cm) - Depth 0.2 -Total Square Cm 0.63 -Photo Taken No -Epithelialization None Present -Tunneling No -Undermining/Tunneling No -Circular Undermining No -Classification - Thickness Full Thickness without Exposed Support Structure -Exudate Amt Small (1-33%) -Exudate Type Serosanguineous -Wound Margin Fibrotic Scar, Thickened Scar -Granulation Amt Large (67-100%) -Granulation Quality Red -Slough/Fibrin Yes -Necrosis Amt Small (1-33%) -Necrotic Tissue Type Eschar -Structure Exposed Fascia Fat Layer Exposed -Texture (Pao-wound Skin Appearance) Scarring Rash -Moisture (Pao-wound Skin Appearance Maceration ) -Color (Pao-wound Skin Appearance) Erythema -Temperature (Pao-wound Skin No Abnormality Appearance) (Pt Warm) -Tenderness on Palpation (Pao-wound No Skin Appearance) -Ulcer Cleansing Rinsed/ Irrigated with Saline -Foul Odor after Cleansing No -Anesthetic Used 4% Lidocaine Solution [Edema Assessment] -Lower Limb Edema Present No Musculoskeletal: No Tenderness to Palpation of Joints or Extremities Lymphatic: No Cervical, Supraclavicular, or Inguinal Adenopathy Neurological: Cranial nerves II-XII grossly intact, Neuro grossly intact Psych/Mental Status: Normal Affect, Appropriate Debridement Note Post-Debridement Measurements/Treatment WC - Nurse 2 - General Ulcer CM Notes Start: 08/02/17 08:18 Freq: Status: Active Protocol: Activity Type Activity Date Activity User E-Sign Co-Sign Detail Recorded Client Recorded Date Recorded By Document 08/02/17 08:33 JF [id number] 08/02/17 08:33 Document 08/16/17 08:44 DV [id number] 08/16/17 08:52 DV Document 08/23/17 09:44 DV [id number] 08/23/17 09:53 DV 08/02/17 08/16/17 08/23/17 08:33 08:44 09:44 Wound Center Nurse 2 1. sacral ulcer stg III -Time 08:33 08:48 09:45 -Correct Patient Yes Yes Yes -Correct Side, Site, Position Yes Yes Yes -Correct Procedure Yes Yes Yes -Procedure Performed Yes Yes Yes -Type of Procedure Debridement Debridement Debridement -Clinical Debridement Subcutaneous Subcutaneous Subcutaneous -Post Debridement Size (cm) - Length 1 1.0 1.0 -Post Debridement Size (cm) - Width 1 1.0 0.5 -Post Debridement Size (cm) - Depth 0.3 0.2 0.3 -Total Square Cm 1 1.00 0.50 -Wound/Ulcer Outcome Not Healed Not Healed Not Healed -Ulcer Cleansing Rinsed/ Rinsed/ Rinsed/ Irrigated with Irrigated with Irrigated with Saline Saline Saline -Foul Odor after Cleansing No No No -Bioengineered Tissue No Yes Yes -Type of bioengineered Tissue EPIFIX EPIFIX -Expiration Date 06/02/22 06/02/22 -Product Lot Number [id number] -Percent Used 100 100 -Saline Lot Number [id number] -Bleeding Controlled with Pressure Pressure NA -Other HYDROGEL -Treatment Response Procedure Procedure Procedure Tolerated Well Tolerated Well Tolerated Well Pain Scale: 0-10 Numeric Is Patient Pain Free? Yes Yes Yes Wound debrided: Coccyx ulcer Wound Grade/Stage: Stage III Type of Debridement: Excisional debridement Anesthesia Used: 5% Lidocaine Gel Depth: Down to and including healthy tissue, in the subcutaneous layer Percentage of wound debrided: 100 Instrument Used: 3mm curette Tissue Removed: Fibrin Severity: Limited To Skin Breakdown Amount of bleeding with debridement: None Bleeding Controlled with: Pressure Patient tolerated procedure well Assessment/Plan Active Problems Nonhealing nonsurgical wound (Chronic) Degenerative disc disease at L5-S1 level (Chronic) Difficulty walking (Chronic) Malnutrition (Chronic) Decubitus ulcer of coccygeal region, stage 3 (Chronic) Assessment: Chronic Pressure ulcer coccyx stage III. Malnutrition resolved. Difficulty walking. Infected decubitus ulcer Plan: Epi fix #12 covered with thin veil and Steri-Strips gauze dressing and tape Medipore. continue to offload buttocks by lying flat in bed rather than in a chair as much as possible has a low air mattress. continue eating a highprotein diet and supplements. Follow-up 1 week. [place] instant breakfast with ice cream. Vitamin C 500 mg 2 by mouth daily. Information entered by nursing staff reviewed. This document was created using a voice recognition system. Errors in punctuation, spelling and grammar may not have been corrected prior to saving.
--- NOTE | 2017-08-30 09:52 | PN.PCM_ITS ---
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 level Status: Chronic Current Visit: Yes Code(s): M51.36 - Other intervertebral disc degeneration, lumbar region (3) Difficulty walking Status: Chronic Current Visit: Yes Code(s): R26.2 - Difficulty in walking, not elsewhere classified (4) Malnutrition Status: Chronic Current Visit: Yes Code(s): E46 - Unspecified protein- calorie malnutrition (5) Nonhealing nonsurgical wound Status: Chronic Current Visit: Yes Code(s): T14.8 - Other injury of unspecified body region Type of Wound Date of Service: 08/30/17 Chief Complaint: 78-year-old white male emaciated living at home with his with many comorbidities. Patient has spinal stenosis so bad that he has no feeling in his rectum. Patient has frequent large stools. during the night, and it lays against the skin of his rectal area and causes denuded skin. Patient appears here with an small superficial ulcer on the coccyx area History of Wound: Patient has been evaluated by Dr. Hitchcock for possible surgical consult, but he feels that unless there is bone exposed to continue with ulcer care as prescribed. Nutrition has been an issue and he needs to continue nutritional efforts. And if he requires frequent ulcer care than because of incontinence then so be it Progress of Wound: Applied epi flix#13 this past week the ulcer looks pretty good . The ulcer is slowly closing with scar tissue but closing. Is medically necessary to heal this ulcer and the skin substitues have shown to help in this capacity and is doing a very good job. His last pre-albumin at Dr. Dominguez office was 25 recheck 06/21/17 id now down to 20.2 CBC shows no anemia. No odor no redness noted. The patient has been offloading is much as possible. We started promogran this week and see how it works to close and will apply for another skin substutute. Patient is supplementing with high protein bars and diet, sggested [place] Instant breakfast with ice cream as a supplement and start vit C 1000 mg in chewies per day. Patient is also taking Z-hilary for wound healing. Will apply for theraskin next. - Physical Exam Vital Signs Temp Pulse Resp BP 97.8 F 93 18 132/74 H 08/30/17 08:13 08/30/17 08:13 08/30/17 08:13 08/30/17 08:13 General: Oriented x3, Cooperative, Well developed HEENT: Atraumatic, PERRLA Oral: Moist Mucosa Neck: Supple, No JVD Lungs: Clear to auscultation, Normal air movement Cardiovascular: Regular rate, Regular Rhythm Abdomen: Bowel Sounds Present, Soft, Non Tender, No Hepato-splenomegaly Extremities: No clubbing, No edema Skin: Ulcer/ Wound - Coccyx ulcer stage III Wound Measurements and Assessment WC - Nurse 1 - General Ulcer Measurement Start: 08/02/17 08:18 Freq: Status: Active Protocol: Activity Type Activity Date Activity User E-Sign Co-Sign Detail Recorded Client Recorded Date Recorded By Document 08/30/17 08:13 DL [id number] 08/30/17 08:19 DL 08/30/17 08:13 Wound Center Nurse 1 [Ulcer Assessment] 1. sacral ulcer stg III -Combined with other wound No -Current Size (cm) - Length 0.9 -Current Size (cm) - Width 0.7 -Current Size (cm) - Depth 0.2 -Total Square Cm 0.63 -Photo Taken No -Epithelialization None Present -Tunneling No -Undermining/Tunneling No -Circular Undermining No -Classification - Thickness Full Thickness without Exposed Support Structure -Exudate Amt Small (1-33%) -Exudate Type Serosanguineous -Wound Margin Fibrotic Scar, Thickened Scar -Granulation Amt Large (67-100%) -Granulation Quality Red -Slough/Fibrin Yes -Necrosis Amt Small (1-33%) -Necrotic Tissue Type Eschar -Structure Exposed Fascia Fat Layer Exposed -Texture (Pao-wound Skin Appearance) Scarring Rash -Moisture (Pao-wound Skin Appearance Maceration ) -Color (Pao-wound Skin Appearance) Erythema -Temperature (Pao-wound Skin No Abnormality Appearance) (Pt Warm) -Tenderness on Palpation (Pao-wound No Skin Appearance) -Ulcer Cleansing Rinsed/ Irrigated with Saline -Foul Odor after Cleansing No -Anesthetic Used 4% Lidocaine Solution [Edema Assessment] -Lower Limb Edema Present No Musculoskeletal: No Tenderness to Palpation of Joints or Extremities Lymphatic: No Cervical, Supraclavicular, or Inguinal Adenopathy Neurological: Cranial nerves II-XII grossly intact, Neuro grossly intact Psych/Mental Status: Normal Affect, Appropriate Debridement Note Post-Debridement Measurements/Treatment WC - Nurse 2 - General Ulcer CM Notes Start: 08/02/17 08:18 Freq: Status: Active Protocol: Activity Type Activity Date Activity User E-Sign Co-Sign Detail Recorded Client Recorded Date Recorded By Document 08/02/17 08:33 JF [id number] 08/02/17 08:33 Document 08/16/17 08:44 DV [id number] 08/16/17 08:52 DV Document 08/23/17 09:44 DV [id number] 08/23/17 09:53 DV 08/02/17 08/16/17 08/23/17 08:33 08:44 09:44 Wound Center Nurse 2 1. sacral ulcer stg III -Time 08:33 08:48 09:45 -Correct Patient Yes Yes Yes -Correct Side, Site, Position Yes Yes Yes -Correct Procedure Yes Yes Yes -Procedure Performed Yes Yes Yes -Type of Procedure Debridement Debridement Debridement -Clinical Debridement Subcutaneous Subcutaneous Subcutaneous -Post Debridement Size (cm) - Length 1 1.0 1.0 -Post Debridement Size (cm) - Width 1 1.0 0.5 -Post Debridement Size (cm) - Depth 0.3 0.2 0.3 -Total Square Cm 1 1.00 0.50 -Wound/Ulcer Outcome Not Healed Not Healed Not Healed -Ulcer Cleansing Rinsed/ Rinsed/ Rinsed/ Irrigated with Irrigated with Irrigated with Saline Saline Saline -Foul Odor after Cleansing No No No -Bioengineered Tissue No Yes Yes -Type of bioengineered Tissue EPIFIX EPIFIX -Expiration Date 06/02/22 06/02/22 -Product Lot Number [id number] -Percent Used 100 100 -Saline Lot Number [id number] -Bleeding Controlled with Pressure Pressure NA -Other HYDROGEL -Treatment Response Procedure Procedure Procedure Tolerated Well Tolerated Well Tolerated Well Pain Scale: 0-10 Numeric Is Patient Pain Free? Yes Yes Yes Wound debrided: Coccyx ulcer Wound Grade/Stage: Stage III Type of Debridement: Excisional debridement Anesthesia Used: 5% Lidocaine Gel Depth: Down to and including healthy tissue, in the subcutaneous layer Percentage of wound debrided: 100 Instrument Used: 3mm curette Tissue Removed: Fibrin Severity: Limited To Skin Breakdown Amount of bleeding with debridement: None Bleeding Controlled with: Pressure Patient tolerated procedure well Assessment/Plan Active Problems Nonhealing nonsurgical wound (Chronic) Degenerative disc disease at L5-S1 level (Chronic) Difficulty walking (Chronic) Malnutrition (Chronic) Decubitus ulcer of coccygeal region, stage 3 (Chronic) Assessment: Chronic Pressure ulcer coccyx stage III. Malnutrition resolved. Difficulty walking. Infected decubitus ulcer Plan: Epi fix #12 covered with thin veil and Steri-Strips gauze dressing and tape Medipore. continue to offload buttocks by lying flat in bed rather than in a chair as much as possible has a low air mattress. continue eating a highprotein diet and supplements. Follow-up 1 week. [place] instant breakfast with ice cream. Vitamin C 500 mg 2 by mouth daily. Information entered by nursing staff reviewed. This document was created using a voice recognition system. Errors in punctuation, spelling and grammar may not have been corrected prior to saving.
== END 2017-08-31 23:59 ==
LOC: WC 08:00
PROVIDERS: Family Provider Family Medicine; PCP Family Medicine; Visit Provider Nurse Practitioner
DX: L89.153 Pressure ulcer of sacral region, stage 3 (principal); M51.36 Other intervertebral disc degeneration, lumbar region; R26.2 Difficulty in walking, not elsewhere classified
CPT/HCPCS: 11042; 15271; 87070; 87075; 87077; 87186; 87205; Q4131

== ENCOUNTER → 2017-09-25 10:34 | Outpatient (CLI) | payer MEDICARE, OTHER, SELFPAY ==
[2017-09-25 12:10] LABS: Color, Urine Yellow (Yellow); Glucose, Dipstick Normal (Normal); Ketone-Dipstick 5 mg/dl (Negative); Leukocyte Esterase-Dipstick 500 /ul (Negative); Nitrite-Dipstick Positive (Negative); Occult Blood-Urine 10 /ul (Negative); Protein-Dipstick 15 mg/dl (Negative); Urine Bilirubin Dipstick Negative (Negative); Urine Clarity Cloudy (Clear); Urine Urobilinogen Normal (Normal)
== END ==
PROVIDERS: Family Provider Family Medicine; PCP Family Medicine; Visit Provider Family Medicine
DX: R30.0 Dysuria (principal)
CPT/HCPCS: 81002; 87077; 87086; 87088; 87186

== ENCOUNTER 2017-09-27 08:00 | Outpatient (RCR) | payer MEDICARE, OTHER, SELFPAY ==
[2017-09-01 00:30] VITALS: BP 132/74; PULSE 93; RESP 18; TEMP 36.6; BMI 17.0
[2017-09-06 08:12] VITALS: BP 125/73; PULSE 95; RESP 18; TEMP 36.6; BMI 17.0
--- NOTE | 2017-09-06 09:29 | PCM.WC.PN ---
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 level Status: Chronic Current Visit: Yes Code(s): M51.36 - Other intervertebral disc degeneration, lumbar region (3) Infected decubitus ulcer Status: Chronic Current Visit: Yes Code(s): L89.90 - Pressure ulcer of unspecified site, unspecified stage; L08.9 - Local infection of the skin and subcutaneous tissue, unspecified (4) Malnutrition Status: Chronic Current Visit: Yes Code(s): E46 - Unspecified protein-calorie malnutrition (5) Nonhealing nonsurgical wound Status: Chronic Current Visit: Yes Code(s): T14.8 - Other injury of unspecified body region Type of Wound Date of Service: 09/06/17 Chief Complaint: 78-year-old white male emaciated living at home with his with many comorbidities. Patient has spinal stenosis so bad that he has no feeling in his rectum. Patient has frequent large stools. during the night, and it lays against the skin of his rectal area and causes denuded skin. Patient appears here with an small superficial ulcer on the coccyx area History of Wound: Patient has been evaluated by Dr. Hitchcock for possible surgical consult, but he feels that unless there is bone exposed to continue with ulcer care as prescribed. Nutrition has been an issue and he needs to continue nutritional efforts. And if he requires frequent ulcer care than because of incontinence then so be it Progress of Wound: Applied epi flix#13 this past week the ulcer looks pretty good . The ulcer is slowly closing with scar tissue but closing. Is medically necessary to heal this ulcer and the skin substitues have shown to help in this capacity and is doing a very good job. His last pre-albumin at Dr. Dominguez office was 25 recheck 06/21/17 id now down to 20.2 CBC shows no anemia. No odor no redness noted. The patient has been offloading is much as possible. We started promogran this week and see how it works to close and will apply for another skin substutute. Patient is supplementing with high protein bars and diet, sggested [place] Instant breakfast with ice cream as a supplement and start vit C 1000 mg in chewies per day. Patient is also taking Z-hilary for wound healing. Applied #14 epi fix to coccyx area today - Physical Exam Vital Signs Temp Pulse Resp BP 97.8 F 95 18 125/73 H 09/06/17 08:12 09/06/17 08:12 09/06/17 08:12 09/06/17 08:12 General: Oriented x3, Cooperative, Well developed HEENT: Atraumatic, PERRLA Oral: Moist Mucosa Neck: Supple, No JVD Lungs: Clear to auscultation, Normal air movement Cardiovascular: Regular rate, Regular Rhythm Abdomen: Bowel Sounds Present, Soft, Non Tender, No Hepato-splenomegaly Extremities: No clubbing, No edema Skin: Ulcer/ Wound - Coccyx area stage III Wound Measurements and Assessment WC - Nurse 1 - General Ulcer Measurement Start: 09/06/17 08:12 Freq: Status: Active Protocol: Activity Type Activity Date Activity User E-Sign Co-Sign Detail Recorded Client Recorded Date Recorded By Document 09/06/17 08:12 [id number] 09/06/17 08:15 09/06/17 08:12 Wound Center Nurse 1 [Ulcer Assessment] 1. sacral ulcer stg III -Combined with other wound No -Current Size (cm) - Length 0.8 -Current Size (cm) - Width 0.6 -Current Size (cm) - Depth 0.5 -Total Square Cm 0.48 -Photo Taken No -Epithelialization None Present -Tunneling No -Undermining/Tunneling No -Circular Undermining No -Exudate Amt Small (1-33%) -Exudate Type Serosanguineous -Wound Margin Distinct, Outline Attached -Granulation Amt Large (67-100%) -Granulation Quality [place] Red -Slough/Fibrin Yes -Necrosis Amt None Present (0 %) -Necrotic Tissue Type Adherent Slough -Structure Exposed None/Limited to Skin Breakdown -Texture (Pao-wound Skin Appearance) Assessed Callus -Moisture (Pao-wound Skin Appearance Assessed ) Maceration -Color (Pao-wound Skin Appearance) No Abnormality Assessed -Temperature (Pao-wound Skin No Abnormality Appearance) (Pt Warm) -Tenderness on Palpation (Pao-wound No Skin Appearance) -Ulcer Cleansing Rinsed/ Irrigated with Saline -Foul Odor after Cleansing No -Anesthetic Used 4% Lidocaine Solution [Edema Assessment] -Lower Limb Edema Present No WC - Nurse 2 - General Ulcer CM Notes Start: 09/06/17 08:12 Freq: Status: Active Protocol: Activity Type Activity Date Activity User E-Sign Co-Sign Detail Recorded Client Recorded Date Recorded By Document 09/06/17 08:31 NIRMALA [id number] 09/06/17 08:34 [email or web address] 09/06/17 08:31 Wound Center Nurse 2 [Procedure/Treatment] 1. sacral ulcer stg III -Time 08:32 -Correct Patient Yes -Correct Side, Site, Position Yes -Correct Procedure Yes -Procedure Performed Yes -Type of Procedure Debridement -Clinical Debridement Subcutaneous -Post Debridement Size (cm) - Length 1 -Post Debridement Size (cm) - Width 0.8 -Post Debridement Size (cm) - Depth 0.2 -Total Square Cm 0.8 -Wound/Ulcer Outcome Not Healed -Ulcer Cleansing Rinsed/ Irrigated with Saline -Foul Odor after Cleansing No -Bioengineered Tissue Yes -Type of bioengineered Tissue EPIFIX -Expiration Date 06/02/22 -Product Lot Number [id number] -Percent Used 100 -Saline Lot Number [id number] -Bleeding Controlled with NA -Treatment Response Procedure Tolerated Well [See Physician Procedure note for Specifics] Pain Scale: 0-10 Numeric [Pain] -Is Patient Pain Free? Yes Musculoskeletal: No Tenderness to Palpation of Joints or Extremities Lymphatic: No Cervical, Supraclavicular, or Inguinal Adenopathy Neurological: Cranial nerves II-XII grossly intact, Neuro grossly intact Psych/Mental Status: Normal Affect, Appropriate, Alert and oriented to time, place, person, mood and affect Debridement Note Post-Debridement Measurements/Treatment - Nurse 2 - General Ulcer CM Notes Start: 09/06/17 08:12 Freq: Status: Active Protocol: Activity Type Activity Date Activity User E-Sign Co-Sign Detail Recorded Client Recorded Date Recorded By Document 09/06/17 08:31 [email or web address] [id number] 09/06/17 08:34 09/06/17 08:31 Wound Center Nurse 2 1. sacral ulcer stg III -Time 08:32 -Correct Patient Yes -Correct Side, Site, Position Yes -Correct Procedure Yes -Procedure Performed Yes -Type of Procedure Debridement -Clinical Debridement Subcutaneous -Post Debridement Size (cm) - Length 1 -Post Debridement Size (cm) - Width 0.8 -Post Debridement Size (cm) - Depth 0.2 -Total Square Cm 0.8 -Wound/Ulcer Outcome Not Healed -Ulcer Cleansing Rinsed/ Irrigated with Saline -Foul Odor after Cleansing No -Bioengineered Tissue Yes -Type of bioengineered Tissue EPIFIX -Expiration Date 06/02/22 -Product Lot Number [id number] -Percent Used 100 -Saline Lot Number [id number] -Bleeding Controlled with NA -Treatment Response Procedure Tolerated Well Pain Scale: 0-10 Numeric Is Patient Pain Free? 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 Malnutrition resolved. Difficulty walking. Infected decubitus ulcer Plan: Epi fix #14 covered with thin veil and Steri-Strips gauze dressing and tape Medipore. continue to offload buttocks by lying flat in bed rather than in a chair as much as possible has a low air mattress. continue eating a highprotein diet and supplements. Follow-up 1 week. [place] instant breakfast with ice cream. Vitamin C 500 mg 2 by mouth daily. Information entered by nursing staff reviewed. This document was created using a voice recognition system. Errors in punctuation, spelling and grammar may not have been corrected prior to saving.
--- NOTE | 2017-09-06 09:33 | PN.PCM_ITS ---
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 level Status: Chronic Current Visit: Yes Code(s): M51.36 - Other intervertebral disc degeneration, lumbar region (3) Infected decubitus ulcer Status: Chronic Current Visit: Yes Code(s): L89.90 - Pressure ulcer of unspecified site, unspecified stage; L08.9 - Local infection of the skin and subcutaneous tissue, unspecified (4) Malnutrition Status: Chronic Current Visit: Yes Code(s): E46 - Unspecified protein- calorie malnutrition (5) Nonhealing nonsurgical wound Status: Chronic Current Visit: Yes Code(s): T14.8 - Other injury of unspecified body region Type of Wound Date of Service: 09/06/17 Chief Complaint: 78-year-old white male emaciated living at home with his with many comorbidities. Patient has spinal stenosis so bad that he has no feeling in his rectum. Patient has frequent large stools. during the night, and it lays against the skin of his rectal area and causes denuded skin. Patient appears here with an small superficial ulcer on the coccyx area History of Wound: Patient has been evaluated by Dr. Hitchcock for possible surgical consult, but he feels that unless there is bone exposed to continue with ulcer care as prescribed. Nutrition has been an issue and he needs to continue nutritional efforts. And if he requires frequent ulcer care than because of incontinence then so be it Progress of Wound: Applied epi flix#13 this past week the ulcer looks pretty good . The ulcer is slowly closing with scar tissue but closing. Is medically necessary to heal this ulcer and the skin substitues have shown to help in this capacity and is doing a very good job. His last pre-albumin at Dr. Dominguez office was 25 recheck 06/21/17 id now down to 20.2 CBC shows no anemia. No odor no redness noted. The patient has been offloading is much as possible. We started promogran this week and see how it works to close and will apply for another skin substutute. Patient is supplementing with high protein bars and diet, sggested [employer] Instant breakfast with ice cream as a supplement and start vit C 1000 mg in chewies per day. Patient is also taking Z-hilary for wound healing. Applied #14 epi fix to coccyx area today - Physical Exam Vital Signs Temp Pulse Resp BP 97.8 F 95 18 125/73 H 09/06/17 08:12 09/06/17 08:12 09/06/17 08:12 09/06/17 08:12 General: Oriented x3, Cooperative, Well developed HEENT: Atraumatic, PERRLA Oral: Moist Mucosa Neck: Supple, No JVD Lungs: Clear to auscultation, Normal air movement Cardiovascular: Regular rate, Regular Rhythm Abdomen: Bowel Sounds Present, Soft, Non Tender, No Hepato-splenomegaly Extremities: No clubbing, No edema Skin: Ulcer/ Wound - Coccyx area stage III Wound Measurements and Assessment WC - Nurse 1 - General Ulcer Measurement Start: 09/06/17 08:12 Freq: Status: Active Protocol: Activity Type Activity Date Activity User E-Sign Co-Sign Detail Recorded Client Recorded Date Recorded By Document 09/06/17 08:12 [id number] 09/06/17 08:15 09/06/17 08:12 Wound Center Nurse 1 [Ulcer Assessment] 1. sacral ulcer stg III -Combined with other wound No -Current Size (cm) - Length 0.8 -Current Size (cm) - Width 0.6 -Current Size (cm) - Depth 0.5 -Total Square Cm 0.48 -Photo Taken No -Epithelialization None Present -Tunneling No -Undermining/Tunneling No -Circular Undermining No -Exudate Amt Small (1-33%) -Exudate Type Serosanguineous -Wound Margin Distinct, Outline Attached -Granulation Amt Large (67-100%) -Granulation Quality [place] Red -Slough/Fibrin Yes -Necrosis Amt None Present (0 %) -Necrotic Tissue Type Adherent Slough -Structure Exposed None/Limited to Skin Breakdown -Texture (Pao-wound Skin Appearance) Assessed Callus -Moisture (Pao-wound Skin Appearance Assessed ) Maceration -Color (Pao-wound Skin Appearance) No Abnormality Assessed -Temperature (Pao-wound Skin No Abnormality Appearance) (Pt Warm) -Tenderness on Palpation (Pao-wound No Skin Appearance) -Ulcer Cleansing Rinsed/ Irrigated with Saline -Foul Odor after Cleansing No -Anesthetic Used 4% Lidocaine Solution [Edema Assessment] -Lower Limb Edema Present No WC - Nurse 2 - General Ulcer CM Notes Start: 09/06/17 08:12 Freq: Status: Active Protocol: Activity Type Activity Date Activity User E-Sign Co-Sign Detail Recorded Client Recorded Date Recorded By Document 09/06/17 08:31 [email or web address] [id number] 09/06/17 08:34 NIRMALA 09/06/17 08:31 Wound Center Nurse 2 [Procedure/Treatment] 1. sacral ulcer stg III -Time 08:32 -Correct Patient Yes -Correct Side, Site, Position Yes -Correct Procedure Yes -Procedure Performed Yes -Type of Procedure Debridement -Clinical Debridement Subcutaneous -Post Debridement Size (cm) - Length 1 -Post Debridement Size (cm) - Width 0.8 -Post Debridement Size (cm) - Depth 0.2 -Total Square Cm 0.8 -Wound/Ulcer Outcome Not Healed -Ulcer Cleansing Rinsed/ Irrigated with Saline -Foul Odor after Cleansing No -Bioengineered Tissue Yes -Type of bioengineered Tissue EPIFIX -Expiration Date 06/02/22 -Product Lot Number [id number] -Percent Used 100 -Saline Lot Number [id number] -Bleeding Controlled with NA -Treatment Response Procedure Tolerated Well [See Physician Procedure note for Specifics] Pain Scale: 0-10 Numeric [Pain] -Is Patient Pain Free? Yes Musculoskeletal: No Tenderness to Palpation of Joints or Extremities Lymphatic: No Cervical, Supraclavicular, or Inguinal Adenopathy Neurological: Cranial nerves II-XII grossly intact, Neuro grossly intact Psych/Mental Status: Normal Affect, Appropriate, Alert and oriented to time, place, person, mood and affect Debridement Note Post-Debridement Measurements/Treatment - Nurse 2 - General Ulcer CM Notes Start: 09/06/17 08:12 Freq: Status: Active Protocol: Activity Type Activity Date Activity User E-Sign Co-Sign Detail Recorded Client Recorded Date Recorded By Document 09/06/17 08:31 [email or web address] [id number] 09/06/17 08:34 09/06/17 08:31 Wound Center Nurse 2 1. sacral ulcer stg III -Time 08:32 -Correct Patient Yes -Correct Side, Site, Position Yes -Correct Procedure Yes -Procedure Performed Yes -Type of Procedure Debridement -Clinical Debridement Subcutaneous -Post Debridement Size (cm) - Length 1 -Post Debridement Size (cm) - Width 0.8 -Post Debridement Size (cm) - Depth 0.2 -Total Square Cm 0.8 -Wound/Ulcer Outcome Not Healed -Ulcer Cleansing Rinsed/ Irrigated with Saline -Foul Odor after Cleansing No -Bioengineered Tissue Yes -Type of bioengineered Tissue EPIFIX -Expiration Date 06/02/22 -Product Lot Number [id number] -Percent Used 100 -Saline Lot Number [id number] -Bleeding Controlled with NA -Treatment Response Procedure Tolerated Well Pain Scale: 0-10 Numeric Is Patient Pain Free? 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 Malnutrition resolved. Difficulty walking. Infected decubitus ulcer Plan: Epi fix #14 covered with thin veil and Steri-Strips gauze dressing and tape Medipore. continue to offload buttocks by lying flat in bed rather than in a chair as much as possible has a low air mattress. continue eating a highprotein diet and supplements. Follow-up 1 week. [employer] instant breakfast with ice cream. Vitamin C 500 mg 2 by mouth daily. Information entered by nursing staff reviewed. This document was created using a voice recognition system. Errors in punctuation, spelling and grammar may not have been corrected prior to saving.
[2017-09-13 08:12] VITALS: BP 130/74; PULSE 94; RESP 16; TEMP 36.2; BMI 17.0
--- NOTE | 2017-09-13 09:45 | PCM.WC.PN ---
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 level Status: Chronic Current Visit: Yes Code(s): M51.36 - Other intervertebral disc degeneration, lumbar region (3) Infected decubitus ulcer Status: Chronic Current Visit: Yes Code(s): L89.90 - Pressure ulcer of unspecified site, unspecified stage; L08.9 - Local infection of the skin and subcutaneous tissue, unspecified (4) Malnutrition Status: Chronic Current Visit: Yes Code(s): E46 - Unspecified protein-calorie malnutrition (5) Nonhealing nonsurgical wound Status: Chronic Current Visit: Yes Code(s): T14.8 - Other injury of unspecified body region Type of Wound Date of Service: 09/13/17 Chief Complaint: 78-year-old white male emaciated living at home with his with many comorbidities. Patient has spinal stenosis so bad that he has no feeling in his rectum. Patient has frequent large stools. during the night, and it lays against the skin of his rectal area and causes denuded skin. Patient appears here with an small superficial ulcer on the coccyx area History of Wound: Patient has been evaluated by Dr. Hitchcock for possible surgical consult, but he feels that unless there is bone exposed to continue with ulcer care as prescribed. Nutrition has been an issue and he needs to continue nutritional efforts. And if he requires frequent ulcer care than because of incontinence then so be it Progress of Wound: Applied epi flix#14 this past week the ulcer looks pretty good . The ulcer is developing epithelial tissue in the center completely covered . Still developing callus around the edge of the ulcer that needs to be trimmed weekly. Is medically necessary to heal this ulcer and the skin substitues have shown to help in this capacity and is doing a very good job. His last pre-albumin at Dr. Dominguez office was 25 recheck 06/21/17 id now down to 20.2 CBC shows no anemia. No odor no redness noted. The patient has been offloading is much as possible. We started promogran this week and see how it works to close and will apply for another skin substutute. Patient is supplementing with high protein bars and diet, sggested [employer] Instant breakfast with ice cream as a supplement and start vit C 1000 mg in chewies per day. Patient is also taking Z-hilary for wound healing. Applied #15 epi fix to coccyx area today - Physical Exam Vital Signs Temp Pulse Resp BP 97.1 F L 94 16 130/74 H 09/13/17 08:12 09/13/17 08:12 09/13/17 08:12 09/13/17 08:12 General: Oriented x3, Cooperative, Well developed HEENT: Atraumatic, PERRLA Oral: Moist Mucosa Neck: Supple, No JVD Lungs: Clear to auscultation, Normal air movement Cardiovascular: Regular rate, Regular Rhythm Abdomen: Bowel Sounds Present, Soft, Non Tender, No Hepato-splenomegaly Extremities: No clubbing, No edema Skin: Ulcer/ Wound - Stage III coccyx ulcer Wound Measurements and Assessment WC - Nurse 1 - General Ulcer Measurement Start: 09/06/17 08:12 Freq: Status: Active Protocol: Activity Type Activity Date Activity User E-Sign Co-Sign Detail Recorded Client Recorded Date Recorded By Document 09/13/17 08:12 [id number] 09/13/17 08:14 09/13/17 08:12 Wound Center Nurse 1 [Ulcer Assessment] 1. sacral ulcer stg III -Combined with other wound No -Current Size (cm) - Length 1.2 -Current Size (cm) - Width 0.7 -Current Size (cm) - Depth 0.2 -Total Square Cm 0.84 -Photo Taken No -Epithelialization None Present -Tunneling No -Undermining/Tunneling No -Circular Undermining No -Exudate Amt Small (1-33%) -Exudate Type Serosanguineous -Wound Margin Thickened -Granulation Amt Small (1-33%) -Granulation Quality [place] Red -Slough/Fibrin Yes -Necrosis Amt Medium (34-66%) -Necrotic Tissue Type Adherent Slough -Structure Exposed None/Limited to Skin Breakdown -Texture (Pao-wound Skin Appearance) Assessed Callus -Moisture (Pao-wound Skin Appearance Assessed ) Maceration -Color (Pao-wound Skin Appearance) No Abnormality Assessed -Temperature (Pao-wound Skin No Abnormality Appearance) (Pt Warm) -Tenderness on Palpation (Pao-wound No Skin Appearance) -Ulcer Cleansing Rinsed/ Irrigated with Saline -Foul Odor after Cleansing No -Anesthetic Used 4% Lidocaine Solution [Edema Assessment] -Lower Limb Edema Present NA WC - Nurse 2 - General Ulcer CM Notes Start: 09/06/17 08:12 Freq: Status: Active Protocol: Activity Type Activity Date Activity User E-Sign Co-Sign Detail Recorded Client Recorded Date Recorded By Document 09/13/17 08:40 [id number] 09/13/17 08:43 JS 09/13/17 08:40 Wound Center Nurse 2 [Procedure/Treatment] 1. sacral ulcer stg III -Time 08:40 -Correct Patient Yes -Correct Side, Site, Position Yes -Correct Procedure Yes -Procedure Performed Yes -Type of Procedure Debridement -Clinical Debridement Subcutaneous -Post Debridement Size (cm) - Length 1 -Post Debridement Size (cm) - Width 0.8 -Post Debridement Size (cm) - Depth 0.2 -Total Square Cm 0.8 -Wound/Ulcer Outcome Not Healed -Ulcer Cleansing Rinsed/ Irrigated with Saline -Foul Odor after Cleansing No -Bioengineered Tissue Yes -Type of bioengineered Tissue EPIFIX -Expiration Date 07/02/22 -Product Lot Number [id number] -Percent Used 100 -Saline Lot Number [id number] -Bleeding Controlled with NA -Treatment Response Procedure Tolerated Well [See Physician Procedure note for Specifics] Pain Scale: 0-10 Numeric [Pain] -Is Patient Pain Free? Yes Musculoskeletal: No Tenderness to Palpation of Joints or Extremities Lymphatic: No Cervical, Supraclavicular, or Inguinal Adenopathy Neurological: Cranial nerves II-XII grossly intact, Neuro grossly intact Psych/Mental Status: Normal Affect, Appropriate, Alert and oriented to time, place, person, mood and affect Debridement Note Post-Debridement Measurements/Treatment WC - Nurse 2 - General Ulcer CM Notes Start: 09/06/17 08:12 Freq: Status: Active Protocol: Activity Type Activity Date Activity User E-Sign Co-Sign Detail Recorded Client Recorded Date Recorded By Document 09/06/17 08:31 [id number] 09/06/17 08:34 JS Document 09/13/17 08:40 [id number] 09/13/17 08:43 09/06/17 09/13/17 08:31 08:40 Wound Center Nurse 2 1. sacral ulcer stg III -Time 08:32 08:40 -Correct Patient Yes Yes -Correct Side, Site, Position Yes Yes -Correct Procedure Yes Yes -Procedure Performed Yes Yes -Type of Procedure Debridement Debridement -Clinical Debridement Subcutaneous Subcutaneous -Post Debridement Size (cm) - Length 1 1 -Post Debridement Size (cm) - Width 0.8 0.8 -Post Debridement Size (cm) - Depth 0.2 0.2 -Total Square Cm 0.8 0.8 -Wound/Ulcer Outcome Not Healed Not Healed -Ulcer Cleansing Rinsed/ Rinsed/ Irrigated with Irrigated with Saline Saline -Foul Odor after Cleansing No No -Bioengineered Tissue Yes Yes -Type of bioengineered Tissue EPIFIX EPIFIX -Expiration Date 06/02/22 07/02/22 -Product Lot Number [id number] -Percent Used 100 100 -Saline Lot Number [id number] -Bleeding Controlled with NA NA -Treatment Response Procedure Procedure Tolerated Well Tolerated Well Pain Scale: 0-10 Numeric Is Patient Pain Free? 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 Malnutrition resolved. Difficulty walking. Infected decubitus ulcer Plan: Epi fix #15 covered with thin veil and Steri-Strips gauze dressing and tape Medipore. continue to offload buttocks by lying flat in bed rather than in a chair as much as possible has a low air mattress. continue eating a highprotein diet and supplements. Follow-up 1 week. [employer] instant breakfast with ice cream. Vitamin C 500 mg 2 by mouth daily. Information entered by nursing staff reviewed. This document was created using a voice recognition system. Errors in punctuation, spelling and grammar may not have been corrected prior to saving.
--- NOTE | 2017-09-13 09:48 | PN.PCM_ITS ---
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 level Status: Chronic Current Visit: Yes Code(s): M51.36 - Other intervertebral disc degeneration, lumbar region (3) Infected decubitus ulcer Status: Chronic Current Visit: Yes Code(s): L89.90 - Pressure ulcer of unspecified site, unspecified stage; L08.9 - Local infection of the skin and subcutaneous tissue, unspecified (4) Malnutrition Status: Chronic Current Visit: Yes Code(s): E46 - Unspecified protein- calorie malnutrition (5) Nonhealing nonsurgical wound Status: Chronic Current Visit: Yes Code(s): T14.8 - Other injury of unspecified body region Type of Wound Date of Service: 09/13/17 Chief Complaint: 78-year-old white male emaciated living at home with his with many comorbidities. Patient has spinal stenosis so bad that he has no feeling in his rectum. Patient has frequent large stools. during the night, and it lays against the skin of his rectal area and causes denuded skin. Patient appears here with an small superficial ulcer on the coccyx area History of Wound: Patient has been evaluated by Dr. Hitchcock for possible surgical consult, but he feels that unless there is bone exposed to continue with ulcer care as prescribed. Nutrition has been an issue and he needs to continue nutritional efforts. And if he requires frequent ulcer care than because of incontinence then so be it Progress of Wound: Applied epi flix#14 this past week the ulcer looks pretty good . The ulcer is developing epithelial tissue in the center completely covered . Still developing callus around the edge of the ulcer that needs to be trimmed weekly. Is medically necessary to heal this ulcer and the skin substitues have shown to help in this capacity and is doing a very good job. His last pre-albumin at Dr. Dominguez office was 25 recheck 06/21/17 id now down to 20.2 CBC shows no anemia. No odor no redness noted. The patient has been offloading is much as possible. We started promogran this week and see how it works to close and will apply for another skin substutute. Patient is supplementing with high protein bars and diet, sggested [place] Instant breakfast with ice cream as a supplement and start vit C 1000 mg in chewies per day. Patient is also taking Z-hilary for wound healing. Applied #15 epi fix to coccyx area today - Physical Exam Vital Signs Temp Pulse Resp BP 97.1 F L 94 16 130/74 H 09/13/17 08:12 09/13/17 08:12 09/13/17 08:12 09/13/17 08:12 General: Oriented x3, Cooperative, Well developed HEENT: Atraumatic, PERRLA Oral: Moist Mucosa Neck: Supple, No JVD Lungs: Clear to auscultation, Normal air movement Cardiovascular: Regular rate, Regular Rhythm Abdomen: Bowel Sounds Present, Soft, Non Tender, No Hepato-splenomegaly Extremities: No clubbing, No edema Skin: Ulcer/ Wound - Stage III coccyx ulcer Wound Measurements and Assessment WC - Nurse 1 - General Ulcer Measurement Start: 09/06/17 08:12 Freq: Status: Active Protocol: Activity Type Activity Date Activity User E-Sign Co-Sign Detail Recorded Client Recorded Date Recorded By Document 09/13/17 08:12 [id number] 09/13/17 08:14 09/13/17 08:12 Wound Center Nurse 1 [Ulcer Assessment] 1. sacral ulcer stg III -Combined with other wound No -Current Size (cm) - Length 1.2 -Current Size (cm) - Width 0.7 -Current Size (cm) - Depth 0.2 -Total Square Cm 0.84 -Photo Taken No -Epithelialization None Present -Tunneling No -Undermining/Tunneling No -Circular Undermining No -Exudate Amt Small (1-33%) -Exudate Type Serosanguineous -Wound Margin Thickened -Granulation Amt Small (1-33%) -Granulation Quality [place] Red -Slough/Fibrin Yes -Necrosis Amt Medium (34-66%) -Necrotic Tissue Type Adherent Slough -Structure Exposed None/Limited to Skin Breakdown -Texture (Pao-wound Skin Appearance) Assessed Callus -Moisture (Pao-wound Skin Appearance Assessed ) Maceration -Color (Pao-wound Skin Appearance) No Abnormality Assessed -Temperature (Pao-wound Skin No Abnormality Appearance) (Pt Warm) -Tenderness on Palpation (Pao-wound No Skin Appearance) -Ulcer Cleansing Rinsed/ Irrigated with Saline -Foul Odor after Cleansing No -Anesthetic Used 4% Lidocaine Solution [Edema Assessment] -Lower Limb Edema Present NA WC - Nurse 2 - General Ulcer CM Notes Start: 09/06/17 08:12 Freq: Status: Active Protocol: Activity Type Activity Date Activity User E-Sign Co-Sign Detail Recorded Client Recorded Date Recorded By Document 09/13/17 08:40 [id number] 09/13/17 08:43 JS 09/13/17 08:40 Wound Center Nurse 2 [Procedure/Treatment] 1. sacral ulcer stg III -Time 08:40 -Correct Patient Yes -Correct Side, Site, Position Yes -Correct Procedure Yes -Procedure Performed Yes -Type of Procedure Debridement -Clinical Debridement Subcutaneous -Post Debridement Size (cm) - Length 1 -Post Debridement Size (cm) - Width 0.8 -Post Debridement Size (cm) - Depth 0.2 -Total Square Cm 0.8 -Wound/Ulcer Outcome Not Healed -Ulcer Cleansing Rinsed/ Irrigated with Saline -Foul Odor after Cleansing No -Bioengineered Tissue Yes -Type of bioengineered Tissue EPIFIX -Expiration Date 07/02/22 -Product Lot Number [id number] -Percent Used 100 -Saline Lot Number [id number] -Bleeding Controlled with NA -Treatment Response Procedure Tolerated Well [See Physician Procedure note for Specifics] Pain Scale: 0-10 Numeric [Pain] -Is Patient Pain Free? Yes Musculoskeletal: No Tenderness to Palpation of Joints or Extremities Lymphatic: No Cervical, Supraclavicular, or Inguinal Adenopathy Neurological: Cranial nerves II-XII grossly intact, Neuro grossly intact Psych/Mental Status: Normal Affect, Appropriate, Alert and oriented to time, place, person, mood and affect Debridement Note Post-Debridement Measurements/Treatment WC - Nurse 2 - General Ulcer CM Notes Start: 09/06/17 08:12 Freq: Status: Active Protocol: Activity Type Activity Date Activity User E-Sign Co-Sign Detail Recorded Client Recorded Date Recorded By Document 09/06/17 08:31 [id number] 09/06/17 08:34 JS Document 09/13/17 08:40 [id number] 09/13/17 08:43 09/06/17 09/13/17 08:31 08:40 Wound Center Nurse 2 1. sacral ulcer stg III -Time 08:32 08:40 -Correct Patient Yes Yes -Correct Side, Site, Position Yes Yes -Correct Procedure Yes Yes -Procedure Performed Yes Yes -Type of Procedure Debridement Debridement -Clinical Debridement Subcutaneous Subcutaneous -Post Debridement Size (cm) - Length 1 1 -Post Debridement Size (cm) - Width 0.8 0.8 -Post Debridement Size (cm) - Depth 0.2 0.2 -Total Square Cm 0.8 0.8 -Wound/Ulcer Outcome Not Healed Not Healed -Ulcer Cleansing Rinsed/ Rinsed/ Irrigated with Irrigated with Saline Saline -Foul Odor after Cleansing No No -Bioengineered Tissue Yes Yes -Type of bioengineered Tissue EPIFIX EPIFIX -Expiration Date 06/02/22 07/02/22 -Product Lot Number [id number] -Percent Used 100 100 -Saline Lot Number [id number] -Bleeding Controlled with NA NA -Treatment Response Procedure Procedure Tolerated Well Tolerated Well Pain Scale: 0-10 Numeric Is Patient Pain Free? 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 Malnutrition resolved. Difficulty walking. Infected decubitus ulcer Plan: Epi fix #15 covered with thin veil and Steri-Strips gauze dressing and tape Medipore. continue to offload buttocks by lying flat in bed rather than in a chair as much as possible has a low air mattress. continue eating a highprotein diet and supplements. Follow-up 1 week. [place] instant breakfast with ice cream. Vitamin C 500 mg 2 by mouth daily. Information entered by nursing staff reviewed. This document was created using a voice recognition system. Errors in punctuation, spelling and grammar may not have been corrected prior to saving.
[2017-09-20 08:12] VITALS: BP 135/83; PULSE 94; RESP 16; TEMP 36.3; BMI 17.0
--- NOTE | 2017-09-20 09:24 | PCM.WC.PN ---
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 level Status: Chronic Current Visit: Yes Code(s): M51.36 - Other intervertebral disc degeneration, lumbar region (3) Infected decubitus ulcer Status: Chronic Current Visit: Yes Code(s): L89.90 - Pressure ulcer of unspecified site, unspecified stage; L08.9 - Local infection of the skin and subcutaneous tissue, unspecified (4) Malnutrition Status: Chronic Current Visit: Yes Code(s): E46 - Unspecified protein-calorie malnutrition (5) Nonhealing nonsurgical wound Status: Chronic Current Visit: Yes Code(s): T14.8 - Other injury of unspecified body region Type of Wound Date of Service: 09/20/17 Chief Complaint: 78-year-old white male emaciated living at home with his with many comorbidities. Patient has spinal stenosis so bad that he has no feeling in his rectum. Patient has frequent large stools. during the night, and it lays against the skin of his rectal area and causes denuded skin. Patient appears here with an small superficial ulcer on the coccyx area History of Wound: Patient has been evaluated by Dr. Hitchcock for possible surgical consult, but he feels that unless there is bone exposed to continue with ulcer care as prescribed. Nutrition has been an issue and he needs to continue nutritional efforts. And if he requires frequent ulcer care than because of incontinence then so be it Progress of Wound: Applied epi flix#15 this past week the ulcer looks pretty good . He has developed islands of new skin. The ulcer is developing epithelial tissue in the center completely covered . Still developing callus around the edge of the ulcer that needs to be trimmed weekly. Is medically necessary to heal this ulcer and the skin substitues have shown to help in this capacity and is doing a very good job. His last pre-albumin at Dr. Dominguez office was 25 recheck 06/21/17 id now down to 20.2 CBC shows no anemia. No odor no redness noted. The patient has been offloading is much as possible. We started promogran this week and see how it works to close and will apply for another skin substutute. Patient is supplementing with high protein bars and diet, sggested [place] Instant breakfast with ice cream as a supplement and start vit C 1000 mg in chewies per day. Patient is also taking Z-hilary for wound healing. Today we will go back to Promogran after culturing him and will get another pre-albumin to see if he can finish them off he is slowly healing but it has been a long fall on getting him to produce new skin. - Physical Exam Vital Signs Temp Pulse Resp BP 97.3 F L 94 16 135/83 H 09/20/17 08:12 09/20/17 08:12 09/20/17 08:12 09/20/17 08:12 General: Oriented x3, Cooperative, Well developed HEENT: Atraumatic, PERRLA Oral: Moist Mucosa Neck: Supple, No JVD Lungs: Clear to auscultation, Normal air movement Cardiovascular: Regular rate, Regular Rhythm Abdomen: Bowel Sounds Present, Soft, Non Tender, No Hepato-splenomegaly Extremities: No clubbing, No edema Wound Measurements and Assessment WC - Nurse 1 - General Ulcer Measurement Start: 09/06/17 08:12 Freq: Status: Active Protocol: Activity Type Activity Date Activity User E-Sign Co-Sign Detail Recorded Client Recorded Date Recorded By Document 09/20/17 08:12 [facility] [id number] 09/20/17 08:19 [facility] 09/20/17 08:12 Wound Center Nurse 1 [Ulcer Assessment] 1. sacral ulcer stg III -Combined with other wound No -Current Size (cm) - Length 1.2 -Current Size (cm) - Width 0.9 -Current Size (cm) - Depth 0.5 -Total Square Cm 1.08 -Photo Taken No -Epithelialization Small 1-33% -Tunneling No -Undermining/Tunneling Yes -Undermining/Tunneling Starts (O' 6 clock) -Undermining/Tunneling Ends (O'clock) 11 -Maximum Distance (cm) 0.3 -Exudate Amt Small (1-33%) -Exudate Type Sanguineous -Wound Margin Distinct, Outline Attached -Granulation Amt Large (67-100%) -Granulation Quality [place] -Slough/Fibrin Yes -Necrosis Amt None Present (0 %) -Texture (Pao-wound Skin Appearance) Callus Scarring -Moisture (Pao-wound Skin Appearance Maceration ) -Color (Pao-wound Skin Appearance) Erythema Palor -Temperature (Pao-wound Skin No Abnormality Appearance) (Pt Warm) -Tenderness on Palpation (Pao-wound No Skin Appearance) -Ulcer Cleansing Rinsed/ Irrigated with Saline -Foul Odor after Cleansing No -Anesthetic Used 4% Lidocaine Solution - Nurse 2 - General Ulcer CM Notes Start: 09/06/17 08:12 Freq: Status: Active Protocol: Activity Type Activity Date Activity User E-Sign Co-Sign Detail Recorded Client Recorded Date Recorded By Document 09/20/17 08:37 [id number] 09/20/17 08:48 09/20/17 08:37 Wound Center Nurse 2 [Procedure/Treatment] -Time 08:41 -Correct Patient Yes -Correct Side, Site, Position Yes -Correct Procedure Yes -Procedure Performed Yes -Type of Procedure Debridement -Clinical Debridement Subcutaneous -Post Debridement Size (cm) - Length 0.8 -Post Debridement Size (cm) - Width 0.9 -Post Debridement Size (cm) - Depth 0.2 -Total Square Cm 0.72 -Wound/Ulcer Outcome Not Healed -Ulcer Cleansing Rinsed/ Irrigated with Saline -Foul Odor after Cleansing No -Injectable Lidocaine (%) 4 -Bleeding Controlled with NA -Treatment Response Procedure Tolerated Well [See Physician Procedure note for Specifics] Pain Scale: 0-10 Numeric [Pain] -Is Patient Pain Free? Yes Musculoskeletal: No Tenderness to Palpation of Joints or Extremities Lymphatic: No Cervical, Supraclavicular, or Inguinal Adenopathy Neurological: Cranial nerves II-XII grossly intact, Neuro grossly intact Psych/Mental Status: Normal Affect, Appropriate, Alert and oriented to time, place, person, mood and affect Debridement Note Post-Debridement Measurements/Treatment - Nurse 2 - General Ulcer CM Notes Start: 09/06/17 08:12 Freq: Status: Active Protocol: Activity Type Activity Date Activity User E-Sign Co-Sign Detail Recorded Client Recorded Date Recorded By Document 09/06/17 08:31 [id number] 09/06/17 08:34 Document 09/13/17 08:40 [id number] 09/13/17 08:43 Document 09/20/17 08:37 [id number] 09/20/17 08:48 09/06/17 09/13/17 09/20/17 08:31 08:40 08:37 Wound Center Nurse 2 1. sacral ulcer stg III -Time 08:32 08:40 08:41 -Correct Patient Yes Yes Yes -Correct Side, Site, Position Yes Yes Yes -Correct Procedure Yes Yes Yes -Procedure Performed Yes Yes Yes -Type of Procedure Debridement Debridement Debridement -Clinical Debridement Subcutaneous Subcutaneous Subcutaneous -Post Debridement Size (cm) - Length 1 1 0.8 -Post Debridement Size (cm) - Width 0.8 0.8 0.9 -Post Debridement Size (cm) - Depth 0.2 0.2 0.2 -Total Square Cm 0.8 0.8 0.72 -Wound/Ulcer Outcome Not Healed Not Healed Not Healed -Ulcer Cleansing Rinsed/ Rinsed/ Rinsed/ Irrigated with Irrigated with Irrigated with Saline Saline Saline -Foul Odor after Cleansing No No No -Bioengineered Tissue Yes Yes -Type of bioengineered Tissue EPIFIX EPIFIX -Expiration Date 06/02/22 07/02/22 -Product Lot Number [id number] -Percent Used 100 100 -Saline Lot Number [id number] -Injectable Lidocaine (%) 4 -Bleeding Controlled with NA NA NA -Treatment Response Procedure Procedure Procedure Tolerated Well Tolerated Well Tolerated Well Pain Scale: 0-10 Numeric Is Patient Pain Free? Yes Yes Yes Wound debrided: Coccyx ulcer Wound Grade/Stage: Stage III Type of Debridement: Excisional debridement Anesthesia Used: 5% Lidocaine Gel Depth: Down to and including healthy tissue, in the subcutaneous layer Percentage of wound debrided: 100 Instrument Used: 3mm curette, - - Nippers Tissue Removed: Fibrin and callus Severity: Limited To Skin Breakdown Amount of bleeding with debridement: Mild Bleeding Controlled with: Compression and gauze, Silver Nitrate Patient tolerated procedure well, Patient did not tolerate procedure well Assessment/Plan The albumin and cultures aerobic and anaerobic obtained Active Problems Nonhealing nonsurgical wound (Chronic) Degenerative disc disease at L5-S1 level (Chronic) Malnutrition (Chronic) Infected decubitus ulcer (Chronic) Decubitus ulcer of coccygeal region, stage 3 (Chronic) Assessment: Chronic Pressure ulcer coccyx stage III. Malnutrition. Difficulty walking. Infected decubitus ulcer Plan: Promogran to wound base cover with moistened gauze gauze and tape. Follow-up in 1 week. continue to offload buttocks by lying flat in bed rather than in a chair as much as possible has a low air mattress. continue eating a highprotein diet and supplements. [place] instant breakfast with ice cream. Vitamin C 500 mg 2 by mouth daily. Information entered by nursing staff reviewed. This document was created using a voice recognition system. Errors in punctuation, spelling and grammar may not have been corrected prior to saving.
--- NOTE | 2017-09-20 09:28 | PN.PCM_ITS ---
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 level Status: Chronic Current Visit: Yes Code(s): M51.36 - Other intervertebral disc degeneration, lumbar region (3) Infected decubitus ulcer Status: Chronic Current Visit: Yes Code(s): L89.90 - Pressure ulcer of unspecified site, unspecified stage; L08.9 - Local infection of the skin and subcutaneous tissue, unspecified (4) Malnutrition Status: Chronic Current Visit: Yes Code(s): E46 - Unspecified protein- calorie malnutrition (5) Nonhealing nonsurgical wound Status: Chronic Current Visit: Yes Code(s): T14.8 - Other injury of unspecified body region Type of Wound Date of Service: 09/20/17 Chief Complaint: 78-year-old white male emaciated living at home with his with many comorbidities. Patient has spinal stenosis so bad that he has no feeling in his rectum. Patient has frequent large stools. during the night, and it lays against the skin of his rectal area and causes denuded skin. Patient appears here with an small superficial ulcer on the coccyx area History of Wound: Patient has been evaluated by Dr. Hitchcock for possible surgical consult, but he feels that unless there is bone exposed to continue with ulcer care as prescribed. Nutrition has been an issue and he needs to continue nutritional efforts. And if he requires frequent ulcer care than because of incontinence then so be it Progress of Wound: Applied epi flix#15 this past week the ulcer looks pretty good . He has developed islands of new skin. The ulcer is developing epithelial tissue in the center completely covered . Still developing callus around the edge of the ulcer that needs to be trimmed weekly. Is medically necessary to heal this ulcer and the skin substitues have shown to help in this capacity and is doing a very good job. His last pre-albumin at Dr. Dominguez office was 25 recheck 06/21/17 id now down to 20.2 CBC shows no anemia. No odor no redness noted. The patient has been offloading is much as possible. We started promogran this week and see how it works to close and will apply for another skin substutute. Patient is supplementing with high protein bars and diet, sggested [place] Instant breakfast with ice cream as a supplement and start vit C 1000 mg in chewies per day. Patient is also taking Z-hilary for wound healing. Today we will go back to Promogran after culturing him and will get another pre-albumin to see if he can finish them off he is slowly healing but it has been a long fall on getting him to produce new skin. - Physical Exam Vital Signs Temp Pulse Resp BP 97.3 F L 94 16 135/83 H 09/20/17 08:12 09/20/17 08:12 09/20/17 08:12 09/20/17 08:12 General: Oriented x3, Cooperative, Well developed HEENT: Atraumatic, PERRLA Oral: Moist Mucosa Neck: Supple, No JVD Lungs: Clear to auscultation, Normal air movement Cardiovascular: Regular rate, Regular Rhythm Abdomen: Bowel Sounds Present, Soft, Non Tender, No Hepato-splenomegaly Extremities: No clubbing, No edema Wound Measurements and Assessment WC - Nurse 1 - General Ulcer Measurement Start: 09/06/17 08:12 Freq: Status: Active Protocol: Activity Type Activity Date Activity User E-Sign Co-Sign Detail Recorded Client Recorded Date Recorded By Document 09/20/17 08:12 [facility] [id number] 09/20/17 08:19 [facility] 09/20/17 08:12 Wound Center Nurse 1 [Ulcer Assessment] 1. sacral ulcer stg III -Combined with other wound No -Current Size (cm) - Length 1.2 -Current Size (cm) - Width 0.9 -Current Size (cm) - Depth 0.5 -Total Square Cm 1.08 -Photo Taken No -Epithelialization Small 1-33% -Tunneling No -Undermining/Tunneling Yes -Undermining/Tunneling Starts (O' 6 clock) -Undermining/Tunneling Ends (O'clock) 11 -Maximum Distance (cm) 0.3 -Exudate Amt Small (1-33%) -Exudate Type Sanguineous -Wound Margin Distinct, Outline Attached -Granulation Amt Large (67-100%) -Granulation Quality [place] -Slough/Fibrin Yes -Necrosis Amt None Present (0 %) -Texture (Pao-wound Skin Appearance) Callus Scarring -Moisture (Pao-wound Skin Appearance Maceration ) -Color (Pao-wound Skin Appearance) Erythema Palor -Temperature (Pao-wound Skin No Abnormality Appearance) (Pt Warm) -Tenderness on Palpation (Pao-wound No Skin Appearance) -Ulcer Cleansing Rinsed/ Irrigated with Saline -Foul Odor after Cleansing No -Anesthetic Used 4% Lidocaine Solution - Nurse 2 - General Ulcer CM Notes Start: 09/06/17 08:12 Freq: Status: Active Protocol: Activity Type Activity Date Activity User E-Sign Co-Sign Detail Recorded Client Recorded Date Recorded By Document 09/20/17 08:37 [id number] 09/20/17 08:48 09/20/17 08:37 Wound Center Nurse 2 [Procedure/Treatment] -Time 08:41 -Correct Patient Yes -Correct Side, Site, Position Yes -Correct Procedure Yes -Procedure Performed Yes -Type of Procedure Debridement -Clinical Debridement Subcutaneous -Post Debridement Size (cm) - Length 0.8 -Post Debridement Size (cm) - Width 0.9 -Post Debridement Size (cm) - Depth 0.2 -Total Square Cm 0.72 -Wound/Ulcer Outcome Not Healed -Ulcer Cleansing Rinsed/ Irrigated with Saline -Foul Odor after Cleansing No -Injectable Lidocaine (%) 4 -Bleeding Controlled with NA -Treatment Response Procedure Tolerated Well [See Physician Procedure note for Specifics] Pain Scale: 0-10 Numeric [Pain] -Is Patient Pain Free? Yes Musculoskeletal: No Tenderness to Palpation of Joints or Extremities Lymphatic: No Cervical, Supraclavicular, or Inguinal Adenopathy Neurological: Cranial nerves II-XII grossly intact, Neuro grossly intact Psych/Mental Status: Normal Affect, Appropriate, Alert and oriented to time, place, person, mood and affect Debridement Note Post-Debridement Measurements/Treatment - Nurse 2 - General Ulcer CM Notes Start: 09/06/17 08:12 Freq: Status: Active Protocol: Activity Type Activity Date Activity User E-Sign Co-Sign Detail Recorded Client Recorded Date Recorded By Document 09/06/17 08:31 [id number] 09/06/17 08:34 Document 09/13/17 08:40 [id number] 09/13/17 08:43 Document 09/20/17 08:37 [id number] 09/20/17 08:48 09/06/17 09/13/17 09/20/17 08:31 08:40 08:37 Wound Center Nurse 2 1. sacral ulcer stg III -Time 08:32 08:40 08:41 -Correct Patient Yes Yes Yes -Correct Side, Site, Position Yes Yes Yes -Correct Procedure Yes Yes Yes -Procedure Performed Yes Yes Yes -Type of Procedure Debridement Debridement Debridement -Clinical Debridement Subcutaneous Subcutaneous Subcutaneous -Post Debridement Size (cm) - Length 1 1 0.8 -Post Debridement Size (cm) - Width 0.8 0.8 0.9 -Post Debridement Size (cm) - Depth 0.2 0.2 0.2 -Total Square Cm 0.8 0.8 0.72 -Wound/Ulcer Outcome Not Healed Not Healed Not Healed -Ulcer Cleansing Rinsed/ Rinsed/ Rinsed/ Irrigated with Irrigated with Irrigated with Saline Saline Saline -Foul Odor after Cleansing No No No -Bioengineered Tissue Yes Yes -Type of bioengineered Tissue EPIFIX EPIFIX -Expiration Date 06/02/22 07/02/22 -Product Lot Number [id number] -Percent Used 100 100 -Saline Lot Number [id number] -Injectable Lidocaine (%) 4 -Bleeding Controlled with NA NA NA -Treatment Response Procedure Procedure Procedure Tolerated Well Tolerated Well Tolerated Well Pain Scale: 0-10 Numeric Is Patient Pain Free? Yes Yes Yes Wound debrided: Coccyx ulcer Wound Grade/Stage: Stage III Type of Debridement: Excisional debridement Anesthesia Used: 5% Lidocaine Gel Depth: Down to and including healthy tissue, in the subcutaneous layer Percentage of wound debrided: 100 Instrument Used: 3mm curette, - - Nippers Tissue Removed: Fibrin and callus Severity: Limited To Skin Breakdown Amount of bleeding with debridement: Mild Bleeding Controlled with: Compression and gauze, Silver Nitrate Patient tolerated procedure well, Patient did not tolerate procedure well Assessment/Plan The albumin and cultures aerobic and anaerobic obtained Active Problems Nonhealing nonsurgical wound (Chronic) Degenerative disc disease at L5-S1 level (Chronic) Malnutrition (Chronic) Infected decubitus ulcer (Chronic) Decubitus ulcer of coccygeal region, stage 3 (Chronic) Assessment: Chronic Pressure ulcer coccyx stage III. Malnutrition. Difficulty walking. Infected decubitus ulcer Plan: Promogran to wound base cover with moistened gauze gauze and tape. Follow -up in 1 week. continue to offload buttocks by lying flat in bed rather than in a chair as much as possible has a low air mattress. continue eating a highprotein diet and supplements. [place] instant breakfast with ice cream. Vitamin C 500 mg 2 by mouth daily. Information entered by nursing staff reviewed. This document was created using a voice recognition system. Errors in punctuation, spelling and grammar may not have been corrected prior to saving.
[2017-09-20 12:41] LABS: Prealbumin 25.2 mg/dL (20.0-40.0)
[2017-09-27 08:16] VITALS: BP 142/89; PULSE 93; RESP 16; TEMP 35.4; BMI 17.0
--- NOTE | 2017-09-27 09:06 | PCM.WC.PN ---
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 level Status: Chronic Current Visit: Yes Code(s): M51.36 - Other intervertebral disc degeneration, lumbar region (3) Infected decubitus ulcer Status: Chronic Current Visit: Yes Code(s): L89.90 - Pressure ulcer of unspecified site, unspecified stage; L08.9 - Local infection of the skin and subcutaneous tissue, unspecified (4) Malnutrition Status: Chronic Current Visit: Yes Code(s): E46 - Unspecified protein-calorie malnutrition (5) Nonhealing nonsurgical wound Status: Chronic Current Visit: Yes Code(s): T14.8 - Other injury of unspecified body region Type of Wound Date of Service: 09/27/17 Chief Complaint: 78-year-old white male emaciated living at home with his with many comorbidities. Patient has spinal stenosis so bad that he has no feeling in his rectum. Patient has frequent large stools. during the night, and it lays against the skin of his rectal area and causes denuded skin. Patient appears here with an small superficial ulcer on the coccyx area History of Wound: Patient has been evaluated by Dr. Hitchcock for possible surgical consult, but he feels that unless there is bone exposed to continue with ulcer care as prescribed. Nutrition has been an issue and he needs to continue nutritional efforts. And if he requires frequent ulcer care than because of incontinence then so be it Progress of Wound: Received 15 epi fixes and did very well. The last week we been using just plain Promogran and the ulcer is slightly bigger cultures show some growth of bacteria will discuss with infectious disease or microbiology and find out why 1 of the bacteria's was not sensitized. He has developed islands of new skin. The ulcer is developing epithelial tissue in the center completely covered . Still developing callus around the edge of the ulcer that needs to be trimmed weekly. Is medically necessary to heal this ulcer and the skin substitues have shown to help in this capacity and is doing a very good job. His pre-albumin is still around 25 which is good with no sign of anemia. No odor no redness noted. The patient has been offloading is much as possible. We started promogran this week and see how it works to close and will apply for another skin substutute. Patient is supplementing with high protein bars and diet, sggested [place] Instant breakfast with ice cream as a supplement and start vit C 1000 mg in chewies per day. Patient is also taking Z-hilary for wound healing. Today we will go back to Promogran after culturing him and will get another pre-albumin to see if he can finish them off he is slowly healing but it has been a long fall on getting him to produce new skin. - Physical Exam Vital Signs Temp Pulse Resp BP 95.7 F L 93 16 142/89 H 09/27/17 08:16 09/27/17 08:16 09/27/17 08:16 09/27/17 08:16 General: Oriented x3, Cooperative, Well developed HEENT: Atraumatic, PERRLA Oral: Moist Mucosa Neck: Supple, No JVD Lungs: Clear to auscultation, Normal air movement Cardiovascular: Regular rate, Regular Rhythm Abdomen: Bowel Sounds Present, Soft, Non Tender, No Hepato-splenomegaly Extremities: No clubbing, No edema Skin: Ulcer/ Wound - Coccyx ulcer stage III Wound Measurements and Assessment WC - Nurse 1 - General Ulcer Measurement Start: 09/06/17 08:12 Freq: Status: Active Protocol: Activity Type Activity Date Activity User E-Sign Co-Sign Detail Recorded Client Recorded Date Recorded By Document 09/27/17 08:16 [id number] 09/27/17 08:18 09/27/17 08:16 Wound Center Nurse 1 [Ulcer Assessment] 1. sacral ulcer stg III -Combined with other wound No -Current Size (cm) - Length 1.5 -Current Size (cm) - Width 0.7 -Current Size (cm) - Depth 0.2 -Total Square Cm 1.05 -Photo Taken No -Epithelialization None Present -Tunneling No -Undermining/Tunneling No -Circular Undermining No -Exudate Amt Small (1-33%) -Exudate Type Serosanguineous -Wound Margin Thickened -Granulation Amt Small (1-33%) -Granulation Quality [place] Red -Slough/Fibrin No -Necrosis Amt None Present (0 %) -Necrotic Tissue Type Adherent Slough -Texture (Pao-wound Skin Appearance) Callus -Moisture (Pao-wound Skin Appearance Assessed ) Maceration -Color (Pao-wound Skin Appearance) No Abnormality Assessed -Temperature (Pao-wound Skin No Abnormality Appearance) (Pt Warm) -Tenderness on Palpation (Pao-wound No Skin Appearance) -Ulcer Cleansing Rinsed/ Irrigated with Saline -Foul Odor after Cleansing No -Anesthetic Used 4% Lidocaine Solution [Edema Assessment] -Lower Limb Edema Present NA - Nurse 2 - General Ulcer CM Notes Start: 09/06/17 08:12 Freq: Status: Active Protocol: Activity Type Activity Date Activity User E-Sign Co-Sign Detail Recorded Client Recorded Date Recorded By Document 09/27/17 08:31 [id number] 09/27/17 08:35 09/27/17 08:31 Wound Center Nurse 2 [Procedure/Treatment] 1. sacral ulcer stg III -Time 08:33 -Correct Patient Yes -Correct Side, Site, Position Yes -Correct Procedure Yes -Procedure Performed Yes -Type of Procedure Debridement -Clinical Debridement Subcutaneous -Post Debridement Size (cm) - Length 1.2 -Post Debridement Size (cm) - Width 0.8 -Post Debridement Size (cm) - Depth 0.3 -Total Square Cm 0.96 -Wound/Ulcer Outcome Not Healed -Ulcer Cleansing Rinsed/ Irrigated with Saline -Foul Odor after Cleansing No -Bioengineered Tissue No -Bleeding Controlled with NA -Treatment Response Procedure Tolerated Well [See Physician Procedure note for Specifics] Pain Scale: 0-10 Numeric [Pain] -Is Patient Pain Free? Yes Musculoskeletal: No Tenderness to Palpation of Joints or Extremities Lymphatic: No Cervical, Supraclavicular, or Inguinal Adenopathy Neurological: Cranial nerves II-XII grossly intact, Neuro grossly intact Psych/Mental Status: Normal Affect, Appropriate Debridement Note Post-Debridement Measurements/Treatment - Nurse 2 - General Ulcer CM Notes Start: 09/06/17 08:12 Freq: Status: Active Protocol: Activity Type Activity Date Activity User E-Sign Co-Sign Detail Recorded Client Recorded Date Recorded By Document 09/06/17 08:31 [id number] 09/06/17 08:34 JS Document 09/13/17 08:40 JS [id number] 09/13/17 08:43 JS Document 09/20/17 08:37 JS [id number] 09/20/17 08:48 JS Document 09/27/17 08:31 [id number] 09/27/17 08:35 JS 09/06/17 09/13/17 09/20/17 08:31 08:40 08:37 Wound Center Nurse 2 1. sacral ulcer stg III -Time 08:32 08:40 08:41 -Correct Patient Yes Yes Yes -Correct Side, Site, Position Yes Yes Yes -Correct Procedure Yes Yes Yes -Procedure Performed Yes Yes Yes -Type of Procedure Debridement Debridement Debridement -Clinical Debridement Subcutaneous Subcutaneous Subcutaneous -Post Debridement Size (cm) - Length 1 1 0.8 -Post Debridement Size (cm) - Width 0.8 0.8 0.9 -Post Debridement Size (cm) - Depth 0.2 0.2 0.2 -Total Square Cm 0.8 0.8 0.72 -Wound/Ulcer Outcome Not Healed Not Healed Not Healed -Ulcer Cleansing Rinsed/ Rinsed/ Rinsed/ Irrigated with Irrigated with Irrigated with Saline Saline Saline -Foul Odor after Cleansing No No No -Bioengineered Tissue Yes Yes -Type of bioengineered Tissue EPIFIX EPIFIX -Expiration Date 06/02/22 07/02/22 -Product Lot Number [id number] -Percent Used 100 100 -Saline Lot Number [id number] -Injectable Lidocaine (%) 4 -Bleeding Controlled with NA NA NA -Treatment Response Procedure Procedure Procedure Tolerated Well Tolerated Well Tolerated Well Pain Scale: 0-10 Numeric Is Patient Pain Free? Yes Yes Yes 09/27/17 08:31 Wound Center Nurse 2 1. sacral ulcer stg III -Time 08:33 -Correct Patient Yes -Correct Side, Site, Position Yes -Correct Procedure Yes -Procedure Performed Yes -Type of Procedure Debridement -Clinical Debridement Subcutaneous -Post Debridement Size (cm) - Length 1.2 -Post Debridement Size (cm) - Width 0.8 -Post Debridement Size (cm) - Depth 0.3 -Total Square Cm 0.96 -Wound/Ulcer Outcome Not Healed -Ulcer Cleansing Rinsed/ Irrigated with Saline -Foul Odor after Cleansing No -Bioengineered Tissue No -Type of bioengineered Tissue -Expiration Date -Product Lot Number -Percent Used -Saline Lot Number -Injectable Lidocaine (%) -Bleeding Controlled with NA -Treatment Response Procedure Tolerated Well Pain Scale: 0-10 Numeric Is Patient Pain Free? 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 Malnutrition. Difficulty walking. Infected decubitus ulcer Plan: Promogran to wound base cover with moistened gauze gauze and tape. Follow-up in 1 week. continue to offload buttocks by lying flat in bed rather than in a chair as much as possible has a low air mattress. continue eating a highprotein diet and supplements. [place] instant breakfast with ice cream. Vitamin C 500 mg 2 by mouth daily. Information entered by nursing staff reviewed. This document was created using a voice recognition system. Errors in punctuation, spelling and grammar may not have been corrected prior to saving.
--- NOTE | 2017-09-27 09:09 | PN.PCM_ITS ---
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 level Status: Chronic Current Visit: Yes Code(s): M51.36 - Other intervertebral disc degeneration, lumbar region (3) Infected decubitus ulcer Status: Chronic Current Visit: Yes Code(s): L89.90 - Pressure ulcer of unspecified site, unspecified stage; L08.9 - Local infection of the skin and subcutaneous tissue, unspecified (4) Malnutrition Status: Chronic Current Visit: Yes Code(s): E46 - Unspecified protein- calorie malnutrition (5) Nonhealing nonsurgical wound Status: Chronic Current Visit: Yes Code(s): T14.8 - Other injury of unspecified body region Type of Wound Date of Service: 09/27/17 Chief Complaint: 78-year-old white male emaciated living at home with his with many comorbidities. Patient has spinal stenosis so bad that he has no feeling in his rectum. Patient has frequent large stools. during the night, and it lays against the skin of his rectal area and causes denuded skin. Patient appears here with an small superficial ulcer on the coccyx area History of Wound: Patient has been evaluated by Dr. Hitchcock for possible surgical consult, but he feels that unless there is bone exposed to continue with ulcer care as prescribed. Nutrition has been an issue and he needs to continue nutritional efforts. And if he requires frequent ulcer care than because of incontinence then so be it Progress of Wound: Received 15 epi fixes and did very well. The last week we been using just plain Promogran and the ulcer is slightly bigger cultures show some growth of bacteria will discuss with infectious disease or microbiology and find out why 1 of the bacteria's was not sensitized. He has developed islands of new skin. The ulcer is developing epithelial tissue in the center completely covered . Still developing callus around the edge of the ulcer that needs to be trimmed weekly. Is medically necessary to heal this ulcer and the skin substitues have shown to help in this capacity and is doing a very good job. His pre-albumin is still around 25 which is good with no sign of anemia. No odor no redness noted. The patient has been offloading is much as possible. We started promogran this week and see how it works to close and will apply for another skin substutute. Patient is supplementing with high protein bars and diet, sggested [place] Instant breakfast with ice cream as a supplement and start vit C 1000 mg in chewies per day. Patient is also taking Z -hilary for wound healing. Today we will go back to Promogran after culturing him and will get another pre-albumin to see if he can finish them off he is slowly healing but it has been a long fall on getting him to produce new skin. - Physical Exam Vital Signs Temp Pulse Resp BP 95.7 F L 93 16 142/89 H 09/27/17 08:16 09/27/17 08:16 09/27/17 08:16 09/27/17 08:16 General: Oriented x3, Cooperative, Well developed HEENT: Atraumatic, PERRLA Oral: Moist Mucosa Neck: Supple, No JVD Lungs: Clear to auscultation, Normal air movement Cardiovascular: Regular rate, Regular Rhythm Abdomen: Bowel Sounds Present, Soft, Non Tender, No Hepato-splenomegaly Extremities: No clubbing, No edema Skin: Ulcer/ Wound - Coccyx ulcer stage III Wound Measurements and Assessment WC - Nurse 1 - General Ulcer Measurement Start: 09/06/17 08:12 Freq: Status: Active Protocol: Activity Type Activity Date Activity User E-Sign Co-Sign Detail Recorded Client Recorded Date Recorded By Document 09/27/17 08:16 [id number] 09/27/17 08:18 09/27/17 08:16 Wound Center Nurse 1 [Ulcer Assessment] 1. sacral ulcer stg III -Combined with other wound No -Current Size (cm) - Length 1.5 -Current Size (cm) - Width 0.7 -Current Size (cm) - Depth 0.2 -Total Square Cm 1.05 -Photo Taken No -Epithelialization None Present -Tunneling No -Undermining/Tunneling No -Circular Undermining No -Exudate Amt Small (1-33%) -Exudate Type Serosanguineous -Wound Margin Thickened -Granulation Amt Small (1-33%) -Granulation Quality [place] Red -Slough/Fibrin No -Necrosis Amt None Present (0 %) -Necrotic Tissue Type Adherent Slough -Texture (Pao-wound Skin Appearance) Callus -Moisture (Pao-wound Skin Appearance Assessed ) Maceration -Color (Pao-wound Skin Appearance) No Abnormality Assessed -Temperature (Pao-wound Skin No Abnormality Appearance) (Pt Warm) -Tenderness on Palpation (Pao-wound No Skin Appearance) -Ulcer Cleansing Rinsed/ Irrigated with Saline -Foul Odor after Cleansing No -Anesthetic Used 4% Lidocaine Solution [Edema Assessment] -Lower Limb Edema Present NA - Nurse 2 - General Ulcer CM Notes Start: 09/06/17 08:12 Freq: Status: Active Protocol: Activity Type Activity Date Activity User E-Sign Co-Sign Detail Recorded Client Recorded Date Recorded By Document 09/27/17 08:31 [email or web address] 09/27/17 08:35 09/27/17 08:31 Wound Center Nurse 2 [Procedure/Treatment] 1. sacral ulcer stg III -Time 08:33 -Correct Patient Yes -Correct Side, Site, Position Yes -Correct Procedure Yes -Procedure Performed Yes -Type of Procedure Debridement -Clinical Debridement Subcutaneous -Post Debridement Size (cm) - Length 1.2 -Post Debridement Size (cm) - Width 0.8 -Post Debridement Size (cm) - Depth 0.3 -Total Square Cm 0.96 -Wound/Ulcer Outcome Not Healed -Ulcer Cleansing Rinsed/ Irrigated with Saline -Foul Odor after Cleansing No -Bioengineered Tissue No -Bleeding Controlled with NA -Treatment Response Procedure Tolerated Well [See Physician Procedure note for Specifics] Pain Scale: 0-10 Numeric [Pain] -Is Patient Pain Free? Yes Musculoskeletal: No Tenderness to Palpation of Joints or Extremities Lymphatic: No Cervical, Supraclavicular, or Inguinal Adenopathy Neurological: Cranial nerves II-XII grossly intact, Neuro grossly intact Psych/Mental Status: Normal Affect, Appropriate Debridement Note Post-Debridement Measurements/Treatment - Nurse 2 - General Ulcer CM Notes Start: 09/06/17 08:12 Freq: Status: Active Protocol: Activity Type Activity Date Activity User E-Sign Co-Sign Detail Recorded Client Recorded Date Recorded By Document 09/06/17 08:31 [id number] 09/06/17 08:34 JS Document 09/13/17 08:40 JS [id number] 09/13/17 08:43 JS Document 09/20/17 08:37 JS [id number] 09/20/17 08:48 JS Document 09/27/17 08:31 [id number] 09/27/17 08:35 JS 09/06/17 09/13/17 09/20/17 08:31 08:40 08:37 Wound Center Nurse 2 1. sacral ulcer stg III -Time 08:32 08:40 08:41 -Correct Patient Yes Yes Yes -Correct Side, Site, Position Yes Yes Yes -Correct Procedure Yes Yes Yes -Procedure Performed Yes Yes Yes -Type of Procedure Debridement Debridement Debridement -Clinical Debridement Subcutaneous Subcutaneous Subcutaneous -Post Debridement Size (cm) - Length 1 1 0.8 -Post Debridement Size (cm) - Width 0.8 0.8 0.9 -Post Debridement Size (cm) - Depth 0.2 0.2 0.2 -Total Square Cm 0.8 0.8 0.72 -Wound/Ulcer Outcome Not Healed Not Healed Not Healed -Ulcer Cleansing Rinsed/ Rinsed/ Rinsed/ Irrigated with Irrigated with Irrigated with Saline Saline Saline -Foul Odor after Cleansing No No No -Bioengineered Tissue Yes Yes -Type of bioengineered Tissue EPIFIX EPIFIX -Expiration Date 06/02/22 07/02/22 -Product Lot Number [id number] -Percent Used 100 100 -Saline Lot Number [id number] -Injectable Lidocaine (%) 4 -Bleeding Controlled with NA NA NA -Treatment Response Procedure Procedure Procedure Tolerated Well Tolerated Well Tolerated Well Pain Scale: 0-10 Numeric Is Patient Pain Free? Yes Yes Yes 09/27/17 08:31 Wound Center Nurse 2 1. sacral ulcer stg III -Time 08:33 -Correct Patient Yes -Correct Side, Site, Position Yes -Correct Procedure Yes -Procedure Performed Yes -Type of Procedure Debridement -Clinical Debridement Subcutaneous -Post Debridement Size (cm) - Length 1.2 -Post Debridement Size (cm) - Width 0.8 -Post Debridement Size (cm) - Depth 0.3 -Total Square Cm 0.96 -Wound/Ulcer Outcome Not Healed -Ulcer Cleansing Rinsed/ Irrigated with Saline -Foul Odor after Cleansing No -Bioengineered Tissue No -Type of bioengineered Tissue -Expiration Date -Product Lot Number -Percent Used -Saline Lot Number -Injectable Lidocaine (%) -Bleeding Controlled with NA -Treatment Response Procedure Tolerated Well Pain Scale: 0-10 Numeric Is Patient Pain Free? 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 Malnutrition. Difficulty walking. Infected decubitus ulcer Plan: Promogran to wound base cover with moistened gauze gauze and tape. Follow -up in 1 week. continue to offload buttocks by lying flat in bed rather than in a chair as much as possible has a low air mattress. continue eating a highprotein diet and supplements. [place] instant breakfast with ice cream. Vitamin C 500 mg 2 by mouth daily. Information entered by nursing staff reviewed. This document was created using a voice recognition system. Errors in punctuation, spelling and grammar may not have been corrected prior to saving.
== END 2017-10-01 23:59 ==
LOC: WC 08:00
PROVIDERS: Family Provider Family Medicine; PCP Family Medicine; Visit Provider Nurse Practitioner
DX: L89.153 Pressure ulcer of sacral region, stage 3 (principal); L08.9 Local infection of the skin and subcutaneous tissue, unspecified; M48.00 Spinal stenosis, site unspecified; M51.37 Other intervertebral disc degeneration, lumbosacral region
CPT/HCPCS: 11042; 15271; 84134; 87070; 87075; 87077; 87186; 87205; Q4131

== ENCOUNTER 2017-10-18 08:00 | Outpatient (RCR) | payer MEDICARE, OTHER, SELFPAY ==
[2017-10-02 00:33] VITALS: BP 142/89; PULSE 93; RESP 16; TEMP 35.4; BMI 17.0
[2017-10-04 08:22] VITALS: BP 121/68; PULSE 99; RESP 16; TEMP 36; BMI 17.0
--- NOTE | 2017-10-04 08:49 | PCM.WC.PN ---
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 level Status: Chronic Current Visit: Yes Code(s): M51.36 - Other intervertebral disc degeneration, lumbar region (3) Infected decubitus ulcer Status: Chronic Current Visit: No Code(s): L89.90 - Pressure ulcer of unspecified site, unspecified stage; L08.9 - Local infection of the skin and subcutaneous tissue, unspecified (4) Malnutrition Status: Chronic Current Visit: Yes Code(s): E46 - Unspecified protein-calorie malnutrition (5) Nonhealing nonsurgical wound Status: Chronic Current Visit: No Code(s): T14.8 - Other injury of unspecified body region Type of Wound Date of Service: 10/04/17 Chief Complaint: 78-year-old white male emaciated living at home with his with many comorbidities. Patient has spinal stenosis so bad that he has no feeling in his rectum. Patient has frequent large stools. during the night, and it lays against the skin of his rectal area and causes denuded skin. Patient appears here with an small superficial ulcer on the coccyx area History of Wound: Patient has been evaluated by Dr. Hitchcock for possible surgical consult, but he feels that unless there is bone exposed to continue with ulcer care as prescribed. Nutrition has been an issue and he needs to continue nutritional efforts. And if he requires frequent ulcer care than because of incontinence then so be it Progress of Wound: Received 15 epi fixes and did very well. Theses past few weeks we been using just plain Promogran and the ulcer is slightly bigger cultures show some growth of bacteria. He has developed islands of new skin. The ulcer is developing epithelial tissue in the center completely covered . Still developing callus around the edge of the ulcer that needs to be trimmed weekly. Is medically necessary to heal this ulcer and the skin substitues have shown to help in this capacity and is doing a very good job. His pre-albumin is still around 25.2 in September which is good with no sign of anemia. No odor no redness noted. The patient has been offloading is much as possible. We started promogran this week and see how it works to close and will apply for another skin substutute. Patient is supplementing with high protein bars and diet, sggested [place] Instant breakfast with ice cream as a supplement and start vit C 1000 mg in chewies per day. Patient is also taking Z-hilary for wound healing. Today we will go back to Promogran after culturing him and will get another pre-albumin to see if he can finish them off he is slowly healing but it has been a long fall on getting him to produce new skin. - Physical Exam Vital Signs Temp Pulse Resp BP 96.8 F L 99 16 121/68 H 10/04/17 08:22 10/04/17 08:22 10/04/17 08:22 10/04/17 08:22 General: Oriented x3, Cooperative, Well developed HEENT: Atraumatic, PERRLA Oral: Moist Mucosa Neck: Supple, No JVD Lungs: Clear to auscultation, Normal air movement Cardiovascular: Regular rate, Regular Rhythm Abdomen: Bowel Sounds Present, Soft, Non Tender, No Hepato-splenomegaly Extremities: No clubbing, No edema Skin: Ulcer/ Wound - Coccyx ulcer Wound Measurements and Assessment WC - Nurse 1 - General Ulcer Measurement Start: 10/04/17 08:21 Freq: Status: Active Protocol: Activity Type Activity Date Activity User E-Sign Co-Sign Detail Recorded Client Recorded Date Recorded By Document 10/04/17 08:22 [id number] 10/04/17 08:23 10/04/17 08:22 Wound Center Nurse 1 [Ulcer Assessment] 1. sacral ulcer stg III -Combined with other wound No -Current Size (cm) - Length 2.3 -Current Size (cm) - Width 1.9 -Current Size (cm) - Depth 0.2 -Total Square Cm 4.37 -Photo Taken No -Epithelialization None Present -Tunneling No -Undermining/Tunneling No -Circular Undermining No -Exudate Amt Small (1-33%) -Exudate Type Serosanguineous -Wound Margin Distinct, Outline Attached -Granulation Amt Small (1-33%) -Granulation Quality [place] -Slough/Fibrin No -Necrosis Amt None Present (0 %) -Structure Exposed None/Limited to Skin Breakdown -Texture (Pao-wound Skin Appearance) Assessed Callus -Moisture (Pao-wound Skin Appearance Assessed ) Maceration -Color (Pao-wound Skin Appearance) No Abnormality Assessed -Temperature (Pao-wound Skin No Abnormality Appearance) (Pt Warm) -Tenderness on Palpation (Pao-wound No Skin Appearance) -Ulcer Cleansing Rinsed/ Irrigated with Saline -Foul Odor after Cleansing No -Anesthetic Used 4% Lidocaine Solution [Edema Assessment] -Lower Limb Edema Present NA - Nurse 2 - General Ulcer CM Notes Start: 10/04/17 08:21 Freq: Status: Active Protocol: Activity Type Activity Date Activity User E-Sign Co-Sign Detail Recorded Client Recorded Date Recorded By Document 10/04/17 08:37 MW [id number] 10/04/17 08:40 MW 10/04/17 08:37 Wound Center Nurse 2 [Procedure/Treatment] 1. sacral ulcer stg III -Time 08:39 -Correct Patient Yes -Correct Side, Site, Position Yes -Correct Procedure Yes -Procedure Performed Yes -Type of Procedure Debridement -Clinical Debridement Subcutaneous -Post Debridement Size (cm) - Length 1.3 -Post Debridement Size (cm) - Width 0.7 -Post Debridement Size (cm) - Depth 0.3 -Total Square Cm 0.91 -Wound/Ulcer Outcome Not Healed -Ulcer Cleansing Rinsed/ Irrigated with Saline -Foul Odor after Cleansing No -Bioengineered Tissue No -Bleeding Controlled with Pressure -Treatment Response Procedure Tolerated Well [See Physician Procedure note for Specifics] Pain Scale: 0-10 Numeric [Pain] -Is Patient Pain Free? Yes Musculoskeletal: No Tenderness to Palpation of Joints or Extremities Lymphatic: No Cervical, Supraclavicular, or Inguinal Adenopathy Neurological: Cranial nerves II-XII grossly intact, Neuro grossly intact Psych/Mental Status: Normal Affect, Appropriate Debridement Note Post-Debridement Measurements/Treatment - Nurse 2 - General Ulcer CM Notes Start: 10/04/17 08:21 Freq: Status: Active Protocol: Activity Type Activity Date Activity User E-Sign Co-Sign Detail Recorded Client Recorded Date Recorded By Document 10/04/17 08:37 MW [id number] 10/04/17 08:40 MW 10/04/17 08:37 Wound Center Nurse 2 1. sacral ulcer stg III -Time 08:39 -Correct Patient Yes -Correct Side, Site, Position Yes -Correct Procedure Yes -Procedure Performed Yes -Type of Procedure Debridement -Clinical Debridement Subcutaneous -Post Debridement Size (cm) - Length 1.3 -Post Debridement Size (cm) - Width 0.7 -Post Debridement Size (cm) - Depth 0.3 -Total Square Cm 0.91 -Wound/Ulcer Outcome Not Healed -Ulcer Cleansing Rinsed/ Irrigated with Saline -Foul Odor after Cleansing No -Bioengineered Tissue No -Bleeding Controlled with Pressure -Treatment Response Procedure Tolerated Well Pain Scale: 0-10 Numeric Is Patient Pain Free? 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 Malnutrition. Difficulty walking. Infected decubitus ulcer Plan: Promogran to wound base cover with moistened gauze gauze and tape. Clindamycin 300 mg 1 p.o. twice daily for 10 days #20. Follow-up in 1 week. continue to offload buttocks by lying flat in bed rather than in a chair as much as possible has a low air mattress. continue eating a highprotein diet and supplements. [place] instant breakfast with ice cream. Vitamin C 500 mg 2 by mouth daily. Information entered by nursing staff reviewed. This document was created using a voice recognition system. Errors in punctuation, spelling and grammar may not have been corrected prior to saving.
[2017-10-11 08:16] VITALS: BP 126/73; PULSE 102; RESP 18; TEMP 36.6; BMI 17.0
--- NOTE | 2017-10-11 08:55 | PCM.WC.PN ---
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 level Status: Chronic Current Visit: Yes Code(s): M51.36 - Other intervertebral disc degeneration, lumbar region (3) Infected decubitus ulcer Status: Chronic Current Visit: Yes Code(s): L89.90 - Pressure ulcer of unspecified site, unspecified stage; L08.9 - Local infection of the skin and subcutaneous tissue, unspecified (4) Malnutrition Status: Chronic Current Visit: Yes Code(s): E46 - Unspecified protein-calorie malnutrition (5) Nonhealing nonsurgical wound Status: Chronic Current Visit: Yes Code(s): T14.8 - Other injury of unspecified body region Type of Wound Date of Service: 10/11/17 Chief Complaint: 78-year-old white male emaciated living at home with his with many comorbidities. Patient has spinal stenosis so bad that he has no feeling in his rectum. Patient has frequent large stools. during the night, and it lays against the skin of his rectal area and causes denuded skin. Patient appears here with an small superficial ulcer on the coccyx area History of Wound: Patient has been evaluated by Dr. Hitchcock for possible surgical consult, but he feels that unless there is bone exposed to continue with ulcer care as prescribed. Nutrition has been an issue and he needs to continue nutritional efforts. And if he requires frequent ulcer care than because of incontinence then so be it Progress of Wound: Today the ulcer is about the same size. Received 15 epi fixes and did very well. Theses past few weeks we been using just plain Promogran and the ulcer is slightly bigger cultures show some growth of bacteria. He has developed islands of new skin. The ulcer is developing epithelial tissue in the center completely covered . Still developing callus around the edge of the ulcer that needs to be trimmed weekly. Is medically necessary to heal this ulcer and the skin substitues have shown to help in this capacity and is doing a very good job. His pre-albumin is still around 25.2 in September which is good with no sign of anemia. No odor no redness noted. The patient has been offloading is much as possible. We started promogran this week and see how it works to close and will apply for another skin substutute. Patient is supplementing with high protein bars and diet, sggested [place] Instant breakfast with ice cream as a supplement and start vit C 1000 mg in chewies per day. Patient is also taking Z-hilary for wound healing. Today we will go back to Promogran after culturing him and will get another pre-albumin to see if he can finish them off he is slowly healing but it has been a long fall on getting him to produce new skin. - Physical Exam Vital Signs Temp Pulse Resp BP 97.8 F 102 H 18 126/73 H 10/11/17 08:16 10/11/17 08:16 18 08:16 10/11/17 08:16 General: Oriented x3, Cooperative, Well developed HEENT: Atraumatic, PERRLA Oral: Moist Mucosa Neck: Supple, No JVD Lungs: Clear to auscultation, Normal air movement Cardiovascular: Regular rate, Regular Rhythm Abdomen: Bowel Sounds Present, Soft, Non Tender, No Hepato-splenomegaly Extremities: No clubbing, No edema Skin: Ulcer/ Wound - Coccyx ulcer stage III Wound Measurements and Assessment WC - Nurse 1 - General Ulcer Measurement Start: 10/04/17 08:21 Freq: Status: Active Protocol: Activity Type Activity Date Activity User E-Sign Co-Sign Detail Recorded Client Recorded Date Recorded By Document 10/11/17 08:16 [id number] 10/11/17 08:18 10/11/17 08:16 Wound Center Nurse 1 [Ulcer Assessment] 1. sacral ulcer stg III -Combined with other wound No -Current Size (cm) - Length 1.5 -Current Size (cm) - Width 1.0 -Current Size (cm) - Depth 0.2 -Total Square Cm 1.50 -Photo Taken No -Epithelialization None Present -Tunneling No -Undermining/Tunneling No -Circular Undermining No -Classification - Thickness Full Thickness without Exposed Support Structure -Exudate Amt Small (1-33%) -Exudate Type Serosanguineous -Wound Margin Fibrotic Scar, Thickened Scar -Granulation Amt Large (67-100%) -Granulation Quality Red -Slough/Fibrin Yes -Necrosis Amt Small (1-33%) -Necrotic Tissue Type Adherent Slough -Structure Exposed Fascia Fat Layer Exposed -Texture (Pao-wound Skin Appearance) Assessed Callus Scarring -Moisture (Pao-wound Skin Appearance No Abnormality ) Assessed -Color (Pao-wound Skin Appearance) No Abnormality Assessed -Temperature (Pao-wound Skin No Abnormality Appearance) (Pt Warm) -Tenderness on Palpation (Pao-wound No Skin Appearance) -Ulcer Cleansing Rinsed/ Irrigated with Saline -Foul Odor after Cleansing No -Anesthetic Used 5% Lidocaine Gel [Edema Assessment] -Lower Limb Edema Present No WC - Nurse 2 - General Ulcer CM Notes Start: 10/04/17 08:21 Freq: Status: Active Protocol: Activity Type Activity Date Activity User E-Sign Co-Sign Detail Recorded Client Recorded Date Recorded By Document 10/11/17 08:31 JS [id number] 10/11/17 08:31 JS 10/11/17 08:31 Wound Center Nurse 2 [Procedure/Treatment] 1. sacral ulcer stg III -Time 08:31 -Correct Patient Yes -Correct Side, Site, Position Yes -Correct Procedure Yes -Procedure Performed Yes -Type of Procedure Debridement -Clinical Debridement Subcutaneous -Post Debridement Size (cm) - Length 1.3 -Post Debridement Size (cm) - Width 1.0 -Post Debridement Size (cm) - Depth 0.3 -Total Square Cm 1.30 -Wound/Ulcer Outcome Not Healed -Ulcer Cleansing Rinsed/ Irrigated with Saline -Foul Odor after Cleansing No -Bioengineered Tissue No -Bleeding Controlled with NA -Treatment Response Procedure Tolerated Well [See Physician Procedure note for Specifics] Pain Scale: 0-10 Numeric [Pain] -Is Patient Pain Free? Yes Musculoskeletal: No Tenderness to Palpation of Joints or Extremities Lymphatic: No Cervical, Supraclavicular, or Inguinal Adenopathy Neurological: Cranial nerves II-XII grossly intact, Neuro grossly intact Psych/Mental Status: Normal Affect, Appropriate Debridement Note Post-Debridement Measurements/Treatment WC - Nurse 2 - General Ulcer CM Notes Start: 10/04/17 08:21 Freq: Status: Active Protocol: Activity Type Activity Date Activity User E-Sign Co-Sign Detail Recorded Client Recorded Date Recorded By Document 10/04/17 08:37 MW [id number] 10/04/17 08:40 MW Document 10/11/17 08:31 JS [id number] 10/11/17 08:31 JS 10/04/17 10/11/17 08:37 08:31 Wound Center Nurse 2 1. sacral ulcer stg III -Time 08:39 08:31 -Correct Patient Yes Yes -Correct Side, Site, Position Yes Yes -Correct Procedure Yes Yes -Procedure Performed Yes Yes -Type of Procedure Debridement Debridement -Clinical Debridement Subcutaneous Subcutaneous -Post Debridement Size (cm) - Length 1.3 1.3 -Post Debridement Size (cm) - Width 0.7 1.0 -Post Debridement Size (cm) - Depth 0.3 0.3 -Total Square Cm 0.91 1.30 -Wound/Ulcer Outcome Not Healed Not Healed -Ulcer Cleansing Rinsed/ Rinsed/ Irrigated with Irrigated with Saline Saline -Foul Odor after Cleansing No No -Bioengineered Tissue No No -Bleeding Controlled with Pressure NA -Treatment Response Procedure Procedure Tolerated Well Tolerated Well Pain Scale: 0-10 Numeric Is Patient Pain Free? 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 Malnutrition. Difficulty walking. Infected decubitus ulcer Plan: Promogran to wound base cover with moistened gauze gauze and tape. Finish clindamycin 300 mg 1 p.o. twice daily for 10 days #20. Follow-up in 1 week. continue to offload buttocks by lying flat in bed rather than in a chair as much as possible has a low air mattress. continue eating a highprotein diet and supplements. [place] instant breakfast with ice cream. Vitamin C 500 mg 2 by mouth daily. Information entered by nursing staff reviewed. This document was created using a voice recognition system. Errors in punctuation, spelling and grammar may not have been corrected prior to saving.
--- NOTE | 2017-10-11 08:58 | PN.PCM_ITS ---
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 level Status: Chronic Current Visit: Yes Code(s): M51.36 - Other intervertebral disc degeneration, lumbar region (3) Infected decubitus ulcer Status: Chronic Current Visit: Yes Code(s): L89.90 - Pressure ulcer of unspecified site, unspecified stage; L08.9 - Local infection of the skin and subcutaneous tissue, unspecified (4) Malnutrition Status: Chronic Current Visit: Yes Code(s): E46 - Unspecified protein- calorie malnutrition (5) Nonhealing nonsurgical wound Status: Chronic Current Visit: Yes Code(s): T14.8 - Other injury of unspecified body region Type of Wound Date of Service: 10/11/17 Chief Complaint: 78-year-old white male emaciated living at home with his with many comorbidities. Patient has spinal stenosis so bad that he has no feeling in his rectum. Patient has frequent large stools. during the night, and it lays against the skin of his rectal area and causes denuded skin. Patient appears here with an small superficial ulcer on the coccyx area History of Wound: Patient has been evaluated by Dr. Hitchcock for possible surgical consult, but he feels that unless there is bone exposed to continue with ulcer care as prescribed. Nutrition has been an issue and he needs to continue nutritional efforts. And if he requires frequent ulcer care than because of incontinence then so be it Progress of Wound: Today the ulcer is about the same size. Received 15 epi fixes and did very well. Theses past few weeks we been using just plain Promogran and the ulcer is slightly bigger cultures show some growth of bacteria. He has developed islands of new skin. The ulcer is developing epithelial tissue in the center completely covered . Still developing callus around the edge of the ulcer that needs to be trimmed weekly. Is medically necessary to heal this ulcer and the skin substitues have shown to help in this capacity and is doing a very good job. His pre-albumin is still around 25.2 in September which is good with no sign of anemia. No odor no redness noted. The patient has been offloading is much as possible. We started promogran this week and see how it works to close and will apply for another skin substutute. Patient is supplementing with high protein bars and diet, sggested [place] Instant breakfast with ice cream as a supplement and start vit C 1000 mg in chewies per day. Patient is also taking Z-hilary for wound healing. Today we will go back to Promogran after culturing him and will get another pre-albumin to see if he can finish them off he is slowly healing but it has been a long fall on getting him to produce new skin. - Physical Exam Vital Signs Temp Pulse Resp BP 97.8 F 102 H 18 126/73 H 10/11/17 08:16 10/11/17 08:16 18 08:16 10/11/17 08:16 General: Oriented x3, Cooperative, Well developed HEENT: Atraumatic, PERRLA Oral: Moist Mucosa Neck: Supple, No JVD Lungs: Clear to auscultation, Normal air movement Cardiovascular: Regular rate, Regular Rhythm Abdomen: Bowel Sounds Present, Soft, Non Tender, No Hepato-splenomegaly Extremities: No clubbing, No edema Skin: Ulcer/ Wound - Coccyx ulcer stage III Wound Measurements and Assessment WC - Nurse 1 - General Ulcer Measurement Start: 10/04/17 08:21 Freq: Status: Active Protocol: Activity Type Activity Date Activity User E-Sign Co-Sign Detail Recorded Client Recorded Date Recorded By Document 10/11/17 08:16 [id number] 10/11/17 08:18 10/11/17 08:16 Wound Center Nurse 1 [Ulcer Assessment] 1. sacral ulcer stg III -Combined with other wound No -Current Size (cm) - Length 1.5 -Current Size (cm) - Width 1.0 -Current Size (cm) - Depth 0.2 -Total Square Cm 1.50 -Photo Taken No -Epithelialization None Present -Tunneling No -Undermining/Tunneling No -Circular Undermining No -Classification - Thickness Full Thickness without Exposed Support Structure -Exudate Amt Small (1-33%) -Exudate Type Serosanguineous -Wound Margin Fibrotic Scar, Thickened Scar -Granulation Amt Large (67-100%) -Granulation Quality Red -Slough/Fibrin Yes -Necrosis Amt Small (1-33%) -Necrotic Tissue Type Adherent Slough -Structure Exposed Fascia Fat Layer Exposed -Texture (Pao-wound Skin Appearance) Assessed Callus Scarring -Moisture (Pao-wound Skin Appearance No Abnormality ) Assessed -Color (Pao-wound Skin Appearance) No Abnormality Assessed -Temperature (Pao-wound Skin No Abnormality Appearance) (Pt Warm) -Tenderness on Palpation (Pao-wound No Skin Appearance) -Ulcer Cleansing Rinsed/ Irrigated with Saline -Foul Odor after Cleansing No -Anesthetic Used 5% Lidocaine Gel [Edema Assessment] -Lower Limb Edema Present No WC - Nurse 2 - General Ulcer CM Notes Start: 10/04/17 08:21 Freq: Status: Active Protocol: Activity Type Activity Date Activity User E-Sign Co-Sign Detail Recorded Client Recorded Date Recorded By Document 10/11/17 08:31 JS [id number] 10/11/17 08:31 JS 10/11/17 08:31 Wound Center Nurse 2 [Procedure/Treatment] 1. sacral ulcer stg III -Time 08:31 -Correct Patient Yes -Correct Side, Site, Position Yes -Correct Procedure Yes -Procedure Performed Yes -Type of Procedure Debridement -Clinical Debridement Subcutaneous -Post Debridement Size (cm) - Length 1.3 -Post Debridement Size (cm) - Width 1.0 -Post Debridement Size (cm) - Depth 0.3 -Total Square Cm 1.30 -Wound/Ulcer Outcome Not Healed -Ulcer Cleansing Rinsed/ Irrigated with Saline -Foul Odor after Cleansing No -Bioengineered Tissue No -Bleeding Controlled with NA -Treatment Response Procedure Tolerated Well [See Physician Procedure note for Specifics] Pain Scale: 0-10 Numeric [Pain] -Is Patient Pain Free? Yes Musculoskeletal: No Tenderness to Palpation of Joints or Extremities Lymphatic: No Cervical, Supraclavicular, or Inguinal Adenopathy Neurological: Cranial nerves II-XII grossly intact, Neuro grossly intact Psych/Mental Status: Normal Affect, Appropriate Debridement Note Post-Debridement Measurements/Treatment WC - Nurse 2 - General Ulcer CM Notes Start: 10/04/17 08:21 Freq: Status: Active Protocol: Activity Type Activity Date Activity User E-Sign Co-Sign Detail Recorded Client Recorded Date Recorded By Document 10/04/17 08:37 MW [id number] 10/04/17 08:40 MW Document 10/11/17 08:31 JS [id number] 10/11/17 08:31 JS 10/04/17 10/11/17 08:37 08:31 Wound Center Nurse 2 1. sacral ulcer stg III -Time 08:39 08:31 -Correct Patient Yes Yes -Correct Side, Site, Position Yes Yes -Correct Procedure Yes Yes -Procedure Performed Yes Yes -Type of Procedure Debridement Debridement -Clinical Debridement Subcutaneous Subcutaneous -Post Debridement Size (cm) - Length 1.3 1.3 -Post Debridement Size (cm) - Width 0.7 1.0 -Post Debridement Size (cm) - Depth 0.3 0.3 -Total Square Cm 0.91 1.30 -Wound/Ulcer Outcome Not Healed Not Healed -Ulcer Cleansing Rinsed/ Rinsed/ Irrigated with Irrigated with Saline Saline -Foul Odor after Cleansing No No -Bioengineered Tissue No No -Bleeding Controlled with Pressure NA -Treatment Response Procedure Procedure Tolerated Well Tolerated Well Pain Scale: 0-10 Numeric Is Patient Pain Free? 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 Malnutrition. Difficulty walking. Infected decubitus ulcer Plan: Promogran to wound base cover with moistened gauze gauze and tape. Finish clindamycin 300 mg 1 p.o. twice daily for 10 days #20. Follow-up in 1 week. continue to offload buttocks by lying flat in bed rather than in a chair as much as possible has a low air mattress. continue eating a highprotein diet and supplements. [place] instant breakfast with ice cream. Vitamin C 500 mg 2 by mouth daily. Information entered by nursing staff reviewed. This document was created using a voice recognition system. Errors in punctuation, spelling and grammar may not have been corrected prior to saving.
[2017-10-18 08:20] VITALS: BP 134/74; PULSE 101; RESP 16; TEMP 37.1; BMI 17.0
--- NOTE | 2017-10-18 09:04 | PCM.WC.PN ---
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 level Status: Chronic Current Visit: Yes Code(s): M51.36 - Other intervertebral disc degeneration, lumbar region (3) Infected decubitus ulcer Status: Chronic Current Visit: Yes Code(s): L89.90 - Pressure ulcer of unspecified site, unspecified stage; L08.9 - Local infection of the skin and subcutaneous tissue, unspecified (4) Malnutrition Status: Chronic Current Visit: Yes Code(s): E46 - Unspecified protein-calorie malnutrition (5) Nonhealing nonsurgical wound Status: Chronic Current Visit: Yes Code(s): T14.8 - Other injury of unspecified body region Type of Wound Date of Service: 10/18/17 Chief Complaint: 78-year-old white male emaciated living at home with his with many comorbidities. Patient has spinal stenosis so bad that he has no feeling in his rectum. Patient has frequent large stools. during the night, and it lays against the skin of his rectal area and causes denuded skin. Patient appears here with an small superficial ulcer on the coccyx area History of Wound: Patient has been evaluated by Dr. Hitchcock for possible surgical consult, but he feels that unless there is bone exposed to continue with ulcer care as prescribed. Nutrition has been an issue and he needs to continue nutritional efforts. And if he requires frequent ulcer care than because of incontinence then so be it Progress of Wound: Today the ulcer is a little bit bigger . Received 15 epi fixes and did very well. Theses past few weeks we been using just plain Promogran and the ulcer is slightly bigger . He has developed islands of new skin. The ulcer is developing epithelial tissue in the center completely covered . Still developing callus around the edge of the ulcer that needs to be trimmed weekly. Is medically necessary to heal this ulcer and the skin substitues have shown to help in this capacity and is doing a very good job. His pre-albumin is still around 25.2 in September which is good with no sign of anemia. No odor no redness noted. The patient has been offloading is much as possible. We started promogran this week and see how it works to close and will apply for another skin substutute. Patient is supplementing with high protein bars and diet, sggested [place] Instant breakfast with ice cream as a supplement and start vit C 1000 mg in chewies per day. Patient is also taking Z-hilary for wound healing. Today we will go back to Promogran after culturing him and will get another pre-albumin to see if he can finish them off he is slowly healing but it has been a long fall on getting him to produce new skin. - Physical Exam Vital Signs Temp Pulse Resp BP 98.7 F 101 H 16 134/74 H 10/18/17 08:20 10/18/17 08:20 10/18/17 08:20 10/18/17 08:20 General: Oriented x3, Cooperative, Well developed HEENT: Atraumatic, PERRLA Oral: Moist Mucosa Neck: Supple, No JVD Lungs: Clear to auscultation, Normal air movement Cardiovascular: Regular rate, Regular Rhythm Abdomen: Bowel Sounds Present, Soft, Non Tender, No Hepato-splenomegaly Extremities: No clubbing, No edema Skin: Ulcer/ Wound - Coccyx ulcer Wound Measurements and Assessment WC - Nurse 1 - General Ulcer Measurement Start: 10/04/17 08:21 Freq: Status: Active Protocol: Activity Type Activity Date Activity User E-Sign Co-Sign Detail Recorded Client Recorded Date Recorded By Document 10/18/17 08:20 [id number] 10/18/17 08:21 10/18/17 08:20 Wound Center Nurse 1 [Ulcer Assessment] 1. sacral ulcer stg III -Combined with other wound No -Current Size (cm) - Length 1.5 -Current Size (cm) - Width 0.5 -Current Size (cm) - Depth 0.2 -Total Square Cm 0.75 -Photo Taken No -Epithelialization None Present -Tunneling No -Undermining/Tunneling No -Circular Undermining No -Exudate Amt Small (1-33%) -Exudate Type Serosanguineous -Wound Margin Distinct, Outline Attached -Granulation Amt None Present (0 %) -Slough/Fibrin Yes -Necrosis Amt None Present (0 %) -Necrotic Tissue Type Adherent Slough -Texture (Pao-wound Skin Appearance) Callus -Moisture (Pao-wound Skin Appearance Assessed ) Maceration -Color (Pao-wound Skin Appearance) No Abnormality Assessed -Temperature (Pao-wound Skin No Abnormality Appearance) (Pt Warm) -Tenderness on Palpation (Pao-wound No Skin Appearance) -Ulcer Cleansing Wound Cleanser -Foul Odor after Cleansing No -Anesthetic Used 4% Lidocaine Solution [Edema Assessment] -Lower Limb Edema Present NA - Nurse 2 - General Ulcer CM Notes Start: 10/04/17 08:21 Freq: Status: Active Protocol: Activity Type Activity Date Activity User E-Sign Co-Sign Detail Recorded Client Recorded Date Recorded By Document 10/18/17 08:27 [id number] 10/18/17 08:29 CS 10/18/17 08:27 Wound Center Nurse 2 [Procedure/Treatment] 1. sacral ulcer stg III -Time 08:28 -Correct Patient Yes -Correct Side, Site, Position Yes -Correct Procedure Yes -Procedure Performed Yes -Type of Procedure Debridement -Clinical Debridement Subcutaneous -Post Debridement Size (cm) - Length 1.4 -Post Debridement Size (cm) - Width 1.0 -Post Debridement Size (cm) - Depth 0.3 -Total Square Cm 1.40 -Wound/Ulcer Outcome Not Healed -Ulcer Cleansing Rinsed/ Irrigated with Saline -Foul Odor after Cleansing No -Bioengineered Tissue No [See Physician Procedure note for Specifics] Pain Scale: 0-10 Numeric [Pain] -Is Patient Pain Free? Yes Musculoskeletal: No Tenderness to Palpation of Joints or Extremities Lymphatic: No Cervical, Supraclavicular, or Inguinal Adenopathy Neurological: Cranial nerves II-XII grossly intact, Neuro grossly intact Psych/Mental Status: Normal Affect, Appropriate Debridement Note Post-Debridement Measurements/Treatment - Nurse 2 - General Ulcer CM Notes Start: 10/04/17 08:21 Freq: Status: Active Protocol: Activity Type Activity Date Activity User E-Sign Co-Sign Detail Recorded Client Recorded Date Recorded By Document 10/04/17 08:37 MW [id number] 10/04/17 08:40 MW Document 10/11/17 08:31 JS [id number] 10/11/17 08:31 JS Document 10/18/17 08:27 CS [id number] 10/18/17 08:29 CS 10/04/17 10/11/17 10/18/17 08:37 08:31 08:27 Wound Center Nurse 2 1. sacral ulcer stg III -Time 08:39 08:31 08:28 -Correct Patient Yes Yes Yes -Correct Side, Site, Position Yes Yes Yes -Correct Procedure Yes Yes Yes -Procedure Performed Yes Yes Yes -Type of Procedure Debridement Debridement Debridement -Clinical Debridement Subcutaneous Subcutaneous Subcutaneous -Post Debridement Size (cm) - Length 1.3 1.3 1.4 -Post Debridement Size (cm) - Width 0.7 1.0 1.0 -Post Debridement Size (cm) - Depth 0.3 0.3 0.3 -Total Square Cm 0.91 1.30 1.40 -Wound/Ulcer Outcome Not Healed Not Healed Not Healed -Ulcer Cleansing Rinsed/ Rinsed/ Rinsed/ Irrigated with Irrigated with Irrigated with Saline Saline Saline -Foul Odor after Cleansing No No No -Bioengineered Tissue No No No -Bleeding Controlled with Pressure NA -Treatment Response Procedure Procedure Tolerated Well Tolerated Well Pain Scale: 0-10 Numeric Is Patient Pain Free? Yes Yes Yes Wound debrided: Coccyx ulcer Type of Debridement: Excisional debridement Anesthesia Used: 5% Lidocaine Gel Depth: Down to and including healthy tissue, in the subcutaneous layer Percentage of wound debrided: 100 Instrument Used: 7mm curette, - - Scissors Tissue Removed: Fibrin and callus Severity: Limited To Skin Breakdown Amount of bleeding with debridement: Mild Bleeding Controlled with: Compression and gauze Patient tolerated procedure well Assessment/Plan Active Problems Nonhealing nonsurgical wound (Chronic) Degenerative disc disease at L5-S1 level (Chronic) Malnutrition (Chronic) Infected decubitus ulcer (Chronic) Decubitus ulcer of coccygeal region, stage 3 (Chronic) Assessment: Chronic Pressure ulcer coccyx stage III. Malnutrition. Difficulty walking. Infected decubitus ulcer Plan: Promogran to wound base cover with moistened gauze gauze and tape. Finish clindamycin 300 mg 1 p.o. twice daily for 10 days #20. Follow-up in 2 week. continue to offload buttocks by lying flat in bed rather than in a chair as much as possible has a low air mattress. continue eating a highprotein diet and supplements. [place] instant breakfast with ice cream. Vitamin C 500 mg 2 by mouth daily. Information entered by nursing staff reviewed. This document was created using a voice recognition system. Errors in punctuation, spelling and grammar may not have been corrected prior to saving.
== END 2017-11-01 23:59 ==
LOC: WC 08:00
PROVIDERS: Family Provider Family Medicine; PCP Family Medicine; Visit Provider Nurse Practitioner
DX: L89.153 Pressure ulcer of sacral region, stage 3 (principal); L08.9 Local infection of the skin and subcutaneous tissue, unspecified; M51.36 Other intervertebral disc degeneration, lumbar region
CPT/HCPCS: 11042

== ENCOUNTER → 2017-10-31 09:38 | Outpatient (CLI) | payer MEDICARE, OTHER, SELFPAY ==
[2017-10-31 09:41] LABS: Bacteria 0 SEEN /hpf (None Seen); Red Blood Cells-Urine 0 SEEN /hpf (0-5); Squamous Epithelial Cells - UA 0 SEEN /hpf (0-5)
[2017-10-31 13:01] LABS: Color, Urine Yellow (Yellow); Glucose, Dipstick Normal (Normal); Ketone-Dipstick Negative (Negative); Leukocyte Esterase-Dipstick 25 /ul (Negative); Nitrite-Dipstick Positive (Negative); Occult Blood-Urine Negative /ul (Negative); Protein-Dipstick Negative (Negative); Specific Gravity, Urine 1.025 (1.002-1.030); Urine Bilirubin Dipstick Negative (Negative); Urine Clarity Clear (Clear); Urine Urobilinogen Normal (Normal)
[2017-10-31 13:09] LABS: Mucous, Urine 1+ /hpf (<or=2+); Renal Epithelial Cells 0-5 SEEN /hpf (0-5); White Blood Cells 0-5 SEEN /hpf (0-5)
== END ==
PROVIDERS: Family Provider Family Medicine; PCP Family Medicine; Visit Provider Family Medicine
DX: N39.0 Urinary tract infection, site not specified (principal)
CPT/HCPCS: 81001; 87086

== ENCOUNTER 2017-11-22 08:00 | Outpatient (RCR) | payer MEDICARE, OTHER, SELFPAY ==
[2017-11-02 00:44] VITALS: BP 134/74; PULSE 101; RESP 16; TEMP 37.1; BMI 17.0
[2017-11-08 08:21] VITALS: BP 140/75; PULSE 91; RESP 18; TEMP 36; BMI 17.0
--- NOTE | 2017-11-08 08:43 | PCM.WC.PN ---
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 level Status: Chronic Current Visit: Yes Code(s): M51.36 - Other intervertebral disc degeneration, lumbar region (3) Malnutrition Status: Chronic Current Visit: Yes Code(s): E46 - Unspecified protein-calorie malnutrition (4) Nonhealing nonsurgical wound Status: Chronic Current Visit: Yes Code(s): T14.8 - Other injury of unspecified body region Type of Wound Date of Service: 11/08/17 Chief Complaint: 78-year-old white male emaciated living at home with his with many comorbidities. Patient has spinal stenosis so bad that he has no feeling in his rectum. Patient has frequent large stools. during the night, and it lays against the skin of his rectal area and causes denuded skin. Patient appears here with an small superficial ulcer on the coccyx area History of Wound: Patient has been evaluated by Dr. Hitchcock for possible surgical consult, but he feels that unless there is bone exposed to continue with ulcer care as prescribed. Nutrition has been an issue and he needs to continue nutritional efforts. And if he requires frequent ulcer care than because of incontinence then so be it Progress of Wound: I have not seen the ulcer for 2 weeks and is slightly smaller with large amounts of callus buildup around the edge but it does have a thin area of epithelial tissue growing over the ulcer itself. Received 15 epi fixes and did very well. Theses past few weeks we been using just plain Promogran and the ulcer is improving. He has developed islands of new skin. The ulcer is developing epithelial tissue in the center completely covered . Still developing callus around the edge of the ulcer that needs to be trimmed weekly. Is medically necessary to heal this ulcer and the skin substitues have shown to help in this capacity and is doing a very good job. His pre-albumin is still around 25.2 in September which is good with no sign of anemia. No odor no redness noted. The patient has been offloading is much as possible. We started promogran this week and see how it works to close and will apply for another skin substutute. Patient is supplementing with high protein bars and diet, sggested [place] Instant breakfast with ice cream as a supplement and start vit C 1000 mg in chewies per day. Patient is also taking Z-hilary for wound healing. Today we will go back to Promogran after culturing him and will get another pre-albumin to see if he can finish them off he is slowly healing but it has been a long fall on getting him to produce new skin. - Physical Exam Vital Signs Temp Pulse Resp BP 96.8 F L 91 18 140/75 H 11/08/17 08:21 11/08/17 08:21 11/08/17 08:21 11/08/17 08:21 General: Oriented x3, Cooperative, Well developed HEENT: Atraumatic, PERRLA Oral: Moist Mucosa Neck: Supple, No JVD Lungs: Clear to auscultation, Normal air movement Cardiovascular: Regular rate, Regular Rhythm Abdomen: Bowel Sounds Present, Soft, Non Tender, No Hepato-splenomegaly Extremities: No clubbing, No edema Skin: Ulcer/ Wound - Coccyx ulcer stage III Wound Measurements and Assessment WC - Nurse 1 - General Ulcer Measurement Start: 11/08/17 08:21 Freq: Status: Active Protocol: Activity Type Activity Date Activity User E-Sign Co-Sign Detail Recorded Client Recorded Date Recorded By Document 11/08/17 08:21 [id number] 11/08/17 08:23 11/08/17 08:21 Wound Center Nurse 1 [Ulcer Assessment] 1. sacral ulcer stg III -Combined with other wound No -Current Size (cm) - Length 1.5 -Current Size (cm) - Width 1.2 -Current Size (cm) - Depth 0.2 -Total Square Cm 1.80 -Photo Taken No -Epithelialization None Present -Tunneling No -Undermining/Tunneling No -Circular Undermining No -Classification - Thickness Full Thickness without Exposed Support Structure -Exudate Amt Small (1-33%) -Exudate Type Serosanguineous -Wound Margin Fibrotic Scar, Thickened Scar -Granulation Amt Large (67-100%) -Granulation Quality [place] -Slough/Fibrin Yes -Necrosis Amt Small (1-33%) -Necrotic Tissue Type Adherent Slough -Structure Exposed Fascia Fat Layer Exposed -Texture (Pao-wound Skin Appearance) Assessed Friable Scarring -Moisture (Pao-wound Skin Appearance Maceration ) -Color (Pao-wound Skin Appearance) No Abnormality Assessed -Temperature (Pao-wound Skin No Abnormality Appearance) (Pt Warm) -Tenderness on Palpation (Pao-wound No Skin Appearance) -Ulcer Cleansing Rinsed/ Irrigated with Saline -Foul Odor after Cleansing No -Anesthetic Used 4% Lidocaine Solution [Edema Assessment] -Lower Limb Edema Present No WC - Nurse 2 - General Ulcer CM Notes Start: 11/08/17 08:21 Freq: Status: Active Protocol: Activity Type Activity Date Activity User E-Sign Co-Sign Detail Recorded Client Recorded Date Recorded By Document 11/08/17 08:31 MW [id number] 11/08/17 08:35 MW 11/08/17 08:31 Wound Center Nurse 2 [Procedure/Treatment] 1. sacral ulcer stg III -Time 08:33 -Correct Patient Yes -Correct Side, Site, Position Yes -Correct Procedure Yes -Procedure Performed Yes -Type of Procedure Debridement -Clinical Debridement Subcutaneous -Post Debridement Size (cm) - Length 1.4 -Post Debridement Size (cm) - Width 0.7 -Post Debridement Size (cm) - Depth 0.3 -Total Square Cm 0.98 -Wound/Ulcer Outcome Not Healed -Ulcer Cleansing Rinsed/ Irrigated with Saline -Foul Odor after Cleansing No -Bioengineered Tissue No -Bleeding Controlled with Pressure -Treatment Response Procedure Tolerated Well [See Physician Procedure note for Specifics] Pain Scale: 0-10 Numeric [Pain] -Is Patient Pain Free? Yes Musculoskeletal: No Tenderness to Palpation of Joints or Extremities Lymphatic: No Cervical, Supraclavicular, or Inguinal Adenopathy Neurological: Cranial nerves II-XII grossly intact, Neuro grossly intact Psych/Mental Status: Normal Affect, Appropriate Debridement Note Post-Debridement Measurements/Treatment WC - Nurse 2 - General Ulcer CM Notes Start: 11/08/17 08:21 Freq: Status: Active Protocol: Activity Type Activity Date Activity User E-Sign Co-Sign Detail Recorded Client Recorded Date Recorded By Document 11/08/17 08:31 MW [id number] 11/08/17 08:35 MW 11/08/17 08:31 Wound Center Nurse 2 1. sacral ulcer stg III -Time 08:33 -Correct Patient Yes -Correct Side, Site, Position Yes -Correct Procedure Yes -Procedure Performed Yes -Type of Procedure Debridement -Clinical Debridement Subcutaneous -Post Debridement Size (cm) - Length 1.4 -Post Debridement Size (cm) - Width 0.7 -Post Debridement Size (cm) - Depth 0.3 -Total Square Cm 0.98 -Wound/Ulcer Outcome Not Healed -Ulcer Cleansing Rinsed/ Irrigated with Saline -Foul Odor after Cleansing No -Bioengineered Tissue No -Bleeding Controlled with Pressure -Treatment Response Procedure Tolerated Well Pain Scale: 0-10 Numeric Is Patient Pain Free? 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 Malnutrition. Difficulty walking. Infected decubitus ulcer Plan: Promogran to wound base cover with moistened gauze gauze and tape. Follow-up in 2 week. continue to offload buttocks by lying flat in bed rather than in a chair as much as possible has a low air mattress. continue eating a highprotein diet and supplements. [place] instant breakfast with ice cream. Vitamin C 500 mg 2 by mouth daily. Information entered by nursing staff reviewed. This document was created using a voice recognition system. Errors in punctuation, spelling and grammar may not have been corrected prior to saving.
[2017-11-22 08:09] VITALS: BP 118/77; PULSE 102; RESP 18; TEMP 35.9; BMI 17.0
--- NOTE | 2017-11-22 09:31 | PCM.WC.PN ---
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 level Status: Chronic Current Visit: Yes Code(s): M51.36 - Other intervertebral disc degeneration, lumbar region (3) Malnutrition Status: Chronic Current Visit: Yes Code(s): E46 - Unspecified protein-calorie malnutrition (4) Infected decubitus ulcer Status: Chronic Current Visit: No Code(s): L89.90 - Pressure ulcer of unspecified site, unspecified stage; L08.9 - Local infection of the skin and subcutaneous tissue, unspecified Type of Wound Date of Service: 11/22/17 Chief Complaint: 78-year-old white male emaciated living at home with his with many comorbidities. Patient has spinal stenosis so bad that he has no feeling in his rectum. Patient has frequent large stools. during the night, and it lays against the skin of his rectal area and causes denuded skin. Patient appears here with an small superficial ulcer on the coccyx area History of Wound: Patient has been evaluated by Dr. Hitchcock for possible surgical consult, but he feels that unless there is bone exposed to continue with ulcer care as prescribed. Nutrition has been an issue and he needs to continue nutritional efforts. And if he requires frequent ulcer care than because of incontinence then so be it Progress of Wound: The ulcer is slightly smaller with large amounts of callus buildup around the edge but it does have a thin area of epithelial tissue growing over the ulcer itself. Received 15 epi fixes and did very well. Theses past few weeks we been using just plain Promogran and the ulcer is improving. He has developed islands of new skin. Is medically necessary to heal this ulcer and the skin substitues have shown to help in this capacity and is doing a very good job. His pre-albumin is still around 25.2 in September which is good with no sign of anemia. No odor no redness noted. The patient has been offloading is much as possible. We started promogran this week and see how it works to close and will apply for another skin substutute. Patient is supplementing with high protein bars and diet, sggested [place] Instant breakfast with ice cream as a supplement and start vit C 1000 mg in chewies per day. Patient is also taking Z-hilary for wound healing. Today we will go back to Promogran after culturing him and will get another pre-albumin to see if he can finish them off he is slowly healing but it has been a long fall on getting him to produce new skin. - Physical Exam Vital Signs Temp Pulse Resp BP 96.6 F L 102 H 18 118/77 11/22/17 08:09 11/22/17 08:09 11/22/17 08:09 11/22/17 08:09 General: Oriented x3, Cooperative, Well developed HEENT: Atraumatic, PERRLA Oral: Moist Mucosa Neck: Supple, No JVD Lungs: Clear to auscultation, Normal air movement Cardiovascular: Regular rate, Regular Rhythm Abdomen: Bowel Sounds Present, Soft, Non Tender, No Hepato-splenomegaly Extremities: No clubbing, No edema Skin: Ulcer/ Wound - Coccyx ulcer Wound Measurements and Assessment WC - Nurse 1 - General Ulcer Measurement Start: 11/08/17 08:21 Freq: Status: Active Protocol: Activity Type Activity Date Activity User E-Sign Co-Sign Detail Recorded Client Recorded Date Recorded By Document 11/22/17 08:09 DL [id number] 11/22/17 08:14 DL 11/22/17 08:09 Wound Center Nurse 1 [Ulcer Assessment] 1. sacral ulcer stg III -Current Size (cm) - Length 1.4 -Current Size (cm) - Width 0.8 -Current Size (cm) - Depth 0.4 -Total Square Cm 1.12 -Photo Taken No -Undermining/Tunneling Starts (O' 6 clock) -Undermining/Tunneling Ends (O'clock) 12 -Maximum Distance (cm) 0.5 -Exudate Amt Medium (34-66%) -Exudate Type Serosanguineous -Wound Margin Thickened & Rolled Under -Granulation Amt Medium (34-66%) -Granulation Quality [place] -Necrosis Amt Small (1-33%) -Necrotic Tissue Type Adherent Slough -Structure Exposed N/A -Texture (Pao-wound Skin Appearance) Callus Scarring -Moisture (Pao-wound Skin Appearance Maceration ) -Color (Pao-wound Skin Appearance) No Abnormality -Temperature (Pao-wound Skin No Abnormality Appearance) (Pt Warm) -Ulcer Cleansing Wound Cleanser -Foul Odor after Cleansing No -Anesthetic Used 4% Lidocaine Solution WC - Nurse 2 - General Ulcer CM Notes Start: 11/08/17 08:21 Freq: Status: Active Protocol: Activity Type Activity Date Activity User E-Sign Co-Sign Detail Recorded Client Recorded Date Recorded By Document 11/22/17 08:30 MW [id number] 11/22/17 08:39 MW 11/22/17 08:30 Wound Center Nurse 2 [Procedure/Treatment] -Time 08:30 -Correct Patient Yes -Correct Side, Site, Position Yes -Correct Procedure Yes -Procedure Performed Yes -Type of Procedure Debridement -Clinical Debridement Subcutaneous -Post Debridement Size (cm) - Length 1.2 -Post Debridement Size (cm) - Width 0.8 -Post Debridement Size (cm) - Depth 0.3 -Total Square Cm 0.96 -Wound/Ulcer Outcome Not Healed -Ulcer Cleansing Rinsed/ Irrigated with Saline -Foul Odor after Cleansing No -Bioengineered Tissue No -Bleeding Controlled with Pressure -Treatment Response Procedure Tolerated Well [See Physician Procedure note for Specifics] Pain Scale: 0-10 Numeric [Pain] -Is Patient Pain Free? Yes Musculoskeletal: No Tenderness to Palpation of Joints or Extremities Lymphatic: No Cervical, Supraclavicular, or Inguinal Adenopathy Neurological: Cranial nerves II-XII grossly intact, Neuro grossly intact Psych/Mental Status: Normal Affect, Appropriate Debridement Note Post-Debridement Measurements/Treatment - Nurse 2 - General Ulcer CM Notes Start: 11/08/17 08:21 Freq: Status: Active Protocol: Activity Type Activity Date Activity User E-Sign Co-Sign Detail Recorded Client Recorded Date Recorded By Document 11/08/17 08:31 MW [id number] 11/08/17 08:35 MW Document 11/22/17 08:30 MW [id number] 11/22/17 08:39 MW 11/08/17 11/22/17 08:31 08:30 Wound Center Nurse 2 1. sacral ulcer stg III -Time 08:33 08:30 -Correct Patient Yes Yes -Correct Side, Site, Position Yes Yes -Correct Procedure Yes Yes -Procedure Performed Yes Yes -Type of Procedure Debridement Debridement -Clinical Debridement Subcutaneous Subcutaneous -Post Debridement Size (cm) - Length 1.4 1.2 -Post Debridement Size (cm) - Width 0.7 0.8 -Post Debridement Size (cm) - Depth 0.3 0.3 -Total Square Cm 0.98 0.96 -Wound/Ulcer Outcome Not Healed Not Healed -Ulcer Cleansing Rinsed/ Rinsed/ Irrigated with Irrigated with Saline Saline -Foul Odor after Cleansing No No -Bioengineered Tissue No No -Bleeding Controlled with Pressure Pressure -Treatment Response Procedure Procedure Tolerated Well Tolerated Well Pain Scale: 0-10 Numeric Is Patient Pain Free? 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 Malnutrition. Difficulty walking. Infected decubitus ulcer Plan: Promogran to wound base cover with moistened gauze gauze and tape. Follow-up in 2 week. continue to offload buttocks by lying flat in bed rather than in a chair as much as possible has a low air mattress. continue eating a highprotein diet and supplements. [place] instant breakfast with ice cream. Vitamin C 500 mg 2 by mouth daily. Information entered by nursing staff reviewed. This document was created using a voice recognition system. Errors in punctuation, spelling and grammar may not have been corrected prior to saving.
--- NOTE | 2017-11-22 09:36 | PN.PCM_ITS ---
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 level Status: Chronic Current Visit: Yes Code(s): M51.36 - Other intervertebral disc degeneration, lumbar region (3) Malnutrition Status: Chronic Current Visit: Yes Code(s): E46 - Unspecified protein- calorie malnutrition (4) Infected decubitus ulcer Status: Chronic Current Visit: No Code(s): L89.90 - Pressure ulcer of unspecified site, unspecified stage; L08.9 - Local infection of the skin and subcutaneous tissue, unspecified Type of Wound Date of Service: 11/22/17 Chief Complaint: 78-year-old white male emaciated living at home with his with many comorbidities. Patient has spinal stenosis so bad that he has no feeling in his rectum. Patient has frequent large stools. during the night, and it lays against the skin of his rectal area and causes denuded skin. Patient appears here with an small superficial ulcer on the coccyx area History of Wound: Patient has been evaluated by Dr. Hitchcock for possible surgical consult, but he feels that unless there is bone exposed to continue with ulcer care as prescribed. Nutrition has been an issue and he needs to continue nutritional efforts. And if he requires frequent ulcer care than because of incontinence then so be it Progress of Wound: The ulcer is slightly smaller with large amounts of callus buildup around the edge but it does have a thin area of epithelial tissue growing over the ulcer itself. Received 15 epi fixes and did very well. Theses past few weeks we been using just plain Promogran and the ulcer is improving. He has developed islands of new skin. Is medically necessary to heal this ulcer and the skin substitues have shown to help in this capacity and is doing a very good job. His pre-albumin is still around 25.2 in September which is good with no sign of anemia. No odor no redness noted. The patient has been offloading is much as possible. We started promogran this week and see how it works to close and will apply for another skin substutute. Patient is supplementing with high protein bars and diet, sggested [employer] Instant breakfast with ice cream as a supplement and start vit C 1000 mg in chewies per day. Patient is also taking Z-hilary for wound healing. Today we will go back to Promogran after culturing him and will get another pre-albumin to see if he can finish them off he is slowly healing but it has been a long fall on getting him to produce new skin. - Physical Exam Vital Signs Temp Pulse Resp BP 96.6 F L 102 H 18 118/77 11/22/17 08:09 11/22/17 08:09 11/22/17 08:09 11/22/17 08:09 General: Oriented x3, Cooperative, Well developed HEENT: Atraumatic, PERRLA Oral: Moist Mucosa Neck: Supple, No JVD Lungs: Clear to auscultation, Normal air movement Cardiovascular: Regular rate, Regular Rhythm Abdomen: Bowel Sounds Present, Soft, Non Tender, No Hepato-splenomegaly Extremities: No clubbing, No edema Skin: Ulcer/ Wound - Coccyx ulcer Wound Measurements and Assessment WC - Nurse 1 - General Ulcer Measurement Start: 11/08/17 08:21 Freq: Status: Active Protocol: Activity Type Activity Date Activity User E-Sign Co-Sign Detail Recorded Client Recorded Date Recorded By Document 11/22/17 08:09 DL [id number] 11/22/17 08:14 DL 11/22/17 08:09 Wound Center Nurse 1 [Ulcer Assessment] 1. sacral ulcer stg III -Current Size (cm) - Length 1.4 -Current Size (cm) - Width 0.8 -Current Size (cm) - Depth 0.4 -Total Square Cm 1.12 -Photo Taken No -Undermining/Tunneling Starts (O' 6 clock) -Undermining/Tunneling Ends (O'clock) 12 -Maximum Distance (cm) 0.5 -Exudate Amt Medium (34-66%) -Exudate Type Serosanguineous -Wound Margin Thickened & Rolled Under -Granulation Amt Medium (34-66%) -Granulation Quality [place] -Necrosis Amt Small (1-33%) -Necrotic Tissue Type Adherent Slough -Structure Exposed N/A -Texture (Pao-wound Skin Appearance) Callus Scarring -Moisture (Pao-wound Skin Appearance Maceration ) -Color (Pao-wound Skin Appearance) No Abnormality -Temperature (Pao-wound Skin No Abnormality Appearance) (Pt Warm) -Ulcer Cleansing Wound Cleanser -Foul Odor after Cleansing No -Anesthetic Used 4% Lidocaine Solution WC - Nurse 2 - General Ulcer CM Notes Start: 11/08/17 08:21 Freq: Status: Active Protocol: Activity Type Activity Date Activity User E-Sign Co-Sign Detail Recorded Client Recorded Date Recorded By Document 11/22/17 08:30 MW [id number] 11/22/17 08:39 MW 11/22/17 08:30 Wound Center Nurse 2 [Procedure/Treatment] -Time 08:30 -Correct Patient Yes -Correct Side, Site, Position Yes -Correct Procedure Yes -Procedure Performed Yes -Type of Procedure Debridement -Clinical Debridement Subcutaneous -Post Debridement Size (cm) - Length 1.2 -Post Debridement Size (cm) - Width 0.8 -Post Debridement Size (cm) - Depth 0.3 -Total Square Cm 0.96 -Wound/Ulcer Outcome Not Healed -Ulcer Cleansing Rinsed/ Irrigated with Saline -Foul Odor after Cleansing No -Bioengineered Tissue No -Bleeding Controlled with Pressure -Treatment Response Procedure Tolerated Well [See Physician Procedure note for Specifics] Pain Scale: 0-10 Numeric [Pain] -Is Patient Pain Free? Yes Musculoskeletal: No Tenderness to Palpation of Joints or Extremities Lymphatic: No Cervical, Supraclavicular, or Inguinal Adenopathy Neurological: Cranial nerves II-XII grossly intact, Neuro grossly intact Psych/Mental Status: Normal Affect, Appropriate Debridement Note Post-Debridement Measurements/Treatment - Nurse 2 - General Ulcer CM Notes Start: 11/08/17 08:21 Freq: Status: Active Protocol: Activity Type Activity Date Activity User E-Sign Co-Sign Detail Recorded Client Recorded Date Recorded By Document 11/08/17 08:31 MW [id number] 11/08/17 08:35 MW Document 11/22/17 08:30 MW [id number] 11/22/17 08:39 MW 11/08/17 11/22/17 08:31 08:30 Wound Center Nurse 2 1. sacral ulcer stg III -Time 08:33 08:30 -Correct Patient Yes Yes -Correct Side, Site, Position Yes Yes -Correct Procedure Yes Yes -Procedure Performed Yes Yes -Type of Procedure Debridement Debridement -Clinical Debridement Subcutaneous Subcutaneous -Post Debridement Size (cm) - Length 1.4 1.2 -Post Debridement Size (cm) - Width 0.7 0.8 -Post Debridement Size (cm) - Depth 0.3 0.3 -Total Square Cm 0.98 0.96 -Wound/Ulcer Outcome Not Healed Not Healed -Ulcer Cleansing Rinsed/ Rinsed/ Irrigated with Irrigated with Saline Saline -Foul Odor after Cleansing No No -Bioengineered Tissue No No -Bleeding Controlled with Pressure Pressure -Treatment Response Procedure Procedure Tolerated Well Tolerated Well Pain Scale: 0-10 Numeric Is Patient Pain Free? 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 Malnutrition. Difficulty walking. Infected decubitus ulcer Plan: Promogran to wound base cover with moistened gauze gauze and tape. Follow -up in 2 week. continue to offload buttocks by lying flat in bed rather than in a chair as much as possible has a low air mattress. continue eating a highprotein diet and supplements. [employer] instant breakfast with ice cream. Vitamin C 500 mg 2 by mouth daily. Information entered by nursing staff reviewed. This document was created using a voice recognition system. Errors in punctuation, spelling and grammar may not have been corrected prior to saving.
== END 2017-12-01 23:59 ==
LOC: WC 08:00
PROVIDERS: Family Provider Family Medicine; PCP Family Medicine; Visit Provider Nurse Practitioner
DX: L89.153 Pressure ulcer of sacral region, stage 3 (principal); M51.37 Other intervertebral disc degeneration, lumbosacral region
CPT/HCPCS: 11042

== ENCOUNTER 2017-12-27 08:00 | Outpatient (RCR) | payer MEDICARE, OTHER, SELFPAY ==
[2017-12-02 00:38] VITALS: BP 118/77; PULSE 102; RESP 18; TEMP 35.9; BMI 17.0
[2017-12-06 08:21] VITALS: BP 126/89; PULSE 110; RESP 16; TEMP 36.4; BMI 17.0
--- NOTE | 2017-12-06 09:14 | PCM.WC.PN ---
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 level Status: Chronic Current Visit: Yes Code(s): M51.36 - Other intervertebral disc degeneration, lumbar region (4) Infected decubitus ulcer Status: Chronic Current Visit: Yes Code(s): L89.90 - Pressure ulcer of unspecified site, unspecified stage; L08.9 - Local infection of the skin and subcutaneous tissue, unspecified (5) Malnutrition Status: Chronic Current Visit: Yes Code(s): E46 - Unspecified protein-calorie malnutrition (6) Nonhealing nonsurgical wound Status: Chronic Current Visit: Yes Code(s): T14.8 - Other injury of unspecified body region Type of Wound Chief Complaint: 78-year-old white male emaciated living at home with his with many comorbidities. Patient has spinal stenosis so bad that he has no feeling in his rectum. Patient has frequent large stools. during the night, and it lays against the skin of his rectal area and causes denuded skin. Patient appears here with an small superficial ulcer on the coccyx area History of Wound: Patient has been evaluated by Dr. Hitchcock for possible surgical consult, but he feels that unless there is bone exposed to continue with ulcer care as prescribed. Nutrition has been an issue and he needs to continue nutritional efforts. And if he requires frequent ulcer care than because of incontinence then so be it Progress of Wound: The ulcer is slightly smaller with large amounts of callus buildup around the edge but it does have a thin area of epithelial tissue growing over the ulcer itself. Received 15 epi fixes and did very well. Theses past few weeks we been using just plain Promogran and the ulcer is improving. He has developed islands of new skin. Is medically necessary to heal this ulcer and the skin substitues have shown to help in this capacity and is doing a very good job. His pre-albumin is still around 25.2 in September which is good with no sign of anemia. No odor no redness noted. The patient has been offloading is much as possible. We started promogran this week and see how it works to close and will apply for another skin substutute. Patient is supplementing with high protein bars and diet, sggested [place] Instant breakfast with ice cream as a supplement and start vit C 1000 mg in chewies per day. Patient is also taking Z-hilary for wound healing. Today we will go back to Promogran after culturing him and will get another pre-albumin to see if he can finish them off he is slowly healing but it has been a long fall on getting him to produce new skin. - Physical Exam Vital Signs Temp Pulse Resp BP 97.5 F L 110 H 16 126/89 H 12/06/17 08:21 1018 08:21 10 08:21 12/06/17 08:21 General: Oriented x3, Cooperative, Well developed HEENT: Atraumatic, PERRLA Oral: Moist Mucosa Neck: Supple, No JVD Lungs: Clear to auscultation, Normal air movement Cardiovascular: Regular rate, Regular Rhythm Abdomen: Bowel Sounds Present, Soft, Non Tender, No Hepato-splenomegaly Extremities: No clubbing, No edema Skin: Ulcer/ Wound - Decubitus ulcer coccyx area gauge 3 Wound Measurements and Assessment WC - Nurse 1 - General Ulcer Measurement Start: 12/06/17 08:17 Freq: Status: Active Protocol: Activity Type Activity Date Activity User E-Sign Co-Sign Detail Recorded Client Recorded Date Recorded By Document 12/06/17 08:21 [id number] 12/06/17 08:23 12/06/17 08:21 Wound Center Nurse 1 [Ulcer Assessment] 1. sacral ulcer stg III -Combined with other wound No -Current Size (cm) - Length 1.3 -Current Size (cm) - Width 0.6 -Current Size (cm) - Depth 0.2 -Total Square Cm 0.78 -Photo Taken No -Epithelialization None Present -Tunneling No -Undermining/Tunneling No -Circular Undermining No -Exudate Amt Small (1-33%) -Exudate Type Serosanguineous -Wound Margin Distinct, Outline Attached -Granulation Amt Medium (34-66%) -Granulation Quality Pale [place] -Slough/Fibrin Yes -Necrosis Amt None Present (0 %) -Necrotic Tissue Type Adherent Slough -Structure Exposed None/Limited to Skin Breakdown -Texture (Pao-wound Skin Appearance) Callus -Moisture (Pao-wound Skin Appearance Assessed ) Maceration -Color (Pao-wound Skin Appearance) Assessed Erythema -Temperature (Pao-wound Skin No Abnormality Appearance) (Pt Warm) -Tenderness on Palpation (Pao-wound No Skin Appearance) -Ulcer Cleansing Rinsed/ Irrigated with Saline -Foul Odor after Cleansing No -Anesthetic Used 4% Lidocaine Solution [Edema Assessment] -Lower Limb Edema Present NA - Nurse 2 - General Ulcer CM Notes Start: 12/06/17 08:17 Freq: Status: Active Protocol: Activity Type Activity Date Activity User E-Sign Co-Sign Detail Recorded Client Recorded Date Recorded By Document 12/06/17 08:33 MW [id number] 12/06/17 08:35 MW 12/06/17 08:33 Wound Center Nurse 2 [Procedure/Treatment] 1. sacral ulcer stg III -Time 08:33 -Correct Patient Yes -Correct Side, Site, Position Yes -Correct Procedure Yes -Procedure Performed Yes -Type of Procedure Debridement -Clinical Debridement Subcutaneous -Post Debridement Size (cm) - Length 0.9 -Post Debridement Size (cm) - Width 1.0 -Post Debridement Size (cm) - Depth 0.3 -Total Square Cm 0.90 -Wound/Ulcer Outcome Not Healed -Ulcer Cleansing Rinsed/ Irrigated with Saline -Foul Odor after Cleansing No -Bioengineered Tissue No -Bleeding Controlled with Pressure -Treatment Response Procedure Tolerated Well [See Physician Procedure note for Specifics] Pain Scale: 0-10 Numeric [Pain] -Is Patient Pain Free? Yes Musculoskeletal: No Tenderness to Palpation of Joints or Extremities Lymphatic: No Cervical, Supraclavicular, or Inguinal Adenopathy Neurological: Cranial nerves II-XII grossly intact, Neuro grossly intact Psych/Mental Status: Normal Affect, Appropriate Debridement Note Post-Debridement Measurements/Treatment - Nurse 2 - General Ulcer CM Notes Start: 12/06/17 08:17 Freq: Status: Active Protocol: Activity Type Activity Date Activity User E-Sign Co-Sign Detail Recorded Client Recorded Date Recorded By Document 12/06/17 08:33 MW [id number] 12/06/17 08:35 MW 12/06/17 08:33 Wound Center Nurse 2 1. sacral ulcer stg III -Time 08:33 -Correct Patient Yes -Correct Side, Site, Position Yes -Correct Procedure Yes -Procedure Performed Yes -Type of Procedure Debridement -Clinical Debridement Subcutaneous -Post Debridement Size (cm) - Length 0.9 -Post Debridement Size (cm) - Width 1.0 -Post Debridement Size (cm) - Depth 0.3 -Total Square Cm 0.90 -Wound/Ulcer Outcome Not Healed -Ulcer Cleansing Rinsed/ Irrigated with Saline -Foul Odor after Cleansing No -Bioengineered Tissue No -Bleeding Controlled with Pressure -Treatment Response Procedure Tolerated Well Pain Scale: 0-10 Numeric Is Patient Pain Free? 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 Malnutrition. Difficulty walking. Infected decubitus ulcer Plan: Promogran to wound base cover with moistened gauze gauze and tape. Follow-up in 3 week. continue to offload buttocks by lying flat in bed rather than in a chair as much as possible has a low air mattress. continue eating a highprotein diet and supplements. [place] instant breakfast with ice cream. Vitamin C 500 mg 2 by mouth daily. Information entered by nursing staff reviewed. This document was created using a voice recognition system. Errors in punctuation, spelling and grammar may not have been corrected prior to saving.
--- NOTE | 2017-12-06 09:17 | PN.PCM_ITS ---
(1) Accidental fall Status: Chronic Current Visit: No Code(s): W19.XXXA - Unspecified fall, ini tial encounter (2) Decubitus ulcer of coccygeal region, stage 3 Status: Chronic Current Visit: Yes Code(s): L89.153 - Pressure ulcer of sacral region, stage 3 (3) Degenerative disc disease at L5-S1 level Status: Chronic Current Visit: Yes Code(s): M51.36 - Other intervertebral disc degeneration, lumbar region (4) Infected decubitus ulcer Status: Chronic Current Visit: Yes Code(s): L89.90 - Pressure ulcer of unspecified site, unspecified stage; L08.9 - Local infection of the skin and subcutaneous tissue, unspecified (5) Malnutrition Status: Chronic Current Visit: Yes Code(s): E46 - Unspecified protein- calorie malnutrition (6) Nonhealing nonsurgical wound Status: Chronic Current Visit: Yes Code(s): T14.8 - Other injury of unspecified body region Type of Wound Chief Complaint: 78-year-old white male emaciated living at home with his with many comorbidities. Patient has spinal stenosis so bad that he has no feeling in his rectum. Patient has frequent large stools. during the night, and it lays against the skin of his rectal area and causes denuded skin. Emanuel joseph appears here with an small superficial ulcer on the coccyx area History of Wound: Patient has been evaluated by Dr. Hitchcock for possible surgical consult, but he feels that unless there is bone exposed to continue with ulcer care as prescribed. Nutrition has been an issue and he needs to continue nutritional efforts. And if he requires frequent ulcer care than because of incontinence then so be it Progress of Wound: The ulcer is slightly smaller with large amounts of callus buildup around the edge but it does have a thin area of epithelial tissue growing over the ulcer itself. Received 15 epi fixes and did very well. Theses past few weeks we been using just plain Promogran and the ulcer is improving. He has developed islands of new skin. Is medically necessary to heal this ulcer and the skin substitues have shown to help in this capacity and is doing a very good job. His pre-albumin is still around 25.2 in September which is good with no sign of anemia. No odor no redness noted. The patient has been offloading is much as possible. We started promogran this week and see how it works to close and will apply for another skin substutute. Patient is supplementing with high protein bars and diet, sggested [place] Instant breakfast with ice cream as a supplement and start vit C 1000 mg in chewies per day. Patient is also taking Z-hilary for wound healing. Today we will go back to Promogran after culturing him and will get another pre-albumin to see if he can finish them off he is slowly healing but it has been a long fall on getting him to produce new skin. - Physical Exam Vital Signs Temp Pulse Resp BP 97.5 F L 110 H 16 126/89 H 12/06/17 08:21 10 08:21 12/06/17 08:21 12/06/17 08:21 General: Oriented x3, Cooperative, Well developed HEENT: Atraumatic, PERRLA Oral: Moist Mucosa Neck: Supple, No JVD Lungs: Clear to auscultation, Normal air movement Cardiovascular: Regular rate, Regular Rhythm Abdomen: Bowel Sounds Present, Soft, Non Tender, No Hepato-splenomegaly Extremities: No clubbing, No edema Skin: Ulcer/ Wound - Decubitus ulcer coccyx area gauge 3 Wound Measurements and Assessment WC - Nurse 1 - General Ulcer Measurement Start: 12/06/17 08:17 Freq: Status: Active Protocol: Activity Type Activity Date Activity User E-Sign Co-Sign Detail Recorded Client Recorded Date Recorded By Document 12/06/17 08:21 [id number] 12/06/17 08:23 12/06/17 08:21 Wound Center Nurse 1 [Ulcer Assessment] 1. sacral ulcer stg III -Combined with other wound No -Current Size (cm) - Length 1.3 -Current Size (cm) - Width 0.6 -Current Size (cm) - Depth 0.2 -Total Square Cm 0.78 -Photo Taken No -Epithelialization None Present -Tunneling No -Undermining/Tunneling No -Circular Undermining No -Exudate Amt Small (1-33%) -Exudate Type Serosanguineous -Wound Margin Distinct, Outline Attached -Granulation Amt Medium (34-66%) -Granulation Quality Pale [place] -Slough/Fibrin Yes -Necrosis Amt None Present (0 %) -Necrotic Tissue Type Adherent Slough -Structure Exposed None/Limited to Skin Breakdown -Texture (Pao-wound Skin Appearance) Callus -Moisture (Pao-wound Skin Appearance Assessed ) Maceration -Color (Pao-wound Skin Appearance) Assessed Erythema -Temperature (Pao-wound Skin No Abnormality Appearance) (Pt Warm) -Tenderness on Palpation (Pao-wound No Skin Appearance) -Ulcer Cleansing Rinsed/ Irrigated with Saline -Foul Odor after Cleansing No -Anesthetic Used 4% Lidocaine Solution [Edema Assessment] -Lower Limb Edema Present NA WC - Nurse 2 - General Ulcer CM Notes Start: 12/06/17 08:17 Freq: Status: Active Protocol: Activity Type Activity Date Activity User E-Sign Co-Sign Detail Recorded Client Recorded Date Recorded By Document 12/06/17 08:33 MW [id number] 12/06/17 08:35 MW 12/06/17 08:33 Wound Center Nurse 2 [Procedure/Treatment] 1. sacral ulcer stg III -Time 08:33 -Correct Patient Yes -Correct Side, Site, Position Yes -Correct Procedure Yes -Procedure Performed Yes -Type of Procedure Debridement -Clinical Debridement Subcutaneous -Post Debridement Size (cm) - Length 0.9 -Post Debridement Size (cm) - Width 1.0 -Post Debridement Size (cm) - Depth 0.3 -Total Square Cm 0.90 -Wound/Ulcer Outcome Not Healed -Ulcer Cleansing Rinsed/ Irrigated with Saline -Foul Odor after Cleansing No -Bioengineered Tissue No -Bleeding Controlled with Pressure -Treatment Response Procedure Tolerated Well [See Physician Procedure note for Specifics] Pain Scale: 0-10 Numeric [Pain] -Is Patient Pain Free? Yes Musculoskeletal: No Tenderness to Palpation of Joints or Extremities Lymphatic: No Cervical, Supraclavicular, or Inguinal Adenopathy Neurological: Cranial nerves II-XII grossly intact, Neuro grossly intact Psych/Mental Status: Normal Affect, Appropriate Debridement Note Post-Debridement Measurements/Treatment - Nurse 2 - General Ulcer CM Notes Start: 12/06/17 08:17 Freq: Status: Active Protocol: Activity Type Activity Date Activity User E-Sign Co-Sign Detail Recorded Client Recorded Date Recorded By Document 12/06/17 08:33 MW [id number] 12/06/17 08:35 MW 12/06/17 08:33 Wound Center Nurse 2 1. sacral ulcer stg III -Time 08:33 -Correct Patient Yes -Correct Side, Site, Position Yes -Correct Procedure Yes -Procedure Performed Yes -Type of Procedure Debridement -Clinical Debridement Subcutaneous -Post Debridement Size (cm) - Length 0.9 -Post Debridement Size (cm) - Width 1.0 -Post Debridement Size (cm) - Depth 0.3 -Total Square Cm 0.90 -Wound/Ulcer Outcome Not Healed -Ulcer Cleansing Rinsed/ Irrigated with Saline -Foul Odor after Cleansing No -Bioengineered Tissue No -Bleeding Controlled with Pressure -Treatment Response Procedure Tolerated Well Pain Scale: 0-10 Numeric Is Patient Pain Free? 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 Malnutrition. Difficulty walking. Infected decubitus ulcer Plan: Promogran to wound base cover with moistened gauze gauze and tape. Follow-up in 3 week. continue to offload buttocks by lying flat in bed rather than in a chair as much as possible has a low air mattress. continue eating a highprotein diet and supplements. [place] instant breakfast with ice cream. Vitamin C 500 mg 2 by mouth daily. Information entered by nursing staff reviewed. This document was created using a voice recognition system. Errors in punctuation, spelling and grammar may not have been corrected prior to saving.
[2017-12-27 08:26] VITALS: BP 105/75; PULSE 110; RESP 18; TEMP 36.8; BMI 17.0
--- NOTE | 2017-12-27 09:39 | PCM.WC.PN ---
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 level Status: Chronic Current Visit: Yes Code(s): M51.36 - Other intervertebral disc degeneration, lumbar region (4) Infected decubitus ulcer Status: Chronic Current Visit: Yes Code(s): L89.90 - Pressure ulcer of unspecified site, unspecified stage; L08.9 - Local infection of the skin and subcutaneous tissue, unspecified (5) Malnutrition Status: Chronic Current Visit: Yes Code(s): E46 - Unspecified protein-calorie malnutrition (6) Nonhealing nonsurgical wound Status: Chronic Current Visit: Yes Code(s): T14.8 - Other injury of unspecified body region Type of Wound Chief Complaint: 78-year-old white male emaciated living at home with his with many comorbidities. Patient has spinal stenosis so bad that he has no feeling in his rectum. Patient has frequent large stools. during the night, and it lays against the skin of his rectal area and causes denuded skin. Patient appears here with an small superficial ulcer on the coccyx area History of Wound: Patient has been evaluated by Dr. Hitchcock for possible surgical consult, but he feels that unless there is bone exposed to continue with ulcer care as prescribed. Nutrition has been an issue and he needs to continue nutritional efforts. And if he requires frequent ulcer care than because of incontinence then so be it Progress of Wound: The ulcer is about the same size but the callus is not is bad as it has been in the past. states that his bowel movements are much improved and more solid and last liquidy so soiling does not occur as much. Patient is using Promogran and it seems to be working well. Received 15 epi fixes and did very well. Patient is supplementing with high protein bars and diet, sggested [place] Instant breakfast with ice cream as a supplement and start vit C 1000 mg in chewies per day. Patient is also taking Z-hilary for wound healing. Today we will go back to Promogran after culturing him and will get another pre-albumin to see if he can finish them off he is slowly healing but it has been a long fall on getting him to produce new skin. - Physical Exam Vital Signs Temp Pulse Resp BP 98.2 F 110 H 18 105/75 12/27/17 08:26 12/27/17 08:26 12/27/17 08:26 12/27/17 08:26 General: Oriented x3, Cooperative, Well developed HEENT: Atraumatic, PERRLA Oral: Moist Mucosa Neck: Supple, No JVD Lungs: Clear to auscultation, Normal air movement Cardiovascular: Regular rate, Regular Rhythm Abdomen: Bowel Sounds Present, Soft, Non Tender, No Hepato-splenomegaly Extremities: No clubbing, No edema Skin: Ulcer/ Wound - Coccyx ulcer stage III Wound Measurements and Assessment WC - Nurse 1 - General Ulcer Measurement Start: 12/06/17 08:17 Freq: Status: Active Protocol: Activity Type Activity Date Activity User E-Sign Co-Sign Detail Recorded Client Recorded Date Recorded By Document 12/27/17 08:26 AN [id number] 12/27/17 08:32 AN 12/27/17 08:26 Wound Center Nurse 1 [Ulcer Assessment] 1. sacral ulcer stg III -Combined with other wound No -Current Size (cm) - Length 1.4 -Current Size (cm) - Width 0.7 -Current Size (cm) - Depth 0.4 -Total Square Cm 0.98 -Tunneling No -Undermining/Tunneling No -Circular Undermining No -Classification - Thickness Full Thickness without Exposed Support Structure -Classification - Pressure Ulcer Stage 3 -Exudate Amt Small (1-33%) -Exudate Type Serosanguineous -Wound Margin Thickened -Granulation Amt Small (1-33%) -Granulation Quality Pale [place] -Slough/Fibrin Yes -Necrosis Amt Large (67-100%) -Necrotic Tissue Type Eschar -Structure Exposed Fat Layer Exposed -Texture (Pao-wound Skin Appearance) Callus Scarring -Moisture (Pao-wound Skin Appearance No Abnormality ) -Color (Pao-wound Skin Appearance) Erythema -Temperature (Pao-wound Skin No Abnormality Appearance) (Pt Warm) -Tenderness on Palpation (Pao-wound No Skin Appearance) -Ulcer Cleansing Rinsed/ Irrigated with Saline -Foul Odor after Cleansing No -Anesthetic Used 4% Lidocaine Solution WC - Nurse 2 - General Ulcer CM Notes Start: 12/06/17 08:17 Freq: Status: Active Protocol: Activity Type Activity Date Activity User E-Sign Co-Sign Detail Recorded Client Recorded Date Recorded By Document 12/27/17 09:01 MW [id number] 12/27/17 09:02 MW 12/27/17 09:01 Wound Center Nurse 2 [Procedure/Treatment] -Time 09:01 -Correct Patient Yes -Correct Side, Site, Position Yes -Correct Procedure Yes -Procedure Performed Yes -Type of Procedure Debridement -Clinical Debridement Subcutaneous -Post Debridement Size (cm) - Length 1.0 -Post Debridement Size (cm) - Width 0.9 -Post Debridement Size (cm) - Depth 0.3 -Total Square Cm 0.90 -Wound/Ulcer Outcome Not Healed -Ulcer Cleansing Rinsed/ Irrigated with Saline -Foul Odor after Cleansing No -Bioengineered Tissue No -Bleeding Controlled with Pressure -Treatment Response Procedure Tolerated Well [See Physician Procedure note for Specifics] Pain Scale: 0-10 Numeric [Pain] -Is Patient Pain Free? Yes Musculoskeletal: No Tenderness to Palpation of Joints or Extremities Lymphatic: No Cervical, Supraclavicular, or Inguinal Adenopathy Neurological: Cranial nerves II-XII grossly intact, Neuro grossly intact Psych/Mental Status: Normal Affect, Appropriate Debridement Note Post-Debridement Measurements/Treatment WC - Nurse 2 - General Ulcer CM Notes Start: 12/06/17 08:17 Freq: Status: Active Protocol: Activity Type Activity Date Activity User E-Sign Co-Sign Detail Recorded Client Recorded Date Recorded By Document 12/06/17 08:33 MW [id number] 12/06/17 08:35 MW Document 12/27/17 09:01 MW [id number] 12/27/17 09:02 MW 12/06/17 12/27/17 08:33 09:01 Wound Center Nurse 2 1. sacral ulcer stg III -Time 08:33 09:01 -Correct Patient Yes Yes -Correct Side, Site, Position Yes Yes -Correct Procedure Yes Yes -Procedure Performed Yes Yes -Type of Procedure Debridement Debridement -Clinical Debridement Subcutaneous Subcutaneous -Post Debridement Size (cm) - Length 0.9 1.0 -Post Debridement Size (cm) - Width 1.0 0.9 -Post Debridement Size (cm) - Depth 0.3 0.3 -Total Square Cm 0.90 0.90 -Wound/Ulcer Outcome Not Healed Not Healed -Ulcer Cleansing Rinsed/ Rinsed/ Irrigated with Irrigated with Saline Saline -Foul Odor after Cleansing No No -Bioengineered Tissue No No -Bleeding Controlled with Pressure Pressure -Treatment Response Procedure Procedure Tolerated Well Tolerated Well Pain Scale: 0-10 Numeric Is Patient Pain Free? 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 Malnutrition. Difficulty walking. Infected decubitus ulcer Plan: Promogran to wound base cover with moistened gauze gauze and tape. Follow-up in 2 week. continue to offload buttocks by lying flat in bed rather than in a chair as much as possible has a low air mattress. continue eating a highprotein diet and supplements. [place] instant breakfast with ice cream. Vitamin C 500 mg 2 by mouth daily. Information entered by nursing staff reviewed. This document was created using a voice recognition system. Errors in punctuation, spelling and grammar may not have been corrected prior to saving.
--- NOTE | 2017-12-27 09:43 | PN.PCM_ITS ---
(1) Accidental fall Status: Chronic Current Visit: Yes Code(s): W19.XXXA - Unspecified fall, in itial encounter (2) Decubitus ulcer of coccygeal region, stage 3 Status: Chronic Current Visit: Yes Code(s): L89.153 - Pressure ulcer of sacral region, stage 3 (3) Degenerative disc disease at L5-S1 level Status: Chronic Current Visit: Yes Code(s): M51.36 - Other intervertebral disc degeneration, lumbar region (4) Infected decubitus ulcer Status: Chronic Current Visit: Yes Code(s): L89.90 - Pressure ulcer of unspecified site, unspecified stage; L08.9 - Local infection of the skin and subcutaneous tissue, unspecified (5) Malnutrition Status: Chronic Current Visit: Yes Code(s): E46 - Unspecified protein-calorie malnutrition (6) Nonhealing nonsurgical wound Status: Chronic Current Visit: Yes Code(s): T14.8 - Other injury of unspecified body region Type of Wound Chief Complaint: 78-year-old white male emaciated living at home with his with many comorbidities. Patient has spinal stenosis so bad that he has no feeling in his rectum. Patient has frequent large stools. during the night, and it lays against the skin of his rectal area and causes denuded skin. P atient appears here with an small superficial ulcer on the coccyx area History of Wound: Patient has been evaluated by Dr. Hitchcock for possible surgical consult, but he feels that unless there is bone exposed to continue with ulcer care as prescribed. Nutrition has been an issue and he needs to continue nutritional efforts. And if he requires frequent ulcer care than because of incontinence then so be it Progress of Wound: The ulcer is about the same size but the callus is not is bad as it has been in the past. states that his bowel movements are much improved and more solid and last liquidy so soiling does not occur as much. Patient is using Promogran and it seems to be working well. Received 15 epi fixes and did very well. Patient is supplementing with high protein bars and diet, sggested [place] Instant breakfast with ice cream as a supplement and start vit C 1000 mg in chewies per day. Patient is also taking Z-hilary for wound healing. Today we will go back to Promogran after culturing him and will get another pre-albumin to see if he can finish them off he is slowly healing but it has been a long fall on getting him to produce new skin. - Physical Exam Vital Signs Temp Pulse Resp BP 98.2 F 110 H 18 105/75 12/27/17 08:26 12/27/17 08:26 12/27/17 08:26 12/27/17 08:26 General: Oriented x3, Cooperative, Well developed HEENT: Atraumatic, PERRLA Oral: Moist Mucosa Neck: Supple, No JVD Lungs: Clear to auscultation, Normal air movement Cardiovascular: Regular rate, Regular Rhythm Abdomen: Bowel Sounds Present, Soft, Non Tender, No Hepato-splenomegaly Extremities: No clubbing, No edema Skin: Ulcer/ Wound - Coccyx ulcer stage III Wound Measurements and Assessment WC - Nurse 1 - General Ulcer Measurement Start: 12/06/17 08:17 Freq: Status: Active Protocol: Activity Type Activity Date Activity User E-Sign Co-Sign Detail Recorded Client Recorded Date Recorded By Document 12/27/17 08:26 AN [id number] 12/27/17 08:32 AN 12/27/17 08:26 Wound Center Nurse 1 [Ulcer Assessment] 1. sacral ulcer stg III -Combined with other wound No -Current Size (cm) - Length 1.4 -Current Size (cm) - Width 0.7 -Current Size (cm) - Depth 0.4 -Total Square Cm 0.98 -Tunneling No -Undermining/Tunneling No -Circular Undermining No -Classification - Thickness Full Thickness without Exposed Support Structure -Classification - Pressure Ulcer Stage 3 -Exudate Amt Small (1-33%) -Exudate Type Serosanguineous -Wound Margin Thickened -Granulation Amt Small (1-33%) -Granulation Quality Pale [place] -Slough/Fibrin Yes -Necrosis Amt Large (67-100%) -Necrotic Tissue Type Eschar -Structure Exposed Fat Layer Exposed -Texture (Pao-wound Skin Appearance) Callus Scarring -Moisture (Pao-wound Skin Appearance No Abnormality ) -Color (Pao-wound Skin Appearance) Erythema -Temperature (Pao-wound Skin No Abnormality Appearance) (Pt Warm) -Tenderness on Palpation (Pao-wound No Skin Appearance) -Ulcer Cleansing Rinsed/ Irrigated with Saline -Foul Odor after Cleansing No -Anesthetic Used 4% Lidocaine Solution WC - Nurse 2 - General Ulcer CM Notes Start: 12/06/17 08:17 Freq: Status: Active Protocol: Activity Type Activity Date Activity User E-Sign Co-Sign Detail Recorded Client Recorded Date Recorded By Document 12/27/17 09:01 MW [id number] 12/27/17 09:02 MW 12/27/17 09:01 Wound Center Nurse 2 [Procedure/Treatment] -Time 09:01 -Correct Patient Yes -Correct Side, Site, Position Yes -Correct Procedure Yes -Procedure Performed Yes -Type of Procedure Debridement -Clinical Debridement Subcutaneous -Post Debridement Size (cm) - Length 1.0 -Post Debridement Size (cm) - Width 0.9 -Post Debridement Size (cm) - Depth 0.3 -Total Square Cm 0.90 -Wound/Ulcer Outcome Not Healed -Ulcer Cleansing Rinsed/ Irrigated with Saline -Foul Odor after Cleansing No -Bioengineered Tissue No -Bleeding Controlled with Pressure -Treatment Response Procedure Tolerated Well [See Physician Procedure note for Specifics] Pain Scale: 0-10 Numeric [Pain] -Is Patient Pain Free? Yes Musculoskeletal: No Tenderness to Palpation of Joints or Extremities Lymphatic: No Cervical, Supraclavicular, or Inguinal Adenopathy Neurological: Cranial nerves II-XII grossly intact, Neuro grossly intact Psych/Mental Status: Normal Affect, Appropriate Debridement Note Post-Debridement Measurements/Treatment WC - Nurse 2 - General Ulcer CM Notes Start: 12/06/17 08:17 Freq: Status: Active Protocol: Activity Type Activity Date Activity User E-Sign Co-Sign Detail Recorded Client Recorded Date Recorded By Document 12/06/17 08:33 MW [id number] 12/06/17 08:35 MW Document 12/27/17 09:01 MW [id number] 12/27/17 09:02 MW 12/06/17 12/27/17 08:33 09:01 Wound Center Nurse 2 1. sacral ulcer stg III -Time 08:33 09:01 -Correct Patient Yes Yes -Correct Side, Site, Position Yes Yes -Correct Procedure Yes Yes -Procedure Performed Yes Yes -Type of Procedure Debridement Debridement -Clinical Debridement Subcutaneous Subcutaneous -Post Debridement Size (cm) - Length 0.9 1.0 -Post Debridement Size (cm) - Width 1.0 0.9 -Post Debridement Size (cm) - Depth 0.3 0.3 -Total Square Cm 0.90 0.90 -Wound/Ulcer Outcome Not Healed Not Healed -Ulcer Cleansing Rinsed/ Rinsed/ Irrigated with Irrigated with Saline Saline -Foul Odor after Cleansing No No -Bioengineered Tissue No No -Bleeding Controlled with Pressure Pressure -Treatment Response Procedure Procedure Tolerated Well Tolerated Well Pain Scale: 0-10 Numeric Is Patient Pain Free? 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 Malnutrition. Difficulty walking. Infected decubitus ulcer Plan: Promogran to wound base cover with moistened gauze gauze and tape. Follow-up in 2 week. continue to offload buttocks by lying flat in bed rather than in a chair as much as possible has a low air mattress. continue eating a highprotein diet and supplements. [place] instant breakfast with ice cream. Vitamin C 500 mg 2 by mouth daily. Information entered by nursing staff reviewed. This document was created using a voice recognition system. Errors in punctuation, spelling and grammar may not have been corrected prior to saving.
== END 2018-01-01 23:59 ==
LOC: WC 08:00
PROVIDERS: Family Provider Family Medicine; PCP Family Medicine; Visit Provider Nurse Practitioner
DX: L89.153 Pressure ulcer of sacral region, stage 3 (principal); M51.36 Other intervertebral disc degeneration, lumbar region; L08.9 Local infection of the skin and subcutaneous tissue, unspecified
CPT/HCPCS: 11042

== ENCOUNTER → 2018-01-22 14:53 | Outpatient (CLI) | payer MEDICARE, OTHER, SELFPAY ==
--- NOTE | 2018-01-22 10:30 | LES_PTH ---
PATIENT: LEONILA PROCTOR LOC: [facility] U#:[id number] AGE/SX: 89/M ROOM: RE01/22/[address]: Dr. Eben Latham MD : [id number] BED: DIS: SPEC #: [id number] RECD: 01/22/18 14:14 STATUS: ZANDRA KENNETH #: [id number] EMILY: 01/22/18 10:[address]: Eben Latham DEPT: SURGICAL PATHOLOGY RECD BY: Kellie Soriano ENTERED: 01/24/18 08:01 SP TYPE: Lesion OTHR DR: Dr. Rick Wade MD Tissues: Skin of face, NOS Procedures: Surgery Specimen Level IV HEADER OPERATION: Excision left hindu lesion PRE-OP DIAGNOSIS: Uncertain neoplasm face TISSUE SUBMITTED: Left hindu tissue MICROSCOPIC DIAGNOSIS Left hindu region, excisional biopsy: Basal cell carcinoma, completely excised. Solar elastosis. SJ:spring 11/23/18 MICROSCOPIC DESCRIPTION Slides are reviewed. GROSS DESCRIPTION Received in fixative is one container labeled with the patient's name and designated left hindu. The specimen consists of a tejada-white skin ellipse measuring 2.3 x 1 cm and up to 0.2 cm in thickness. The specimen is inked, serially sectioned and submitted entirely in one cassette. / SJ:rg 01/22/18 TC:0 [facility]: [id number]
== END ==
PROVIDERS: Family Provider Family Medicine; PCP Family Medicine; Referring Provider Surgery; Visit Provider Surgery
DX: C44.319 Basal cell carcinoma of skin of other parts of face (principal); L57.8 Other skin changes due to chronic exposure to nonionizing radiation
CPT/HCPCS: 88305

== ENCOUNTER 2018-01-31 08:00 | Outpatient (RCR) | payer MEDICARE, OTHER, SELFPAY ==
[2018-01-02 00:44] VITALS: BP 105/75; PULSE 110; RESP 18; TEMP 36.8; BMI 17.0
[2018-01-10 08:11] VITALS: BP 123/83; PULSE 97; RESP 18; TEMP 37.3; BMI 17.0
--- NOTE | 2018-01-10 08:58 | PCM.WC.PN ---
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-S1 level Status: Chronic Current Visit: No Code(s): M51.36 - Other intervertebral disc degeneration, lumbar region (3) Malnutrition Status: Chronic Current Visit: No Code(s): E46 - Unspecified protein-calorie malnutrition (4) Nonhealing nonsurgical wound Status: Chronic Current Visit: No Code(s): T14.8 - Other injury of unspecified body region Type of Wound Chief Complaint: 78-year-old white male emaciated living at home with his with many comorbidities. Patient has spinal stenosis so bad that he has no feeling in his rectum. Patient has frequent large stools. during the night, and it lays against the skin of his rectal area and causes denuded skin. Patient appears here with an small superficial ulcer on the coccyx area History of Wound: Patient has been evaluated by Dr. Hitchcock for possible surgical consult, but he feels that unless there is bone exposed to continue with ulcer care as prescribed. Nutrition has been an issue and he needs to continue nutritional efforts. And if he requires frequent ulcer care than because of incontinence then so be it Progress of Wound: The ulcer is about the same size but the callus is not is bad as it has been in the past. states that his bowel movements are much improved and more solid and last liquidy so soiling does not occur as much. Patient is using Promogran and it seems to be working well. Received 15 epi fixes and did very well. Patient is supplementing with high protein bars and diet, sggested [place] Instant breakfast with ice cream as a supplement and start vit C 1000 mg in chewies per day. Patient is also taking Z-hilary for wound healing. Today we will go back to Promogran after culturing him and will get another pre-albumin to see if he can finish them off he is slowly healing but it has been a long fall on getting him to produce new skin. - Physical Exam Vital Signs Temp Pulse Resp BP 99.1 F 97 18 123/83 H 01/10/18 08:11 01/10/18 08:11 01/10/18 08:11 01/10/18 08:11 General: Oriented x3, Cooperative, Well developed HEENT: Atraumatic, PERRLA Oral: Moist Mucosa Neck: Supple, No JVD Lungs: Clear to auscultation, Normal air movement Cardiovascular: Regular rate, Regular Rhythm Abdomen: Bowel Sounds Present, Soft, Non Tender, No Hepato-splenomegaly Extremities: No clubbing, No edema Skin: Ulcer/ Wound - Decubitus ulcers sacral coccyx area Wound Measurements and Assessment WC - Nurse 1 - General Ulcer Measurement Start: 01/10/18 08:11 Freq: Status: Active Protocol: Activity Type Activity Date Activity User E-Sign Co-Sign Detail Recorded Client Recorded Date Recorded By Document 01/10/18 08:11 AN [id number] 01/10/18 08:23 AN 01/10/18 08:11 Wound Center Nurse 1 [Ulcer Assessment] 1. sacral ulcer stg III -Current Size (cm) - Length 1.8 -Current Size (cm) - Width 0.8 -Current Size (cm) - Depth 0.4 -Total Square Cm 1.44 -Photo Taken No -Epithelialization None Present -Tunneling No -Undermining/Tunneling No -Classification - Thickness Full Thickness with Exposed Support Structure -Exudate Amt Small (1-33%) -Exudate Type Serous -Wound Margin Distinct, Outline Attached -Granulation Amt Small (1-33%) -Granulation Quality Pale [place] -Necrosis Amt Large (67-100%) -Necrotic Tissue Type Adherent Slough -Structure Exposed None/Limited to Skin Breakdown -Texture (Pao-wound Skin Appearance) Callus -Moisture (Pao-wound Skin Appearance No Abnormality ) -Color (Pao-wound Skin Appearance) No Abnormality -Temperature (Pao-wound Skin No Abnormality Appearance) (Pt Warm) -Tenderness on Palpation (Pao-wound No Skin Appearance) -Ulcer Cleansing Rinsed/ Irrigated with Saline -Foul Odor after Cleansing No -Anesthetic Used 4% Lidocaine Solution WC - Nurse 2 - General Ulcer CM Notes Start: 01/10/18 08:11 Freq: Status: Active Protocol: Activity Type Activity Date Activity User E-Sign Co-Sign Detail Recorded Client Recorded Date Recorded By Document 01/10/18 08:31 MW [id number] 01/10/18 08:43 MW 01/10/18 08:31 Wound Center Nurse 2 [Procedure/Treatment] -Time 08:35 -Correct Patient Yes -Correct Side, Site, Position Yes -Correct Procedure Yes -Procedure Performed Yes -Type of Procedure Debridement -Clinical Debridement Subcutaneous -Post Debridement Size (cm) - Length 1.0 -Post Debridement Size (cm) - Width 0.9 -Post Debridement Size (cm) - Depth 0.3 -Total Square Cm 0.90 -Wound/Ulcer Outcome Not Healed -Ulcer Cleansing Rinsed/ Irrigated with Saline -Foul Odor after Cleansing No -Bioengineered Tissue No -Bleeding Controlled with Pressure -Treatment Response Procedure Tolerated Well [See Physician Procedure note for Specifics] Pain Scale: 0-10 Numeric [Pain] -Is Patient Pain Free? Yes Musculoskeletal: No Tenderness to Palpation of Joints or Extremities Lymphatic: No Cervical, Supraclavicular, or Inguinal Adenopathy Neurological: Cranial nerves II-XII grossly intact, Neuro grossly intact Psych/Mental Status: Normal Affect, Appropriate Debridement Note Post-Debridement Measurements/Treatment WC - Nurse 2 - General Ulcer CM Notes Start: 01/10/18 08:11 Freq: Status: Active Protocol: Activity Type Activity Date Activity User E-Sign Co-Sign Detail Recorded Client Recorded Date Recorded By Document 01/10/18 08:31 MW [id number] 01/10/18 08:43 MW 01/10/18 08:31 Wound Center Nurse 2 1. sacral ulcer stg III -Time 08:35 -Correct Patient Yes -Correct Side, Site, Position Yes -Correct Procedure Yes -Procedure Performed Yes -Type of Procedure Debridement -Clinical Debridement Subcutaneous -Post Debridement Size (cm) - Length 1.0 -Post Debridement Size (cm) - Width 0.9 -Post Debridement Size (cm) - Depth 0.3 -Total Square Cm 0.90 -Wound/Ulcer Outcome Not Healed -Ulcer Cleansing Rinsed/ Irrigated with Saline -Foul Odor after Cleansing No -Bioengineered Tissue No -Bleeding Controlled with Pressure -Treatment Response Procedure Tolerated Well Pain Scale: 0-10 Numeric Is Patient Pain Free? Yes Wound debrided: Coccyx ulcer Wound Grade/Stage: Stage III Type of Debridement: Excisional debridement Anesthesia Used: 5% Lidocaine Gel Depth: Down to and including healthy tissue, in the subcutaneous layer Percentage of wound debrided: 100 Instrument Used: 5mm curette, - - Nippers Tissue Removed: Fibrin and callus Severity: Limited To Skin Breakdown Amount of bleeding with debridement: Mild Bleeding Controlled with: Compression and gauze Patient tolerated procedure well Assessment/Plan Assessment: Chronic Pressure ulcer coccyx stage III. Malnutrition. Difficulty walking. Infected decubitus ulcer Plan: Promogran to wound base cover with moistened gauze gauze and tape. Follow-up in 3 week. continue to offload buttocks by lying flat in bed rather than in a chair as much as possible has a low air mattress. continue eating a highprotein diet and supplements. [place] instant breakfast with ice cream. Vitamin C 500 mg 2 by mouth daily. Information entered by nursing staff reviewed. This document was created using a voice recognition system. Errors in punctuation, spelling and grammar may not have been corrected prior to saving.
[2018-01-31 09:54] VITALS: BP 136/84; PULSE 107; RESP 18; TEMP 36; BMI 17.0
--- NOTE | 2018-01-31 11:50 | PCM.WC.PN ---
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 level Status: Chronic Current Visit: Yes Code(s): M51.36 - Other intervertebral disc degeneration, lumbar region (3) Malnutrition Status: Chronic Current Visit: Yes Code(s): E46 - Unspecified protein-calorie malnutrition (4) Nonhealing nonsurgical wound Status: Chronic Current Visit: Yes Code(s): T14.8 - Other injury of unspecified body region Type of Wound Chief Complaint: 78-year-old white male emaciated living at home with his with many comorbidities. Patient has spinal stenosis so bad that he has no feeling in his rectum. Patient has frequent large stools. during the night, and it lays against the skin of his rectal area and causes denuded skin. Patient appears here with an small superficial ulcer on the coccyx area History of Wound: Patient has been evaluated by Dr. Hitchcock for possible surgical consult, but he feels that unless there is bone exposed to continue with ulcer care as prescribed. Nutrition has been an issue and he needs to continue nutritional efforts. And if he requires frequent ulcer care than because of incontinence then so be it Progress of Wound: The ulcer is much smaller than in the past. states that his bowel movements are much improved and more solid and last liquidy so soiling does not occur as much. Patient is using Promogran and it seems to be working well. Received 15 epi fixes and did very well. Patient is supplementing with high protein bars and diet, sggested [place] Instant breakfast with ice cream as a supplement and start vit C 1000 mg in chewies per day. Patient is also taking Z-hilary for wound healing. Today we will go back to Promogran after culturing him and will get another pre-albumin to see if he can finish them off he is slowly healing but it has been a long fall on getting him to produce new skin. - Physical Exam Vital Signs Temp Pulse Resp BP 96.8 F L 107 H 18 136/84 H 01/31/18 09:54 01/31/18 09:54 01/31/18 09:54 01/31/18 09:54 General: Oriented x3, Cooperative, Well developed HEENT: Atraumatic, PERRLA Oral: Moist Mucosa Neck: Supple, No JVD Lungs: Clear to auscultation, Normal air movement Cardiovascular: Regular rate, Regular Rhythm Abdomen: Bowel Sounds Present, Soft, Non Tender, No Hepato-splenomegaly Extremities: No clubbing, No edema Skin: Ulcer/ Wound - Coccyx ulcer stage III Wound Measurements and Assessment - Nurse 1 - General Ulcer Measurement Start: 01/10/18 08:11 Freq: Status: Active Protocol: Activity Type Activity Date Activity User E-Sign Co-Sign Detail Recorded Client Recorded Date Recorded By Document 01/31/18 09:54 [facility] [id number] 01/31/18 10:00 BMF 01/31/18 09:54 Wound Center Nurse 1 [Ulcer Assessment] 1. sacral ulcer stg III -Photo Taken No -Epithelialization None Present -Tunneling No -Undermining/Tunneling No -Circular Undermining No -Classification - Thickness Full Thickness with Exposed Support Structure -Exudate Amt Small (1-33%) -Exudate Type Serosanguineous -Wound Margin Indistinct, Non -Visible -Granulation Amt Medium (34-66%) -Granulation Quality Pale [place] -Slough/Fibrin Yes -Necrosis Amt Medium (34-66%) -Necrotic Tissue Type Eschar -Structure Exposed Fat Layer Exposed -Texture (Pao-wound Skin Appearance) Callus -Moisture (Pao-wound Skin Appearance Maceration ) -Color (Pao-wound Skin Appearance) Assessed -Temperature (Pao-wound Skin No Abnormality Appearance) (Pt Warm) -Tenderness on Palpation (Pao-wound No Skin Appearance) -Ulcer Cleansing Rinsed/ Irrigated with Saline -Foul Odor after Cleansing No -Anesthetic Used 4% Lidocaine Solution - Nurse 2 - General Ulcer CM Notes Start: 01/10/18 08:11 Freq: Status: Active Protocol: Activity Type Activity Date Activity User E-Sign Co-Sign Detail Recorded Client Recorded Date Recorded By Document 01/31/18 10:24 MW [id number] 01/31/18 10:29 MW 01/31/18 10:24 Wound Center Nurse 2 [Procedure/Treatment] -Time 10:25 -Correct Patient Yes -Correct Side, Site, Position Yes -Correct Procedure Yes -Procedure Performed Yes -Type of Procedure Debridement -Clinical Debridement Subcutaneous -Post Debridement Size (cm) - Length 0.7 -Post Debridement Size (cm) - Width 0.8 -Post Debridement Size (cm) - Depth 0.2 -Total Square Cm 0.56 -Wound/Ulcer Outcome Not Healed -Ulcer Cleansing Rinsed/ Irrigated with Saline -Foul Odor after Cleansing No -Bioengineered Tissue No -Bleeding Controlled with Pressure -Offloading No -Treatment Response Procedure Tolerated Well [See Physician Procedure note for Specifics] Pain Scale: 0-10 Numeric [Pain] -Is Patient Pain Free? Yes Musculoskeletal: No Tenderness to Palpation of Joints or Extremities Lymphatic: No Cervical, Supraclavicular, or Inguinal Adenopathy Neurological: Cranial nerves II-XII grossly intact, Neuro grossly intact Psych/Mental Status: Normal Affect, Appropriate Debridement Note Post-Debridement Measurements/Treatment WC - Nurse 2 - General Ulcer CM Notes Start: 01/10/18 08:11 Freq: Status: Active Protocol: Activity Type Activity Date Activity User E-Sign Co-Sign Detail Recorded Client Recorded Date Recorded By Document 01/10/18 08:31 MW [id number] 01/10/18 08:43 MW Document 01/31/18 10:24 MW [id number] 01/31/18 10:29 MW 01/10/18 01/31/18 08:31 10:24 Wound Center Nurse 2 1. sacral ulcer stg III -Time 08:35 10:25 -Correct Patient Yes Yes -Correct Side, Site, Position Yes Yes -Correct Procedure Yes Yes -Procedure Performed Yes Yes -Type of Procedure Debridement Debridement -Clinical Debridement Subcutaneous Subcutaneous -Post Debridement Size (cm) - Length 1.0 0.7 -Post Debridement Size (cm) - Width 0.9 0.8 -Post Debridement Size (cm) - Depth 0.3 0.2 -Total Square Cm 0.90 0.56 -Wound/Ulcer Outcome Not Healed Not Healed -Ulcer Cleansing Rinsed/ Rinsed/ Irrigated with Irrigated with Saline Saline -Foul Odor after Cleansing No No -Bioengineered Tissue No No -Bleeding Controlled with Pressure Pressure -Offloading No -Treatment Response Procedure Procedure Tolerated Well Tolerated Well Pain Scale: 0-10 Numeric Is Patient Pain Free? Yes Yes Wound debrided: Coccyx ulcer Wound Grade/Stage: Stage III Type of Debridement: Excisional debridement Anesthesia Used: 5% Lidocaine Gel Depth: Down to and including healthy tissue, in the subcutaneous layer Percentage of wound debrided: 100 Instrument Used: 3mm curette, - - Nippers Tissue Removed: Fibrin and callus Severity: Limited To Skin Breakdown Amount of bleeding with debridement: Mild Bleeding Controlled with: Pressure Assessment/Plan Active Problems (Last Reviewed 01/22/18 @ 10:[address]) Nonhealing nonsurgical wound (Chronic) Degenerative disc disease at L5-S1 level (Chronic) Malnutrition (Chronic) Decubitus ulcer of coccygeal region, stage 3 (Chronic) Assessment: Chronic Pressure ulcer coccyx stage III. Malnutrition. Difficulty walking. Infected decubitus ulcer resolved Plan: Promogran to wound base cover with moistened gauze gauze and tape. Follow-up in 2 week. continue to offload buttocks by lying flat in bed rather than in a chair as much as possible has a low air mattress. continue eating a highprotein diet and supplements. [place] instant breakfast with ice cream. Vitamin C 500 mg 2 by mouth daily. Information entered by nursing staff reviewed. This document was created using a voice recognition system. Errors in punctuation, spelling and grammar may not have been corrected prior to saving.
--- NOTE | 2018-01-31 11:53 | PN.PCM_ITS ---
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 level Status: Chronic Current Visit: Yes Code(s): M51.36 - Other intervertebral disc degeneration, lumbar region (3) Malnutrition Status: Chronic Current Visit: Yes Code(s): E46 - Unspecified protein- calorie malnutrition (4) Nonhealing nonsurgical wound Status: Chronic Current Visit: Yes Code(s): T14.8 - Other injury of unspecified body region Type of Wound Chief Complaint: 78-year-old white male emaciated living at home with his with many comorbidities. Patient has spinal stenosis so bad that he has no feeling in his rectum. Patient has frequent large stools. during the night, and it lays against the skin of his rectal area and causes denuded skin. Patient appears here with an small superficial ulcer on the coccyx area History of Wound: Patient has been evaluated by Dr. Hitchcock for possible surgical consult, but he feels that unless there is bone exposed to continue with ulcer care as prescribed. Nutrition has been an issue and he needs to continue nutritional efforts. And if he requires frequent ulcer care than because of incontinence then so be it Progress of Wound: The ulcer is much smaller than in the past. states that his bowel movements are much improved and more solid and last liquidy so soiling does not occur as much. Patient is using Promogran and it seems to be working well. Received 15 epi fixes and did very well. Patient is supplementing with high protein bars and diet, sggested [place] Instant breakfast with ice cream as a supplement and start vit C 1000 mg in chewies per day. Patient is also taking Z-hilary for wound healing. Today we will go back to Promogran after culturing him and will get another pre-albumin to see if he can finish them off he is slowly healing but it has been a long fall on getting him to produce new skin. - Physical Exam Vital Signs Temp Pulse Resp BP 96.8 F L 107 H 18 136/84 H 01/31/18 09:54 01/31/18 09:54 01/31/18 09:54 01/31/18 09:54 General: Oriented x3, Cooperative, Well developed HEENT: Atraumatic, PERRLA Oral: Moist Mucosa Neck: Supple, No JVD Lungs: Clear to auscultation, Normal air movement Cardiovascular: Regular rate, Regular Rhythm Abdomen: Bowel Sounds Present, Soft, Non Tender, No Hepato-splenomegaly Extremities: No clubbing, No edema Skin: Ulcer/ Wound - Coccyx ulcer stage III Wound Measurements and Assessment - Nurse 1 - General Ulcer Measurement Start: 01/10/18 08:11 Freq: Status: Active Protocol: Activity Type Activity Date Activity User E-Sign Co-Sign Detail Recorded Client Recorded Date Recorded By Document 01/31/18 09:54 [facility] [id number] 01/31/18 10:00 BMF 01/31/18 09:54 Wound Center Nurse 1 [Ulcer Assessment] 1. sacral ulcer stg III -Photo Taken No -Epithelialization None Present -Tunneling No -Undermining/Tunneling No -Circular Undermining No -Classification - Thickness Full Thickness with Exposed Support Structure -Exudate Amt Small (1-33%) -Exudate Type Serosanguineous -Wound Margin Indistinct, Non -Visible -Granulation Amt Medium (34-66%) -Granulation Quality Pale [place] -Slough/Fibrin Yes -Necrosis Amt Medium (34-66%) -Necrotic Tissue Type Eschar -Structure Exposed Fat Layer Exposed -Texture (Pao-wound Skin Appearance) Callus -Moisture (Pao-wound Skin Appearance Maceration ) -Color (Pao-wound Skin Appearance) Assessed -Temperature (Pao-wound Skin No Abnormality Appearance) (Pt Warm) -Tenderness on Palpation (Pao-wound No Skin Appearance) -Ulcer Cleansing Rinsed/ Irrigated with Saline -Foul Odor after Cleansing No -Anesthetic Used 4% Lidocaine Solution - Nurse 2 - General Ulcer CM Notes Start: 01/10/18 08:11 Freq: Status: Active Protocol: Activity Type Activity Date Activity User E-Sign Co-Sign Detail Recorded Client Recorded Date Recorded By Document 01/31/18 10:24 MW [id number] 01/31/18 10:29 MW 01/31/18 10:24 Wound Center Nurse 2 [Procedure/Treatment] -Time 10:25 -Correct Patient Yes -Correct Side, Site, Position Yes -Correct Procedure Yes -Procedure Performed Yes -Type of Procedure Debridement -Clinical Debridement Subcutaneous -Post Debridement Size (cm) - Length 0.7 -Post Debridement Size (cm) - Width 0.8 -Post Debridement Size (cm) - Depth 0.2 -Total Square Cm 0.56 -Wound/Ulcer Outcome Not Healed -Ulcer Cleansing Rinsed/ Irrigated with Saline -Foul Odor after Cleansing No -Bioengineered Tissue No -Bleeding Controlled with Pressure -Offloading No -Treatment Response Procedure Tolerated Well [See Physician Procedure note for Specifics] Pain Scale: 0-10 Numeric [Pain] -Is Patient Pain Free? Yes Musculoskeletal: No Tenderness to Palpation of Joints or Extremities Lymphatic: No Cervical, Supraclavicular, or Inguinal Adenopathy Neurological: Cranial nerves II-XII grossly intact, Neuro grossly intact Psych/Mental Status: Normal Affect, Appropriate Debridement Note Post-Debridement Measurements/Treatment WC - Nurse 2 - General Ulcer CM Notes Start: 01/10/18 08:11 Freq: Status: Active Protocol: Activity Type Activity Date Activity User E-Sign Co-Sign Detail Recorded Client Recorded Date Recorded By Document 01/10/18 08:31 MW [id number] 01/10/18 08:43 MW Document 01/31/18 10:24 MW [id number] 01/31/18 10:29 MW 01/10/18 01/31/18 08:31 10:24 Wound Center Nurse 2 1. sacral ulcer stg III -Time 08:35 10:25 -Correct Patient Yes Yes -Correct Side, Site, Position Yes Yes -Correct Procedure Yes Yes -Procedure Performed Yes Yes -Type of Procedure Debridement Debridement -Clinical Debridement Subcutaneous Subcutaneous -Post Debridement Size (cm) - Length 1.0 0.7 -Post Debridement Size (cm) - Width 0.9 0.8 -Post Debridement Size (cm) - Depth 0.3 0.2 -Total Square Cm 0.90 0.56 -Wound/Ulcer Outcome Not Healed Not Healed -Ulcer Cleansing Rinsed/ Rinsed/ Irrigated with Irrigated with Saline Saline -Foul Odor after Cleansing No No -Bioengineered Tissue No No -Bleeding Controlled with Pressure Pressure -Offloading No -Treatment Response Procedure Procedure Tolerated Well Tolerated Well Pain Scale: 0-10 Numeric Is Patient Pain Free? Yes Yes Wound debrided: Coccyx ulcer Wound Grade/Stage: Stage III Type of Debridement: Excisional debridement Anesthesia Used: 5% Lidocaine Gel Depth: Down to and including healthy tissue, in the subcutaneous layer Percentage of wound debrided: 100 Instrument Used: 3mm curette, - - Nippers Tissue Removed: Fibrin and callus Severity: Limited To Skin Breakdown Amount of bleeding with debridement: Mild Bleeding Controlled with: Pressure Assessment/Plan Active Problems (Last Reviewed 01/22/18 @ 10:[address]) Nonhealing nonsurgical wound (Chronic) Degenerative disc disease at L5-S1 level (Chronic) Malnutrition (Chronic) Decubitus ulcer of coccygeal region, stage 3 (Chronic) Assessment: Chronic Pressure ulcer coccyx stage III. Malnutrition. Difficulty walking. Infected decubitus ulcer resolved Plan: Promogran to wound base cover with moistened gauze gauze and tape. Follow-up in 2 week. continue to offload buttocks by lying flat in bed rather than in a chair as much as possible has a low air mattress. continue eating a highprotein diet and supplements. [place] instant breakfast with ice cream. Vitamin C 500 mg 2 by mouth daily. Information entered by nursing staff reviewed. This document was created using a voice recognition system. Errors in punctuation, spelling and grammar may not have been corrected prior to saving.
== END 2018-01-31 23:59 ==
LOC: WC 08:00
PROVIDERS: Family Provider Family Medicine; PCP Family Medicine; Visit Provider Nurse Practitioner
DX: L89.153 Pressure ulcer of sacral region, stage 3 (principal); M51.36 Other intervertebral disc degeneration, lumbar region; L08.9 Local infection of the skin and subcutaneous tissue, unspecified
CPT/HCPCS: 11042

== ENCOUNTER 2018-02-21 09:01 | Outpatient (RCR) | payer MEDICARE, OTHER, SELFPAY ==
[2018-02-01 00:44] VITALS: BP 136/84; PULSE 107; RESP 18; TEMP 36
[2018-02-21 09:15] VITALS: BP 129/85; PULSE 108; RESP 18; TEMP 36.3; BMI 17.0
--- NOTE | 2018-02-21 10:50 | PN.PCM_ITS ---
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 level Status: Chronic Current Visit: Yes Code(s): M51.36 - Other intervertebral disc degeneration, lumbar region (3) Infected decubitus ulcer Status: Chronic Current Visit: Yes Code(s): L89.90 - Pressure ulcer of unspecified site, unspecified stage; L08.9 - Local infection of the skin and subcutaneous tissue, unspecified (4) Nonhealing nonsurgical wound Status: Chronic Current Visit: Yes Code(s): T14.8 - Other injury of unspecified body region Type of Wound Chief Complaint: 78-year-old white male emaciated living at home with his with many comorbidities. Patient has spinal stenosis so bad that he has no feeling in his rectum. Patient has frequent large stools. during the night, and it lays against the skin of his rectal area and causes denuded skin. Patient appears here with an small superficial ulcer on the coccyx area History of Wound: Patient has been evaluated by Dr. Hitchcock for possible surgical consult, but he feels that unless there is bone exposed to continue with ulcer care as prescribed. Nutrition has been an issue and he needs to continue nutritional efforts. And if he requires frequent ulcer care than because of incontinence then so be it Progress of Wound: The ulcer today is the smallest of her it is most callus is just filling and and it looks like it is can be a lot of scar tissue. states that his bowel movements are much improved and more solid and last liquidy so soiling does not occur as much. Patient is using Promogran and it seems to be working well. Received 15 epi fixes and did very well. Patient is supplementing with high protein bars and diet, sggested [place] Instant breakfast with ice cream as a supplement and start vit C 1000 mg in chewies per day. Patient is also taking Z-hilary for wound healing. Today we will go back to Promogran after culturing him and will get another pre-albumin to see if he can finish them off he is slowly healing but it has been a long fall on getting him to produce new skin. - Physical Exam Vital Signs Temp Pulse Resp BP 97.3 F L 108 H 18 129/85 H 02/21/18 09:15 02/21/18 09:15 02/21/18 09:15 02/21/18 09:15 General: Oriented x3, Cooperative, Well developed HEENT: Atraumatic, PERRLA Oral: Moist Mucosa Neck: Supple, No JVD Lungs: Clear to auscultation, Normal air movement Cardiovascular: Regular rate, Regular Rhythm Abdomen: Bowel Sounds Present, Soft, Non Tender, No Hepato-splenomegaly Extremities: No clubbing, No edema Skin: Ulcer/ Wound - Coccyx ulcer Wound Measurements and Assessment WC - Nurse 1 - General Ulcer Measurement Start: 02/21/18 09:15 Freq: Status: Active Protocol: Activity Type Activity Date Activity User E-Sign Co-Sign Detail Recorded Client Recorded Date Recorded By Document 02/21/18 09:15 CS [id number] 02/21/18 09:20 CS 02/21/18 09:15 Wound Center Nurse 1 [Ulcer Assessment] 1. sacral ulcer stg III -Combined with other wound No -Current Size (cm) - Length 1.5 -Current Size (cm) - Width 0.9 -Current Size (cm) - Depth 0.2 -Total Square Cm 1.35 -Epithelialization None Present -Tunneling No -Undermining/Tunneling No -Circular Undermining No -Exudate Amt Small (1-33%) -Exudate Type Serosanguineous -Wound Margin Distinct, Outline Attached -Granulation Amt Small (1-33%) -Granulation Quality [place] -Slough/Fibrin Yes -Necrosis Amt Large (67-100%) -Necrotic Tissue Type Adherent Slough -Texture (Pao-wound Skin Appearance) Callus -Moisture (Pao-wound Skin Appearance Maceration ) Dry/Scaly -Color (Pao-wound Skin Appearance) Palor -Temperature (Pao-wound Skin No Abnormality Appearance) (Pt Warm) -Tenderness on Palpation (Pao-wound No Skin Appearance) -Ulcer Cleansing Rinsed/ Irrigated with Saline -Foul Odor after Cleansing No -Anesthetic Used 5% Lidocaine Gel WC - Nurse 2 - General Ulcer CM Notes Start: 02/21/18 09:15 Freq: Status: Active Protocol: Activity Type Activity Date Activity User E-Sign Co-Sign Detail Recorded Client Recorded Date Recorded By Document 02/21/18 09:29 MW [id number] 02/21/18 09:33 MW 02/21/18 09:29 Wound Center Nurse 2 [Procedure/Treatment] -Time 09:29 -Correct Patient Yes -Correct Side, Site, Position Yes -Correct Procedure Yes -Procedure Performed Yes -Type of Procedure Debridement -Clinical Debridement Subcutaneous -Post Debridement Size (cm) - Length 0.5 -Post Debridement Size (cm) - Width 0.4 -Post Debridement Size (cm) - Depth 0.2 -Total Square Cm 0.20 -Wound/Ulcer Outcome Not Healed -Ulcer Cleansing Rinsed/ Irrigated with Saline -Foul Odor after Cleansing No -Bioengineered Tissue No -Bleeding Controlled with Pressure -Offloading No -Treatment Response Procedure Tolerated Well [See Physician Procedure note for Specifics] Pain Scale: 0-10 Numeric [Pain] -Is Patient Pain Free? Yes Musculoskeletal: No Tenderness to Palpation of Joints or Extremities Lymphatic: No Cervical, Supraclavicular, or Inguinal Adenopathy Neurological: Cranial nerves II-XII grossly intact, Neuro grossly intact Psych/Mental Status: Normal Affect, Appropriate Debridement Note Post-Debridement Measurements/Treatment WC - Nurse 2 - General Ulcer CM Notes Start: 02/21/18 09:15 Freq: Status: Active Protocol: Activity Type Activity Date Activity User E-Sign Co-Sign Detail Recorded Client Recorded Date Recorded By Document 02/21/18 09:29 MW [id number] 02/21/18 09:33 MW 02/21/18 09:29 Wound Center Nurse 2 1. sacral ulcer stg III -Time 09:29 -Correct Patient Yes -Correct Side, Site, Position Yes -Correct Procedure Yes -Procedure Performed Yes -Type of Procedure Debridement -Clinical Debridement Subcutaneous -Post Debridement Size (cm) - Length 0.5 -Post Debridement Size (cm) - Width 0.4 -Post Debridement Size (cm) - Depth 0.2 -Total Square Cm 0.20 -Wound/Ulcer Outcome Not Healed -Ulcer Cleansing Rinsed/ Irrigated with Saline -Foul Odor after Cleansing No -Bioengineered Tissue No -Bleeding Controlled with Pressure -Offloading No -Treatment Response Procedure Tolerated Well Pain Scale: 0-10 Numeric Is Patient Pain Free? Yes Wound debrided: Decubitus ulcer coccyx area Wound Grade/Stage: Stage II Type of Debridement: Excisional debridement Anesthesia Used: 5% Lidocaine Gel Depth: Down to and including healthy tissue, in the subcutaneous layer Percentage of wound debrided: 100 Instrument Used: 3mm curette Tissue Removed: Callus fibrin Amount of bleeding with debridement: Mild Bleeding Controlled with: Compression and gauze Patient tolerated procedure well Assessment/Plan Active Problems (Last Reviewed 01/22/18 @ 10:[address]) Nonhealing nonsurgical wound (Chronic) 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 Malnutrition. Difficulty walking. Infected decubitus ulcer resolved Plan: Promogran to wound base cover with moistened gauze gauze and tape. Follow-up in 2 week. continue to offload buttocks by lying flat in bed rather than in a chair as much as possible has a low air mattress. continue eating a highprotein diet and supplements. [place] instant breakfast with ice cream. Vitamin C 500 mg 2 by mouth daily. Information entered by nursing staff reviewed. This document was created using a voice recognition system. Errors in punctuation, spelling and grammar may not have been corrected prior to saving.
== END 2018-03-03 23:59 ==
LOC: WC 09:01
PROVIDERS: Family Provider Family Medicine; PCP Family Medicine; Visit Provider Nurse Practitioner
DX: L89.153 Pressure ulcer of sacral region, stage 3 (principal); L08.9 Local infection of the skin and subcutaneous tissue, unspecified; M51.36 Other intervertebral disc degeneration, lumbar region
CPT/HCPCS: 11042

== ENCOUNTER 2018-03-21 09:09 | Outpatient (RCR) | payer MEDICARE, OTHER, SELFPAY ==
[2018-03-04 00:37] VITALS: BP 129/85; PULSE 108; RESP 18; TEMP 36.3
[2018-03-21 09:11] VITALS: BP 144/95; PULSE 107; RESP 16; TEMP 36.2; BMI 17.0
--- NOTE | 2018-03-21 10:00 | PN.PCM_ITS ---
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 level Status: Chronic Current Visit: Yes Code(s): M51.36 - Other intervertebral disc degeneration, lumbar region Type of Wound Chief Complaint: 78-year-old white male emaciated living at home with his with many comorbidities. Patient has spinal stenosis so bad that he has no feeling in his rectum. Patient has frequent large stools. during the night, and it lays against the skin of his rectal area and causes denuded skin. Patient appears here with an small superficial ulcer on the coccyx area History of Wound: Patient has been evaluated by Dr. Hitchcock for possible surgical consult, but he feels that unless there is bone exposed to continue with ulcer care as prescribed. Nutrition has been an issue and he needs to continue nutritional efforts. And if he requires frequent ulcer care than because of incontinence then so be it Progress of Wound: The ulcer today is healed on the coccyx after 2 years of william tment. Patient will be discharged from the wound center - Physical Exam Vital Signs Temp Pulse Resp BP 97.1 F L 107 H 16 144/95 H 03/21/18 09:11 03/21/18 09:11 03/21/18 09:11 03/21/18 09:11 General: Oriented x3, Cooperative, Well developed HEENT: Atraumatic, PERRLA Oral: Moist Mucosa Neck: Supple, No JVD Lungs: Clear to auscultation, Normal air movement Cardiovascular: Regular rate, Regular Rhythm Abdomen: Bowel Sounds Present, Soft, Non Tender, No Hepato-splenomegaly Extremities: No clubbing, No edema Skin: Ulcer/ Wound - Coccyx ulcer stage III Wound Measurements and Assessment WC - Nurse 1 - General Ulcer Measurement Start: 03/21/18 09:11 Freq: Status: Active Protocol: Activity Type Activity Date Activity User E-Sign Co-Sign Detail Recorded Client Recorded Date Recorded By Document 03/21/18 09:11 [facility] [id number] 03/21/18 09:14 [facility] 03/21/18 09:11 Wound Center Nurse 1 [Ulcer Assessment] 1. sacral ulcer stg III -Combined with other wound No -Current Size (cm) - Length 0.7 -Current Size (cm) - Width 0.5 -Current Size (cm) - Depth 0.1 -Total Square Cm 0.35 -Date of Last Picture (Recall this 03/21/18 field) -Photo Taken Yes -Epithelialization None Present -Tunneling No -Undermining/Tunneling No -Circular Undermining No -Exudate Amt None Present -Wound Margin Flat & Intact -Granulation Amt None Present (0 %) -Slough/Fibrin Yes -Necrosis Amt Large (67-100%) -Necrotic Tissue Type Eschar -Texture (Pao-wound Skin Appearance) Scarring -Moisture (Pao-wound Skin Appearance Maceration ) -Color (Pao-wound Skin Appearance) Erythema Palor -Temperature (Pao-wound Skin No Abnormality Appearance) (Pt Warm) -Tenderness on Palpation (Pao-wound No Skin Appearance) -Ulcer Cleansing Rinsed/ Irrigated with Saline -Foul Odor after Cleansing No -Anesthetic Used 5% Lidocaine Gel WC - Nurse 2 - General Ulcer CM Notes Start: 03/21/18 09:11 Freq: Status: Active Protocol: Activity Type Activity Date Activity User E-Sign Co-Sign Detail Recorded Client Recorded Date Recorded By Document 03/21/18 09:37 MW [id number] 03/21/18 09:40 MW 03/21/18 09:37 Wound Center Nurse 2 [Procedure/Treatment] -Time 09:37 -Correct Patient Yes -Correct Side, Site, Position Yes -Correct Procedure Yes -Procedure Performed No -Post Debridement Size (cm) - Length 0 -Post Debridement Size (cm) - Width 0 -Post Debridement Size (cm) - Depth 0 -Total Square Cm 0 -Wound/Ulcer Outcome Healed- Epithelialized -Ulcer Cleansing Not Cleansed -Foul Odor after Cleansing No -Bleeding Controlled with NA -Offloading No -Treatment Response Procedure Tolerated Well [See Physician Procedure note for Specifics] Pain Scale: 0-10 Numeric [Pain] -Is Patient Pain Free? Yes Musculoskeletal: No Tenderness to Palpation of Joints or Extremities Lymphatic: No Cervical, Supraclavicular, or Inguinal Adenopathy Neurological: Cranial nerves II-XII grossly intact, Neuro grossly intact Psych/Mental Status: Normal Affect, Appropriate Debridement Note Post-Debridement Measurements/Treatment WC - Nurse 2 - General Ulcer CM Notes Start: 03/21/18 09:11 Freq: Status: Active Protocol: Activity Type Activity Date Activity User E-Sign Co-Sign Detail Recorded Client Recorded Date Recorded By Document 03/21/18 09:37 MW [id number] 03/21/18 09:40 MW 03/21/18 09:37 Wound Center Nurse 2 1. sacral ulcer stg III -Time 09:37 -Correct Patient Yes -Correct Side, Site, Position Yes -Correct Procedure Yes -Procedure Performed No -Post Debridement Size (cm) - Length 0 -Post Debridement Size (cm) - Width 0 -Post Debridement Size (cm) - Depth 0 -Total Square Cm 0 -Wound/Ulcer Outcome Healed- Epithelialized -Ulcer Cleansing Not Cleansed -Foul Odor after Cleansing No -Bleeding Controlled with NA -Offloading No -Treatment Response Procedure Tolerated Well Pain Scale: 0-10 Numeric Is Patient Pain Free? Yes No debridement was completed today Assessment/Plan Active Problems (Last Reviewed 01/22/18 @ 10:[address]) Degenerative disc disease at L5-S1 level (Chronic) Decubitus ulcer of coccygeal region, stage 3 (Chronic) Assessment: Chronic Pressure ulcer coccyx stage III solved. Malnutrition resolved. Difficulty walking. Infected decubitus ulcer resolved Plan: Patient was discharged from the wound center follow-up as needed
--- OUTSIDE RECORDS SUMMARY | 2018-05-25 16:06 | XMS RPT_ITS ---
:1935 Author Organization OHIP Support Name Relationship Address Phone R Unavailable Unavailable Unavailable ESTHELA, ERIC Unavailable [address] + [place] [address] R Unavailable Unavailable Unavailable ESTHELA, ERIC Unavailable [address] + [place] [address] R Unavailable Unavailable Unavailable ESTHELA, ERIC Unavailable [address] + [place] [address] R Unavailable Unavailable Unavailable ESTHELA, ERIC Unavailable [address] + [place] [address] R Unavailable Unavailable Unavailable ESTHELA, ERIC Unavailable [address] + [place] [address] R Unavailable Unavailable Unavailable ESTHELA, ERIC Unavailable [address] + [place] [address] R Unavailable Unavailable Unavailable ESTHELA, ERIC Unavailable [address] + [place] [address] R Unavailable Unavailable Unavailable ESTHELA, ERIC Unavailable [address] + [place] [address] R Unavailable Unavailable Unavailable ESTHELA, ERIC Unavailable [address] + [place] [address] R Unavailable Unavailable Unavailable ESTHELA, ERIC Unavailable [address] + [place] [address] R Unavailable Unavailable Unavailable ESTHELA, ERIC Unavailable [address] + [place] [address] R Unavailable Unavailable Unavailable ESTHELA, ERIC Unavailable [address] + [place] [address] R Unavailable Unavailable Unavailable ESTHELA, ERIC Unavailable [address] + [place] [address] R Unavailable Unavailable Unavailable ESTHELA, ERIC Unavailable [address] + [place] [address] R Unavailable Unavailable Unavailable ESTHELA, ERIC Unavailable [address] + [place] [address] R Unavailable Unavailable Unavailable ESTHELA, ERIC Unavailable [address] + [place] [address] R Unavailable Unavailable Unavailable ESTHELA, ERIC Unavailable [address] + [place] [address] Care Team Providers Name Role Phone Zaira Mcclellan CINDER CRUSHER OPERATOR-C Attending Unavailable Sheri, Rick Primary Care Unavailable Mcclellan, Zaira CINDER CRUSHER OPERATOR-C Attending Unavailable [facility], [facility] Care Unavailable Mcclellan, Zaira CINDER CRUSHER OPERATOR-C Attending Unavailable [facility], [facility] Care Unavailable Mcclellan, Zaira CINDER CRUSHER OPERATOR-C Attending Unavailable [facility], [facility] Care Unavailable Mcclellan, Zaira CINDER CRUSHER OPERATOR-C Attending Unavailable [facility], [facility] Care Unavailable Sheri, Irck Attending Unavailable [facility], [facility] Care Unavailable Mcclellan, Zaira CINDER CRUSHER OPERATOR-C Attending Unavailable [facility], [facility] Care Unavailable Mcclellan, Zaira CINDER CRUSHER OPERATOR-C Attending Unavailable [facility], [facility] Care Unavailable Sheri, Rick Attending Unavailable [facility], [facility] Unavailable Mcclellan, Zaira CINDER CRUSHER OPERATOR-C Attending Unavailable [facility], [facility] Care Unavailable Sheri, Rick Attending Unavailable [facility], [facility] Unavailable Mcclellan, Zaira CINDER CRUSHER OPERATOR-C Attending Unavailable [facility] Unavailable Mcclellan, Zaira CINDER CRUSHER OPERATOR-C Attending Unavailable [facility] Care Unavailable Mcclellan, Zaira CINDER CRUSHER OPERATOR-C Attending Unavailable [facility], [facility] Care Unavailable Eebn Latham Attending Unavailable Sheri, Rick Referring Unavailable Eben Latham Attending Unavailable Eben Ltaham Referring Unavailable [facility] Unavailable Mcclellan, Zaira CINDER CRUSHER OPERATOR-C Attending Unavailable [facility] Care Unavailable PROBLEMS PROBLEMS DATE TYPE CONDITION / CODE ATTENDING STATUS SOURCE 03/21/2018 Unknown L89.139 - Pressure Eleuterio, Active [place] ulcer of right Zaira CINDER CRUSHER OPERATOR-C [facility], [facility] unspecified stage Repository / L89.139(ICD-10) 01/22/2018 Unknown L98.9 - Disorder Eben Latham Active [place] of the skin and Community subcutaneous Hospital tissue, Repository unspecified / L98.9(ICD-10) 10/31/2017 Unknown N39.0 - Urinary Rick Wade Active [place] tract infection, Community site not specified Hospital / N39.0(ICD-10) Repository 09/01/2017 Unknown 707.03 - Pressure Mcclellan, Active [place] ulcer, lower back Zaira CINDER CRUSHER OPERATOR-C Community / 707.03(ICD-9) Hospital Repository 09/01/2017 Unknown 707.22 - Pressure Mcclellan, Active [place] ulcer, stage II / Zaira CINDER CRUSHER OPERATOR-C Community 707.22(ICD-9) Hospital Repository 09/01/2017 Unknown 443.0 - Raynaud's Mcclellan, Active [place] syndrome / Zaira CINDER CRUSHER OPERATOR-C Community 443.0(ICD-9) Hospital Repository 09/01/2017 Unknown 799.4 - Cachexia / Mcclellan, Active [place] 799.4(ICD-9) Zaira CINDER CRUSHER OPERATOR-C [facility] Repository 09/01/2017 Unknown 715.90 - Mcclellan, Active [place] Osteoarthrosis, Zaira CINDER CRUSHER OPERATOR-C Community unspecified Hospital whether Repository generalized or localized, site unspecified / 715.90(ICD-9) 09/01/2017 Unknown 783.0 - Anorexia / Mcclellan, Active [place] 783.0(ICD-9) Zaira CINDER CRUSHER OPERATOR-C Community Hospital Repository 09/01/2017 Unknown 263.1 - Mcclellan, Active [place] Malnutrition of Zaira CINDER CRUSHER OPERATOR-C Community mild degree / Hospital 263.1(ICD-9) Repository 09/01/2017 Unknown 724.00 - Spinal Mcclellan, Active [place] stenosis, Zaira CINDER CRUSHER OPERATOR-C Community unspecified region Hospital / 724.00(ICD-9) Repository 09/01/2017 Unknown 787.60 - Full Mcclellan, Active [place] incontinence of Zaira CINDER CRUSHER OPERATOR-C Community feces / Hospital 787.60(ICD-9) Repository 09/01/2017 Unknown 300.00 - Anxiety Mcclellan, Active [place] state, unspecified Zaira CINDER CRUSHER OPERATOR-C Community / 300.00(ICD-9) Hospital Repository 09/01/2017 Unknown 311 - Depressive Mcclellan, Active [place] disorder, not Zaira CINDER CRUSHER OPERATOR-C Community elsewhere Hospital classified / Repository 311(ICD-9) 09/01/2017 Unknown V15.82 - Personal Mcclellan, Active [place] history of tobacco Zaira CINDER CRUSHER OPERATOR-C Community use / Hospital V15.82(ICD-9) Repository 09/01/2017 Unknown V13.02 - Personal McclellanChrystal history, urinary Zaira CINDER CRUSHER OPERATOR-C Community (tract) infection Hospital / V13.02(ICD-9) Repository 09/01/2017 Unknown V58.69 - Long-term EleuterioChrystal (current) use of Zaira CINDER CRUSHER OPERATOR-C Community other medications Hospital / V58.69(ICD-9) Repository 07/30/2017 Unknown R30.0 - Dysuria / Rick Wade Active [place] R30.0(ICD-10) [facility] Repository 07/02/2017 Unknown Z00.00 - Encounter Eleuterio Active [place] for general adult Zaira CINDER CRUSHER OPERATOR-C [facility] examination Repository without abnormal findings / Z00.00(ICD-10) PROCEDURES PROCEDURES No Procedure Records FoundRESULTS RESULTS SURGERY VISIT REPORT Observed: 01/27/2018 Status: F Source: [place] 5:36 PM [facility] REPOSITORY [facility] [address] [place] [address]. [address] [place] [address] OFFICE VISIT Date of Service: 01/22/18 MR#: [id number] Acct: [id number] Name: DEVON PROCTOR Rep #: [id number] : 1935 Provider: Eben Latham MD Age/Sex: 82/M Location: [facility] Status: Signed Intake Intake Visit Reasons: presybeterian lesion Chief Complaint: excision skin lesion presybeterian C 13 Catapult Operator Required: No Is patient in pain?: No Allergies Sulfa (Sulfonamide Antibiotics) Allergy (Verified 01/22/18 10:13) Other Medications Amlodipine [Norvasc] 10 mg PO QHS 04/06/13 [History Confirmed 01/22/18] Aspirin [Aspirin, Baby] 81 mg PO DAILY@0800 04/06/13 [History Confirmed 01/22/18] Finasteride [Proscar] 5 mg PO DAILY 04/06/13 [History Confirmed 01/22/18] Gabapentin [Neurontin] 300 mg PO TIDCM 04/06/13 [History Confirmed 01/22/18] Lactobacillus Combination No.4 [Probiotic] 2 ea PO DAILY 04/06/13 [History Confirmed 01/22/18] Mirtazapine [Remeron] 30 mg PO QHS 04/06/13 [History Confirmed 01/22/18] Multivitamins,Therapeutic [Multivitamin] 1 tab PO DAILY 04/06/13 [History Confirmed 01/22/18] Oscal 1 tab PO BID 04/06/13 [History Confirmed 01/22/18] Trimethoprim [Trimpex] 100 mg PO DAILY 04/06/13 [History Confirmed 01/22/18] Zbec 1 tab PO 4X/DAY 04/06/13 [History Confirmed 01/22/18] Cilostazol [Pletal] 100 mg PO BID 04/10/13 [History Confirmed 01/22/18] Meloxicam [Mobic] 7.5 mg PO DAILY 10/28/15 [History Confirmed 01/22/18] Venlafaxine HCl [Effexor Xr] 37.5 mg PO DAILY 04/27/16 [History Confirmed 01/22/18] [facility] Medical History Skin lesion of face (Acute) Nonhealing nonsurgical wound (Chronic) 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 On inspection this is suspicious for basal cell carcinoma. With the patient's approval we elected to proceed with complete excision of this area today to facilitate his care. ROS General General: Yes weight change; no appetite, fatigue, colon cancer, breast cancer or weakness HEENT HEENT: Yes eye surgery; no difficulty swallowing, eye injury, swollen glands or hoarseness Endo Endocrine: No thyroid disease, diabetes mellitus, thyroid cancer, Hair loss, heat intolerance or cold intolerance Skin Skin: No rash or changing moles Additional Details: left temporal lesion Breast Breast: No left breast lump, right breast lump, nipple discharge, breast pain, abnormal mammogram, abnormal US or breast enlargement Musc Musculoskeletal: Yes back problems and arthritis; no rheumatoid arthritis, gout or joint pain Cardio Cardiovascular: No murmur, pacemaker, heart disease, atrial fibrillation, high blood pressure, heart attack, heart stent, palpitations, shortness of breat with exertion or chest pain Psych Psychiatric: Yes depression; no anxiety or hearing voices Resp Respiratory: No shortness of breath, No sleep apnea, No cough, No COPD, No asthma, No emphysema, No wheezing Gastro Gastrointestinal: No abdominal pain, No nausea or vomiting, No diarrhea, No constipation, No blood in stool, No acid reflux, No hemorrhoids, No ulcers, No gallbladder problem, No black,tarry stools [place] Hematologic: No blood thinners, No blood disorders, No bleeding, No anemia, No blood clots Neuro Neurologic: No system reviewed and no additional complaints, except as docu, No as per HPI, No abnormal walking, No abnormal hearing, No abnormal movements, No abnormal speech, No behavioral changes, No burning sensations, No confusion, No seizure-like activity, No unsteadiness, No dizziness, No localized weakness, No frequent falls, No headache(s), No lack of coordination, No loss of vision, No memory loss, No numbness, No other visual disturbances, No radiating pain, No restless legs, No sensory deficit, No fainting, No tingling, No tremor(s), No weakness, No other Exam Chest Breast Palpation: No nipple discharge Cardio Heart Sounds: no murmurs [facility] Procedure Performed By: Procedure performed by: Eben Latham Elliptical excision nonhealing centrally ulcerated left temporal face lesion Timeout and informed consent was obtained. The patient has a very vague 8 mm diameter skin lesion left presybeterian area. It appears to have a central ulceration. It appears to be consistent with a BCC. The area was prepped with Betadine. 1% lidocaine mixed 50-50 with 0.5% Marcaine was used as a local anesthetic. A total of 8 cc was used. A transverse elliptical 2 x 1 cm ellipse was used to completely excise the area. Hemostasis obtained with interrupted 4-0 chromic. Subdermal edges were approximated with the same. Skin edges were approximated with simple and mattress sutures of 6-0 nylon. Telfa tape dressing applied. He was given activity wound care instructions. The specimen is submitted in formalin for analysis Eben Latham M.D., F.A.C.S. Procedure Time Out Time Out Informed consent given: Yes Consent signed: Yes Time out checklist: patient, procedure, site marked/identified, positioning of patient, supplies available, allergies confirmed, team agrees on procedure Time out staff in room: Yes Time out verified: Yes Time out date: 01/22/18 Time out time: 10:30 Assessment AND Plan Problems 1. Skin lesion of face L98.9 Plan Nonhealing skin lesion left face Complete elliptical excision performed. Pathology is pending. 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 Because of the patient's difficulty in mobility she will assist with suture removal. If there are difficulty she will notify the office for assistance. The patient will be notified of pathology results as they become available Eben Latham M.D., F.A.C.S. Orders Orders: Coding Level of Care Code Attention Dex Diagnoses Skin lesion of face L98.9 Comment Malignant [id number] 01/27/181735 <Electronically signed by Eben Latham MD> Date Eben Latham MD Cosigner Signature: Date (if applicable) CC: Rick Wade MD LESION (CHOOSE SITE) Observed: 01/22/2018 Status: F Source: [place] 10:30 AM [facility] REPOSITORY Patient: DEVON PROCTOR : 1935 (82/M) Acct Num: [id number] Phys: Yeison HERNANDEZ,Eben Unit Num: [id number] Loc: [facility] Specimen: [id number] Received: 01/22/18 - 1414 Spec Type: Lesion TISSUES 1 TISSUES: Skin of face, NOS GROSS DESCRIPTION Received in fixative is one container labeled with the patient's name and designated left presybeterian. The specimen consists of a tejada- white skin ellipse measuring 2.3 x 1 cm and up to 0.2 cm in thickness. The specimen is inked, serially sectioned and submitted entirely in one cassette. / TONY:spring 01/22/18 TC:0 CPT: 39362 HEADER OPERATION: Excision left presybeterian lesion PRE-OP DIAGNOSIS: Uncertain neoplasm face TISSUE SUBMITTED: Left presybeterian tissue MICROSCOPIC DESCRIPTION Slides are reviewed. MICROSCOPIC DIAGNOSIS Left presybeterian region, excisional biopsy: Basal cell carcinoma, completely excised. Solar elastosis. SJ:spring 01/24/18 Signed Abimael Gonzalez 01/24/18 <signature on file> Performed By: #### PLES #### [facility] [address] [place], [address] URINALYSIS, COMPLETE Collected: 10/31/2017 Status: F Source: [place] 9:39 AM [facility] REPOSITORY Order Comment: How was Urine Obtained? CATHETER SPECIMEN TYPE CODE TESTS RESULT OUT OF RANGE REFERENCE UNITS LAB L400.3000 Yellow COLOR Normal Yellow LAB L400.3050 Clear Normal CLARITY Clear LAB L400.3200 Normal mg/dl Normal GLUCOSE, UR Normal LAB L400.3300 Negative mg/dL Normal BILIRUBIN URINE Negative LAB L400.3400 Negative mg/dl Normal KETONE UR Negative LAB L400.3465 1.002-1.030 Normal SP.GR. DIPSTX 1.025 LAB L400.3550 5.0 - 8.0 pH UR Normal 5.0 LAB L400.3600 Negative mg/dl PROT Normal DIPSTX Negative LAB L400.3700 Normal mg/dl Normal UROBILI Normal LAB L400.3750 Negative High NITRITE UR Positive LAB L400.3780 Negative /ul Normal OCCULT BLOOD-UR Negative LAB L400.3800 Negative /ul High LEUK 25 ESTERASE LAB L400.4050 0-5 /hpf WBC Normal 0-5 SEEN LAB L400.4100 0-5 /hpf 0 Normal RBC-UA SEEN LAB L400.4150 0-5 /hpf SQUAM 0 Normal EPI SEEN LAB L400.4300 None Seen /hpf 0 Normal BACTERIA SEEN LAB L400.4350 <or=2+ /hpf 1+ Normal MUCUS, URINE LAB L400.4250 0-5 /hpf RENAL Normal EPI 0-5 SEEN Performed By: #### L400.0001 #### [facility] [address] [place], [place], [address] Observed: 10/31/2017 Status: F Source: [place] CULTURE, URINE 9:39 AM [facility] REPOSITORY Urine Culture Culture exhibits no growth. Performed By: #### M100.0650 #### [facility] [address] [place], [address] URINALYSIS, ROUTINE Collected: 09/25/2017 Status: F Source: [place] (DIPSTICK) 8:00 AM [facility] REPOSITORY Order Comment: How was Urine Obtained? CLEAN CATCH TYPE CODE TESTS RESULT OUT OF RANGE REFERENCE UNITS LAB L400.3000 Yellow COLOR Normal Yellow LAB L400.3050 Clear Normal CLARITY Cloudy LAB L400.3200 Normal mg/dl Normal GLUCOSE, UR Normal LAB L400.3300 Negative mg/dL Normal BILIRUBIN URINE Negative LAB L400.3400 Negative mg/dl High 5 KETONE UR LAB L400.3465 1.002-1.030 Normal SP.GR. DIPSTX 1.020 LAB L400.3550 5.0 - 8.0 pH UR Normal 6.0 LAB L400.3600 Negative mg/dl High PROT 15 DIPSTX LAB L400.3700 Normal mg/dl Normal UROBILI Normal LAB L400.3750 Negative High NITRITE UR Positive LAB L400.3780 Negative /ul High 10 OCCULT BLOOD-UR LAB L400.3800 Negative /ul High LEUK ESTERASE 500 Performed By: #### L400.2010 #### [facility] [address] [place], [address] Observed: 09/25/2017 Status: F Source: [place] CULTURE, URINE 8:00 AM [facility] REPOSITORY Copy of report sent to Infection Control Printer [id number] 09/27/17 0948 TONNY. Urine Culture ORGANISM 1: Escherichia coli [place] Count >100,000 Escherichia coli: REACTION Amikacin $ 4 S Aztreonam $$$ >=64 R Meropenem $ <=0.25 S (NF) indicates non-formulary drug at [facility]. Approval by Infectious Disease Specialist required before non-formulary drugs may be ordered and/or dispensed. Escherichia coli: REACTION Amoxacillin/Clavulanic Acid $ 16 I Ampicillin $ >=32 R Ampicillin/Sulbactam $ >=32 R Cefazolin $ >=64 R Cefepime $ 2 R Ceftriaxone $ >=64 R Ciprofloxacin $ >=4 R ESBL + Ertapenim $$$ <=0.5 S Gentamicin $ <=1 S Imipenem *NF <=0.25 S Levofloxacin $ >=8 R Nitrofurantoin $ <=16 S Piperacillin/Tazobactam $$ 8 S Tobramycin $ >=16 R Trimethoprim/Sulfametho $ >=320 R (NF) indicates non-formulary drug at [facility]. Approval by Infectious Disease Specialist required before non-formulary drugs may be ordered and/or dispensed. Performed By: #### M100.0650 #### [facility] [address] [place], [address] PREALBUMIN Collected: 09/20/2017 Status: F Source: [place] 9:20 AM [facility] REPOSITORY TYPE CODE TESTS RESULT OUT OF RANGE REFERENCE UNITS LAB L506.0500 20.0-40.0 mg/dL Normal PREALBUMIN 25.2 Performed By: #### L506.0500 #### [facility] [address] [place], [address] Observed: 09/20/2017 Status: F Source: [place] CULTURE, DEEP WOUND 8:45 AM [facility] REPOSITORY Comments: SACRAL ULCER Gram Stain Gram Stain Red Cell Stroma No organisms seen Wound Culture #2 There are no CLSI standards for interpretation of this Drug/Organism combination. ORGANISM 1: Escherichia coli Amount Growth Rare ORGANISM 2: Corynebacterium minutissimum Amount Growth 2+ ORGANISM 3: Staphylococcus epidermidis Amount Growth 1+ Escherichia coli: REACTION Amoxacillin/Clavulanic Acid $ 8 S Ampicillin $ >=32 R Ampicillin/Sulbactam $ >=32 R Cefazolin $ <=4 S Cefepime $ <=1 S Ceftriaxone $ <=1 S Ciprofloxacin $ >=4 R ESBL - Ertapenim $$$ <=0.5 S Gentamicin $ <=1 S Imipenem *NF <=0.25 S Levofloxacin $ >=8 R Piperacillin/Tazobactam $$ 8 S Tobramycin $ <=1 S Trimethoprim/Sulfametho $ >=320 R (NF) indicates non-formulary drug at [facility]. Approval by Infectious Disease Specialist required before non-formulary drugs may be ordered and/or dispensed. Staphylococcus epidermidis: REACTION Benzylpenicillin NF >=0.5 R Cefoxitin *NF + Clindamycin $$ <=0.25 S Inducable Clindamycin Res[place] - Erythromycin $ <=0.25 S Gentamicin $ 8 I Levofloxacin $ >=8 R Linezolid $$$$ 2 S Oxacillin NF >=4 R Tigecycline $$$$ 0.25 S Rifampin $$ <=0.5 S Tetracycline NF 2 S Vancomycin $ 1 S (NF) indicates non-formulary drug at [facility]. Approval by Infectious Disease Specialist required before non-formulary drugs may be ordered and/or dispensed. * CLSI guidelines does not recommend testing of cephalosporins. This interpretation is deduced from Beta-lactam/penicillin results. Cult, Anaerobic No anaerobic bacteria isolated. Performed By: #### M100.1500 #### [facility] [place], [address] Observed: 08/02/2017 Status: F Source: [place] CULTURE, DEEP WOUND 8:20 AM [facility] REPOSITORY Comments: SACRAL ULCER INFECTED WOUND Gram Stain Gram Stain 3+ Red Blood Cells No White Blood Cells No organisms seen Wound Culture RESULT(S) PREVIOUSLY REPORTED ON MANUAL REQUISITION DURING DOWNTIME. #2 There are no CLSI standards for interpretation of this Drug/Organism combination. ORGANISM 1: Burkholderia cepacia Amount Growth Rare ORGANISM 2: Gram positive meseret Amount Growth 1+ Burkholderia cepacia: REACTION Ceftazidime *NF 4 S Ceftriaxone $ 16 I Ciprofloxacin $ 0.5 S Gentamicin $ 2 S Imipenem *NF >=16 R Levofloxacin $ 1 S Piperacillin/Tazobactam $$ 8 S Tobramycin $ <=1 S Trimethoprim/Sulfametho $ 160 R (NF) indicates non-formulary drug at [facility]. Approval by Infectious Disease Specialist required before non-formulary drugs may be ordered and/or dispensed. Cult, Anaerobic No anaerobic bacteria isolated. Performed By: #### M100.1500 #### [facility] [address] [place], [address] URINALYSIS, COMPLETE Collected: 07/30/2017 Status: F Source: [place] 3:06 PM [facility] REPOSITORY Order Comment: How was Urine Obtained? Urine, Random TYPE CODE TESTS RESULT OUT OF RANGE REFERENCE UNITS LAB L400.3000 Yellow COLOR Normal Yellow LAB L400.3050 Clear Normal CLARITY Clear LAB L400.3200 Normal mg/dl Normal GLUCOSE, UR Normal LAB L400.3300 Negative mg/dL Normal BILIRUBIN URINE Negative LAB L400.3400 Negative mg/dl Normal KETONE UR Negative LAB L400.3465 1.002-1.030 Normal SP.GR. DIPSTX 1.005 LAB L400.3550 5.0 - 8.0 pH UR Normal 7.0 LAB L400.3600 Negative mg/dl PROT Normal DIPSTX Negative LAB L400.3700 Normal mg/dl Normal UROBILI Normal LAB L400.3750 Negative Normal NITRITE UR Negative LAB L400.3780 Negative /ul High 10 OCCULT BLOOD-UR LAB L400.3800 Negative /ul High LEUK ESTERASE 500 LAB L400.4050 0-5 /hpf WBC Normal 10-25 SEEN LAB L400.4100 0-5 /hpf 0 Normal RBC-UA SEEN LAB L400.4150 0-5 /hpf SQUAM 0 Normal EPI SEEN LAB L400.4300 None Seen /hpf 1+ Normal BACTERIA LAB L400.4350 <or=2+ /hpf 0 Normal MUCUS, URINE SEEN Performed By: #### L400.0001 #### [facility] [address] [place], [address] Observed: 07/30/2017 Status: F Source: [place] CULTURE, URINE 3:06 PM [facility] REPOSITORY Urine Culture Copy of report sent to Infection Control Printer [id number] 08/01/17 1419 BLUCAS. RESULTS CALLED TO /NURSE LINE 08/02/17 1433 Kalpana Benítez. ORGANISM 1: Presumptive E. coli [place] Count >100,000 MARKER ESBL producing Organism Presumptive E. coli: REACTION Amikacin $ <=2 S Aztreonam $$$ <=1 R Meropenem $ <=0.25 S (NF) indicates non-formulary drug at [facility]. Approval by Infectious Disease Specialist required before non-formulary drugs may be ordered and/or dispensed. Presumptive E. coli: REACTION Amoxacillin/Clavulanic Acid $ 4 S Ampicillin $ >=32 R Ampicillin/Sulbactam $ 16 I Cefazolin $ >=64 R Cefepime $ <=1 R Ceftriaxone $ 4 R Ciprofloxacin $ >=4 R ESBL + Ertapenim $$$ <=0.5 S Gentamicin $ <=1 S Imipenem *NF <=0.25 S Levofloxacin $ 4 I Nitrofurantoin $ <=16 S Piperacillin/Tazobactam $$ <=4 S Tobramycin $ >=16 R Trimethoprim/Sulfametho $ >=320 R (NF) indicates non-formulary drug at [facility]. Approval by Infectious Disease Specialist required before non-formulary drugs may be ordered and/or dispensed. Performed By: #### M100.0650 #### [facility] [address] [place], [place], [address] PREALBUMIN Collected: 06/21/2017 Status: F Source: [place] 9:00 [facility] REPOSITORY TYPE CODE TESTS RESULT OUT OF RANGE REFERENCE UNITS LAB L506.0500 20.0-40.0 mg/dL Normal PREALBUMIN 20.2 Performed By: #### L506.0500 #### [facility] [address] [place], [address] CBC W/DIFF, AUTOMATED Collected: 06/21/2017 Status: F Source: [place] 9:00 AM [facility] REPOSITORY TYPE CODE TESTS RESULT OUT OF RANGE REFERENCE UNITS LAB L100.1000 4.4-11.0 K/mm3 Normal WBC 6.4 LAB L100.1200 4.6-6.2 M/mm3 Normal RBC 4.62 LAB L100.1300 13.0-16.5 g/dl Normal HGB 14.4 LAB L100.1400 40-54 % Normal HCT 44.8 LAB L100.1500 80-94 fL High MCV 97.0 LAB L100.1600 27.0-32.0 pg Normal MCH 31.2 LAB L100.1700 32-36 g/gl Normal MCHC 32.1 LAB L100.1810 11.6-14.6 % Normal RDW CV 13.7 LAB L100.1820 35.1-43.9 fl High RDW SD 48.5 LAB L100.1900 150-450 K/mm3 Normal PLT 323 LAB L100.2000 6.2-12.0 fl Normal MPV 9.7 LAB L100.2100 47-70 % High NEUT% 75.9 LAB L100.2200 19-41 % Low LY% 15.6 LAB L100.2300 0-10 % Normal MONO% 5.7 LAB L100.2400 0-5 % Normal EO% 2.0 LAB L100.2500 0-1 % Normal BASO% 0.8 LAB L100.2550 0.0-0.9 % Normal IM GRAN % 0.000 Result Comment: IG% - Immature Granulocytes (promyelocytes, myelocytes and metamyelocytes) > 1% indicates that a LEFT SHIFT is Present. LAB L100.2620 2.0-7.7 X10 3/uL Normal Absolute Neut 4.8 LAB L100.2720 0.83-4.51 X10 3/ul Normal Absolute Lymph 0.99 Performed By: #### L100.0100 #### [facility] [address] [place] [address]. [place], [place], [address] ALLERGIES ALLERGIES DATE TYPE / CODE NAME / CODE REACTION SEVERITY SOURCE 01/22/2018 Drug Sulfa Other Unknown [facility] Allergy/4160 (Sulfonamide Hospital 83540(SNOMED Antibiotics)/ Repository CT) [id number](RX NORM) ENCOUNTERS ENCOUNTERS ADMIT/DISCHARGE ACCOUNT ADMITTING ENCOUNTER LOCATION SOURCE NUMBER CLASS 03/21/2018 [id number] [place]ulatory [place] [facility] ing: Repository 02/21/2018/ [id number] [facility] ing: Repository 01/31/2018/ [id number] [facility] ing: Repository 01/22/2018 [id number] Amb[place] 8 [facility] ing[facility]LABSPEC Repository 01/22/2018/ [id number] Ambulatory BMSBuilding:B [place] 8 0 [facility] Repository 12/27/2017/ [id number] Ambulatory [place] 8 2 [facility] ing:WC Repository 11/22/2017/ [id number] Ambulatory [place] 8 2 [facility] ing[facility]WC Repository 10/31/2017 [id number] [place]ulatory [place] 7 [facility] Hospital ing:BFHLAB Repository 10/18/2017/ [id number] Ambulatory [place] 8 5 [facility] ing:WC Repository 09/27/2017/ [id number] Ambulatory [place] 8 8 [facility] Hospital ing:WC Repository 09/25/2017 [id number] Amb[place] 3 [facility] ing:LAB.FUTUR Repository E 08/30/2017/ [id number] Ambulatory [place] 8 1 [facility] Hospital ing:WC Repository 07/30/2017 [id number] Ambulatory [place] 4 [facility] Hospital ing:BFHLAB Repository 07/26/2017/ [id number] Ambulatory [place] 8 8 [facility] Hospital ing:WC Repository 06/21/2017/ [id number] Ambulatory [place] 8 1 [facility] ing:WC Repository 05/31/2017/ [id number] Ambulatory [place] 8 2 [facility] ing:WC Repository 04/26/2017/ [id number] Ambulatory [place] 8 9 [facility] ing:WC Repository PAYERS PAYERS ENCOUNTER GUARANTOR PAYER SUBSCRIBER SOURCE 03/21/2018 DEVON Brandt Primary Insurance:SELF NOT GIVENUNK [place] [id number] PAY [facility] Number: [facility] [place] Date:2018-03-04 Repository 73464Dro: () 02/21/2018 DEVON H Primary DEVON H [place] [id number] Insurance:MEDICARE STROUDDOB: Community Silver PART A BPolicy Number: [id number], [place] [id number] Repository 47011Yxv: (330) Date:2017-02-01 [id number] () 02/21/2018 Secondary DEVON H [place] Insurance:HUMANA STROUDDOB: Community COMMERCIALPolicy [id number] Hospital Number: Repository [id number] Date:6643-56-99RQ [address] [address]ON: 02/21/2018 Tertiary NOT GIVENUNK [place] Insurance:SELF PAY [facility] Number: Effective Repository Date:2018-02-01 01/31/2018 DEVON H Primary DEVON H [place] [id number] Insurance:MEDICARE STROUDDOB: Community Silver PART A BPolicy Number: [id number], [place] [id number] Repository 60383Onz: (084) Date:2017-02-01 [phone] () 01/31/2018 Secondary DEVON H [place] Insurance:HUMANA STROUDDOB: [facility] [id number] Hospital Number: Repository [id number] Date:3089-22-02NX [address] [address]SC: 01/31/2018 Tertiary NOT GIVENUNK [place] Insurance:SELF PAY [facility] Number: Effective Repository Date:2018-01-02 01/22/2018 DEVON H Primary DEVON H [place] [id number] Insurance:MEDICARE STROUDDOB: Community Silver PART A BPolicy Number: [id number], [place] [id number] Repository 10872Mbf: 330) Date:2018-01-22 [phone] () 01/22/2018 Secondary DEVON H Shira Insurance:HUMANA STROUDDOB: Community COMMERCIALPolicy [id number] Hospital Number: Repository [id number] Date:3275-21-29WT[address] [address]AL: 01/22/2018 Tertiary NOT GIVENUNK [place] Insurance:SELF PAY [facility] Number: Effective Repository Date:2018-01-22 01/22/2018 DEVON H Primary DEVON H [place] [id number] Insurance:MEDICARE STROUDDOB: Community Silver PART A BPolicy Number: [id number], [place] [id number] Repository 323[address]Lvu: (130) Date:2018-01-14 [phone] () 01/22/2018 Secondary DEVON H [place] Insurance:HUMANA STROUDDOB: [facility] [id number] Hospital Number: Repository [id number] Date:8683-09-98OF[address] [address]EU: 01/22/2018 Tertiary NOT GIVENUNK [place] Insurance:SELF PAY [facility] Hospital Number: Effective Repository Date:2018-01-22 12/27/2017 Devon H Primary Devon H [place] [id number] Insurance:MEDICARE StroudDOB: Community Silver PART A BPolicy Number: [id number], [place] [id number] Repository 34[address]Csz: (074) Date:2017-02-01 [phone] () 12/27/2017 Secondary Devon H Shira Insurance:HUMANA StroudDOB: [facility] [id number] Hospital Number: Repository [id number] Date:2896-00-22ON[address] [address]JH: 12/27/2017 Tertiary NOT GIVENUNK [place] Insurance:SELF PAY [facility] Hospital Number: Effective Repository Date:2017-12-02 11/22/2017 Devon H Primary Devon H [place] [id number] Insurance:MEDICARE StroudDOB: Community Silver PART A BPolicy Number: [id number], [place] [id number] Repository [address]Mlm: 330) Date:2017-02-01 [phone] () 11/22/2017 Secondary Devon H [place] Insurance:HUMANA StroudDOB: Community COMMERCIALPolicy [id number] Hospital Number: Repository [id number] Date:2922-23-30YT [address] [address]IN: 11/22/2017 Tertiary NOT GIVENUNK [place] Insurance:SELF PAY [facility] Hospital Number: Effective Repository Date:2017-11-02 10/31/2017 Devon H Primary Devon H [place] [id number] Insurance:MEDICARE StroudDOB: Community Silver PART A BPolicy Number: [id number], [place] [id number] Repository [address]Ctz: 330) Date:2017-10-31 [phone] () 10/31/2017 Secondary Devon H Sh[place] Insurance:HUMANA StroudDOB: [facility] [id number] Hospital Number: Repository [id number] Date:7716-83-94OV[address] [address]CJ: 10/31/2017 Tertiary NOT GIVENUNK [place] Insurance:SELF PAY [facility] Number: Effective Repository Date:2017-10-31 10/18/2017 Devon H Primary Devon H [place] [id number] Insurance:MEDICARE StroudDOB: Community Silver PART A BPolicy Number: [id number], [place] [id number] Repository 20951Jmu: 330) Date:2017-02-01 [phone] () 10/18/2017 Secondary Devon H Sh[place] Insurance:HUMANA StroudDOB: Community COMMERCIALPolicy [id number] Hospital Number: Repository [id number] Date:1579-75-33MQ [address] [address]HC: 10/18/2017 Tertiary NOT GIVENUNK [place] Insurance:SELF PAY [facility] Hospital Number: Effective Repository Date:2017-10-02 09/27/2017 Devon H Primary Devon H [place] [id number] Insurance:MEDICARE StroudDOB: Community Silver PART A BPolicy Number: [id number], [place] [id number] Repository 444[address]Hgc: (366) Date:2017-02-01 [phone] () 09/27/2017 Secondary Devon H [place] Insurance:HUMANA StroudDOB: [facility] [id number] Hospital Number: Repository [id number] Date:6545-22-24NT[address] [address]JF: 09/27/2017 Tertiary NOT GIVENUNK [place] Insurance:SELF PAY [facility] Hospital Number: Effective Repository Date:2017-09-01 09/25/2017 Devon H Primary Devon H [place] [id number] Insurance:MEDICARE StroudDOB: Community Silver PART A BPolicy Number: [id number], [place] [id number] Repository [address]Isg: (912) Date:2017-09-24 [phone] () 09/25/2017 Secondary Devno H [place] Insurance:HUMANA StroudDOB: [facility] [id number] Hospital Number: Repository [id number] Date:9150-65-67OJ[address] [address]CR: 09/25/2017 Tertiary NOT GIVENUNK [place] Insurance:SELF PAY [facility] Number: Effective Repository Date:2017-09-24 08/30/2017 Devon H Primary Devon H [place] [id number] Insurance:MEDICARE StroudDOB: Community Silver PART A BPolicy Number: [id number], [place] [id number] Repository 06783Ftl: (821) Date:2017-02-01 [phone] () 08/30/2017 Secondary Devon H [place] Insurance:HUMANA StroudDOB: Community COMMERCIALPolicy [id number] Hospital Number: Repository [id number] Date:3486-41-47OB[address] [address]SY: 08/30/2017 Tertiary NOT GIVENUNK [place] Insurance:SELF PAY [facility] Hospital Number: Effective Repository Date:2017-08-02 07/30/2017 Devon H Primary Devon H [place] [id number] Insurance:MEDICARE StroudDOB: Community Silver PART A BPolicy Number: [id number], [place] [id number] Repository 316[address]Heq: (474) Date:2017-07-30 [phone] () 07/30/2017 Secondary Devon H [place] Insurance:HUMANA StroudDOB: [facility] [id number] Hospital Number: Repository [id number] Date:9214-93-09VQ[address] [address]EC: 07/30/2017 Tertiary NOT GIVENUNK [place] Insurance:SELF PAY [facility] Hospital Number: Effective Repository Date:2017-07-30 07/26/2017 Devon H Primary Devon Brandt [place] [id number] Insurance:MEDICARE StroudDOB: Community Silver PART A BPolicy Number: [id number], [place] [id number] Repository [address]Fus: 330) Date:2017-02-01 [phone] (HP) 07/26/2017 Secondary Devon H Sh[place] Insurance:HUMANA StroudDOB: Community COMMERCIALPolicy [id number] Hospital Number: Repository [id number] Date:9126-56-38GW[address] [address]NW: 07/26/2017 Tertiary NOT GIVENUNK [place] Insurance:SELF PAY [facility] Hospital Number: Effective Repository Date:2017-07-02 06/21/2017 Devon H Primary Devon H [place] [id number] Insurance:MEDICARE StroudDOB: Community Silver PART A BPolicy Number: [id number], [place] [id number] Repository 355[address]Jxc: 330) Date:2017-02-01608 () 06/21/2017 Secondary Devon H [place] Insurance:HUMANA StroudDOB: [facility] [id number] Hospital Number: Repository [id number] Date:8401-05-47EN[address] [address]CA: 06/21/2017 Tertiary NOT GIVENUNK [place] Insurance:SELF PAY [facility] Hospital Number: Effective Repository Date:2017-06-02 05/31/2017 Devon H Primary Devon H [place] [id number] Insurance:MEDICARE StroudDOB: Community Silver PART A BPolicy Number: [id number], [place] [id number] Repository 17[address]Tio: 330) Date:2017-02-01 () 05/31/2017 Secondary Devon H [place] Insurance:HUMANA StroudDOB: [facility] [id number] Hospital Number: Repository [id number] Date:6418-83-63XV[address] [address]GW: 05/31/2017 Tertiary NOT GIVENUNK [place] Insurance:SELF PAY [facility] Number: Effective Repository Date:2017-05-02 04/26/2017 Devon H Primary Devon H Sh[place] [id number] Insurance:MEDICARE StroudDOB: Community Silver PART A BPolicy Number: [id number], [place] [id number] Repository 246[address]Bkp: 330) Date:2017-02-014 () 04/26/2017 Secondary Devon H [place] Insurance:HUMANA StroudDOB: [facility] [id number] Hospital Number: Repository [id number] Date:4289-35-23ST[address] [address]HZ: 04/26/2017 Tertiary NOT GIVENUNK [place] Insurance:SELF PAY [facility] Number: Effective Repository Date:2017-04-04
== END 2018-04-03 23:59 ==
LOC: WC 09:09
PROVIDERS: Family Provider Family Medicine; PCP Family Medicine; Visit Provider Nurse Practitioner
DX: Z09 Encounter for follow-up examination after completed treatment for conditions other than malignant neoplasm (principal); M51.36 Other intervertebral disc degeneration, lumbar region
CPT/HCPCS: 99212; G0463

== ENCOUNTER 2018-08-01 08:30 | Outpatient (RCR) | payer MEDICARE, OTHER, SELFPAY ==
[2018-07-25 08:22] VITALS: BP 147/93; PULSE 91; RESP 18; TEMP 36.6
--- NOTE | 2018-07-25 09:43 | HP.PCM_ITS ---
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 Patient has spinal stenosis so bad that he has no feeling in his rectum. Patient has frequent large stools. during the night, and it lays against the skin of his rectal area and causes denuded skin. Patient appears here with an small superficial ulcer on the coccyx area History of Wound: Approximately the 2 weeks ago started develop a split in his coccygeal area again. has used Bactroban ointment on it covered it with gauze changing it once to twice a day. Still has bouts of severe diarrhea or bowel movements and gets it soiled. Patient does wear pull-ups. 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 Patient is not as mobile as he was so he is sitting more. The area looks open red erythematous around it we will try Promogran no ointments follow-up in a week. Past Medical History Past Medical History: Chronic Problems (Last Reviewed 01/22/18 @ 10:[address]) Nonhealing nonsurgical wound (Chronic) Degenerative disc disease at L5-S1 level (Chronic) Difficulty walking (Chronic) Malnutrition (Chronic) Infected decubitus ulcer (Chronic) Decubitus ulcer of coccygeal region, stage 3 (Chronic) Accidental fall (Chronic) Past Medical History: Coccyx stage II decubitus ulcer. Cellulitis around the wound Surgical History: no surgical history, - Allergies/Adverse Reactions: Allergies Sulfa (Sulfonamide Antibiotics) Allergy (Verified 01/22/18 10:13) Other Home Medications: Ambulatory Orders Medication Instructions Recorded Amlodipine [Norvasc] 10 mg PO QHS 04/06/13 Aspirin [Aspirin, Baby] 81 mg PO DAILY@0800 04/06/13 Finasteride [Proscar] 5 mg PO DAILY 04/06/13 Gabapentin [Neurontin] 300 mg PO TIDCM 04/06/13 Lactobacillus Combination No.4 2 ea PO DAILY 04/06/13 [Probiotic] Mirtazapine [Remeron] 30 mg PO QHS 04/06/13 Multivitamins,Therapeutic 1 tab PO DAILY 04/06/13 [Multivitamin] Oscal 1 tab PO BID 04/06/13 Trimethoprim [Trimpex] 100 mg PO DAILY 04/06/13 Zbec 1 tab PO 4X/DAY 04/06/13 Cilostazol [Pletal] 100 mg PO BID 04/10/13 Meloxicam [Mobic] 7.5 mg PO DAILY 10/28/15 Venlafaxine HCl [Effexor Xr] 37.5 mg PO DAILY 04/27/16 - Family History Maternal Family History: Family History (Last Updated 01/22/18 @ 10:[address]) Brother Diabetes Cancer, Heart Disease, Seizures Sibling Family History: Family History (Last Updated 01/22/18 @ 10:[address]) Brother Diabetes Diabetes, Pulmonary Disease, Stroke, - Lives: Spouse/ Significant Other Smoking Status: Former smoker Tobacco Use: Non-smoker Alcohol: None Drugs: None Review of Systems Constitutional: Denies: Chills, Fever Eyes: Denies: Blurred vision, Drainage, Pain HEENT: Denies: Difficulty Hearing, Difficulty Swallowing, Sore Throat, Visual Changes Cardiovascular: Denies: Chest Pain, Palpitations, Syncope Respiratory: Denies: Cough, Shortness of Breath Gastrointestinal: Denies: Abdominal Pain, Nausea, Vomiting Genitourinary: Denies: Dysuria, Frequency Musculoskeletal: Denies: Joint Pain, Muscle pain Skin: Reports: - - Wound in the coccyx area. Denies: Jaundice, Rash Neurological: Denies: Balance problems, Change in Speech, Difficulty swallowing, Focal weakness Psychiatric: Denies: Anxiety, Depression Endocrine: Denies: Change in Body Habitus Hematologic/ Lymphatic: Denies: Adenopathy - Physical Exam Vital Signs Temp Pulse Resp BP 97.8 F 91 18 147/93 H 07/25/18 08:22 07/25/18 08:22 07/25/18 08:22 07/25/18 08:22 General: Oriented x3, Cooperative, Well developed HEENT: Atraumatic, PERRLA Oral: Moist Mucosa Neck: Supple, No JVD Lungs: Clear to auscultation, Normal air movement Cardiovascular: Regular rate, Regular Rhythm Abdomen: Bowel Sounds Present, Soft, Non Tender, No Hepato-splenomegaly Extremities: No clubbing, No edema Skin: - - Cutis ulcer coccygeal area stage II Wound Measurements and Assessment WC - Nurse 1 - General Ulcer Measurement Start: 07/25/18 08:22 Freq: Status: Active Protocol: Activity Type Activity Date Activity User E-Sign Co-Sign Detail Recorded Client Recorded Date Recorded By Document 07/25/18 08:22 DV [id number] 07/25/18 08:32 DV 07/25/18 08:22 Wound Center Nurse 1 [Ulcer Assessment] #2 Sacral Ulcer -Combined with other wound No -Current Size (cm) - Length 1.0 -Current Size (cm) - Width 0.1 -Current Size (cm) - Depth 0.1 -Total Square Cm 0.10 -Photo Taken Yes -Epithelialization None Present -Tunneling No -Undermining/Tunneling No -Circular Undermining No -Classification - Thickness Full Thickness without Exposed Support Structure -Exudate Amt Small -Exudate Type Serosanguineous -Wound Margin Flat & Intact -Granulation Amt None Present (0 %) -Granulation Quality N/A -Slough/Fibrin Yes -Necrosis Amt Small (1-33%) -Necrotic Tissue Type Adherent Slough -Structure Exposed None/Limited to Skin Breakdown -Texture (Pao-wound Skin Appearance) Assessed Scarring -Moisture (Pao-wound Skin Appearance Assessed ) Dry/Scaly -Color (Pao-wound Skin Appearance) Assessed Erythema -Tenderness on Palpation (Pao-wound No Skin Appearance) -Ulcer Cleansing Rinsed/ Irrigated with Saline -Foul Odor after Cleansing No -Anesthetic Used 4% Lidocaine Solution [Edema Assessment] -Lower Limb Edema Present No WC - Nurse 2 - General Ulcer CM Notes Start: 07/25/18 08:22 Freq: Status: Active Protocol: Activity Type Activity Date Activity User E-Sign Co-Sign Detail Recorded Client Recorded Date Recorded By Document 07/25/18 08:50 MW [id number] 07/25/18 08:52 MW 07/25/18 08:50 Wound Center Nurse 2 [Procedure/Treatment] #2 Sacral Ulcer -Time 08:50 -Correct Patient Yes -Correct Side, Site, Position Yes -Correct Procedure Yes -Procedure Performed Yes -Type of Procedure Debridement -Clinical Debridement Subcutaneous -Post Debridement Size (cm) - Length 1.0 -Post Debridement Size (cm) - Width 0.2 -Post Debridement Size (cm) - Depth 0.1 -Total Square Cm 0.20 -Wound/Ulcer Outcome Not Healed -Ulcer Cleansing Rinsed/ Irrigated with Saline -Foul Odor after Cleansing No -Bioengineered Tissue No -Bleeding Controlled with Pressure -Offloading No -Treatment Response Procedure Tolerated Well [See Physician Procedure note for Specifics] Pain Scale: 0-10 Numeric [Pain] -Is Patient Pain Free? Yes Musculoskeletal: No Tenderness to Palpation of Joints or Extremities Lymphatic: No Cervical, Supraclavicular, or Inguinal Adenopathy Neurological: Cranial nerves II-XII grossly intact, Neuro grossly intact Psych/Mental Status: Normal Affect, Appropriate Debridement Note Post-Debridement Measurements/Treatment WC - Nurse 2 - General Ulcer CM Notes Start: 07/25/18 08:22 Freq: Status: Active Protocol: Activity Type Activity Date Activity User E-Sign Co-Sign Detail Recorded Client Recorded Date Recorded By Document 07/25/18 08:50 MW [id number] 07/25/18 08:52 MW 07/25/18 08:50 Wound Center Nurse 2 #2 Sacral Ulcer -Time 08:50 -Correct Patient Yes -Correct Side, Site, Position Yes -Correct Procedure Yes -Procedure Performed Yes -Type of Procedure Debridement -Clinical Debridement Subcutaneous -Post Debridement Size (cm) - Length 1.0 -Post Debridement Size (cm) - Width 0.2 -Post Debridement Size (cm) - Depth 0.1 -Total Square Cm 0.20 -Wound/Ulcer Outcome Not Healed -Ulcer Cleansing Rinsed/ Irrigated with Saline -Foul Odor after Cleansing No -Bioengineered Tissue No -Bleeding Controlled with Pressure -Offloading No -Treatment Response Procedure Tolerated Well Pain Scale: 0-10 Numeric Is Patient Pain Free? Yes Wound debrided: Decubitus ulcer coccygeal area Wound Grade/Stage: Stage II Type of Debridement: Excisional debridement Anesthesia Used: 5% Lidocaine Gel Depth: Down to and including healthy tissue, in the subcutaneous layer, to muscle Percentage of wound debrided: 100 Instrument Used: 5mm curette Tissue Removed: Fibrin Severity: Limited To Skin Breakdown Amount of bleeding with debridement: Mild Bleeding Controlled with: Compression and gauze Patient tolerated procedure well Assessment/Plan Active Problems (Last Reviewed 01/22/18 @ 10:[address]) Decubitus ulcer of coccyx, stage 2 (Acute) Nonhealing nonsurgical wound (Chronic) Degenerative disc disease at L5-S1 level (Chronic) Difficulty walking (Chronic) Malnutrition (Chronic) Assessment: Pressure ulcer coccyx stage. Malnutrition resolved. Difficulty walking Plan: Wash the area with Hibiclens. Apply Promogran to the wound base. Cover with Adaptic gauze dressings. Follow-up 1 week
[2018-07-25 11:43] LABS: Prealbumin 25.7 mg/dL (20.0-40.0)
[2018-08-01 08:36] VITALS: BP 138/85; PULSE 98; RESP 18; TEMP 36.1
--- NOTE | 2018-08-01 09:08 | PN.PCM_ITS ---
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 Patient has spinal stenosis so bad that he has no feeling in his rectum. Patient has frequent large stools. during the night, and it lays against the skin of his rectal area and causes denuded skin. Patient appears here with an small superficial ulcer on the coccyx area History of Wound: Approximately the 2 weeks ago started develop a split in his coccygeal area again. has used Bactroban ointment on it covered it with gauze changing it once to twice a day. Still has bouts of severe diarrhea or bowel movements and gets it soiled. Patient does wear pull-ups. 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 Patient is not as mobile as he was so he is sitting more. The area looks open red erythematous around it we will try Promogran no ointments follow-up in a week. Progress of Wound: Today the area is healed using Promogran scab intact. - Physical Exam Vital Signs Temp Pulse Resp BP 97 F L 98 18 138/85 H 08/01/18 08:36 08/01/18 08:36 08/01/18 08:36 08/01/18 08:36 General: Oriented x3, Cooperative, Well developed HEENT: Atraumatic, PERRLA Oral: Moist Mucosa Neck: Supple, No JVD Lungs: Clear to auscultation, Normal air movement Cardiovascular: Regular rate, Regular Rhythm Abdomen: Bowel Sounds Present, Soft, Non Tender, No Hepato-splenomegaly Extremities: No clubbing, No edema Wound Measurements and Assessment WC - Nurse 1 - General Ulcer Measurement Start: 07/25/18 08:22 Freq: Status: Active Protocol: Activity Type Activity Date Activity User E-Sign Co-Sign Detail Recorded Client Recorded Date Recorded By Document 08/01/18 08:36 RB [id number] 08/01/18 08:40 RB 08/01/18 08:36 Wound Center Nurse 1 [Ulcer Assessment] #5 Sacral Ulcer -Combined with other wound No -Current Size (cm) - Length 0.1 -Current Size (cm) - Width 0.1 -Current Size (cm) - Depth 0.1 -Total Square Cm 0.01 -Tunneling No -Undermining/Tunneling No -Circular Undermining No -Exudate Amt None Present -Wound Margin Distinct, Outline Attached -Granulation Amt Medium (34-66%) -Granulation Quality Fancy Gap -Slough/Fibrin Yes -Necrosis Amt Large (67-100%) -Necrotic Tissue Type Adherent Slough -Structure Exposed N/A -Texture (Pao-wound Skin Appearance) Assessed -Moisture (Pao-wound Skin Appearance Assessed ) -Color (Pao-wound Skin Appearance) Assessed -Temperature (Pao-wound Skin No Abnormality Appearance) (Pt Warm) -Tenderness on Palpation (Pao-wound No Skin Appearance) -Ulcer Cleansing Rinsed/ Irrigated with Saline -Foul Odor after Cleansing No -Anesthetic Used 4% Lidocaine Solution - Nurse 2 - General Ulcer CM Notes Start: 07/25/18 08:22 Freq: Status: Active Protocol: Activity Type Activity Date Activity User E-Sign Co-Sign Detail Recorded Client Recorded Date Recorded By Document 08/01/18 08:49 MW [id number] 08/01/18 08:50 MW 08/01/18 08:49 Wound Center Nurse 2 [Procedure/Treatment] -Time 08:49 -Correct Patient Yes -Correct Side, Site, Position Yes -Correct Procedure Yes -Procedure Performed No -Post Debridement Size (cm) - Length 0 -Post Debridement Size (cm) - Width 0 -Post Debridement Size (cm) - Depth 0 -Total Square Cm 0 -Wound/Ulcer Outcome Healed- Epithelialized [See Physician Procedure note for Specifics] Musculoskeletal: No Tenderness to Palpation of Joints or Extremities Lymphatic: No Cervical, Supraclavicular, or Inguinal Adenopathy Neurological: Cranial nerves II-XII grossly intact, Neuro grossly intact Psych/Mental Status: Normal Affect, Appropriate Debridement Note Post-Debridement Measurements/Treatment WC - Nurse 2 - General Ulcer CM Notes Start: 07/25/18 08:22 Freq: Status: Active Protocol: Activity Type Activity Date Activity User E-Sign Co-Sign Detail Recorded Client Recorded Date Recorded By Document 07/25/18 08:50 MW [id number] 07/25/18 08:52 MW Document 08/01/18 08:49 MW [id number] 08/01/18 08:50 MW 07/25/18 08/01/18 08:50 08:49 Wound Center Nurse 2 #5 Sacral Ulcer -Time 08:50 08:49 -Correct Patient Yes Yes -Correct Side, Site, Position Yes Yes -Correct Procedure Yes Yes -Procedure Performed Yes No -Type of Procedure Debridement -Clinical Debridement Subcutaneous -Post Debridement Size (cm) - Length 1.0 0 -Post Debridement Size (cm) - Width 0.2 0 -Post Debridement Size (cm) - Depth 0.1 0 -Total Square Cm 0.20 0 -Wound/Ulcer Outcome Not Healed Healed- Epithelialized -Ulcer Cleansing Rinsed/ Irrigated with Saline -Foul Odor after Cleansing No -Bioengineered Tissue No -Bleeding Controlled with Pressure -Offloading No -Treatment Response Procedure Tolerated Well Pain Scale: 0-10 Numeric Is Patient Pain Free? Yes No debridement was completed today Assessment/Plan Active Problems (Last Reviewed 01/22/18 @ 10:[address]) Decubitus ulcer of coccyx, stage 2 (Acute) Nonhealing nonsurgical wound (Chronic) Degenerative disc disease at L5-S1 level (Chronic) Difficulty walking (Chronic) Malnutrition (Chronic) Assessment: Pressure ulcer coccyx stage resolved. Malnutrition resolved. Difficulty walking Plan: Discharge from the wound center follow-up as needed
== END 2018-08-01 23:59 ==
LOC: WC 08:30
PROVIDERS: Family Provider Family Medicine; PCP Family Medicine; Visit Provider Nurse Practitioner
DX: L89.152 Pressure ulcer of sacral region, stage 2 (principal); M51.37 Other intervertebral disc degeneration, lumbosacral region; R26.2 Difficulty in walking, not elsewhere classified; Z79.899 Other long term (current) drug therapy; Z87.891 Personal history of nicotine dependence
CPT/HCPCS: 11042; 84134; 99213; G0463

== ENCOUNTER → 2018-08-25 | Outpatient (CLI) | payer MEDICARE, OTHER, SELFPAY ==
[2018-08-25 12:36] LABS: Absolute Lymphocyte Count 0.92 X10^3/ul (0.83-4.51); Absolute Neutrophil Count 9.9 X10^3/uL (2.0-7.7); Basophil# 0.02 X10^3/uL; Basophil% 0.2 % (0-1); Eosinophil# 0.03 X10^3/uL; Eosinophils% 0.3 % (0-5); Hematocrit 46.4 % (40-54); Hemoglobin 15.6 g/dl (13.0-16.5); Lymphocyte # 0.92 X10^3/ul (4.0); Lymphocyte % 8.1 % (19-41); Mean Corp Hgb Conc 33.6 g/gl (32-36); Mean Corpuscular Hgb 31.1 pg (27.0-32.0); Mean Corpuscular Volume 92.6 fL (80-94); Mean Platelet Vol. 9.7 fl (6.2-12.0); Monocyte# 0.53 X10^3/uL; Monocyte% 4.7 % (0-10); Neutrophil # 9.86 X10^3/uL (2.7-7.7); Neutrophil % 86.5 % (47-70); Platelet Count 308 K/mm3 (150-450); RBC Distribution Width CV 13.8 % (11.6-14.6); RBC Distribution Width SD 45.4 fl (35.1-43.9); Red Blood Count 5.01 M/mm3 (4.6-6.2); White Blood Count 11.4 K/mm3 (4.4-11.0)
[2018-08-25 12:47] LABS: POSITIVE COUNT NO; POSITIVE DIFFERENTIAL NO; POSITIVE MORPHOLOGY NO
[2018-08-25 12:50] LABS: Anion Gap 7 (5-15); BUN 15 mg/dL (7-18); BUN/Creat Ratio 26.1 RATIO (10-20); Chloride 105 mmol/L (98-107); Creatinine, Serum 0.57 mg/dL (0.70-1.30); EST Glomerular Filtration Rate 144 mL/min (>60); Est Glom Filt Rate - Afr Amer 174 mL/min (>60); Glucose 79 mg/dL (74-106); Potassium 3.7 mmol/L (3.5-5.1); Sodium Level 138 mmol/L (136-145); T4 Free Direct 1.28 ng/dL (0.76-1.46); Thyroid Stim Hormone (TSH) 0.24 uIU/mL (0.358-3.74)
== END | disposition home or self-care (01) ==
LOC: BFHLAB 10:03
PROVIDERS: Family Provider Family Medicine; PCP Family Medicine; Visit Provider Family Medicine
DX: I10 Essential (primary) hypertension (principal); R25.1 Tremor, unspecified; I49.9 Cardiac arrhythmia, unspecified; F41.9 Anxiety disorder, unspecified
CPT/HCPCS: 36415; 80048; 84439; 84443; 85025

== ENCOUNTER → 2018-09-19 | Outpatient (CLI) | payer MEDICARE, OTHER, SELFPAY | END | disposition home or self-care (01) | LOC: BFHLAB 10:59 | PROVIDERS: Family Provider Family Medicine; PCP Family Medicine; Visit Provider Family Medicine | DX: N39.0 Urinary tract infection, site not specified (principal) | CPT/HCPCS: 87077; 87086; 87088; 87186 ==

== ENCOUNTER → 2019-02-07 09:31 | Outpatient (CLI) | payer MEDICARE, OTHER, SELFPAY ==
--- NOTE | 2019-02-07 10:00 | LES_PTH ---
PATIENT: LEONILA PROCTOR LOC: [facility] U#:[id number] AGE/SX: 89/M ROOM: RE02/07/[address]: Dr. Eben Latham MD : 1935 BED: DIS: SPEC #: [id number] RECD: 02/09/19 09:00 STATUS: ZANDRA KENNETH #: [id number] EMILY: 02/07/19 10:[address]: Eben Latham DEPT: SURGICAL PATHOLOGY RECD BY: Derick Pizarro ENTERED: 02/09/19 09:49 SP TYPE: Lesion OTHR DR: Dr. Rick Wade MD Tissues: Skin of face, NOS Procedures: Surgery Specimen Level IV HEADER OPERATION: Excision facial lesion PRE-OP DIAGNOSIS: Uncertain neoplasm of face TISSUE SUBMITTED: Left cheek MICROSCOPIC DIAGNOSIS Skin lesion of left cheek, biopsy: Basal cell carcinoma, superficial, nodular and ulcerated, completely excised. Solar elastosis. AM:sp 02/10/19 COMMENT The carcinoma measures 2 mm in greatest dimension. Clinical correlation is suggested. MICROSCOPIC DESCRIPTION Slides are reviewed. GROSS DESCRIPTION Received in fixative is one container labeled with the patient's name and designated left cheek. The specimen consists of a tejada-white piece of skin ellipse measuring 2.6 x 1.5 cm and 0.2 cm in thickness. The specimen is inked, serially sectioned and submitted entirely in one cassette. TONY:tremaine 02/09/19 TC: 0 CPT: 65108
[2019-02-07 10:44] VITALS: BMI 17.0
== END ==
PROVIDERS: Family Provider Family Medicine; PCP Family Medicine; Referring Provider Surgery; Visit Provider Surgery
DX: C44.319 Basal cell carcinoma of skin of other parts of face (principal)
CPT/HCPCS: 88305

== ENCOUNTER → 2019-10-29 | Outpatient (CLI) | payer MEDICARE, OTHER, SELFPAY ==
[2019-02-07 10:44] VITALS: BMI 17.0
== END | disposition home or self-care (01) ==
LOC: LABSPEC 10:57
PROVIDERS: PCP Family Medicine; Referring Provider Nurse Practitioner Adult Health; Visit Provider Nurse Practitioner Adult Health
DX: N39.0 Urinary tract infection, site not specified (principal)
CPT/HCPCS: 87077; 87086; 87088; 87186

== ENCOUNTER → 2020-03-02 10:28 | Outpatient (CLI) | payer MEDICARE, OTHER, SELFPAY ==
[2019-02-07 10:44] VITALS: BMI 17.0
[2020-03-02 13:20] LABS: Hemoglobin A1c 5.3 % (3.8-5.6)
[2020-03-02 13:27] LABS: Anion Gap 7 (5-15); BUN 15 mg/dL (7-18); BUN/Creat Ratio 19.9 RATIO (10-20); Calcium,Total 9.1 mg/dL (8.5-10.1); Chloride 106 mmol/L (98-107); Cholesterol 191 mg/dL (200); Creatinine, Serum 0.76 mg/dL (0.70-1.30); EST Glomerular Filtration Rate 105 mL/min (>60); Est Glom Filt Rate - Afr Amer 127 mL/min (>60); Glucose 86 mg/dL (74-106); High Density Lipoprotein 69 mg/dL; Magnesium 2.4 mg/dL (1.6-2.6); Potassium 4.4 mmol/L (3.5-5.1); Sodium Level 139 mmol/L (136-145); Triglycerides 61 mg/dL; Very Low Density Lipoprotein 12 mg/dL (5-40)
[2020-03-02 13:47] LABS: Absolute Lymphocyte Count 1.65 X10^3/uL (0.83-4.51); Absolute Neutrophil Count 6.9 X10^3/uL (2.0-7.7); Basophil# 0.05 X10^3/uL; Basophil% 0.5 % (0-1); Eosinophil# 0.23 X10^3/uL; Eosinophils% 2.5 % (0-5); Hematocrit 50.5 % (40-54); Hemoglobin 16.1 g/dL (13.0-16.5); Lymphocyte # 1.65 X10^3/ul (4.0); Lymphocyte % 17.6 % (19-41); Mean Corp Hgb Conc 31.9 g/dL (32-36); Mean Corpuscular Hgb 31.5 pg (27.0-32.0); Mean Corpuscular Volume 98.8 fL (80-94); Mean Platelet Vol. 9.5 fl (6.2-12.0); Monocyte# 0.47 X10^3/uL; NRBC Flagged by Analyzer 0 % (0-5); Neutrophil # 6.93 X10^3/uL (2.7-7.7); Neutrophil % 74.1 % (47-70); Platelet Count 353 K/mm3 (150-450); RBC Distribution Width CV 12.8 % (11.6-14.6); Red Blood Count 5.11 M/mm3 (4.6-6.2); White Blood Count 9.4 K/mm3 (4.4-11.0)
== END ==
PROVIDERS: PCP Family Medicine; Visit Provider Family Medicine
DX: I10 Essential (primary) hypertension (principal); R73.01 Impaired fasting glucose; I49.9 Cardiac arrhythmia, unspecified
CPT/HCPCS: 36415; 80048; 80061; 83036; 83735; 84443; 85025

== ENCOUNTER → 2020-03-14 | Outpatient (CLI) | payer MEDICARE, OTHER, SELFPAY ==
[2019-02-07 10:44] VITALS: BMI 17.0
== END | disposition home or self-care (01) ==
LOC: LABSPEC 12:30
PROVIDERS: PCP Family Medicine; Referring Provider Nurse Practitioner Adult Health; Visit Provider Nurse Practitioner Adult Health
DX: N39.0 Urinary tract infection, site not specified (principal)
CPT/HCPCS: 87086; 87088; 87186

== ENCOUNTER → 2020-04-11 | Outpatient (CLI) | payer MEDICARE, OTHER, SELFPAY ==
[2019-02-07 10:44] VITALS: BMI 17.0
== END | disposition home or self-care (01) ==
PROVIDERS: PCP Family Medicine; Visit Provider Nurse Practitioner Adult Health
DX: N30.20 Other chronic cystitis without hematuria (principal)
CPT/HCPCS: 87086; 87088; 87186

== ENCOUNTER 2020-05-12 02:32 | Inpatient (IN) | payer MEDICARE, OTHER, SELFPAY ==
[2019-02-07 10:44] VITALS: BMI 17.0
[2020-05-12] VITALS (30 sets, daily range): BP systolic 96–155; BP diastolic 50–80; PULSE 85–109; RESP 12–29; TEMP 36.5–37.1; O2SAT 24–99; BMI 18.2; BMI 17.1
--- NOTE | 2020-05-12 02:37 | EKG12_ITS ---
Test Reason : SOB Blood Pressure : / mmHG Vent. Rate : 104 BPM Atrial Rate : 104 BPM P-R Int : 156 ms QRS Dur : 080 ms QT Int : 328 ms P-R-T Axes : 085 -43 142 degrees QTc Int : 431 ms Sinus tachycardia Right atrial enlargement Left axis deviation Pulmonary disease pattern Nonspecific ST and T wave abnormality Abnormal ECG Confirmed by LUKE HERNANDEZ, MARYSOL ([id number]), restaurant expeditor AIDEN MILLER ([id number]) on 05/16/2020 10:07:17 A M Referred By: SON Confirmed By:MARCIA BUTLER MD
--- NOTE | 2020-05-12 02:37 | RAD_ITS ---
STUDY: X-RAY CHEST REASON FOR EXAM: Male, 84 years old. sob TECHNIQUE: Single AP portable view of the chest. COMPARISON: 10/07/2012. FINDINGS: There is hyperinflation of the lungs consistent with chronic obstructive lung disease (COPD). There is no demonstrated pleural abnormality. Normal size heart. Normal mediastinum and harriett. Normal visualized pulmonary arteries. Normal visualized aortic arch and descending thoracic aorta. Normal visualized thoracic spine. Normal visualized ribs, clavicles, and shoulders. There is no demonstrated abnormality of the visualized soft tissue structures of the upper abdomen. RAD/Chest 1 View (Portable) IMPRESSION: Findings suggestive of COPD/emphysematous changes otherwise no acute cardiopulmonary disease. Electronically Signed: Melissa Brandon MD at 3:21 EST , Service support ,
--- NOTE | 2020-05-12 02:40 | ED.DCSUM_ITS ---
- ER Visit Summary Date of Service: 05/12/20 Chief Complaint: Shortness of breath History of Present Illness: The patient is a 84 M who presents with shortness of breath. Started earlier this morning. He has been getting more short of breath at home. His tried to administer his DuoNeb but she states she could not get him to comply because of his shortness of breath. She noticed him having some belly breathing. Exertion makes it worse and oxygen makes it better. However, he was not wearing his home oxygen when EMS arrived. They administered a DuoNeb and gave him Solu-Medrol. Patient normally does for DuoNeb treatments a day. He has had no leg swelling or chest pain. They have received their Covid vaccine. Physical Examination: Vital signs reviewed. Well-developed individual who is in no significant respiratory distress at this time. HEENT exam unremarkable. Heart is regular rate and rhythm without murmurs. Lungs have diffuse inspiratory and expiratory wheezes. Abdomen is soft and nontender. Extremities reveal no edema. Skin exam normal. Neurologic exam normal. Test Results: EKG was sinus rhythm with a rate of 104. There are nonspecific ST and T wave changes noted. Chest x-ray shows chronic changes with COPD. Laboratory studies are unremarkable aside for potassium of 5.2, glucose of 231. ABG showed pH of 7.289, PCO2 of 57, PO2 of 91 and a bicarb of 27. Covid test is negative Emergency Department Course and Treatment: The patient was given albuterol treatment here and was placed on nasal cannula oxygen. His pulse ox remained normal however he is still seem to be in some mild respiratory distress so he was placed on BiPAP and he remained comfortable with this. Although there was no infiltrate on chest x-ray I did give him a dose of IV Levaquin due to sputum production. I feel he requires admission to the hospital. I did discuss with the hospitalist for admission to PCU. Treatment Plan: [] Disposition: Admit Impression: Acute on chronic respiratory failure, COPD exacerbation This note was generated with Doctor kinetic dictation software. It may contain incorrect words, spelling, and punctuation that were not noted in review of the chart prior to signing ED Disposition - Plan for ED Patient: Referrals: Rick Wade MD [Primary Care Provider] -
[2020-05-12 02:44] LABS: Absolute Lymphocyte Count 0.86 X10^3/uL (0.83-4.51); Absolute Neutrophil Count 7.3 X10^3/uL (2.0-7.7); Basophil# 0.07 X10^3/uL; Basophil% 0.8 % (0-1); Eosinophil# 0.44 X10^3/uL; Eosinophils% 4.9 % (0-5); Hemoglobin 15.8 g/dL (13.0-16.5); Lymphocyte # 0.86 X10^3/ul (4.0); Lymphocyte % 9.5 % (19-41); Mean Corp Hgb Conc 32.9 g/dL (32-36); Mean Corpuscular Hgb 32.8 pg (27.0-32.0); Mean Corpuscular Volume 99.8 fL (80-94); Monocyte# 0.34 X10^3/uL; Monocyte% 3.8 % (0-10); NRBC Flagged by Analyzer 0 % (0-5); Neutrophil # 7.31 X10^3/uL (2.7-7.7); Neutrophil % 80.7 % (47-70); Platelet Count 365 K/mm3 (150-450); RBC Distribution Width CV 12.5 % (11.6-14.6); RBC Distribution Width SD 46.8 fl (35.1-43.9); Red Blood Count 4.81 M/mm3 (4.6-6.2); White Blood Count 9.1 K/mm3 (4.4-11.0)
[2020-05-12] MEDS: Albuterol 2.5 MG/3 ML VIAL.NEB. INHALATION ×3 (02:49→02:51)
[2020-05-12 02:58] LABS: Anion Gap 7 (5-15); BUN 19 mg/dL (7-18); BUN/Creat Ratio 23.4 RATIO (10-20); Calcium,Total 8.7 mg/dL (8.5-10.1); Chloride 103 mmol/L (98-107); Creatinine, Serum 0.81 mg/dL (0.70-1.30); EST Glomerular Filtration Rate 96 mL/min (>60); Est Glom Filt Rate - Afr Amer 116 mL/min (>60); Glucose 231 mg/dL (74-106); Potassium 5.2 mmol/L (3.5-5.1); Sodium Level 138 mmol/L (136-145)
[2020-05-12 03:00] LABS: BNP,B-Type NATRIURETIC PEPTIDE 81.8 pg/mL (0-100)
[2020-05-12 03:06] LABS: Base Excess 1 mmol/L (-2 to +2); Bicarbonate 27.4 mmol/L (22-26); Blood Gas Specimen Type ART; O2 Delivery Device Cannula; PO2 91 mmHG (75-100); SITE R Radial; SO2 96 % (95-99); Total Carbon Dioxide 29 mmol/L; pCO2 57.2 mmHg (35-45); pH 7.29 (7.35-7.45)
[2020-05-12] MEDS: levoFLOXacin IV 750 MG/150 ML BAG 100 MG IV (03:35)
--- NOTE | 2020-05-12 04:00 | PCM.HP.STD ---
Problem List (1) Acute on chronic respiratory failure with hypoxia and hypercapnia Status: Chronic (2) COPD exacerbation Status: Chronic (3) Decubitus ulcer of coccyx, stage 2 Status: Acute (4) Skin lesion of face Status: Acute (5) Nonhealing nonsurgical wound Status: Chronic (6) Degenerative disc disease at L5-S1 level Status: Chronic (7) Difficulty walking Status: Chronic (8) Malnutrition Status: Chronic (9) Infected decubitus ulcer Status: Chronic (10) Decubitus ulcer of coccygeal region, stage 3 Status: Chronic (11) Accidental fall Status: Chronic History of Present Illness Date of Admission: 05/12/20 Chief Complaint: Shortness of breath for 3 days The patient is a 84 year old M with history of chronic combined respiratory failure on 2.5 L of oxygen at night only came to ER with progressive worsening of shortness of breath for 3 days. Patient had runny nose, sniffles, postnasal drip about 3 days ago. Today patient was very short of breath and did not get better even with 2 doses of DuoNeb given by at home. Dyspnea at rest. In ED, patient was tachypneic respiratory rate 29, heart rate 105/min, no fever. ABG 7.2 on 2 L of oxygen nasal cannula. Patient was put on BiPAP. Breathing improved on BiPAP. Patient received 1 dose of Levaquin 750 mg IV and albuterol nebulization. Chest x-ray reviewed and shows chronic changes of emphysema but no acute infiltrate or consolidation twelve-lead EKG sinus tach at 104 bpm, LAD with pulmonary disease pattern. QTC 431 ms. Patient also has history of neurogenic bladder from spinal stenosis and intermittent straight catheterization every 4-6 hour. Patient had decubitus ulcer stage III which is healed. Patient also gets recurrent UTI and completed doxycycline before and then 5 days of Bactrim. Urinary culture from March 14 and April 11 this year shows E. coli ESBL positive, resistant to Bactrim and doxycycline. Patient on methenamine and vitamin C for chronic UTI prophylaxis. Patient patient has neurogenic bladder on ISC therefore cannot tell about dysuria, increased frequency or urgency [] Past Medical History Past Medical History (Chronic Problems): Chronic Problems (Last Reviewed 02/07/19 @ 10:50 by Lacy Zepeda) Acute on chronic respiratory failure with hypoxia and hypercapnia (Chronic) COPD exacerbation (Chronic) Nonhealing nonsurgical wound (Chronic) Degenerative disc disease at L5-S1 level (Chronic) Difficulty walking (Chronic) Malnutrition (Chronic) Infected decubitus ulcer (Chronic) Decubitus ulcer of coccygeal region, stage 3 (Chronic) Accidental fall (Chronic) Medical History: Medical History (Last Reviewed 02/07/19 @ 10:50 by Lacy Zepeda) Skin lesion of face (Acute) L98.9 Nonhealing nonsurgical wound (Chronic) T14.8 Degenerative disc disease at L5-S1 level (Chronic) M51.36 Difficulty walking (Chronic) R26.2 Malnutrition (Chronic) E46 Infected decubitus ulcer (Chronic) L89.90, L08.9 Decubitus ulcer of coccygeal region, stage 3 (Chronic) L89.153 Accidental fall (Chronic) W19.XXXA Allergies Sulfa (Sulfonamide Antibiotics) Allergy (Verified 05/12/20 02:48) Other Home Medications: Ambulatory Orders Medication Instructions Recorded Amlodipine [Norvasc] 10 mg PO QHS 04/06/13 Finasteride [Proscar] 5 mg PO DAILY 04/06/13 Gabapentin [Neurontin] 300 mg PO TIDCM 04/06/13 Mirtazapine [Remeron] 30 mg PO QHS 04/06/13 Multivitamins,Therapeutic 1 tab PO DAILY 04/06/13 [Multivitamin] Trimethoprim [Trimpex] 100 mg PO DAILY 04/06/13 Cilostazol [Pletal] 100 mg PO BID 04/10/13 Meloxicam [Mobic] 7.5 mg PO DAILY 10/28/15 Venlafaxine HCl [Effexor Xr] 75 mg PO DAILY 04/27/16 Albuterol Inhaler [Ventolin Hfa puff INHALATION Q4H PRN PRN 05/12/20 (SP)] Ascorbic Acid [Vitamin C] 1,000 mg PO DAILY 05/12/20 Calcium Carb/Vitamin D3/Vit K1 1 ea PO DAILY 05/12/20 [Calcium + D Soft Chewable Tab] Latanoprost/Pf [Latanoprost 0.005% 7.5 ml OP DAILY 05/12/20 Eye Drop] Propranolol HCl [Propranolol HCl 60 mg PO DAILY 05/12/20 ER] Vit A/Vit C/Vit E/Zinc/Copper 1 ea PO DAILY 05/12/20 [Preservision Areds Softgel] predniSONE tablet 5 mg PO DAILY 05/12/20 Surgical History: Surgical History (Last Reviewed 02/07/19 @ 10:50 by Lacy Zepeda) History of left hip replacement Z96.642 Surgical History: no surgical history, - Smoking Status: Former smoker - *Family History Maternal Family History: Family History (Last Reviewed 02/07/19 @ 10:50 by Lacy Zepeda) Brother Diabetes History Items: Cancer, Heart Disease, Seizures Sibling Family History: Family History (Last Reviewed 02/07/19 @ 10:50 by Lacy Zepeda) Brother Diabetes History Items: Diabetes, Pulmonary Disease, Stroke, - Review of Systems Constitutional: Reports: Chills, Weakness, Fatigue. Denies: Fever, Night Sweats HEENT: Reports: Post Nasal Drip, Sinus Congestion. Denies: Head Aches, Sinus Drainage Cardiovascular: Reports: Chest Tightness - Tightness all around. Denies: Chest Pain, Palpitations Respiratory: Reports: Cough, Shortness of Breath, Shortness of breath at rest, Shortness of breath upon exertion, Wheezing. Denies: Sputum production Gastrointestinal: Denies: Abdominal Pain, Nausea, Vomiting Genitourinary: Denies: Dysuria Musculoskeletal: Denies: Joint Pain, Joint Tenderness Skin: Denies: Rash, Wounds Neurological: Denies: Numbness, Tingling, Focal weakness Psychiatric: Denies: Anxiety, Depression, Homicidal Ideations, Suicidal Ideations Hematologic/ Lymphatic: Denies: Easy Bruising, Easy Bleeding VTE Information - Inpt Only VTE Present on Admission: No VTE Mechan Device Prophylaxis: None VTE Pharm Prophylaxis ordered?: Yes Objective: General: Alert, Oriented x3, Cooperative, on BiPAP HEENT: Atraumatic, PERRLA, EOMI, Normocephalic Oral: No Gingival or Mucosal Lesions/ Ulcerations Neck: Supple, No JVD, Negative Carotid Bruits Lungs: Air entry diminished in bilateral lungs. Hypoxia and tachypnea. Bilateral expiratory rhonchi no crepitation/rhonchi Cardiovascular: Regular rate, Regular Rhythm, Normal S1, Normal S2, No murmurs Abdomen: Bowel Sounds Present, Soft, Non Tender, Non-Distended : No renal angle tenderness. No suprapubic tenderness. Extremities: No edema, Capillary Refill Less than 3 Seconds Skin: No rashes, No breakdown Musculoskeletal: Diffuse moderate atrophy of muscles of extremities and subcutaneous loss of fat.. No Tenderness to Palpation of Joints or Extremities Neurological: Cranial nerves II-XII grossly intact, Deep Tendon Reflexes 2+/4 and Symmetrical, Neuro grossly intact Psych/Mental Status: Normal Affect, Appropriate. - Physical Exam Vitals/I&O's: Vital Signs Temp Pulse Resp BP Pulse Ox 97.9 F 97 24 H 101/73 97 05/12/20 03:40 05/12/20 03:40 05/12/20 03:40 05/12/20 03:40 05/12/20 03:40 Oxygen Flow Rate (L/min) 40 Oxygen Delivery Method Bi-pap Weight: 116 lb 9.992 oz Body Mass Index (BMI) 18.2 Microbiology Past 72 Hours 05/12/20 02:45 Mucosa - Nose SARS-CoV-2 Antigen (Rapid) - Final Laboratory Results 05/12/20 02:35: WBC 9.1, RBC 4.81, Hgb 15.8, Hct 48.0, MCV 99.8 H, MCH 32.8 H, MCHC 32.9, RDW Std Deviation 46.8 H, RDW Coeff of Bj 12.5, Plt Count 365, MPV 9.0, Immature Gran % (Auto) 0.300, Neut % (Auto) 80.7 H, Lymph % (Auto) 9.5 L, Stone % (Auto) 3.8, Eos % (Auto) 4.9, Baso % (Auto) 0.8, Absolute Neuts (auto) 7.3, Absolute Lymphs (auto) 0.86, Nucleated RBC % 0 05/12/20 02:35: Sodium 138, Potassium 5.2 H, Chloride 103, Carbon Dioxide 28.0, Anion Gap 7, BUN 19 H, Creatinine 0.81, Estim Creat Clear Calc 50.80, Est GFR (MDRD) Af Amer 116, Est GFR (MDRD) Non-Af 96, BUN/Creatinine Ratio 23.4 H, Glucose 231 H, Calcium 8.7, Troponin I 0.022 05/12/20 02:35: B-Natriuretic Peptide 81.8 05/12/20 03:00: Specimen Type ART, Sample Site R Radial, pH 7.29 L, Bicarbonate Actual 27.4 H, Total CO2 29, Base Excess 1, O2 Saturation 96, ABG pCO2 57.2 H, ABG pO2 91, O2 Delivery Device Cannula, Liter Flow 2.0 Current Medications Levofloxacin (Levaquin Iv) 750 mg in 150 mls @ 100 mls/hr IV X1 ONE Stop: 05/12/20 04:52 Last Admin: 05/12/20 03:35 Dose: 100 mls/hr Documented by: Sodium Chloride () 1,000 mls @ 100 mls/hr IV .Q10H DRAGAN Stop: 05/12/20 13:39 Assessment/Plan All Active Problems (Last Reviewed 02/07/19 @ 10:50 by Lacy Zepeda) Decubitus ulcer of coccyx, stage 2 (Acute) Skin lesion of face (Acute) The patient is a 84 year old M with history of chronic combined respiratory failure on 2.5 L of oxygen at night only came to ER with progressive worsening of shortness of breath for 3 days, clinical findings suggestive of COPD exacerbation 1. Acute on chronic hypoxic and hypercarbic respiratory failure secondary to COPD exacerbation: Patient is being admitted in PCU on BiPAP. On bronchodilator DuoNeb, Solu-Medrol, incentive spirometry, chest physiotherapy and Mucinex. IV fluid normal saline for 1 L. No leukocytosis. 2. COPD exacerbation most probably from viral bronchitis: Respiratory panel ordered. Rest as mentioned above. 3. Neurogenic bladder, history of chronic UTI with ESBL positive E. coli: Patient recently completed antibiotic. Keep on methenamine and vitamin C as chronic UTI prophylaxis. Bladder scan every 4-6 hours and straight catheterization. 4. Moderate protein calorie malnutrition with history of. Coccygeal decubitus ulcer stage III, present on admission. Service Attendant Caf[employer] consult. Bedsore prevention. 5. Other chronic comorbidities include physical debility due to degenerative disc disease at L5-S1, fall and lumbar spinal stenosis: PT and OT ordered. VT prophylaxis: Lovenox 40 mils subcu daily Living will/advanced directive/end of life care: Patient does have living will or advanced directive. His is the power of insurance defense attorney for health. His daughter is a nurse practitioner. After discussion of benefits/risks procedures involved with full code, DNR CC arrest and DNR CC, the patient, his and daughter opted for DNR-CC Arrest with no intubation Patient does not want artificial life support including intubation, tube feed, ventilator and/chest compression, central venous catheter, vasopressor and DC shock if needed Total time spent in [id number] encounter in discussion of advanced directive 16 minutes. Clinical Impression(s) from Imaging Studies Chest X-Ray 05/12/20 02:37 IMPRESSION: Findings suggestive of COPD/emphysematous changes otherwise no acute cardiopulmonary disease. Inpatient E&M: 37403 Init Hosp L3 Procedures: 61666 Advncd Care Plan 30 Min
--- NOTE | 2020-05-12 04:36 | NURSING ---
PATIENT STATES HE WAS STRAIGHT CATH THIS AM, WILL LET US KNOW WHEN HE NEEDS CATHETER
[2020-05-12] MEDS: 0.9% Normal Saline 1,000 ML 100 ML IV (04:39)
[2020-05-12 06:27] LABS: Anion Gap 4 (5-15); BUN 19 mg/dL (7-18); BUN/Creat Ratio 29.1 RATIO (10-20); Calcium,Total 8.7 mg/dL (8.5-10.1); Chloride 103 mmol/L (98-107); Creatinine, Serum 0.65 mg/dL (0.70-1.30); EST Glomerular Filtration Rate 124 mL/min (>60); Est Glom Filt Rate - Afr Amer 150 mL/min (>60); Estimated Creatinine Clearance 38.58 ml/min; Glucose 120 mg/dL (74-106); Magnesium 2.4 mg/dL (1.6-2.6); Potassium 4.6 mmol/L (3.5-5.1); Sodium Level 137 mmol/L (136-145)
[2020-05-12] MEDS: Ipratropium/Albuterol Sulfate 3 ML AMPUL.NEB INHALATION ×4 (07:00→19:48)
[2020-05-12 07:35] LABS: D-Dimer Quantitative (DVT/PE) 0.54 FEU/ug/m (0.27-0.49)
[2020-05-12] MEDS: Multivitamins,Therapeutic Tablet 1 TABLET PO (07:57)
[2020-05-12] MEDS: Gabapentin 300 MG Capsule PO ×3 (07:57→16:18)
[2020-05-12] MEDS: Propranolol LA 60 MG Capsule PO (10:16)
[2020-05-12] MEDS: Enoxaparin 40 MG/0.4 ML Syringe SC (10:16)
[2020-05-12] MEDS: Methenamine Hippurate 1 GM Tablet PO (10:16)
[2020-05-12] MEDS: Venlafaxine XR 75 MG Capsule PO (10:16)
[2020-05-12] MEDS: Meloxicam 7.5 MG Tablet PO (10:17)
[2020-05-12] MEDS: guaiFENesin 1,200 MG Tablet 1200 MG PO ×2 (10:18→21:54)
[2020-05-12] MEDS: Finasteride 5 MG Tablet PO (10:18)
[2020-05-12] MEDS: Cilostazol 50 MG Tablet 100 MG PO ×2 (10:18→21:54)
[2020-05-12] MEDS: Ascorbic Acid 500 MG Tablet 1000 MG PO (10:18)
[2020-05-12] MEDS: Latanoprost 0.005% 1 Bottle 1 DRP OPHTHALMIC (10:19)
[2020-05-12] MEDS: Azithromycin 250 MG Tablet 500 MG PO (10:42)
--- NOTE | 2020-05-12 11:25 | CASEMGMT ---
KAYLA BOLAND Assessment: Face to Face with patient for initial transition planning/care coordination assessment. KAYLA BOLAND introduced self and role at [facility], pt voices understanding and consents to assessment but requests to answer. Pt is lying in bed with O2 on in no distress. Pt is A/Ox4. Care providers, pharmacy, and demographics verified. Presentation: increased sob Admitting dx: COPD exac PCP:Avelino Wade Specialists: Georgette optomologist, Kait Valenzuela STRAIN TECHNICIAN for uro Preferred Pharmacy:[facility] Insurance:[employer] Prescription Benefit: yes Living Will/HPOA: Pt states pt does have LW and DPOA. is DPOA. She is aware that it is not on file at [facility]. She states she has copies and will bring in. LNOK: Brittnee Living Arrangements: Pt lives in a single story house with and states no concerns at home. Pt is I in bathing and assists with LB dressing. Pt straight caths self. Transportation:Pt drives patient to appts. No concerns of transportation. DME/HHC:Pt dtr reports having a cane, walker, scooter and w/c at home as well as nebulizer and O2. Pt is currently using 2.5-3L at HS and naps. TC to [facility] to verify order for O2 currently. Order is for 2 L cont. states they do not have portable O2 for appts. Denies need for further DME. Denies any previous HHC. Pt has previously been in [facility]. 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 Pt states no concerns with going home at time of dc. Pt is retired. reports no smoking or drinking ETOH. Pt/ states no further concerns/needs. CM to follow for any further dc planning/needs. Advised pt to ask for CM if any further questions/concerns/needs arise, voices understanding. Pt goal: Home with family support Plan:Home will follow therapy and O2 need for increased O2.
--- NOTE | 2020-05-12 11:52 | PCM.PN.BLA ---
Progress Note Patient seen and examined. Admitted earlier this morning for acute on chronic hypoxic respiratory failure secondary to COPD exacerbation. Patient states his breathing is about the same. Denies fever, chills. Respiratory panel and Covid negative. Chest x-ray without acute process. Continue IV Solu-Medrol and albuterol DuoNeb aerosols. STROKE Vital Signs/Narrative: Vital Signs Temp Pulse Resp BP Pulse Ox 05/12/20 10:59 104 H 26 H 05/12/20 09:57 98.2 F 100 25 H 128/67 H 95 05/12/20 08:58 97 05/12/20 08:10 24 05/12/20 08:05 98 05/12/20 08:00 98.1 F 101 H 24 H 109/69 97
[2020-05-12] MEDS: 0.9% Saline Lock 10 ML Syringe IV (14:24)
--- NOTE | 2020-05-12 14:39 | NT.THERAPY_ITS ---
Nutrition Therapy Report - History Nutrition Services has been consulted to:: Manage nutrient details of diet order Current diet / nutrition support order:: regular - Anthropometric Measurements Height:: 5 ft 7 in Weight:: 49.6 kg Body Mass Index (BMI):: 17.1 - Relevant Labs Relevant Labs:: MCV 99.8 fL (80-94) H 05/12/20 02:35 MCH 32.8 pg (27.0-32.0) H 05/12/20 02:35 RDW Std Deviation 46.8 fl (35.1-43.9) H 05/12/20 02:35 Neut % (Auto) 80.7 % (47-70) H 05/12/20 02:35 Lymph % (Auto) 9.5 % (19-41) L 05/12/20 02:35 D-Dimer Quant (PE/DVT) 0.54 FEU/ug/m (0.27-0.49) H* 05/12/20 05:28 Potassium 5.2 mmol/L (3.5-5.1) H 05/12/20 02:35 Anion Gap 4 (5-15) L 05/12/20 05:28 BUN 19 mg/dL (7-18) H 05/12/20 05:28 Creatinine 0.65 mg/dL (0.70-1.30) L 05/12/20 05:28 BUN/Creatinine Ratio 29.1 RATIO (10-20) H 05/12/20 05:28 Glucose 120 mg/dL (74-106) H 05/12/20 05:28 - Assessment Food / Nutrition-Related History:: Discussed w/ pt and at bedside. 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 Did not want to eat breakfast today d/t concerns of having a BM. believes wt was ~114# at most recent doctors appointment, CBW 109.3#-suggesting a 4.7#/4% wt loss. Pt is immobile. Wheelchair bound with trouble walking. Shortness of breath makes eating difficult for the patient. Noted Labored breathing during assessment. Pt w/ obvious signs of muscle wasting/fat loss in upper extremities, clavicle, and acromion region. 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 Does not wear bottom plate of dentures. - Nutrition Diagnosis Problem / Etiology / Signs & Symptoms (PES):: acute, severe malnutrition r/t low energy intake from complications with usp diagnosis of COPD worsened w/ recent UTI as evidenced by wt loss of 4.7#/4% x 1 week, estimated PO intake meeting less than 50% of estimated nutritional needs x 1 week, obvious signs of muscle wasting/fat loss in upper extremities, clavicle, and acromion region, BMI of 17.1. Evidence of Malnutrition Exists:: Yes Severe PCM:: Acute Illness - Nutrition Intervention Nutrition Prescription:: [id number] calories/day (30-35 calories/ kg for wt gain). 60-75 g protein/day (1.2-1.5 g/kg). 1600mL fluid/day (1mL/calorie) - Food / Nutrient Delivery Interventions Summary of nutrition intervention:: Pt was advised to eat foods containing higher kcals and proteins. Discussed ONS w/ pt and . Agreeable to trying Ensure milkshake w/ lunch. Doesn't appear to eat a large breakfast normally, so will add Ensure w/ breakfast additionally. Nutrition support ordered as / adjusted to:: continue regular diet as ordered; will add fortified foods and ONS w/ meals for additional protein/calories if consumed. Nutrition education provided?: Yes - MNT Monitoring Further MNT monitoring and evaluation required?: Yes MNT Follow-up in:: 3-5 days - seen in conjuction w/ Fernanda Marie international logistics analyst
--- NOTE | 2020-05-12 15:36 | NURSING ---
PT ASSISTED X 2 ASSIST FROM CHAIR TO BED. PT TACHYPNEIC, REPORTS SOB. PT ASSISTED INTO BED, AND MOVED UP IN THE BED. BI-PAP REINITIATED. PT MAINTAINING PREVIOUS SETTINGS PER RT. PT REPORTS IMPROVED BREATHING AFTER PLACEMENT. PT IN POSITION OF COMFORT, CALL LIGHT AND PERSONAL ITEMS IN REACH, DENIES ANY FURTHER NEEDS AT THIS TIME. PRIMARY RN INFORMED. PT SPO2 ON BI-PAP 97%.
[2020-05-12] MEDS: Mirtazapine 30 MG Tablet PO (21:54)
[2020-05-13] VITALS (17 sets, daily range): BP systolic 97–140; BP diastolic 48–84; PULSE 68–92; RESP 12–26; TEMP 36.3–37.1; O2SAT 90–98
[2020-05-13] MEDS: Ipratropium/Albuterol Sulfate 3 ML AMPUL.NEB INHALATION ×5 (00:32→19:37)
[2020-05-13] MEDS: Lidocaine Jelly 2% 20 ML Syringe (URO-JET) 20 APPLIC TOPICAL (02:14)
[2020-05-13 06:02] LABS: Absolute Lymphocyte Count 0.85 X10^3/uL (0.83-4.51); Absolute Neutrophil Count 13.8 X10^3/uL (2.0-7.7); Basophil# 0.02 X10^3/uL; Basophil% 0.1 % (0-1); Hematocrit 38.7 % (40-54); Hemoglobin 12.7 g/dL (13.0-16.5); Lymphocyte # 0.85 X10^3/ul (4.0); Lymphocyte % 5.6 % (19-41); Mean Corp Hgb Conc 32.8 g/dL (32-36); Mean Corpuscular Hgb 32.2 pg (27.0-32.0); Mean Corpuscular Volume 98.2 fL (80-94); Mean Platelet Vol. 9.1 fl (6.2-12.0); Monocyte# 0.47 X10^3/uL; Monocyte% 3.1 % (0-10); NRBC Flagged by Analyzer 0 % (0-5); Neutrophil # 13.78 X10^3/uL (2.7-7.7); Neutrophil % 90.7 % (47-70); Platelet Count 287 K/mm3 (150-450); RBC Distribution Width CV 12.6 % (11.6-14.6); Red Blood Count 3.94 M/mm3 (4.6-6.2); White Blood Count 15.2 K/mm3 (4.4-11.0)
--- NOTE | 2020-05-13 06:57 | PCM.HOSP.N ---
Hospitalist Note Bladder scan shows 635 mL. Nursing staff unable to put a straight cath. With aseptic precaution, after glans penis and perineum was sterilized, coude's catheter inserted after lidocaine jelly. As per patient's , will try to avoid indwelling catheter ultimately required probably due to mild urethral stricture probably at bulbar urethra. Patient has history of recurrent UTI/colonization
[2020-05-13] MEDS: Enoxaparin 40 MG/0.4 ML Syringe SC (08:30)
[2020-05-13] MEDS: Latanoprost 0.005% 1 Bottle 1 DRP OPHTHALMIC (08:30)
[2020-05-13] MEDS: Finasteride 5 MG Tablet PO (08:31)
[2020-05-13] MEDS: Meloxicam 7.5 MG Tablet PO (08:31)
[2020-05-13] MEDS: Methenamine Hippurate 1 GM Tablet PO (08:31)
[2020-05-13] MEDS: Ascorbic Acid 500 MG Tablet 1000 MG PO (08:31)
[2020-05-13] MEDS: guaiFENesin 1,200 MG Tablet 1200 MG PO ×2 (08:31→22:33)
[2020-05-13] MEDS: Azithromycin 250 MG Tablet 500 MG PO (08:31)
[2020-05-13] MEDS: Multivitamins,Therapeutic Tablet 1 TABLET PO (08:32)
[2020-05-13] MEDS: Gabapentin 300 MG Capsule PO ×3 (08:32→18:26)
[2020-05-13] MEDS: Propranolol LA 60 MG Capsule PO (08:32)
[2020-05-13] MEDS: Venlafaxine XR 75 MG Capsule PO (08:32)
[2020-05-13] MEDS: Cilostazol 50 MG Tablet 100 MG PO ×2 (08:33→22:33)
--- NOTE | 2020-05-13 13:16 | CASEMGMT ---
Pt does not qualify for home O2 per Ramiro RN. Per pt , dtr is working on setting up portable O2 through PCP.
--- NOTE | 2020-05-13 14:02 | PN_ITS ---
Patient Problems: Active and Suspected Problems (Last Reviewed 02/07/19 @ 10:50 by Lacy Zepeda) Decubitus ulcer of coccyx, stage 2 (Acute) Skin lesion of face (Acute) Subjective: Patient seen and examined. Reports improvement in shortness of breath. Confused this morning. Patient noted to have urinary retention overnight and unable to straight cath, Pineda placed. - Physical Exam Vitals/I&O's: Vital Signs Temp Pulse Resp BP Pulse Ox 98.7 F 85 26 H 134/84 H 98 05/13/20 08:15 05/13/20 11:30 05/13/20 11:30 05/13/20 08:15 05/13/20 08:15 Oxygen Flow Rate (L/min) 2 Oxygen Delivery Method Nasal Cannula Weight: 109 lb 5.588 oz Body Mass Index (BMI) 17.1 Intake and Output for Last 24 Hours 05/11/20 05/12/20 05/13/20 23:59 23:59 23:59 Intake Total 1630 / 1630 480 / 480 Output Total 1150 / 1150 1050 / 1050 Balance 480 / 480 -570 / -570 General: Cooperative, No apparent distress, Confused HEENT: Atraumatic, PERRLA, EOMI, Normocephalic Oral: Dry Mucosa Neck: Supple, No JVD, Negative Carotid Bruits Lungs: Diminished, Wheezes Cardiovascular: Regular rate, No murmurs Abdomen: Bowel Sounds Present, Soft, Non Tender, Non-Distended Extremities: No clubbing, No cyanosis, No edema, Capillary Refill Less than 3 Seconds Skin: No rashes, No breakdown Musculoskeletal: No Tenderness to Palpation of Joints or Extremities Neurological: Cranial nerves II-XII grossly intact, Neuro grossly intact Psych/Mental Status: Normal Affect, Appropriate Microbiology Past 72 Hours 05/12/20 05:14 Mucosa - Nasopharyngeal Respiratory Panel (PCR) - Final 05/12/20 02:45 Mucosa - Nose SARS-CoV-2 Antigen (Rapid) - Final Laboratory Results 05/13/20 05:10: WBC 15.2 H, RBC 3.94 L, Hgb 12.7 L, Hct 38.7 L, MCV 98.2 H, MCH 32.2 H, MCHC 32.8, RDW Std Deviation 45.0 H, RDW Coeff of Bj 12.6, Plt Count 287, MPV 9.1, Immature Gran % (Auto) 0.500, Neut % (Auto) 90.7 H, Lymph % (Auto) 5.6 L, Barnes % (Auto) 3.1, Eos % (Auto) 0.0, Baso % (Auto) 0.1, Absolute Neuts (auto) 13.8 H, Absolute Lymphs (auto) 0.85, Nucleated RBC % 0 Current Medications Acetaminophen (Acetaminophen 325 Mg Tablet) 650 mg PO Q6H PRN PRN PRN Reason: Pain Score 1-10/Temp > 100.7 F Al Hydroxide/Mg Hydroxide (Mag Hydrox/Al Hydrox/Simeth 30 Ml Udc) 30 ml PO Q6H PRN PRN PRN Reason: Gastric Burning Albuterol Sulfate (Albuterol 2.5 Mg/3 Ml Vial.Neb.) 2.5 mg INHALATION Q2H PRN PRN PRN Reason: SHORTNESS OF BREATH Albuterol/Ipratropium (Ipratropium/Albuterol Sulfate 3 Ml Ampul.Neb) 3 ml INHALATION Q4H.RT [facility] Last Admin: 05/13/20 11:30 Dose: 3 ml Documented by: Amlodipine Besylate (Amlodipine 10 Mg Tablet) 10 mg PO QHS [facility] Last Admin: 05/12/20 21:54 Dose: Not Given Documented by: Ascorbic Acid (Ascorbic Acid 500 Mg Tablet) 1,000 mg PO DAILY [facility] Last Admin: 05/13/20 08:31 Dose: 1,000 mg Documented by: Azithromycin (Azithromycin 250 Mg Tablet) 500 mg PO Q24 [facility] Last Admin: 05/13/20 08:31 Dose: 500 mg Documented by: Cilostazol (Cilostazol 50 Mg Tablet) 100 mg PO BID [facility] Last Admin: 05/13/20 08:33 Dose: 100 mg Documented by: Enoxaparin Sodium (Enoxaparin 40 Mg/0.4 Ml Syringe) 40 mg SC DAILY [facility] Last Admin: 05/13/20 08:30 Dose: 40 mg Documented by: Finasteride (Finasteride 5 Mg Tablet) 5 mg PO DAILY [facility] Last Admin: 05/13/20 08:31 Dose: 5 mg Documented by: Gabapentin (Gabapentin 300 Mg Capsule) 300 mg PO TIDCM [facility] Last Admin: 05/13/20 12:59 Dose: 300 mg Documented by: Guaifenesin (Guaifenesin 1,200 Mg Tablet) 1,200 mg PO BID [facility] Last Admin: 05/13/20 08:31 Dose: 1,200 mg Documented by: Sodium Chloride () 250 mls @ 15 mls/hr IV .[id number] PRN PRN Reason: Saline Flush Sodium Chloride () 250 mls @ 15 mls/hr IV .[id number] PRN PRN Reason: Additional IVPB Infusion Lactobacillus Acidophilus (Lactobacillus Acidophilus) 1 tablet PO DAILY [facility] Last Admin: 05/13/20 08:32 Dose: 1 tablet Documented by: Latanoprost (Latanoprost 0.005% 1 Bottle) 1 drop OPHTHALMIC DAILY [facility] Meloxicam (Meloxicam 7.5 Mg Tablet) 7.5 mg PO DAILY [facility] Last Admin: 05/13/20 08:31 Dose: 7.5 mg Documented by: Methenamine Hippurate (Methenamine Hippurate 1 Gm Tablet) 1 gm PO DAILY [facility] Last Admin: 05/13/20 08:31 Dose: 1 gm Documented by: Methylprednisolone (Methylprednisolone 40 Mg/Ml Vial) 40 mg IV Q8 [facility] Last Admin: 05/13/20 12:59 Dose: 40 mg Documented by: Mirtazapine (Mirtazapine 30 Mg Tablet) 30 mg PO QHS [facility] Last Admin: 05/12/20 21:54 Dose: 30 mg Documented by: Morphine Sulfate (Morphine 2 Mg/Ml Syringe) 2 mg IV Q3H PRN PRN PRN Reason: Pain Score 6-10 Multivitamins ([facility]ivit[facility],Therapeutic Tablet) [facility] Last Admin: 05/13/20 08:32 Dose: 1 tablet Documented by: Nitroglycerin (Nitroglycerin (Inpatient Use) 0.4 Mg Tab.Subl) 0.4 mg SL Q5M PRN PRN Reason: CARDIAC/CHEST PAIN Oxycodone HCl (Oxycodone 5 Mg Tablet) 5 mg PO Q4H PRN PRN PRN Reason: Pain Score 4-5 Prochlorperazine Edisylate (Prochlorperazine 10 Mg/2 Ml Vial) 5 mg IV Q4H PRN PRN PRN Reason: Breakthrough Nausea/Vomiting Propranolol HCl (Propranolol La 60 Mg Capsule) 60 mg PO DAILY [facility] Last Admin: 05/13/20 08:32 Dose: 60 mg Documented by: Senna/Docusate Sodium (Senna/Docusate Sodium 1 Tablet) 2 tablet PO BID PRN PRN PRN Reason: Constipation Sodium Chloride (0.9% Saline Lock 10 Ml Syringe) 10 - 40 ml IV UD PRN PRN Reason: SALINE FLUSH Last Admin: 05/12/20 14:24 Dose: 10 ml Documented by: Venlafaxine HCl (Venlafaxine Xr 75 Mg Capsule) 75 mg PO DAILY [facility] Last Admin: 05/13/20 08:32 Dose: 75 mg Documented by: Medical Necessity - Tobacco Use Smoking Status: Former smoker Assessment/Plan All Active Problems (Last Reviewed 02/07/19 @ 10:50 by Lacy Zepeda) Decubitus ulcer of coccyx, stage 2 (Acute) Skin lesion of face (Acute) 1. Acute on chronic hypoxic respiratory failure secondary to exacerbation of chronic COPD-respiratory panel and Covid negative. 2. Neurogenic bladder, history of chronic UTI with ESBL positive E. coli- recently completed antibiotic regimen. Self caths at home. Pineda placed due to difficult with straight cath. Plan for outpatient follow-up with urology. 3. Chronic coccyx decubitus ulcer, healing-Every 2 hours turns. Previously followed at wound center. 4. Moderate protein calorie malnutrition-dietitian consult. 5. Degenerative disc disease-on gabapentin. PT/OT. DVT prophylaxis-Lovenox subcu This patient was seen by DARSHANA Islas under the supervision of Dr. Alba.
[2020-05-13] MEDS: Mirtazapine 30 MG Tablet PO (22:33)
[2020-05-14 03:00] VITALS: PULSE 84
[2020-05-14 04:30] VITALS: BP 114/75; PULSE 84; RESP 18; TEMP 36.3; O2SAT 96
[2020-05-14 07:00] VITALS: PULSE 83
[2020-05-14 07:18] VITALS: O2SAT 92
[2020-05-14] MEDS: Azithromycin 250 MG Tablet 500 MG PO (09:25)
[2020-05-14] MEDS: Propranolol LA 60 MG Capsule PO (09:26)
[2020-05-14] MEDS: Gabapentin 300 MG Capsule PO ×2 (09:26→12:37)
[2020-05-14] MEDS: Methenamine Hippurate 1 GM Tablet PO (09:26)
[2020-05-14] MEDS: Ascorbic Acid 500 MG Tablet 1000 MG PO (09:26)
[2020-05-14] MEDS: Meloxicam 7.5 MG Tablet PO (09:26)
[2020-05-14] MEDS: Multivitamins,Therapeutic Tablet 1 TABLET PO (09:26)
[2020-05-14] MEDS: Venlafaxine XR 75 MG Capsule PO (09:26)
[2020-05-14] MEDS: guaiFENesin 1,200 MG Tablet 1200 MG PO (09:26)
[2020-05-14] MEDS: Cilostazol 50 MG Tablet 100 MG PO (09:26)
[2020-05-14] MEDS: Finasteride 5 MG Tablet PO (09:26)
[2020-05-14] MEDS: Enoxaparin 40 MG/0.4 ML Syringe SC (09:27)
[2020-05-14] MEDS: Latanoprost 0.005% 1 Bottle 1 DRP OPHTHALMIC (09:28)
[2020-05-14 09:35] VITALS: BP 116/89; PULSE 84; RESP 18; TEMP 36.3; O2SAT 97
[2020-05-14 10:46] VITALS: O2SAT 87; O2SAT 89; O2SAT 94
--- NOTE | 2020-05-14 11:04 | CASEMGMT ---
As per physician, pt is confused and needing assist of two, SW to see for possible SNF placement. SW met w/pt and in the room, pt not answering questions, answered for pt. SW inquired w/ about pt going somewhere for rehab, as pt is needing the assist of two. SW did give a list of nursing homes that take pt's insurance, in pt's geographic area, can meet pt's medical needs, and has quality and resource use data. states no, she will take pt home. She does not want prison placement for pt. She states her daughter is a nurse practitioner and will stay with them this weekend, along w/their son. SW did give a list of private hire aide agencies as well in the event pt would need this in the future. SW also asked about home care, is not sure they would want this, won't know until they get home. SW explained if home care is needed, for PT/OT she can call pt's PCP Dr. Wade to see if he would order it. SW also let know that if pt goes home and cannot manage, she can call prison from home and they can work to place pt from home. states understanding. Plan continues to be for pt to return home w/family, to call PCP if home care needed. JOSSY Hinojosa
--- NOTE | 2020-05-14 11:06 | DCINST_ITS ---
- Discharge Diagnoses Current Active Problems: Current Active and Chronic Problems (Last Reviewed 02/07/19 @ 10:50 by Lacy Zepeda) Decubitus ulcer of coccyx, stage 2 (Chronic) Acute on chronic respiratory failure with hypoxia and hypercapnia (Chronic) COPD exacerbation (Chronic) Skin lesion of face (Chronic) Degenerative disc disease at L5-S1 level (Chronic) Malnutrition (Chronic) You will use the following diet at home:: No restrictions Discharge Activity: Return to Normal Activity Call your doctor if you observe: Fever of 101 or Higher, Shortness of breath, Dizziness, Fainting spells, Chest pain Allergies/Adverse Reactions: Allergies Sulfa (Sulfonamide Antibiotics) Allergy (Verified 05/12/20 02:48) Other Medications to take at Discharge Amlodipine [Norvasc] 10 mg PO QHS 04/06/13 Finasteride [Proscar] 5 mg PO DAILY 04/06/13 Gabapentin [Neurontin] 300 mg PO TIDCM 04/06/13 Mirtazapine [Remeron] 30 mg PO QHS 04/06/13 Multivitamins,Therapeutic [Multivitamin] 1 tab PO DAILY 04/06/13 Trimethoprim [Trimpex] 100 mg PO DAILY 04/06/13 Cilostazol [Pletal] 100 mg PO BID 04/10/13 Meloxicam [Mobic] 7.5 mg PO DAILY 10/28/15 Venlafaxine HCl [Effexor Xr] 75 mg PO DAILY 04/27/16 Albuterol Inhaler [Ventolin Hfa] puff INHALATION Q4H PRN PRN 05/12/20 Ascorbic Acid [Vitamin C] 1,000 mg PO DAILY 05/12/20 Calcium Carb/Vitamin D3/Vit K1 [Calcium + D Soft Chewable Tab] 1 ea PO DAILY 05/12/20 Latanoprost/Pf [Latanoprost 0.005% Eye Drop] 7.5 ml OP DAILY 05/12/20 Propranolol HCl [Propranolol HCl ER] 60 mg PO DAILY 05/12/20 Vit A/Vit C/Vit E/Zinc/Copper [Preservision Areds Softgel] 1 ea PO DAILY 01/22 predniSONE tablet 5 mg PO DAILY 05/12/20 Azithromycin [Zithromax] 500 mg PO Q24 #2 tab 05/14/20 Guaifenesin [Mucinex] 1,200 mg PO BID #30 tab 05/14/20 Prednisone See Taper PO DAILY #30 tab 05/14/20 The following prescriptions were given: Guaifenesin [Mucinex] 1,200 mg PO BID #30 tab Transmission Status: Pending to [facility] Prednisone See Taper PO DAILY #30 tab Transmission Status: Pending to [facility] Azithromycin [Zithromax] 500 mg PO Q24 #2 tab Transmission Status: Pending to [facility] Primary Care Physician: Rick Wade MD [Primary Care Provider] - Please follow up with your Primary Care Physician in: 1 Week Test Results: Test results from this visit will be discussed in further detail at your follow- up appointment, if applicable. Proposed Discharge Date: 05/14/20
--- NOTE | 2020-05-14 11:09 | DS.PCM_ITS ---
Discharge Date and Diagnosis Date of Admission: 05/12/20 Date of Discharge: 05/14/20 - Primary Discharge Diagnosis Acute Problems: Active Problems (Last Reviewed 02/07/19 @ 10:50 by Lacy Zepeda) 1. Acute on chronic hypoxic respiratory failure secondary to exacerbation of chronic COPD 2. Neurogenic bladder, history of chronic UTI with ESBL positive E. coli 3. Chronic coccyx decubitus ulcer, healing 4. Moderate protein calorie malnutrition 5. Degenerative disc disease - Secondary Discharge Diagnosis Chronic Problems: Chronic Problems (Last Reviewed 02/07/19 @ 10:50 by Lacy Zepeda) Acute on chronic respiratory failure with hypoxia and hypercapnia (Chronic) COPD exacerbation (Chronic) Nonhealing nonsurgical wound (Chronic) Degenerative disc disease at L5-S1 level (Chronic) Difficulty walking (Chronic) Malnutrition (Chronic) Infected decubitus ulcer (Chronic) Decubitus ulcer of coccygeal region, stage 3 (Chronic) Accidental fall (Chronic) Hospital Course and Treatment Imaging Results: Diagnostic Data Chest X-Ray 05/12/20 02:37 IMPRESSION: Findings suggestive of COPD/emphysematous changes otherwise no acute cardiopulmonary disease. Electronically Signed: Melissa Brandon MD at 3:21 EST , Service support , Operations: None Procedures: None Summary of Care Provided: The patient is a 84 year old M admitted 05/12/2020 due to shortness of breath. 1. Acute on chronic hypoxic respiratory failure secondary to exacerbation of chronic COPD-respiratory panel and Covid negative. Patient chronically wears supplemental oxygen at bedtime only. Oxygen currently stable on room air. Continue home aerosol/inhaler regimen. Prednisone taper at discharge. Continue azithromycin to complete course. Continue Mucinex. Follow-up with PCP in 1 week. Patient offered additional home therapies versus rehab and patient and family comfortable with returning home at discharge. Patient states he has a significant amount of assistive equipment at home. 2. Neurogenic bladder, history of chronic UTI with ESBL positive E. coli- recently completed antibiotic regimen. Self caths at home. Follow-up with urology as outpatient as needed. 3. Chronic coccyx decubitus ulcer, healing-Every 2 hours turns. Previously f ollowed at wound center. 4. Moderate protein calorie malnutrition-dietitian consult. 5. Degenerative disc disease-on gabapentin. General: Cooperative, No apparent distress, Confused HEENT: Atraumatic, PERRLA, EOMI, Normocephalic Oral: Dry Mucosa Neck: Supple, No JVD, Negative Carotid Bruits Lungs: Diminished, Wheezes Cardiovascular: Regular rate, No murmurs Abdomen: Bowel Sounds Present, Soft, Non Tender, Non-Distended Extremities: No clubbing, No cyanosis, No edema, Capillary Refill Less than 3 Seconds Skin: No rashes, No breakdown Musculoskeletal: No Tenderness to Palpation of Joints or Extremities Neurological: Cranial nerves II-XII grossly intact, Neuro grossly intact Psych/Mental Status: Normal Affect, Appropriate Patient seen and examined prior to discharge. Physical assessment as noted above. Patient is stable for discharge with follow up recommendations as noted above. This patient was seen by DARSHANA Islas under the supervision of Dr. Alba. - Physical Exam Vitals/I&O's: Vital Signs Temp Pulse Resp BP Pulse Ox 97.4 F L 84 18 116/89 H 97 05/14/20 09:35 05/14/20 09:35 05/14/20 09:35 05/14/20 09:35 05/14/20 09:35 Oxygen Flow Rate (L/min) 2 Oxygen Delivery Method Room Air Weight: 109 lb 5.588 oz Body Mass Index (BMI) 17.1 Intake and Output for Last 24 Hours 05/12/20 05/13/20 05/14/20 23:59 23:59 23:59 Intake Total 1630 / 1630 720 / 840 180 / 180 Output Total 1150 / 1150 1350 / 1550 825 / 825 Balance 480 / 480 -630 / -710 -645 / -645 Microbiology Past 72 Hours 05/12/20 05:14 Mucosa - Nasopharyngeal Respiratory Panel (PCR) - Final 05/12/20 02:45 Mucosa - Nose SARS-CoV-2 Antigen (Rapid) - Final Current Medications Acetaminophen (Acetaminophen 325 Mg Tablet) 650 mg PO Q6H PRN PRN PRN Reason: Pain Score 1-10/Temp > 100.7 F Al Hydroxide/Mg Hydroxide (Mag Hydrox/Al Hydrox/Simeth 30 Ml Udc) 30 ml PO Q6H PRN PRN PRN Reason: Gastric Burning Albuterol Sulfate (Albuterol 2.5 Mg/3 Ml Vial.Neb.) 2.5 mg INHALATION Q2H PRN PRN PRN Reason: SHORTNESS OF BREATH Albuterol/Ipratropium (Ipratropium/Albuterol Sulfate 3 Ml Ampul.Neb) 3 ml INHALATION Q4H.RT [facility] Last Admin: 05/13/20 19:37 Dose: 3 ml Documented by: Amlodipine Besylate (Amlodipine 10 Mg Tablet) 10 mg PO QHS [facility] Last Admin: 05/13/20 22:34 Dose: Not Given Documented by: Ascorbic Acid (Ascorbic Acid 500 Mg Tablet) 1,000 mg PO DAILY [facility] Last Admin: 05/14/20 09:26 Dose: 1,000 mg Documented by: Azithromycin (Azithromycin 250 Mg Tablet) 500 mg PO Q24 [facility] Last Admin: 05/14/20 09:25 Dose: 500 mg Documented by: Cilostazol (Cilostazol 50 Mg Tablet) 100 mg PO BID [facility] Last Admin: 05/14/20 09:26 Dose: 100 mg Documented by: Enoxaparin Sodium (Enoxaparin 40 Mg/0.4 Ml Syringe) 40 mg SC DAILY [facility] Last Admin: 05/14/20 09:27 Dose: 40 mg Documented by: Finasteride (Finasteride 5 Mg Tablet) 5 mg PO DAILY [facility] Last Admin: 05/14/20 09:26 Dose: 5 mg Documented by: Gabapentin (Gabapentin 300 Mg Capsule) 300 mg PO TIDCM [facility] Last Admin: 05/14/20 09:26 Dose: 300 mg Documented by: Guaifenesin (Guaifenesin 1,200 Mg Tablet) 1,200 mg PO BID [facility] Last Admin: 05/14/20 09:26 Dose: 1,200 mg Documented by: Sodium Chloride () 250 mls @ 15 mls/hr IV .[id number] PRN PRN Reason: Saline Flush Sodium Chloride () 250 mls @ 15 mls/hr IV .[id number] PRN PRN Reason: Additional IVPB Infusion Lactobacillus Acidophilus (Lactobacillus Acidophilus) 1 tablet PO DAILY [facility] Last Admin: 05/14/20 09:26 Dose: 1 tablet Documented by: Latanoprost (Latanoprost 0.005% 1 Bottle) 1 drop OPHTHALMIC DAILY [facility] Last Admin: 05/14/20 09:28 Dose: 1 drop Documented by: Meloxicam (Meloxicam 7.5 Mg Tablet) 7.5 mg PO DAILY [facility] Last Admin: 05/14/20 09:26 Dose: 7.5 mg Documented by: Methenamine Hippurate (Methenamine Hippurate 1 Gm Tablet) 1 gm PO DAILY [facility] Last Admin: 05/14/20 09:26 Dose: 1 gm Documented by: Methylprednisolone (Methylprednisolone 40 Mg/Ml Vial) 40 mg IV Q8 [facility] Last Admin: 05/14/20 06:11 Dose: 40 mg Documented by: Mirtazapine (Mirtazapine 30 Mg Tablet) 30 mg PO QHS [facility] Last Admin: 05/13/20 22:33 Dose: 30 mg Documented by: Morphine Sulfate (Morphine 2 Mg/Ml Syringe) 2 mg IV Q3H PRN PRN PRN Reason: Pain Score 6-10 Multivitamins ([facility]it[facility],Therapeutic Tablet) [facility] Admin: 05/14/20 09:26 Dose: 1 tablet Documented by: Nitroglycerin (Nitroglycerin (Inpatient Use) 0.4 Mg Tab.Subl) 0.4 mg SL Q5M PRN PRN Reason: CARDIAC/CHEST PAIN Oxycodone HCl (Oxycodone 5 Mg Tablet) 5 mg PO Q4H PRN PRN PRN Reason: Pain Score 4-5 Prochlorperazine Edisylate (Prochlorperazine 10 Mg/2 Ml Vial) 5 mg IV Q4H PRN PRN PRN Reason: Breakthrough Nausea/Vomiting Propranolol HCl (Propranolol La 60 Mg Capsule) 60 mg PO DAILY [facility] Last Admin: 05/14/20 09:26 Dose: 60 mg Documented by: Senna/Docusate Sodium (Senna/Docusate Sodium 1 Tablet) 2 tablet PO BID PRN PRN PRN Reason: Constipation Sodium Chloride (0.9% Saline Lock 10 Ml Syringe) 10 - 40 ml IV UD PRN PRN Reason: SALINE FLUSH Last Admin: 05/12/20 14:24 Dose: 10 ml Documented by: Venlafaxine HCl (Venlafaxine Xr 75 Mg Capsule) 75 mg PO DAILY [facility] Last Admin: 05/14/20 09:26 Dose: 75 mg Documented by: Discharge Diet: No Restrictions Discharge Activity: Return to Normal Activity Call your doctor if you observe: Fever of 101 or Higher, Shortness of breath, Dizziness, Fainting spells, Chest pain Home Medications: Medications to take at Discharge Amlodipine [Norvasc] 10 mg PO QHS 04/06/13 Finasteride [Proscar] 5 mg PO DAILY 04/06/13 Gabapentin [Neurontin] 300 mg PO TIDCM 04/06/13 Mirtazapine [Remeron] 30 mg PO QHS 04/06/13 Multivitamins,Therapeutic [Multivitamin] 1 tab PO DAILY 04/06/13 Trimethoprim [Trimpex] 100 mg PO DAILY 04/06/13 Cilostazol [Pletal] 100 mg PO BID 04/10/13 Meloxicam [Mobic] 7.5 mg PO DAILY 10/28/15 Venlafaxine HCl [Effexor Xr] 75 mg PO DAILY 04/27/16 Albuterol Inhaler [Ventolin Hfa] puff INHALATION Q4H PRN PRN 05/12/20 Ascorbic Acid [Vitamin C] 1,000 mg PO DAILY 05/12/20 Calcium Carb/Vitamin D3/Vit K1 [Calcium + D Soft Chewable Tab] 1 ea PO DAILY 05/12/20 Latanoprost/Pf [Latanoprost 0.005% Eye Drop] 7.5 ml OP DAILY 05/12/20 Propranolol HCl [Propranolol HCl ER] 60 mg PO DAILY 05/12/20 Vit A/Vit C/Vit E/Zinc/Copper [Preservision Areds Softgel] 1 ea PO DAILY 05/12/20 predniSONE tablet 5 mg PO DAILY 05/12/20 Azithromycin [Zithromax] 500 mg PO Q24 #2 tab 05/14/20 Guaifenesin [Mucinex] 1,200 mg PO BID #30 tab 05/14/20 Prednisone See Taper PO DAILY #30 tab 05/14/20 Following Prescriptions Were Given to Patient: Guaifenesin [Mucinex] 1,200 mg PO BID #30 tab Transmission Status: Pending to [facility] Prednisone See Taper PO DAILY #30 tab Transmission Status: Pending to [facility] Azithromycin [Zithromax] 500 mg PO Q24 #2 tab Transmission Status: Pending to [facility] Primary Care Physician: Rick Wade MD [Primary Care Provider] - Please follow up with your Primary Care Physician in: 1 Week Disposition: Home Minutes spent on discharge:: 35 Patient Condition:: Stable Medical Necessity - Tobacco Use Smoking Status: Former smoker Meaningful Use Info Meaningful Use Diagnoses (Choose all that apply): None applicable
== END 2020-05-14 13:14 | disposition home or self-care (01) | DRG 189 ==
LOC: ED 03:30 → PCU 03:39
PROVIDERS: Admitting Provider Internal Medicine; Emergency Provider Emergency Medicine; PCP Family Medicine; Visit Provider Internal Medicine
DX: J96.21 Acute and chronic respiratory failure with hypoxia (principal); L89.153 Pressure ulcer of sacral region, stage 3; J44.1 Chronic obstructive pulmonary disease with (acute) exacerbation; E44.0 Moderate protein-calorie malnutrition; Z68.1 Body mass index [BMI] 19.9 or less, adult; J96.22 Acute and chronic respiratory failure with hypercapnia; R33.9 Retention of urine, unspecified; M48.061 Spinal stenosis, lumbar region without neurogenic claudication; I25.10 Atherosclerotic heart disease of native coronary artery without angina pectoris; I10 Essential (primary) hypertension; M51.37 Other intervertebral disc degeneration, lumbosacral region; N31.9 Neuromuscular dysfunction of bladder, unspecified; Z87.440 Personal history of urinary (tract) infections; Z79.899 Other long term (current) drug therapy; Z86.19 Personal history of other infectious and parasitic diseases; Z87.891 Personal history of nicotine dependence
CPT/HCPCS: 36600; 71045; 80048; 82803; 83735; 83880; 84484; 85025; 85379; 87426; 87633; 93005; 94002; 94640; 94667; 94668; 97110; 97162; 97166; 97530; 97535; 97802; 99251; 99285; J7030; J7050; A4216; G0463

== ENCOUNTER → 2021-07-11 | Outpatient (CLI) | payer MEDICARE, OTHER, SELFPAY | END | disposition home or self-care (01) | PROVIDERS: PCP Family Medicine; Referring Provider Urology; Visit Provider Urology | DX: N30.20 Other chronic cystitis without hematuria (principal) | CPT/HCPCS: 87077; 87086; 87088; 87186 ==

== ENCOUNTER → 2021-10-23 | Outpatient (CLI) | payer MEDICARE, OTHER, SELFPAY ==
[2021-10-23 12:13] LABS: Absolute Lymphocyte Count 1.54 X10^3/uL (0.83-4.51); Basophil# 0.04 X10^3/uL; Basophil% 0.5 % (0-1); Eosinophil# 0.23 X10^3/uL; Eosinophils% 2.7 % (0-5); Hematocrit 46.1 % (40-54); Hemoglobin 15.4 g/dL (13.0-16.5); Lymphocyte # 1.54 X10^3/ul (0.83-4.51); Lymphocyte % 18.4 % (19-41); Mean Corp Hgb Conc 33.4 g/dL (32-36); Mean Corpuscular Volume 98.9 fL (80-94); Mean Platelet Vol. 10.5 fl (6.2-12.0); Monocyte# 0.57 X10^3/uL; Monocyte% 6.8 % (0-10); NRBC Flagged by Analyzer 0 % (0-5); Neutrophil # 5.96 X10^3/uL (2.7-7.7); Neutrophil % 71.2 % (47-70); Platelet Count 358 K/mm3 (150-450); RBC Distribution Width CV 13.7 % (11.6-14.6); RBC Distribution Width SD 49.6 fl (35.1-43.9); Red Blood Count 4.66 M/mm3 (4.6-6.2); White Blood Count 8.4 K/mm3 (4.4-11.0)
[2021-10-23 12:52] LABS: ALB/GLOB Ratio 0.9 RATIO (0.9-2.4); AST(SGOT) 22 U/L (15-37); Alanine Aminotransfer ALT/SGPT 22 U/L (16-61); Albumin, Serum 3.4 g/dL (3.2-5.0); Alkaline Phosphatase 87 U/L (45-117); Anion Gap 9 (5-15); BUN 12 mg/dL (7-18); BUN/Creat Ratio 18.4 RATIO (10-20); Calcium,Total 8.5 mg/dL (8.5-10.1); Chloride 106 mmol/L (98-107); Creatinine, Serum 0.65 mg/dL (0.70-1.30); EST Glomerular Filtration Rate 124 mL/min (>60); Est Glom Filt Rate - Afr Amer 150 mL/min (>60); Globulin 3.8 g/dL (2.2-4.2); Glucose 94 mg/dL (74-106); Potassium 3.9 mmol/L (3.5-5.1); Protein, Total 7.2 g/dL (6.4-8.2); Sodium Level 139 mmol/L (136-145); Thyroid Stim Hormone (TSH) 0.29 uIU/mL (0.358-3.74)
== END | disposition home or self-care (01) ==
LOC: LAB.FUTURE 08:06 → MTLAB 09:35
PROVIDERS: PCP Family Medicine; Referring Provider Family Medicine; Visit Provider Family Medicine
DX: R53.83 Other fatigue (principal)
CPT/HCPCS: 36415; 80053; 84443; 85025

== ENCOUNTER 2022-01-01 09:45 | Outpatient (RCR) | payer MEDICARE, OTHER, SELFPAY ==
[2021-12-04 09:08] VITALS: BP 149/73; PULSE 113; TEMP 36.4
--- NOTE | 2021-12-04 13:02 | PCM.WC.HP ---
History of Present Illness Date of Service: 12/04/21 Chief Complaint: Sacral ulcer History of Wound: 86-year-old white male emaciated living at home with his with many comorbidities. Patient has spinal stenosis so bad that he has no feeling in his rectum. Patient needs to straight cath several times a day to make sure his bladder is empty and he often has stool incontinence at night, which has caused him to have sacral ulcer which started over the past 1-2 weeks. Patient has frequent falls, history of smoking, has macular degeneration, along with the spinal stenosis, COPD and chronic steroids. He has difficulty eating food that requires a lot of chewing. He eats a lot of soft foods. He does not like to eat meat but will eat peanut butter, eggs and beans for sources of protein. He will occasionally drink supplemental protein shakes. He sleeps in a hospital bed with an air mattress. Progress of Wound: Sacral ulcer is pink with increased dry tissue surrounding the ulcer, wound bed is pink. [facility] Medical History Accidental fall Decubitus ulcer of coccygeal region, stage 3 Degenerative disc disease at L5-S1 level Difficulty walking Infected decubitus ulcer Malnutrition Nonhealing nonsurgical wound Skin lesion of face Home Medications amlodipine 10 mg tablet 10 mg PO QHS blood pressure 04/06/13 [History Last Taken 04/09/13 20:00] finasteride 5 mg tablet 5 mg PO DAILY prostate 04/06/13 [History Last Taken Unknown] gabapentin 300 mg capsule 300 mg PO TIDCM nerve pain 04/06/13 [History Last Taken Unknown] mirtazapine 30 mg tablet 30 mg PO QHS sleep 04/06/13 [History Last Taken 02/17/14 20:00] multivitamin with folic acid 400 mcg tablet 1 tab PO DAILY vitamin 04/06/13 [History Last Taken Unknown] trimethoprim 100 mg tablet 100 mg PO DAILY infection 04/06/13 [History Last Taken Unknown] cilostazol 100 mg tablet 100 mg PO BID anti platelet 04/10/13 [History Last Taken 04/10/13 06:00] meloxicam 7.5 mg tablet 7.5 mg PO DAILY pain 10/28/15 [History Last Taken Unknown] venlafaxine 37.5 mg capsule,extended release 24 hr 75 mg PO DAILY mental health 04/27/16 [History Last Taken Unknown] Propranolol Hcl [Propranolol Hcl Er] 60 mg PO DAILY blood pressure 05/12/20 [History Last Taken Unknown] albuterol sulfate 90 mcg/actuation aerosol inhaler (ProAir HFA) puff inhalation Q4H PRN PRN Shortness Of Breath 05/12/20 [History Last Taken Unknown] ascorbic acid (vitamin C) 1,000 mg tablet 1,000 mg PO DAILY vitamin 05/12/20 [History Last Taken Unknown] calcium-vitamin D3-vitamin K 500 mg-1,000 unit-40 mcg chewable tablet 1 ea PO DAILY vitamin 05/12/20 [History Last Taken Unknown] latanoprost (PF) 0.005 % eye drops 7.5 ml OP DAILY eye health 05/12/20 [History Last Taken Unknown] prednisone 20 mg tablet 5 mg PO DAILY inflammation 05/12/20 [History Last Taken Unknown] vitamins A,C,N-iwsw-emnwne 14,320 unit-226 mg-200 unit capsule 1 ea PO DAILY vitamin 05/12/20 [History Last Taken Unknown] azithromycin 250 mg tablet 500 mg PO Q24 #2 tabs 05/14/20 [Rx Last Taken Unknown] guaifenesin 1,200 mg tablet, extended release 12 hr 1,200 mg PO BID #30 tabs 05/14/20 [Rx Last Taken Unknown] prednisone 10 mg tablet See Taper PO DAILY #30 tabs 05/14/20 [Rx Last Taken Unknown] acetaminophen 650 mg tablet 650 mg PO Q4H PRN Pain 12/04/21 [History Last Taken Unknown] ipratropium bromide 17 mcg/actuation HFA aerosol inhaler 1 inh inhalation Q6H 12/04/21 [History Last Taken Unknown] methenamine hippurate 1 gram tablet g 12/04/21 [History Last Taken Unknown] Allergy/AdvReac Type Severity Reaction Status Date / Time Sulfa (Sulfonamide Allergy Other Verified 05/12/20 02:48 Antibiotics) Family History (Reviewed 12/10/21 @ 20:53 by Sandra Hall HANDBAG FRAMES INSPECTOR, HANDBAG FRAMES INSPECTOR-C) Brother Diabetes Surgical History (Reviewed 12/10/21 @ 20:53 by Sandra Hall HANDBAG FRAMES INSPECTOR, HANDBAG FRAMES INSPECTOR-C) History of left hip replacement Social History (Reviewed 12/10/21 @ 20:53 by Sandra Hall HANDBAG FRAMES INSPECTOR, HANDBAG FRAMES INSPECTOR-C) Smoking Status: Former smoker alcohol intake: never substance use type: does not use ROS Constitutional Constitutional: Reports as per HPI, anorexia, frequent falls, poor appetite, weakness and weight loss Eyes Eyes: Reports as per HPI, blind spots, loss of vision, other visual disturbances and requires corrective lenses ENT HEENT: Reports as per HPI and other Details: trouble chewing certain foods Cardiovascular Cardiovascular: Reports as per HPI Respiratory/Chest Respiratory/Chest: Reports as per HPI Gastrointestinal Gastrointestinal: Reports as per HPI Genitourinary Genitourinary: Reports as per HPI Musculoskeletal Musculoskeletal: Reports as per HPI, back pain, muscle weakness and numbness Integumentary Integumentary: Reports as per HPI and skin ulcer Neurologic Neurologic: Reports as per HPI, frequent falls, numbness, sensory deficit and weakness Psychiatric Psychiatric: Reports none Endocrine Endocrinology: Reports none Hematologic/Lymphatic Hematologic/Lymphatic: Reports none Allergic/Immunologic Allergic/Immunologic: Reports none Vital Signs Vital Signs Vital Signs: 12/04/21 09:08 Temperature 97.6 F L Temperature Source Temporal Pulse Rate 113 H Blood Pressure 149/73 H Blood Pressure Mean 98 Blood Pressure Source Monitor Blood Pressure Position Sitting Blood Pressure Location Right Arm Physical Exam Const alert and oriented x3 Nutritional Appearance: underweight and thin HEENT normocephalic Eyes Alignment: alignment normal Lymph Lymphatic: no lymphedema noted Resp normal respiratory effort and normal air movement Auscultation: diminished lung sounds Cardio regular rate GI normal to inspection, nondistended, normoactive bowel sounds and soft to palpation Back/Spine Thoracic Spine / Upper Back: ROM limited Lumbar Spine / Lower Back: ROM limited and pain with ROM Extremity normal capillary refill Skin Wound Narrative: Sacral ulcer is pink with increased dry tissue surrounding the ulcer, wound bed is pink. Pao wound is erythematous. Neuro oriented x3 Psych mental status grossly normal Debridement Note Debridement Note Wound debrided: Sacral ulcer Laterality: Not Applicable Type of Debridement: Excisional debridement Anesthesia Used: 5% Lidocaine Gel Depth: Down to and including healthy tissue and in the subcutaneous layer Percentage of wound debrided: 100 Instrument Used: 5mm curette Tissue Removed: Devitalized tissue and slough Severity: Fat Layer Exposed Amount of bleeding with debridement: Mild Bleeding Controlled with: Compression and gauze Patient tolerated procedure: Patient tolerated procedure well Post-Debridement Measurements and Additional Note: Post-Debridement Measurements/Treatment WC - Nurse 1 - General Ulcer Assessment Start: 12/04/21 09:08 Freq: Status: Active Protocol: CANDIDO Activity Type Activity Date Activity User E-sign Co-sign Detail Recorded Client Recorded Date Recorded By Document 12/04/21 09:08 MAYI [id number] 12/04/21 09:17 MAYI 12/04/21 09:08 WC - Today's Visit Information Type of service Initial Visit Arrival Mode Ambulatory Accompanied by Patient Identification Verified (Name & Yes ) Vital Signs Temperature (97.8 F-99.1 F) 97.6 F L Temperature Source Temporal Pulse Rate (60-100) 113 H Pulse Location Monitor Blood Pressure (90/60-120/80) 149/73 H Blood Pressure Mean 98 Source Monitor Position Sitting Blood Pressure Location Right Arm History Since Last Visit- (Skip if this is Patient's initial visit) Have you changed medications since your No last visit? Any new allergies or adverse reactions No Had a fall/change in ADL's that may No increase risk of falls Signs or symptoms of abuse and/or No neglect since last visit Have you been in the hospital since your No last visit? Has dressing in place as prescribed No Has compression in place as prescribed N/A Has offloadiing in place as prescribed N/A Experienced any changes in pain level or No management Left Footwear Regular Shoe Right Footwear Regular Shoe Pain Scale: 0-10 Numeric Is Patient Pain Free? Yes - Nurse 1 - General Ulcer Measurement Start: 12/04/21 09:08 Freq: Status: Active Protocol: Activity Type Activity Date Activity User E-sign Co-sign Detail Recorded Client Recorded Date Recorded By Document 12/04/21 09:08 MAYI [id number] 12/04/21 09:17 MAYI 12/04/21 09:08 Wound Center Nurse 1 #6 sacral -Combined with other wound No -Current Size (cm) - Length 2.5 -Current Size (cm) - Width 0.8 -Current Size (cm) - Depth 0.2 -Total Square Cm 2.00 -Date of Last Picture (Recall this 12/04/21 field) -Photo Taken Yes -Tunneling No -Undermining/Tunneling No -Circular Undermining No -Change in Wound Grade/Stage No -Exudate Amt None Present -Exudate Type Serosanguineous -Wound Margin Distinct, Outline Attached -Granulation Amt None Present (0 %) -Granulation Quality N/A -Slough/Fibrin Yes -Necrosis Amt Medium (34-66%) -Necrotic Tissue Type Adherent Slough -Structure Exposed N/A -Texture (Pao-wound Skin Appearance) No Abnormality, Assessed -Moisture (Pao-wound Skin Appearance) No Abnormality, Assessed -Color (Pao-wound Skin Appearance) No Abnormality, Assessed -Temperature (Pao-wound Skin No Abnormality Appearance) (Pt Warm) -Tenderness on Palpation (Pao-wound No Skin Appearance) -Ulcer Cleansing Soap and Water -Foul Odor after Cleansing No -Anesthetic Used 5% Lidocaine Gel WC - Nurse 2 - General Ulcer CM Notes Start: 12/04/21 09:08 Freq: Status: Active Protocol: Activity Type Activity Date Activity User E-sign Co-sign Detail Recorded Client Recorded Date Recorded By Document 12/04/21 09:39 [id number] 12/04/21 09:45 12/04/21 09:39 Wound Center Nurse 2 -Time 09:39 -Correct Patient Yes -Correct Side, Site, Position Yes -Correct Procedure Yes -Procedure Performed Yes -Type of Procedure Debridement -Clinical Debridement Subcutaneous -Tissue Removed Subcutaneous -Post Debridement (cm) - Length 3.0 -Post Debridement (cm) - Width 1.5 -Post Debridement (cm) - Depth 0.2 -Total Square (Post) (cm) 4.50 -Area of Debridement (cm) - Length 3.0 -Area of Debridement (cm) - Width 1.5 -Total Square (Area) (cm) 4.50 -Tunneling No -Undermining/Tunneling No -Circular Undermining No -Wound/Ulcer Outcome Not Healed -Ulcer Cleansing Rinsed/ Irrigated with Saline -Foul Odor after Cleansing No -Bioengineered Tissue No -Bleeding Controlled with Pressure -Treatment Response Procedure Tolerated Well -Offloading No -Pressure Reduction Wheelchair cushion -Debridement - Subq, 1st 20sq cm Yes Pain Scale: 0-10 Numeric Is Patient Pain Free? Yes ETHAN - Nurse 3 - General Ulcer D/C NN Start: 12/04/21 09:08 Freq: Status: Active Protocol: Activity Type Activity Date Activity User E-sign Co-sign Detail Recorded Client Recorded Date Recorded By Document 12/04/21 10:04 KARLEE [id number] 12/04/21 10:05 KARLEE 12/04/21 10:04 Wound Care Nurse 3 #6 sacral -Ulcer Cleansing Rinsed/ Irrigated with Saline -Primary Dressing Applied Promogran Sofy Matter -Other Dressing excel sap -Promogran Sofy Matter 1 Pain Scale: 0-10 Numeric Is Patient Pain Free? Yes WC - Visit Discharge Discharge Condition Stable Ambulatory Status Wheelchair Transportation Private Auto Accompanied by Charges/Coding Visit Charges Office Visits / Consults: 30396 OV L4 Est (25 modifier) Procedures Integumentary [id number]: [id number] [place] subq tissue 20 sq cm/< Assessment/Plan Assessment/Plan (1) Decubitus ulcer of coccyx, stage 2: CODE(S): L89.152 - Pressure ulcer of sacral region, stage 2 (2) Degenerative disc disease at L5-S1 level: CODE(S): M51.36 - Other intervertebral disc degeneration, lumbar region (3) Difficulty walking: CODE(S): R26.2 - Difficulty in walking, not elsewhere classified (4) Malnutrition: CODE(S): E46 - Unspecified protein-calorie malnutrition PLAN: Plan Patient was evaluated at the wound center. A debridement was performed as documented. Wound care - Sofy covered with [place] SAP daily after washing with soap and water. Try to off load off the sacral area to prevent further pressure. Discussed increasing protein intake with supplements. Supplements are not to replace meals, they are in addition to meals. Follow up one week. Call or come in sooner if develop any concerns. Greater than 25 minutes spent with patient, planning of care, reviewing charts.
[2021-12-11 08:41] VITALS: BP 136/76; PULSE 108; TEMP 36.4
--- NOTE | 2021-12-11 09:51 | PN.PCM_ITS ---
History of Present Illness Date of Service: 12/11/21 Chief Complaint: Sacral ulcer History of Wound: 86-year-old white male emaciated living at home with his with many comorbidities. Patient has spinal stenosis so bad that he has no feeling in his rectum. Patient needs to straight cath several times a day to make sure his bladder is empty and he often has stool incontinence at night, which has caused him to have sacral ulcer which started over the past 1-2 weeks. Patient has frequent falls, history of smoking, has macular degeneration, along with the spinal stenosis, COPD and chronic steroids. He has difficulty eating food that requires a lot of chewing. He eats a lot of soft foods. He does not like to eat meat but will eat peanut butter, eggs and beans for sources of protein. He will occasionally drink supplemental protein shakes. He sleeps in a hospital bed with an air mattress. Progress of Wound: Sacral ulcer wound bed is beefy pink. He has some excoriation surrounding the ulcer from tape. His states that she often has to change the dressing several times a day due to him having stool incontinence. Objective Data Objective Data Vital Signs: Vital Signs Temp Pulse BP 97.6 F L 108 H 136/76 H 12/11/21 08:41 12/11/21 08:41 12/11/21 08:41 Charges/Coding Procedures Integumentary 111xxx-113xx: 31564 Bernadine subq tissue 20 sq cm/< Physical Exam Const alert and oriented x3 Nutritional Appearance: underweight and thin HEENT normocephalic Eyes Alignment: alignment normal Lymph Lymphatic: no lymphedema noted Resp normal respiratory effort and normal air movement Cardio regular rate Extremity normal capillary refill Skin Wound Narrative: Sacral ulcer wound bed is beefy pink. There is some pao wound excoriation from tape. Neuro oriented x3 Psych mental status grossly normal Debridement Note Debridement Note Wound debrided: Sacral ulcer Laterality: Not Applicable Type of Debridement: Excisional debridement Anesthesia Used: 5% Lidocaine Gel Depth: Down to and including healthy tissue and in the subcutaneous layer Percentage of wound debrided: 100 Instrument Used: 5mm curette Tissue Removed: Devitalized tissue and slough Severity: Fat Layer Exposed Amount of bleeding with debridement: Mild Bleeding Controlled with: Compression and gauze Patient tolerated procedure: Patient tolerated procedure well Post-Debridement Measurements and Additional Note: Post-Debridement Measurements/Treatment WC - Nurse 1 - General Ulcer Assessment Start: 12/04/21 09:08 Freq: Status: Active Protocol: CANDIDO Activity Type Activity Date Activity User E-sign Co-sign Detail Recorded Client Recorded Date Recorded By Document 12/04/21 09:08 AK [id number] 12/04/21 09:17 AK Document 12/11/21 08:41 KR [id number] 12/11/21 08:45 KR 12/04/21 12/11/21 09:08 08:41 WC - Today's Visit Information Type of service Initial Visit Follow-up Visit (Physician/DIRECTOR OF CRITICAL CARE ) Arrival Mode Ambulatory Wheelchair Accompanied by Patient Identification Verified (Name & Yes Yes ) Vital Signs Temperature (97.8 F-99.1 F) 97.6 F L 97.6 F L Temperature Source Temporal Temporal Pulse Rate (60-100) 113 H 108 H Pulse Location Monitor Monitor Blood Pressure (90/60-120/80) 149/73 H 136/76 H Blood Pressure Mean (mm Hg) 98 96 Source Monitor Monitor Position Sitting Semi-Fowlers Blood Pressure Location Right Arm Left Arm History Since Last Visit- (Skip if this is Patient's initial visit) Have you changed medications since your No No last visit? Any new allergies or adverse reactions No No Had a fall/change in ADL's that may No No increase risk of falls Signs or symptoms of abuse and/or No No neglect since last visit Have you been in the hospital since your No No last visit? Has dressing in place as prescribed No Yes Has compression in place as prescribed N/A Yes Has offloadiing in place as prescribed N/A N/A Experienced any changes in pain level or No No management Left Footwear Regular Shoe Regular Shoe Right Footwear Regular Shoe Regular Shoe Pain Scale: 0-10 Numeric Is Patient Pain Free? Yes Yes - Nurse 1 - General Ulcer Measurement Start: 12/04/21 09:08 Freq: Status: Active Protocol: Activity Type Activity Date Activity User E-sign Co-sign Detail Recorded Client Recorded Date Recorded By Document 12/04/21 09:08 AK [id number] 12/04/21 09:17 AK Document 12/11/21 08:41 KR [id number] 12/11/21 08:45 KR 12/04/21 12/11/21 09:08 08:41 Wound Center Nurse 1 #6 sacral -Combined with other wound No -Current Size (cm) - Length 2.5 1.8 -Current Size (cm) - Width 0.8 0.6 -Current Size (cm) - Depth 0.2 0.1 -Total Square Cm 2.00 1.08 -Date of Last Picture (Recall this 12/04/21 field) -Photo Taken Yes -Tunneling No -Undermining/Tunneling No -Circular Undermining No -Change in Wound Grade/Stage No -Exudate Amt None Present Small -Exudate Type Serosanguineous Serosanguineous -Wound Margin Distinct, Distinct, Outline Outline Attached Attached -Granulation Amt None Present (0 Medium (34-66%) %) -Granulation Quality N/A [place] -Slough/Fibrin Yes -Necrosis Amt Medium (34-66%) Small (1-33%) -Necrotic Tissue Type Adherent Slough Adherent Slough -Structure Exposed N/A -Texture (Pao-wound Skin Appearance) No Abnormality, Assessed, Assessed Scarring -Moisture (Pao-wound Skin Appearance) No Abnormality, No Abnormality, Assessed Assessed -Color (Pao-wound Skin Appearance) No Abnormality, No Abnormality, Assessed Assessed -Temperature (Pao-wound Skin No Abnormality No Abnormality Appearance) (Pt Warm) (Pt Warm) -Tenderness on Palpation (Pao-wound No No Skin Appearance) -Ulcer Cleansing Soap and Water Rinsed/ Irrigated with Saline -Foul Odor after Cleansing No No -Anesthetic Used 5% Lidocaine 5% Lidocaine Gel Gel WC - Nurse 2 - General Ulcer CM Notes Start: 12/04/21 09:08 Freq: Status: Active Protocol: Activity Type Activity Date Activity User E-sign Co-sign Detail Recorded Client Recorded Date Recorded By Document 12/04/21 09:39 JF [id number] 12/04/21 09:45 Document 12/11/21 09:02 [id number] 12/11/21 09:11 12/04/21 12/11/21 09:39 09:02 Wound Center Nurse 2 #6 sacral -Time 09:39 09:03 -Correct Patient Yes Yes -Correct Side, Site, Position Yes Yes -Correct Procedure Yes Yes -Procedure Performed Yes Yes -Type of Procedure Debridement Debridement -Clinical Debridement Subcutaneous Subcutaneous -Tissue Removed Subcutaneous Subcutaneous -Post Debridement (cm) - Length 3.0 2.5 -Post Debridement (cm) - Width 1.5 1.0 -Post Debridement (cm) - Depth 0.2 0.3 -Total Square (Post) (cm) 4.50 2.50 -Area of Debridement (cm) - Length 3.0 2.5 -Area of Debridement (cm) - Width 1.5 1.0 -Total Square (Area) (cm) 4.50 2.50 -Tunneling No No -Undermining/Tunneling No No -Circular Undermining No No -Wound/Ulcer Outcome Not Healed Not Healed -Ulcer Cleansing Rinsed/ Rinsed/ Irrigated with Irrigated with Saline Saline -Foul Odor after Cleansing No No -Bioengineered Tissue No No -Bleeding Controlled with Pressure Pressure -Treatment Response Procedure Procedure Tolerated Well Tolerated Well -Offloading No No -Pressure Reduction Wheelchair Wheelchair cushion cushion -Debridement - Subq, 1st 20sq cm Yes Yes Pain Scale: 0-10 Numeric Is Patient Pain Free? Yes Yes - Nurse 3 - General Ulcer D/C NN Start: 12/04/21 09:08 Freq: Status: Active Protocol: Activity Type Activity Date Activity User E-sign Co-sign Detail Recorded Client Recorded Date Recorded By Document 12/04/21 10:04 KARLEE [id number] 12/04/21 10:05 KARLEE 12/04/21 10:04 Wound Care Nurse 3 #6 sacral -Ulcer Cleansing Rinsed/ Irrigated with Saline -Primary Dressing Applied Promogran Sofy Matter -Other Dressing excel sap -Promogran Sofy Matter 1 Pain Scale: 0-10 Numeric Is Patient Pain Free? Yes WC - Visit Discharge Discharge Condition Stable Ambulatory Status Wheelchair Transportation Private Auto Accompanied by Assessment/Plan Assessment/Plan (1) Decubitus ulcer of coccyx, stage 2: CODE(S): L89.152 - Pressure ulcer of sacral region, stage 2 (2) Degenerative disc disease at L5-S1 level: CODE(S): M51.36 - Other intervertebral disc degeneration, lumbar region (3) Difficulty walking: CODE(S): R26.2 - Difficulty in walking, not elsewhere classified (4) Malnutrition: CODE(S): E46 - Unspecified protein-calorie malnutrition PLAN: Plan Patient was evaluated at the wound center. A debridement was performed as documented. Wound care - Moistened Sofy covered with [place] SAP daily after washing with soap and water. His states that he is incontinent of stool and often there is dry stool in the ulcer in the morning when he wakes up. She would like to have him sit in a sitz bath to help loosen the stool so she does not have to scrub so hard to remove it. After he uses the sitz bath, will have her wipe him with Dakin's 0.25% moistened gauze before applying the Sofy and top dressing. Try to off load off the sacral area to prevent further pressure. Discussed increasing protein intake with supplements. Supplements are not to replace meals, they are in addition to meals. He is drinking Brendan 2 x per day and sometime drinking Ensure also. Follow up one week. Call or come in sooner if develop any concerns.
[2021-12-18 08:53] VITALS: BP 139/62; PULSE 77; TEMP 36.1
--- NOTE | 2021-12-18 10:59 | PCM.WC.PN ---
History of Present Illness Date of Service: 12/18/21 Chief Complaint: Sacral ulcer History of Wound: 86-year-old white male emaciated living at home with his with many comorbidities. Patient has spinal stenosis so bad that he has no feeling in his rectum. Patient needs to straight cath several times a day to make sure his bladder is empty and he often has stool incontinence at night, which has caused him to have sacral ulcer which started over the past 1-2 weeks. Patient has frequent falls, history of smoking, has macular degeneration, along with the spinal stenosis, COPD and chronic steroids. He has difficulty eating food that requires a lot of chewing. He eats a lot of soft foods. He does not like to eat meat but will eat peanut butter, eggs and beans for sources of protein. He will occasionally drink supplemental protein shakes. He sleeps in a hospital bed with an air mattress. Progress of Wound: Sacral ulcer wound bed is beefy pink. The excoriation surrounding the ulcer from tape has improved. His states that she often has to change the dressing several times a day due to him having stool incontinence. Objective Data Objective Data Vital Signs: Vital Signs Temp Pulse BP 96.9 F L 77 139/62 H 12/18/21 08:53 12/18/21 08:53 12/18/21 08:53 Charges/Coding Procedures Integumentary 111xxx-113xx: [id number] Bernadine subq tissue 20 sq cm/< Debridement Note Debridement Note Wound debrided: Sacral ulcer Laterality: Not Applicable Type of Debridement: Excisional debridement Anesthesia Used: 5% Lidocaine Gel Depth: Down to and including healthy tissue and in the subcutaneous layer Percentage of wound debrided: 100 Instrument Used: 3mm curette Tissue Removed: Devitalized tissue and slough Severity: Fat Layer Exposed Amount of bleeding with debridement: Mild Bleeding Controlled with: Compression and gauze Patient tolerated procedure: Patient tolerated procedure well Post-Debridement Measurements and Additional Note: Post-Debridement Measurements/Treatment WC - Nurse 1 - General Ulcer Assessment Start: 12/04/21 09:08 Freq: Status: Active Protocol: CANDIDO Activity Type Activity Date Activity User E-sign Co-sign Detail Recorded Client Recorded Date Recorded By Document 12/04/21 09:08 AK [id number] 12/04/21 09:17 AK Document 12/11/21 08:41 KR [id number] 12/11/21 08:45 KR Document 12/18/21 08:53 AK [id number] 12/18/21 08:55 AK 12/04/21 12/11/21 12/18/21 09:08 08:41 08:53 - Today's Visit Information Type of service Initial Visit Follow-up Visit Follow-up Visit (Physician/MERCHANDISING REPRESENTATIVE (Physician/MERCHANDISING REPRESENTATIVE ) ) Arrival Mode Ambulatory Wheelchair Wheelchair Accompanied by Patient Identification Verified (Name & Yes Yes Yes ) Patient Requires Transmission-Based No Precautions Safety Precautions NA Vital Signs Temperature (97.8 F-99.1 F) 97.6 F L 97.6 F L 96.9 F L Temperature Source Temporal Temporal Temporal Pulse Rate (60-100) 113 H 108 H 77 Pulse Location Monitor Monitor Monitor Blood Pressure (90/60-120/80) 149/73 H 136/76 H 139/62 H Blood Pressure Mean (mm Hg) 98 96 87 Source Monitor Monitor Monitor Position Sitting Semi-Fowlers Blood Pressure Location Right Arm Left Arm History Since Last Visit- (Skip if this is Patient's initial visit) Have you changed medications since your No No No last visit? Any new allergies or adverse reactions No No No Had a fall/change in ADL's that may No No No increase risk of falls Signs or symptoms of abuse and/or No No No neglect since last visit Have you been in the hospital since your No No No last visit? Has dressing in place as prescribed No Yes Yes Has compression in place as prescribed N/A Yes N/A Has offloadiing in place as prescribed N/A N/A N/A Experienced any changes in pain level or No No No management Left Footwear Regular Shoe Regular Shoe Regular Shoe Right Footwear Regular Shoe Regular Shoe Regular Shoe Pain Scale: 0-10 Numeric Is Patient Pain Free? Yes Yes Yes - Nurse 1 - General Ulcer Measurement Start: 12/04/21 09:08 Freq: Status: Active Protocol: Activity Type Activity Date Activity User E-sign Co-sign Detail Recorded Client Recorded Date Recorded By Document 12/04/21 09:08 MAYI [id number] 12/04/21 09:17 AK Document 12/11/21 08:41 KR [id number] 12/11/21 08:45 KR Document 12/18/21 08:53 AK [id number] 12/18/21 08:55 AK 12/04/21 12/11/21 12/18/21 09:08 08:41 08:53 Wound Center Nurse 1 #6 sacral -Combined with other wound No No -Current Size (cm) - Length 2.5 1.8 1.2 -Current Size (cm) - Width 0.8 0.6 0.5 -Current Size (cm) - Depth 0.2 0.1 0.1 -Total Square Cm 2.00 1.08 0.60 -Date of Last Picture (Recall this 12/04/21 field) -Photo Taken Yes Yes -Epithelialization None Present -Tunneling No No -Undermining/Tunneling No No -Circular Undermining No No -Change in Wound Grade/Stage No No -Exudate Amt None Present Small Medium -Exudate Type Serosanguineous Serosanguineous Serosanguineous -Wound Margin Distinct, Distinct, Distinct, Outline Outline Outline Attached Attached Attached -Granulation Amt None Present (0 Medium (34-66%) Medium (34-66%) %) -Granulation Quality N/A [place] -Slough/Fibrin Yes Yes -Necrosis Amt Medium (34-66%) Small (1-33%) Small (1-33%) -Necrotic Tissue Type Adherent Slough Adherent Slough Adherent Slough -Structure Exposed N/A N/A -Texture (Pao-wound Skin Appearance) No Abnormality, Assessed, No Abnormality, Assessed Scarring Assessed -Moisture (Pao-wound Skin Appearance) No Abnormality, No Abnormality, No Abnormality, Assessed Assessed Assessed -Color (Pao-wound Skin Appearance) No Abnormality, No Abnormality, No Abnormality, Assessed Assessed Assessed -Temperature (Pao-wound Skin No Abnormality No Abnormality No Abnormality Appearance) (Pt Warm) (Pt Warm) (Pt Warm) -Tenderness on Palpation (Pao-wound No No No Skin Appearance) -Ulcer Cleansing Soap and Water Rinsed/ Rinsed/ Irrigated with Irrigated with Saline Saline -Foul Odor after Cleansing No No No -Anesthetic Used 5% Lidocaine 5% Lidocaine 5% Lidocaine Gel Gel Gel WC - Nurse 2 - General Ulcer CM Notes Start: 12/04/21 09:08 Freq: Status: Active Protocol: Activity Type Activity Date Activity User E-sign Co-sign Detail Recorded Client Recorded Date Recorded By Document 12/04/21 09:39 [id number] 12/04/21 09:45 Document 12/11/21 09:02 [id number] 12/11/21 09:11 Document 12/18/21 09:07 [id number] 12/18/21 09:11 12/04/21 12/11/21 12/18/21 09:39 09:02 09:07 Wound Center Nurse 2 #6 sacral -Time 09:39 09:03 09:07 -Correct Patient Yes Yes Yes -Correct Side, Site, Position Yes Yes Yes -Correct Procedure Yes Yes Yes -Procedure Performed Yes Yes Yes -Type of Procedure Debridement Debridement Debridement -Clinical Debridement Subcutaneous Subcutaneous Subcutaneous -Tissue Removed Subcutaneous Subcutaneous Subcutaneous -Post Debridement (cm) - Length 3.0 2.5 1.9 -Post Debridement (cm) - Width 1.5 1.0 1.0 -Post Debridement (cm) - Depth 0.2 0.3 0.2 -Total Square (Post) (cm) 4.50 2.50 1.90 -Area of Debridement (cm) - Length 3.0 2.5 1.9 -Area of Debridement (cm) - Width 1.5 1.0 1 -Total Square (Area) (cm) 4.50 2.50 1.9 -Tunneling No No No -Undermining/Tunneling No No No -Circular Undermining No No No -Wound/Ulcer Outcome Not Healed Not Healed Not Healed -Ulcer Cleansing Rinsed/ Rinsed/ Rinsed/ Irrigated with Irrigated with Irrigated with Saline Saline Saline -Foul Odor after Cleansing No No No -Bioengineered Tissue No No No -Bleeding Controlled with Pressure Pressure Pressure -Treatment Response Procedure Procedure Procedure Tolerated Well Tolerated Well Tolerated Well -Offloading No No No -Pressure Reduction Wheelchair Wheelchair cushion cushion -Debridement - Subq, 1st 20sq cm Yes Yes Yes Pain Scale: 0-10 Numeric Is Patient Pain Free? Yes Yes Yes WC - Nurse 3 - General Ulcer D/C NN Start: 12/04/21 09:08 Freq: Status: Active Protocol: Activity Type Activity Date Activity User E-sign Co-sign Detail Recorded Client Recorded Date Recorded By Document 12/04/21 10:04 [id number] 12/04/21 10:05 KR 12/04/21 10:04 Wound Care Nurse 3 #6 sacral -Ulcer Cleansing Rinsed/ Irrigated with Saline -Primary Dressing Applied Promogran Sofy Matter -Other Dressing excel sap -Promogran Sofy Matter 1 Pain Scale: 0-10 Numeric Is Patient Pain Free? Yes WC - Visit Discharge Discharge Condition Stable Ambulatory Status Wheelchair Transportation Private Auto Accompanied by Assessment/Plan Assessment/Plan (1) Decubitus ulcer of coccyx, stage 2: CODE(S): L89.152 - Pressure ulcer of sacral region, stage 2 (2) Degenerative disc disease at L5-S1 level: CODE(S): M51.36 - Other intervertebral disc degeneration, lumbar region (3) Difficulty walking: CODE(S): R26.2 - Difficulty in walking, not elsewhere classified (4) Malnutrition: CODE(S): E46 - Unspecified protein-calorie malnutrition PLAN: Plan Patient was evaluated at the wound center. A debridement was performed as documented. There is an improvement with the bed of the ulcer this week, it is beefy and bleeds well. Wound care - Moistened Sofy covered with [place] SAP daily after washing with soap and water. His states that he is incontinent of stool and often there is dry stool in the ulcer in the morning when he wakes up. She is having him sit in a sitz bath to help loosen the stool so she does not have to scrub so hard to remove it. After he uses the sitz bath, she wipes him with Dakin's 0.25% moistened gauze before applying the Sofy and top dressing. Due to him having multiple stools per day, she may replace the [place] SAP with dry gauze. Try to off load off the sacral area to prevent further pressure. Discussed increasing protein intake with supplements. Supplements are not to replace meals, they are in addition to meals. He is drinking Brendan 2 x per day and sometime drinking Ensure also. Follow up one week. Call or come in sooner if develop any concerns.
[2021-12-25 10:27] VITALS: BP 129/78; PULSE 68; TEMP 36.1
--- NOTE | 2021-12-25 12:07 | PCM.WC.PN ---
History of Present Illness Date of Service: 12/25/21 Chief Complaint: Sacral ulcer History of Wound: 86-year-old white male emaciated living at home with his with many comorbidities. Patient has spinal stenosis so bad that he has no feeling in his rectum. Patient needs to straight cath several times a day to make sure his bladder is empty and he often has stool incontinence at night, which has caused him to have sacral ulcer which started over the past 1-2 weeks. Patient has frequent falls, history of smoking, has macular degeneration, along with the spinal stenosis, COPD and chronic steroids. He has difficulty eating food that requires a lot of chewing. He eats a lot of soft foods. He does not like to eat meat but will eat peanut butter, eggs and beans for sources of protein. He will occasionally drink supplemental protein shakes. He sleeps in a hospital bed with an air mattress. Progress of Wound: Sacral ulcer wound bed is beefy pink. He has a new wound on left buttock, most likely from trauma from removing tape, it is superficial. He often has several BMs per day. Objective Data Objective Data Vital Signs: Vital Signs Temp Pulse BP 97.0 F L 68 129/78 H 12/25/21 10:27 12/25/21 10:27 12/25/21 10:27 Charges/Coding Procedures Integumentary 111xxx-113xx: 09133 Bernadine subq tissue 20 sq cm/< Debridement Note Debridement Note Wound debrided: Sacral ulcer Laterality: Not Applicable Type of Debridement: Excisional debridement Anesthesia Used: 5% Lidocaine Gel Depth: Down to and including healthy tissue and in the subcutaneous layer Percentage of wound debrided: 100 Instrument Used: 3mm curette Tissue Removed: Devitalized tissue and slough Severity: Fat Layer Exposed Amount of bleeding with debridement: Mild Bleeding Controlled with: Compression and gauze Patient tolerated procedure: Patient tolerated procedure well Post-Debridement Measurements and Additional Note: Post-Debridement Measurements/Treatment ETHAN - Nurse 1 - General Ulcer Assessment Start: 12/04/21 09:08 Freq: Status: Active Protocol: CANDIDO Activity Type Activity Date Activity User E-sign Co-sign Detail Recorded Client Recorded Date Recorded By Document 12/04/21 09:08 AK [id number] 12/04/21 09:17 AK Document 12/11/21 08:41 KR [id number] 12/11/21 08:45 KR Document 12/18/21 08:53 AK [id number] 12/18/21 08:55 AK Document 12/25/21 10:27 KR [id number] 12/25/21 10:28 KR 12/04/21 12/11/21 12/18/21 09:08 08:41 08:53 WC - Today's Visit Information Type of service Initial Visit Follow-up Visit Follow-up Visit (Physician/ASPHALT PAVING MACHINE OPERATOR (Physician/ASPHALT PAVING MACHINE OPERATOR ) ) Arrival Mode Ambulatory Wheelchair Wheelchair Accompanied by Patient Identification Verified (Name & Yes Yes Yes ) Patient Requires Transmission-Based No Precautions Safety Precautions NA Vital Signs Temperature (97.8 F-99.1 F) 97.6 F L 97.6 F L 96.9 F L Temperature Source Temporal Temporal Temporal Pulse Rate (60-100) 113 H 108 H 77 Pulse Location Monitor Monitor Monitor Blood Pressure (90/60-120/80) 149/73 H 136/76 H 139/62 H Blood Pressure Mean (mm Hg) 98 96 87 Source Monitor Monitor Monitor Position Sitting Semi-Fowlers Blood Pressure Location Right Arm Left Arm History Since Last Visit- (Skip if this is Patient's initial visit) Have you changed medications since your No No No last visit? Any new allergies or adverse reactions No No No Had a fall/change in ADL's that may No No No increase risk of falls Signs or symptoms of abuse and/or No No No neglect since last visit Have you been in the hospital since your No No No last visit? Has dressing in place as prescribed No Yes Yes Has compression in place as prescribed N/A Yes N/A Has offloadiing in place as prescribed N/A N/A N/A Experienced any changes in pain level or No No No management Left Footwear Regular Shoe Regular Shoe Regular Shoe Right Footwear Regular Shoe Regular Shoe Regular Shoe Pain Scale: 0-10 Numeric Is Patient Pain Free? Yes Yes Yes 12/25/21 10:27 WC - Today's Visit Information Type of service Follow-up Visit (Physician/ASPHALT PAVING MACHINE OPERATOR ) Arrival Mode Wheelchair Accompanied by Patient Identification Verified (Name & Yes ) Patient Requires Transmission-Based Precautions Safety Precautions Vital Signs Temperature (97.8 F-99.1 F) 97.0 F L Temperature Source Temporal Pulse Rate (60-100) 68 Pulse Location Monitor Blood Pressure (90/60-120/80) 129/78 H Blood Pressure Mean (mm Hg) 95 Source Monitor Position Sitting Blood Pressure Location Right Arm History Since Last Visit- (Skip if this is Patient's initial visit) Have you changed medications since your No last visit? Any new allergies or adverse reactions No Had a fall/change in ADL's that may No increase risk of falls Signs or symptoms of abuse and/or No neglect since last visit Have you been in the hospital since your No last visit? Has dressing in place as prescribed Yes Has compression in place as prescribed N/A Has offloadiing in place as prescribed N/A Experienced any changes in pain level or No management Left Footwear Regular Shoe Right Footwear Regular Shoe Pain Scale: 0-10 Numeric Is Patient Pain Free? Yes WC - Nurse 1 - General Ulcer Measurement Start: 12/04/21 09:08 Freq: Status: Active Protocol: Activity Type Activity Date Activity User E-sign Co-sign Detail Recorded Client Recorded Date Recorded By Document 12/04/21 09:08 AK [id number] 12/04/21 09:17 AK Document 12/11/21 08:41 KR [id number] 12/11/21 08:45 KR Document 12/18/21 08:53 AK [id number] 12/18/21 08:55 AK Document 12/25/21 10:27 KR [id number] 12/25/21 10:28 KR 12/04/21 12/11/21 12/18/21 09:08 08:41 08:53 Wound Center Nurse 1 #6 sacral -Combined with other wound No No -Current Size (cm) - Length 2.5 1.8 1.2 -Current Size (cm) - Width 0.8 0.6 0.5 -Current Size (cm) - Depth 0.2 0.1 0.1 -Total Square Cm 2.00 1.08 0.60 -Date of Last Picture (Recall this 12/04/21 field) -Photo Taken Yes Yes -Epithelialization None Present -Tunneling No No -Undermining/Tunneling No No -Circular Undermining No No -Change in Wound Grade/Stage No No -Exudate Amt None Present Small Medium -Exudate Type Serosanguineous Serosanguineous Serosanguineous -Wound Margin Distinct, Distinct, Distinct, Outline Outline Outline Attached Attached Attached -Granulation Amt None Present (0 Medium (34-66%) Medium (34-66%) %) -Granulation Quality N/A [place] -Slough/Fibrin Yes Yes -Necrosis Amt Medium (34-66%) Small (1-33%) Small (1-33%) -Necrotic Tissue Type Adherent Slough Adherent Slough Adherent Slough -Structure Exposed N/A N/A -Texture (Pao-wound Skin Appearance) No Abnormality, Assessed, No Abnormality, Assessed Scarring Assessed -Moisture (Pao-wound Skin Appearance) No Abnormality, No Abnormality, No Abnormality, Assessed Assessed Assessed -Color (Pao-wound Skin Appearance) No Abnormality, No Abnormality, No Abnormality, Assessed Assessed Assessed -Temperature (Pao-wound Skin No Abnormality No Abnormality No Abnormality Appearance) (Pt Warm) (Pt Warm) (Pt Warm) -Tenderness on Palpation (Pao-wound No No No Skin Appearance) -Ulcer Cleansing Soap and Water Rinsed/ Rinsed/ Irrigated with Irrigated with Saline Saline -Foul Odor after Cleansing No No No -Anesthetic Used 5% Lidocaine 5% Lidocaine 5% Lidocaine Gel Gel Gel 12/25/21 10:27 Wound Center Nurse 1 #6 sacral -Combined with other wound -Current Size (cm) - Length 1.8 -Current Size (cm) - Width 1 -Current Size (cm) - Depth 0.2 -Total Square Cm 1.8 -Date of Last Picture (Recall this field) -Photo Taken -Epithelialization -Tunneling -Undermining/Tunneling -Circular Undermining -Change in Wound Grade/Stage -Exudate Amt Small -Exudate Type Serosanguineous -Wound Margin Distinct, Outline Attached -Granulation Amt Small (1-33%) -Granulation Quality [place] -Slough/Fibrin -Necrosis Amt Small (1-33%) -Necrotic Tissue Type Adherent Slough -Structure Exposed -Texture (Pao-wound Skin Appearance) Assessed, Scarring -Moisture (Pao-wound Skin Appearance) No Abnormality, Assessed -Color (Pao-wound Skin Appearance) No Abnormality, Assessed -Temperature (Pao-wound Skin No Abnormality Appearance) (Pt Warm) -Tenderness on Palpation (Pao-wound No Skin Appearance) -Ulcer Cleansing Rinsed/ Irrigated with Saline -Foul Odor after Cleansing No -Anesthetic Used 5% Lidocaine Gel WC - Nurse 2 - General Ulcer CM Notes Start: 12/04/21 09:08 Freq: Status: Active Protocol: Activity Type Activity Date Activity User E-sign Co-sign Detail Recorded Client Recorded Date Recorded By Document 12/04/21 09:39 [id number] 12/04/21 09:45 Document 12/11/21 09:02 [id number] 12/11/21 09:11 Document 12/18/21 09:07 [id number] 12/18/21 09:11 Document 12/25/21 10:52 [id number] 12/25/21 10:57 12/04/21 12/11/21 12/18/21 09:39 09:02 09:07 Wound Center Nurse 2 7-left buttucks -Time -Correct Patient -Correct Side, Site, Position -Correct Procedure -Procedure Performed -Type of Procedure -Clinical Debridement -Tissue Removed -Post Debridement (cm) - Length -Post Debridement (cm) - Width -Post Debridement (cm) - Depth -Total Square (Post) (cm) -Area of Debridement (cm) - Length -Area of Debridement (cm) - Width -Total Square (Area) (cm) -Tunneling -Undermining/Tunneling -Circular Undermining -Wound/Ulcer Outcome -Ulcer Cleansing -Foul Odor after Cleansing -Bioengineered Tissue -Bleeding Controlled with -Offloading -Pressure Reduction -Debridement - Subq, 1st 20sq cm #6 sacral -Time 09:39 09:03 09:07 -Correct Patient Yes Yes Yes -Correct Side, Site, Position Yes Yes Yes -Correct Procedure Yes Yes Yes -Procedure Performed Yes Yes Yes -Type of Procedure Debridement Debridement Debridement -Clinical Debridement Subcutaneous Subcutaneous Subcutaneous -Tissue Removed Subcutaneous Subcutaneous Subcutaneous -Post Debridement (cm) - Length 3.0 2.5 1.9 -Post Debridement (cm) - Width 1.5 1.0 1.0 -Post Debridement (cm) - Depth 0.2 0.3 0.2 -Total Square (Post) (cm) 4.50 2.50 1.90 -Area of Debridement (cm) - Length 3.0 2.5 1.9 -Area of Debridement (cm) - Width 1.5 1.0 1 -Total Square (Area) (cm) 4.50 2.50 1.9 -Tunneling No No No -Undermining/Tunneling No No No -Circular Undermining No No No -Wound/Ulcer Outcome Not Healed Not Healed Not Healed -Ulcer Cleansing Rinsed/ Rinsed/ Rinsed/ Irrigated with Irrigated with Irrigated with Saline Saline Saline -Foul Odor after Cleansing No No No -Bioengineered Tissue No No No -Bleeding Controlled with Pressure Pressure Pressure -Treatment Response Procedure Procedure Procedure Tolerated Well Tolerated Well Tolerated Well -Offloading No No No -Pressure Reduction Wheelchair Wheelchair cushion cushion -Debridement - Subq, 1st 20sq cm Yes Yes Yes Pain Scale: 0-10 Numeric Is Patient Pain Free? Yes Yes Yes 12/25/21 10:52 Wound Center Nurse 2 7-left buttucks -Time 10:54 -Correct Patient Yes -Correct Side, Site, Position Yes -Correct Procedure Yes -Procedure Performed Yes -Type of Procedure Debridement -Clinical Debridement Subcutaneous -Tissue Removed Subcutaneous -Post Debridement (cm) - Length 0.6 -Post Debridement (cm) - Width 0.6 -Post Debridement (cm) - Depth 0.1 -Total Square (Post) (cm) 0.36 -Area of Debridement (cm) - Length 0.6 -Area of Debridement (cm) - Width 0.6 -Total Square (Area) (cm) 0.36 -Tunneling No -Undermining/Tunneling No -Circular Undermining No -Wound/Ulcer Outcome Not Healed -Ulcer Cleansing Rinsed/ Irrigated with Saline -Foul Odor after Cleansing No -Bioengineered Tissue No -Bleeding Controlled with Pressure,Silver Nitrate -Offloading No -Pressure Reduction Wheelchair cushion -Debridement - Subq, 1st 20sq cm No #6 sacral -Time 10:52 -Correct Patient Yes -Correct Side, Site, Position Yes -Correct Procedure Yes -Procedure Performed Yes -Type of Procedure Debridement -Clinical Debridement Subcutaneous -Tissue Removed Subcutaneous -Post Debridement (cm) - Length 1.5 -Post Debridement (cm) - Width 0.5 -Post Debridement (cm) - Depth 0.1 -Total Square (Post) (cm) 0.75 -Area of Debridement (cm) - Length 1.5 -Area of Debridement (cm) - Width 0.5 -Total Square (Area) (cm) 0.75 -Tunneling No -Undermining/Tunneling No -Circular Undermining No -Wound/Ulcer Outcome Not Healed -Ulcer Cleansing Rinsed/ Irrigated with Saline -Foul Odor after Cleansing No -Bioengineered Tissue No -Bleeding Controlled with Pressure,Silver Nitrate -Treatment Response Procedure Tolerated Well -Offloading No -Pressure Reduction -Debridement - Subq, 1st 20sq cm Yes Pain Scale: 0-10 Numeric Is Patient Pain Free? Yes - Nurse 3 - General Ulcer D/C NN Start: 12/04/21 09:08 Freq: Status: Active Protocol: Activity Type Activity Date Activity User E-sign Co-sign Detail Recorded Client Recorded Date Recorded By Document 12/04/21 10:04 KARLEE [id number] 12/04/21 10:05 KR Document 12/25/21 11:06 KARLEE [id number] 12/25/21 11:06 KR 12/04/21 12/25/21 10:04 11:06 Wound Care Nurse 3 7-left buttucks -Ulcer Cleansing Rinsed/ Irrigated with Saline -Primary Dressing Applied Mepilex Border -Mepilex Border 1 #6 sacral -Ulcer Cleansing Rinsed/ Irrigated with Saline -Primary Dressing Applied Promogran Sofy Matter -Other Dressing excel sap -Promogran Sofy Matter 1 Pain Scale: 0-10 Numeric Is Patient Pain Free? Yes Yes - Visit Discharge Discharge Condition Stable Stable Ambulatory Status Wheelchair Wheelchair Transportation Private Auto Private Auto Accompanied by Additional Wound Wound debrided: buttocks wound Laterality: Left Wound Grade/Stage: Stage II Type of Debridement: Excisional debridement Anesthesia Used: 5% Lidocaine Gel Depth: Down to and including healthy tissue and in the subcutaneous layer Percentage of wound debrided: 100 Instrument Used: 3mm curette Tissue Removed: Devitalized tissue and slough Severity: Fat Layer Exposed Amount of bleeding with debridement: Mild Bleeding Controlled with: Compression and gauze Assessment/Plan Assessment/Plan (1) Decubitus ulcer of coccyx, stage 2: CODE(S): L89.152 - Pressure ulcer of sacral region, stage 2 (2) Open wound of left buttock: CODE(S): S31.829A - Unspecified open wound of left buttock, initial encounter (3) Degenerative disc disease at L5-S1 level: CODE(S): M51.36 - Other intervertebral disc degeneration, lumbar region (4) Malnutrition: CODE(S): E46 - Unspecified protein-calorie malnutrition (5) Difficulty walking: CODE(S): R26.2 - Difficulty in walking, not elsewhere classified PLAN: Plan Patient was evaluated at the wound center. A debridement was performed as documented. There is an improvement with the bed of the sacral ulcer this week, it is beefy and bleeds well. He has a new wound on the left buttock caused by tape trauma. Due to his frequent incontinence of stool, she has to often change him several times a day therefore, she has to use gauze with tape to secure the dressing, which has caused this new wound. Wound care - Moistened Sofy covered with [place] SAP daily after washing with soap and water to both the sacral ulcer and the left buttock wound. Moisturize pao wound with A&D ointment, Aquaphor or Vaseline. His states that he is incontinent of stool and often there is dry stool in the ulcer in the morning when he wakes up. She is having him sit in a sitz bath to help loosen the stool so she does not have to scrub so hard to remove it. After he uses the sitz bath, she wipes him with Dakin's 0.25% moistened gauze before applying the Sofy and top dressing. Due to him having multiple stools per day, she may replace the [place] SAP with dry gauze. Try to off load off the sacral area to prevent further pressure. Discussed increasing protein intake with supplements. Supplements are not to replace meals, they are in addition to meals. He is drinking Brendan 2 x per day and sometime drinking Ensure also. Follow up one week. Call or come in sooner if develop any concerns.
--- NOTE | 2022-01-01 11:11 | PCM.WC.PN ---
History of Present Illness Date of Service: 01/01/22 Chief Complaint: Sacral ulcer History of Wound: 86-year-old white male emaciated living at home with his with many comorbidities. Patient has spinal stenosis so bad that he has no feeling in his rectum. Patient needs to straight cath several times a day to make sure his bladder is empty and he often has stool incontinence at night, which has caused him to have sacral ulcer which started over the past 1-2 weeks. Patient has frequent falls, history of smoking, has macular degeneration, along with the spinal stenosis, COPD and chronic steroids. He has difficulty eating food that requires a lot of chewing. He eats a lot of soft foods. He does not like to eat meat but will eat peanut butter, eggs and beans for sources of protein. He will occasionally drink supplemental protein shakes. He sleeps in a hospital bed with an air mattress. Progress of Wound: Sacral ulcer wound bed is beefy pink and the left buttock wound is smaller. Objective Data Objective Data Vital Signs: Vital Signs Temp Pulse BP 97.0 F L 68 129/78 H 12/25/21 10:27 12/25/21 10:27 12/25/21 10:27 Charges/Coding Procedures Integumentary 111xxx-113xx: [id number] Bern[place] subq tissue 20 sq cm/< Debridement Note Debridement Note Wound debrided: Sacral ulcer Laterality: Not Applicable Type of Debridement: Excisional debridement Anesthesia Used: 5% Lidocaine Gel Depth: Down to and including healthy tissue and in the subcutaneous layer Percentage of wound debrided: 100 Instrument Used: 3mm curette Tissue Removed: Devitalized tissue and slough Severity: Fat Layer Exposed Amount of bleeding with debridement: Mild Bleeding Controlled with: Compression and gauze Patient tolerated procedure: Patient tolerated procedure well Post-Debridement Measurements and Additional Note: Post-Debridement Measurements/Treatment ETHAN - Nurse 1 - General Ulcer Assessment Start: 12/04/21 09:08 Freq: Status: Active Protocol: CANDIDO Activity Type Activity Date Activity User E-sign Co-sign Detail Recorded Client Recorded Date Recorded By Document 12/04/21 09:08 AK [id number] 12/04/21 09:17 AK Document 12/11/21 08:41 KR [id number] 12/11/21 08:45 KR Document 12/18/21 08:53 AK [id number] 12/18/21 08:55 AK Document 12/25/21 10:27 KR [id number] 12/25/21 10:28 KR 12/04/21 12/11/21 12/18/21 09:08 08:41 08:53 - Today's Visit Information Type of service Initial Visit Follow-up Visit Follow-up Visit (Physician/DIRECTOR OF RETAIL MERCHANDISING (Physician/DIRECTOR OF RETAIL MERCHANDISING ) ) Arrival Mode Ambulatory Wheelchair Wheelchair Accompanied by Patient Identification Verified (Name & Yes Yes Yes ) Patient Requires Transmission-Based No Precautions Safety Precautions NA Vital Signs Temperature (97.8 F-99.1 F) 97.6 F L 97.6 F L 96.9 F L Temperature Source Temporal Temporal Temporal Pulse Rate (60-100) 113 H 108 H 77 Pulse Location Monitor Monitor Monitor Blood Pressure (90/60-120/80) 149/73 H 136/76 H 139/62 H Blood Pressure Mean (mm Hg) 98 96 87 Source Monitor Monitor Monitor Position Sitting Semi-Fowlers Blood Pressure Location Right Arm Left Arm History Since Last Visit- (Skip if this is Patient's initial visit) Have you changed medications since your No No No last visit? Any new allergies or adverse reactions No No No Had a fall/change in ADL's that may No No No increase risk of falls Signs or symptoms of abuse and/or No No No neglect since last visit Have you been in the hospital since your No No No last visit? Has dressing in place as prescribed No Yes Yes Has compression in place as prescribed N/A Yes N/A Has offloadiing in place as prescribed N/A N/A N/A Experienced any changes in pain level or No No No management Left Footwear Regular Shoe Regular Shoe Regular Shoe Right Footwear Regular Shoe Regular Shoe Regular Shoe Pain Scale: 0-10 Numeric Is Patient Pain Free? Yes Yes Yes 12/25/21 10:27 - Today's Visit Information Type of service Follow-up Visit (Physician/DIRECTOR OF RETAIL MERCHANDISING ) Arrival Mode Wheelchair Accompanied by Patient Identification Verified (Name & Yes ) Patient Requires Transmission-Based Precautions Safety Precautions Vital Signs Temperature (97.8 F-99.1 F) 97.0 F L Temperature Source Temporal Pulse Rate (60-100) 68 Pulse Location Monitor Blood Pressure (90/60-120/80) 129/78 H Blood Pressure Mean (mm Hg) 95 Source Monitor Position Sitting Blood Pressure Location Right Arm History Since Last Visit- (Skip if this is Patient's initial visit) Have you changed medications since your No last visit? Any new allergies or adverse reactions No Had a fall/change in ADL's that may No increase risk of falls Signs or symptoms of abuse and/or No neglect since last visit Have you been in the hospital since your No last visit? Has dressing in place as prescribed Yes Has compression in place as prescribed N/A Has offloadiing in place as prescribed N/A Experienced any changes in pain level or No management Left Footwear Regular Shoe Right Footwear Regular Shoe Pain Scale: 0-10 Numeric Is Patient Pain Free? Yes WC - Nurse 1 - General Ulcer Measurement Start: 12/04/21 09:08 Freq: Status: Active Protocol: Activity Type Activity Date Activity User E-sign Co-sign Detail Recorded Client Recorded Date Recorded By Document 12/04/21 09:08 AK [id number] 12/04/21 09:17 AK Document 12/11/21 08:41 KR [id number] 12/11/21 08:45 KR Document 12/18/21 08:53 AK [id number] 12/18/21 08:55 AK Document 12/25/21 10:27 KR [id number] 12/25/21 10:28 KR 12/04/21 12/11/21 12/18/21 09:08 08:41 08:53 Wound Center Nurse 1 #6 sacral -Combined with other wound No No -Current Size (cm) - Length 2.5 1.8 1.2 -Current Size (cm) - Width 0.8 0.6 0.5 -Current Size (cm) - Depth 0.2 0.1 0.1 -Total Square Cm 2.00 1.08 0.60 -Date of Last Picture (Recall this 12/04/21 field) -Photo Taken Yes Yes -Epithelialization None Present -Tunneling No No -Undermining/Tunneling No No -Circular Undermining No No -Change in Wound Grade/Stage No No -Exudate Amt None Present Small Medium -Exudate Type Serosanguineous Serosanguineous Serosanguineous -Wound Margin Distinct, Distinct, Distinct, Outline Outline Outline Attached Attached Attached -Granulation Amt None Present (0 Medium (34-66%) Medium (34-66%) %) -Granulation Quality N/A [place] -Slough/Fibrin Yes Yes -Necrosis Amt Medium (34-66%) Small (1-33%) Small (1-33%) -Necrotic Tissue Type Adherent Slough Adherent Slough Adherent Slough -Structure Exposed N/A N/A -Texture (Pao-wound Skin Appearance) No Abnormality, Assessed, No Abnormality, Assessed Scarring Assessed -Moisture (Pao-wound Skin Appearance) No Abnormality, No Abnormality, No Abnormality, Assessed Assessed Assessed -Color (Pao-wound Skin Appearance) No Abnormality, No Abnormality, No Abnormality, Assessed Assessed Assessed -Temperature (Pao-wound Skin No Abnormality No Abnormality No Abnormality Appearance) (Pt Warm) (Pt Warm) (Pt Warm) -Tenderness on Palpation (Pao-wound No No No Skin Appearance) -Ulcer Cleansing Soap and Water Rinsed/ Rinsed/ Irrigated with Irrigated with Saline Saline -Foul Odor after Cleansing No No No -Anesthetic Used 5% Lidocaine 5% Lidocaine 5% Lidocaine Gel Gel Gel 12/25/21 10:27 Wound Center Nurse 1 #6 sacral -Combined with other wound -Current Size (cm) - Length 1.8 -Current Size (cm) - Width 1 -Current Size (cm) - Depth 0.2 -Total Square Cm 1.8 -Date of Last Picture (Recall this field) -Photo Taken -Epithelialization -Tunneling -Undermining/Tunneling -Circular Undermining -Change in Wound Grade/Stage -Exudate Amt Small -Exudate Type Serosanguineous -Wound Margin Distinct, Outline Attached -Granulation Amt Small (1-33%) -Granulation Quality [place] -Slough/Fibrin -Necrosis Amt Small (1-33%) -Necrotic Tissue Type Adherent Slough -Structure Exposed -Texture (Pao-wound Skin Appearance) Assessed, Scarring -Moisture (Pao-wound Skin Appearance) No Abnormality, Assessed -Color (Pao-wound Skin Appearance) No Abnormality, Assessed -Temperature (Pao-wound Skin No Abnormality Appearance) (Pt Warm) -Tenderness on Palpation (Pao-wound No Skin Appearance) -Ulcer Cleansing Rinsed/ Irrigated with Saline -Foul Odor after Cleansing No -Anesthetic Used 5% Lidocaine Gel WC - Nurse 2 - General Ulcer CM Notes Start: 12/04/21 09:08 Freq: Status: Active Protocol: Activity Type Activity Date Activity User E-sign Co-sign Detail Recorded Client Recorded Date Recorded By Document 12/04/21 09:39 [id number] 12/04/21 09:45 Document 12/11/21 09:02 [id number] 12/11/21 09:11 JF Document 12/18/21 09:07 [id number] 12/18/21 09:11 Document 12/25/21 10:52 [id number] 12/25/21 10:57 Document 01/01/22 10:30 [id number] 01/01/22 10:36 12/04/21 12/11/21 12/18/21 09:39 09:02 09:07 Wound Center Nurse 2 7-left buttucks -Time -Correct Patient -Correct Side, Site, Position -Correct Procedure -Procedure Performed -Type of Procedure -Clinical Debridement -Tissue Removed -Post Debridement (cm) - Length -Post Debridement (cm) - Width -Post Debridement (cm) - Depth -Total Square (Post) (cm) -Area of Debridement (cm) - Length -Area of Debridement (cm) - Width -Total Square (Area) (cm) -Tunneling -Undermining/Tunneling -Circular Undermining -Wound/Ulcer Outcome -Ulcer Cleansing -Foul Odor after Cleansing -Bioengineered Tissue -Bleeding Controlled with -Treatment Response -Offloading -Pressure Reduction -Debridement - Subq, 1st 20sq cm #6 sacral -Time 09:39 09:03 09:07 -Correct Patient Yes Yes Yes -Correct Side, Site, Position Yes Yes Yes -Correct Procedure Yes Yes Yes -Procedure Performed Yes Yes Yes -Type of Procedure Debridement Debridement Debridement -Clinical Debridement Subcutaneous Subcutaneous Subcutaneous -Tissue Removed Subcutaneous Subcutaneous Subcutaneous -Post Debridement (cm) - Length 3.0 2.5 1.9 -Post Debridement (cm) - Width 1.5 1.0 1.0 -Post Debridement (cm) - Depth 0.2 0.3 0.2 -Total Square (Post) (cm) 4.50 2.50 1.90 -Area of Debridement (cm) - Length 3.0 2.5 1.9 -Area of Debridement (cm) - Width 1.5 1.0 1 -Total Square (Area) (cm) 4.50 2.50 1.9 -Tunneling No No No -Undermining/Tunneling No No No -Circular Undermining No No No -Wound/Ulcer Outcome Not Healed Not Healed Not Healed -Ulcer Cleansing Rinsed/ Rinsed/ Rinsed/ Irrigated with Irrigated with Irrigated with Saline Saline Saline -Foul Odor after Cleansing No No No -Bioengineered Tissue No No No -Bleeding Controlled with Pressure Pressure Pressure -Treatment Response Procedure Procedure Procedure Tolerated Well Tolerated Well Tolerated Well -Offloading No No No -Pressure Reduction Wheelchair Wheelchair cushion cushion -Debridement - Subq, 1st 20sq cm Yes Yes Yes Pain Scale: 0-10 Numeric Is Patient Pain Free? Yes Yes Yes 12/25/21 01/01/22 10:52 10:30 Wound Center Nurse 2 7-left buttucks -Time 10:54 10:32 -Correct Patient Yes Yes -Correct Side, Site, Position Yes Yes -Correct Procedure Yes Yes -Procedure Performed Yes Yes -Type of Procedure Debridement Debridement -Clinical Debridement Subcutaneous Subcutaneous -Tissue Removed Subcutaneous Subcutaneous -Post Debridement (cm) - Length 0.6 0.8 -Post Debridement (cm) - Width 0.6 0.6 -Post Debridement (cm) - Depth 0.1 0.1 -Total Square (Post) (cm) 0.36 0.48 -Area of Debridement (cm) - Length 0.6 0.8 -Area of Debridement (cm) - Width 0.6 0.6 -Total Square (Area) (cm) 0.36 0.48 -Tunneling No No -Undermining/Tunneling No No -Circular Undermining No No -Wound/Ulcer Outcome Not Healed Not Healed -Ulcer Cleansing Rinsed/ Rinsed/ Irrigated with Irrigated with Saline Saline -Foul Odor after Cleansing No No -Bioengineered Tissue No No -Bleeding Controlled with Pressure,Silver Pressure Nitrate -Treatment Response Procedure Tolerated Well -Offloading No No -Pressure Reduction Wheelchair Wheelchair cushion cushion -Debridement - Subq, 1st 20sq cm No No #6 sacral -Time 10:52 10:31 -Correct Patient Yes Yes -Correct Side, Site, Position Yes Yes -Correct Procedure Yes Yes -Procedure Performed Yes Yes -Type of Procedure Debridement Debridement -Clinical Debridement Subcutaneous Subcutaneous -Tissue Removed Subcutaneous Subcutaneous -Post Debridement (cm) - Length 1.5 1.6 -Post Debridement (cm) - Width 0.5 1.0 -Post Debridement (cm) - Depth 0.1 0.2 -Total Square (Post) (cm) 0.75 1.60 -Area of Debridement (cm) - Length 1.5 1.6 -Area of Debridement (cm) - Width 0.5 1.0 -Total Square (Area) (cm) 0.75 1.60 -Tunneling No No -Undermining/Tunneling No No -Circular Undermining No No -Wound/Ulcer Outcome Not Healed Not Healed -Ulcer Cleansing Rinsed/ Rinsed/ Irrigated with Irrigated with Saline Saline -Foul Odor after Cleansing No No -Bioengineered Tissue No No -Bleeding Controlled with Pressure,Silver Pressure Nitrate -Treatment Response Procedure Procedure Tolerated Well Tolerated Well -Offloading No No -Pressure Reduction -Debridement - Subq, 1st 20sq cm Yes Yes Pain Scale: 0-10 Numeric Is Patient Pain Free? Yes Yes WC - Nurse 3 - General Ulcer D/C NN Start: 12/04/21 09:08 Freq: Status: Active Protocol: Activity Type Activity Date Activity User E-sign Co-sign Detail Recorded Client Recorded Date Recorded By Document 12/04/21 10:04 KARLEE [id number] 12/04/21 10:05 KR Document 12/25/21 11:06 KR [id number] 12/25/21 11:06 KR Document 01/01/22 10:43 DL [id number] 01/01/22 10:46 DL 12/04/21 12/25/21 01/01/22 10:04 11:06 10:43 Wound Care Nurse 3 7-left buttucks -Ulcer Cleansing Rinsed/ Rinsed/ Irrigated with Irrigated with Saline Saline -Foul Odor after Cleansing No -Negative Pressure Wound Therapy N/A -Primary Dressing Applied Mepilex Border Promogran Sofy Matter -Other Dressing Exel SAP -Mepilex Border 1 -Promogran Sofy Matter 1 #6 sacral -Ulcer Cleansing Rinsed/ Rinsed/ Irrigated with Irrigated with Saline Saline -Foul Odor after Cleansing No -Primary Dressing Applied Promogran Sofy Matter -Other Dressing excel sap prismaEXel SAP -Promogran Sofy Matter 1 Treatment Response Procedure Tolerated Well Pain Scale: 0-10 Numeric Is Patient Pain Free? Yes Yes Yes WC - Visit Discharge Discharge Condition Stable Stable Stable Ambulatory Status Wheelchair Wheelchair Walker, Wheelchair Transportation Private Auto Private Auto Private Auto Accompanied by Additional Wound Wound debrided: buttocks wound Laterality: Left Wound Grade/Stage: Stage II Type of Debridement: Excisional debridement Anesthesia Used: 5% Lidocaine Gel Depth: Down to and including healthy tissue and in the subcutaneous layer Percentage of wound debrided: 100 Instrument Used: 3mm curette Tissue Removed: Devitalized tissue and slough Severity: Fat Layer Exposed Amount of bleeding with debridement: Mild Bleeding Controlled with: Compression and gauze Assessment/Plan Assessment/Plan (1) Decubitus ulcer of coccyx, stage 2: CODE(S): L89.152 - Pressure ulcer of sacral region, stage 2 (2) Open wound of left buttock: CODE(S): S31.829A - Unspecified open wound of left buttock, initial encounter (3) Degenerative disc disease at L5-S1 level: CODE(S): M51.36 - Other intervertebral disc degeneration, lumbar region (4) Malnutrition: CODE(S): E46 - Unspecified protein-calorie malnutrition (5) Difficulty walking: CODE(S): R26.2 - Difficulty in walking, not elsewhere classified PLAN: Plan Patient was evaluated at the wound center. A debridement was performed as documented. There is an improvement with the bed of the sacral ulcer this week, it is beefy and bleeds well. He has a new wound on the left buttock caused by tape trauma. Due to his frequent incontinence of stool, she has to often change him several times a day therefore, she has to use gauze with tape to secure the dressing, which has caused this new wound. Wound care - Moistened Sofy covered with [place] SAP daily after washing with soap and water to both the sacral ulcer and the left buttock wound. Moisturize pao wound with A&D ointment, Aquaphor or Vaseline. His states that he is incontinent of stool and often there is dry stool in the ulcer in the morning when he wakes up. She is having him sit in a sitz bath to help loosen the stool so she does not have to scrub so hard to remove it. After he uses the sitz bath, she wipes him with Dakin's 0.25% moistened gauze before applying the Sofy and top dressing. Due to him having multiple stools per day, she may replace the [place] SAP with dry gauze. Try to off load off the sacral area to prevent further pressure. Discussed increasing protein intake with supplements. Supplements are not to replace meals, they are in addition to meals. He is drinking Brendan 2 x per day and sometime drinking Ensure also. Follow up one week. Call or come in sooner if develop any concerns.
[2022-01-01 14:29] VITALS: BP 128/66; PULSE 105; TEMP 35.7
== END 2022-01-01 23:59 | disposition home or self-care (01) ==
LOC: WC 09:45
PROVIDERS: PCP Family Medicine; Visit Provider Nurse Practitioner Family
DX: L89.152 Pressure ulcer of sacral region, stage 2 (principal); J44.9 Chronic obstructive pulmonary disease, unspecified; M51.36 Other intervertebral disc degeneration, lumbar region; S31.829A Unspecified open wound of left buttock, initial encounter; M51.37 Other intervertebral disc degeneration, lumbosacral region; R26.2 Difficulty in walking, not elsewhere classified; H35.30 Unspecified macular degeneration; R15.9 Full incontinence of feces; R29.6 Repeated falls; Z79.52 Long term (current) use of systemic steroids; Z79.899 Other long term (current) drug therapy; Z87.891 Personal history of nicotine dependence
CPT/HCPCS: 11042; 99213; G0463

== ENCOUNTER 2022-01-22 10:15 | Outpatient (RCR) | payer MEDICARE, OTHER, SELFPAY ==
[2022-01-02 00:08] VITALS: BP 128/66; PULSE 105; TEMP 35.7
[2022-01-08 10:35] VITALS: BP 106/58; PULSE 111; TEMP 36.2
--- NOTE | 2022-01-08 12:26 | PN.PCM_ITS ---
History of Present Illness Date of Service: 01/08/22 Chief Complaint: Sacral ulcer History of Wound: 86-year-old white male emaciated living at home with his with many comorbidities. Patient has spinal stenosis so bad that he has no feeling in his rectum. Patient needs to straight cath several times a day to make sure his bladder is empty and he often has stool incontinence at night, which has caused him to have sacral ulcer which started over the past 1-2 weeks. Patient has frequent falls, history of smoking, has macular degeneration, along with the spinal stenosis, COPD and chronic steroids. He has difficulty eating food that requires a lot of chewing. He eats a lot of soft foods. He does not like to eat meat but will eat peanut butter, eggs and beans for sources of protein. He will occasionally drink supplemental protein shakes. He sleeps in a hospital bed with an air mattress. Progress of Wound: Sacral ulcer wound bed is beefy pink and the left buttock wound is healed. Objective Data Objective Data Vital Signs: Vital Signs Temp Pulse BP 97.2 F L 111 H 106/58 L 01/08/22 10:35 01/08/22 10:35 01/08/22 10:35 Charges/Coding Procedures Integumentary 111xxx-113xx: 87221 Bernadine subq tissue 20 sq cm/< Debridement Note Debridement Note Wound debrided: Sacral ulcer Laterality: Not Applicable Type of Debridement: Excisional debridement Anesthesia Used: 5% Lidocaine Gel Depth: Down to and including healthy tissue and in the subcutaneous layer Percentage of wound debrided: 100 Instrument Used: 3mm curette Tissue Removed: Devitalized tissue and slough Severity: Fat Layer Exposed Amount of bleeding with debridement: Mild Bleeding Controlled with: Compression and gauze Patient tolerated procedure: Patient tolerated procedure well Post-Debridement Measurements and Additional Note: Post-Debridement Measurements/Treatment - Nurse 1 - General Ulcer Assessment Start: 01/08/22 10:35 Freq: Status: Active Protocol: CANDIDO Activity Type Activity Date Activity User E-sign Co-sign Detail Recorded Client Recorded Date Recorded By Document 01/08/22 10:35 MAYI [id number] 01/08/22 10:38 MAYI 01/08/22 10:35 - Today's Visit Information Type of service Follow-up Visit (Physician/ASSOCIATE SOFTWARE DEVELOPMENT ENGINEER ) Arrival Mode Wheelchair Patient Identification Verified (Name & Yes ) Patient Requires Transmission-Based No Precautions Vital Signs Temperature (97.8 F-99.1 F) 97.2 F L Temperature Source Temporal Pulse Rate (60-100) 111 H Pulse Location Monitor Blood Pressure (90/60-120/80) 106/58 L Blood Pressure Mean (mm Hg) 74 Source Monitor History Since Last Visit- (Skip if this is Patient's initial visit) Have you changed medications since your No last visit? Any new allergies or adverse reactions No Had a fall/change in ADL's that may No increase risk of falls Signs or symptoms of abuse and/or No neglect since last visit Have you been in the hospital since your No last visit? Has dressing in place as prescribed Yes Has compression in place as prescribed N/A Has offloadiing in place as prescribed N/A Experienced any changes in pain level or No management Left Footwear Regular Shoe Right Footwear Regular Shoe Pain Scale: 0-10 Numeric Is Patient Pain Free? Yes WC - Nurse 1 - General Ulcer Measurement Start: 01/08/22 10:35 Freq: Status: Active Protocol: Activity Type Activity Date Activity User E-sign Co-sign Detail Recorded Client Recorded Date Recorded By Document 01/08/22 10:35 MAYI [id number] 01/08/22 10:38 MAYI 01/08/22 10:35 Wound Center Nurse 1 7-left buttucks -Combined with other wound No -Current Size (cm) - Length 0.1 -Current Size (cm) - Width 0.1 -Current Size (cm) - Depth 0.1 -Total Square Cm 0.01 -Photo Taken No -Tunneling No -Undermining/Tunneling No -Circular Undermining No -Change in Wound Grade/Stage No -Granulation Amt None Present (0 %) -Granulation Quality N/A -Slough/Fibrin No -Necrosis Amt None Present (0 %) -Structure Exposed N/A -Texture (Pao-wound Skin Appearance) No Abnormality, Assessed -Moisture (Pao-wound Skin Appearance) No Abnormality, Assessed -Color (Pao-wound Skin Appearance) No Abnormality, Assessed -Temperature (Pao-wound Skin No Abnormality Appearance) (Pt Warm) -Tenderness on Palpation (Pao-wound No Skin Appearance) -Ulcer Cleansing Rinsed/ Irrigated with Saline #6 sacral -Combined with other wound No -Current Size (cm) - Length 0.2 -Current Size (cm) - Width 0.2 -Current Size (cm) - Depth 0.2 -Total Square Cm 0.04 -Photo Taken Yes -Tunneling No -Undermining/Tunneling No -Circular Undermining No -Change in Wound Grade/Stage No -Exudate Amt Medium -Exudate Type Serosanguineous -Wound Margin Distinct, Outline Attached -Granulation Amt None Present (0 %) -Granulation Quality [place] -Slough/Fibrin Yes -Necrosis Amt None Present (0 %) -Structure Exposed N/A -Texture (Pao-wound Skin Appearance) No Abnormality, Assessed -Moisture (Pao-wound Skin Appearance) No Abnormality, Assessed -Color (Pao-wound Skin Appearance) No Abnormality, Assessed -Temperature (Pao-wound Skin No Abnormality Appearance) (Pt Warm) -Tenderness on Palpation (Pao-wound No Skin Appearance) -Ulcer Cleansing Soap and Water -Foul Odor after Cleansing No -Anesthetic Used 4% Lidocaine Solution WC - Nurse 2 - General Ulcer CM Notes Start: 01/08/22 10:35 Freq: Status: Active Protocol: Activity Type Activity Date Activity User E-sign Co-sign Detail Recorded Client Recorded Date Recorded By Document 01/08/22 10:57 JOVON [id number] 01/08/22 11:01 JOVON 01/08/22 10:57 Wound Center Nurse 2 7-left buttucks -Time 10:57 -Correct Patient No -Correct Side, Site, Position No -Correct Procedure No -Procedure Performed No -Post Debridement (cm) - Length 0 -Post Debridement (cm) - Width 0 -Post Debridement (cm) - Depth 0 -Total Square (Post) (cm) 0 -Area of Debridement (cm) - Length 0 -Area of Debridement (cm) - Width 0 -Total Square (Area) (cm) 0 -Tunneling No -Undermining/Tunneling No -Circular Undermining No -Wound/Ulcer Outcome Healed- Epithelialized -Ulcer Cleansing Rinsed/ Irrigated with Saline -Foul Odor after Cleansing No -Bioengineered Tissue No -Bleeding Controlled with Pressure -Treatment Response Procedure Tolerated Well -Offloading No -Debridement - Subq, 1st 20sq cm Yes #6 sacral -Time 10:58 -Correct Patient Yes -Correct Side, Site, Position Yes -Correct Procedure Yes -Procedure Performed Yes -Type of Procedure Debridement -Clinical Debridement Subcutaneous -Tissue Removed Subcutaneous -Post Debridement (cm) - Length 1.0 -Post Debridement (cm) - Width 0.5 -Post Debridement (cm) - Depth 0.1 -Total Square (Post) (cm) 0.50 -Area of Debridement (cm) - Length 1.0 -Area of Debridement (cm) - Width 0.5 -Total Square (Area) (cm) 0.50 -Tunneling No -Undermining/Tunneling No -Circular Undermining No -Wound/Ulcer Outcome Not Healed -Ulcer Cleansing Rinsed/ Irrigated with Saline -Foul Odor after Cleansing No -Bioengineered Tissue No -Bleeding Controlled with Pressure -Treatment Response Procedure Tolerated Well -Offloading No -Debridement - Subq, 1st 20sq cm Yes Pain Scale: 0-10 Numeric Is Patient Pain Free? Yes - Nurse 3 - General Ulcer D/C NN Start: 01/08/22 10:35 Freq: Status: Active Protocol: Activity Type Activity Date Activity User E-sign Co-sign Detail Recorded Client Recorded Date Recorded By Document 01/08/22 11:08 [id number] 01/08/22 11:08 DANYEL 01/08/22 11:08 Wound Care Nurse 3 #6 sacral -Primary Dressing Applied Mepilex Border -Other Dressing richie -Mepilex Border 1 Treatment Response Procedure Tolerated Well Pain Scale: 0-10 Numeric Is Patient Pain Free? Yes - Visit Discharge Discharge Condition Stable Ambulatory Status Wheelchair Transportation Private Auto Medication Reconcilliation completed & No provided to patient/care provider Clinical Summary of Care Provided Yes Assessment/Plan Assessment/Plan (1) Decubitus ulcer of coccyx, stage 2: CODE(S): L89.152 - Pressure ulcer of sacral region, stage 2 (2) Open wound of left buttock: CODE(S): S31.829A - Unspecified open wound of left buttock, initial encounter (3) Degenerative disc disease at L5-S1 level: CODE(S): M51.36 - Other intervertebral disc degeneration, lumbar region (4) Malnutrition: CODE(S): E46 - Unspecified protein-calorie malnutrition (5) Difficulty walking: CODE(S): R26.2 - Difficulty in walking, not elsewhere classified PLAN: Plan Patient was evaluated at the wound center. A debridement was performed as documented. There is an improvement with the bed of the sacral ulcer this week, it is beefy and bleeds well. The wound on the left buttock is healed. Due to his frequent incontinence of stool, she has to often change him several times a day therefore, she has to use gauze with tape to secure the dressing, which has caused this new wound. Wound care - Moistened Richie covered with [place] SAP daily after washing with soap and water to the sacral ulcer. Moisturize pao wound with A&D ointment, Aquaphor or Vaseline daily and as needed. His states that he is incontinent of stool and often there is dry stool in the ulcer in the morning when he wakes up. She is having him sit in a sitz bath to help loosen the stool so she does not have to scrub so hard to remove it. After he uses the sitz bath, she wipes him with Dakin's 0.25% moistened gauze before applying the Richie and top dressing. Due to him having multiple stools per day, she may replace the [place] SAP with dry gauze if needed. Try to off load off the sacral area to prevent further pressure. Discussed increasing protein intake with supplements. Supplements are not to replace meals, they are in addition to meals. He is drinking Brendan 2 x per day and sometime drinking Ensure also. Follow up two week. Call or come in sooner if develop any concerns.
[2022-01-22 10:11] VITALS: BP 152/80; PULSE 113; RESP 16; TEMP 35.9
--- NOTE | 2022-01-22 13:12 | PN.PCM_ITS ---
History of Present Illness Date of Service: 01/22/22 Chief Complaint: Sacral ulcer History of Wound: 86-year-old white male emaciated living at home with his with many comorbidities. Patient has spinal stenosis so bad that he has no feeling in his rectum. Patient needs to straight cath several times a day to make sure his bladder is empty and he often has stool incontinence at night, which has caused him to have sacral ulcer which started over the past 1-2 weeks. Patient has frequent falls, history of smoking, has macular degeneration, along with the spinal stenosis, COPD and chronic steroids. He has difficulty eating food that requires a lot of chewing. He eats a lot of soft foods. He does not like to eat meat but will eat peanut butter, eggs and beans for sources of protein. He will occasionally drink supplemental protein shakes. He sleeps in a hospital bed with an air mattress. Progress of Wound: Sacral ulcer wound bed is beefy pink and the left buttock wound is almost healed. Objective Data Objective Data Vital Signs: Vital Signs Temp Pulse Resp BP O2 Del Method 96.6 F L 113 H 16 152/80 H Room Air 01/22/22 10:11 01/22/22 10:11 01/22/22 10:11 01/22/22 10:11 01/22/22 10:11 Oxygen Delivery Method Room Air Charges/Coding Procedures Integumentary 111xxx-113xx: 46195 Bernadine subq tissue 20 sq cm/< Debridement Note Debridement Note Wound debrided: Sacral ulcer Laterality: Not Applicable Type of Debridement: Excisional debridement Anesthesia Used: 5% Lidocaine Gel Depth: Down to and including healthy tissue and in the subcutaneous layer Percentage of wound debrided: 100 Instrument Used: 3mm curette Tissue Removed: Devitalized tissue and slough Severity: Fat Layer Exposed Amount of bleeding with debridement: Mild Bleeding Controlled with: Compression and gauze Patient tolerated procedure: Patient tolerated procedure well Debridement Free Text: Removed thickened scabbing. Post-Debridement Measurements and Additional Note: Post-Debridement Measurements/Treatment WC - Nurse 1 - General Ulcer Assessment Start: 01/08/22 10:35 Freq: Status: Active Protocol: ETHAN.MONA Activity Type Activity Date Activity User E-sign Co-sign Detail Recorded Client Recorded Date Recorded By Document 01/08/22 10:35 MAYI [id number] 01/08/22 10:38 AK Document 01/22/22 10:11 DL [id number] 01/22/22 10:15 DL 01/08/22 01/22/22 10:35 10:11 - Today's Visit Information Type of service Follow-up Visit Follow-up Visit (Physician/INVESTIGATOR NARCOTICS (Physician/INVESTIGATOR NARCOTICS ) ) Arrival Mode Wheelchair Wheelchair Transfer Assistance Other Transfer Assist (Other) stand by Accompanied by Patient Identification Verified (Name & Yes Yes ) Patient Requires Transmission-Based No No Precautions Vital Signs Temperature (97.8 F-99.1 F) 97.2 F L 96.6 F L Temperature Source Temporal Temporal Pulse Rate (60-100) 111 H 113 H Pulse Location Monitor Monitor Respiratory Rate (12-18) 16 Respiratory rate source Observation Oxygen Delivery Method Room Air Blood Pressure (90/60-120/80) 106/58 L 152/80 H Blood Pressure Mean (mm Hg) 74 104 Source Monitor Monitor Position Sitting Blood Pressure Location Left Arm History Since Last Visit- (Skip if this is Patient's initial visit) Have you changed medications since your No No last visit? Any new allergies or adverse reactions No No Had a fall/change in ADL's that may No No increase risk of falls Signs or symptoms of abuse and/or No No neglect since last visit Have you been in the hospital since your No No last visit? Has dressing in place as prescribed Yes Yes Has compression in place as prescribed N/A N/A Has offloadiing in place as prescribed N/A N/A Experienced any changes in pain level or No No management Left Footwear Regular Shoe Regular Shoe Right Footwear Regular Shoe Regular Shoe Pain Scale: 0-10 Numeric Is Patient Pain Free? Yes Yes - Nurse 1 - General Ulcer Measurement Start: 01/08/22 10:35 Freq: Status: Active Protocol: Activity Type Activity Date Activity User E-sign Co-sign Detail Recorded Client Recorded Date Recorded By Document 01/08/22 10:35 MAYI [id number] 01/08/22 10:38 AK Document 01/22/22 10:11 DL [id number] 01/22/22 10:15 DL 01/08/22 01/22/22 10:35 10:11 Wound Center Nurse 1 7-left buttucks -Combined with other wound No -Current Size (cm) - Length 0.1 -Current Size (cm) - Width 0.1 -Current Size (cm) - Depth 0.1 -Total Square Cm 0.01 -Photo Taken No -Tunneling No -Undermining/Tunneling No -Circular Undermining No -Change in Wound Grade/Stage No -Granulation Amt None Present (0 %) -Granulation Quality N/A -Slough/Fibrin No -Necrosis Amt None Present (0 %) -Structure Exposed N/A -Texture (Pao-wound Skin Appearance) No Abnormality, Assessed -Moisture (Pao-wound Skin Appearance) No Abnormality, Assessed -Color (Pao-wound Skin Appearance) No Abnormality, Assessed -Temperature (Pao-wound Skin No Abnormality Appearance) (Pt Warm) -Tenderness on Palpation (Pao-wound No Skin Appearance) -Ulcer Cleansing Rinsed/ Irrigated with Saline #6 sacral -Combined with other wound No No -Current Size (cm) - Length 0.2 0.1 -Current Size (cm) - Width 0.2 0.1 -Current Size (cm) - Depth 0.2 0.1 -Total Square Cm 0.04 0.01 -Date of Last Picture (Recall this 01/22/22 field) -Photo Taken Yes Yes -Epithelialization Large 67-100% -Tunneling No No -Undermining/Tunneling No No -Circular Undermining No No -Change in Wound Grade/Stage No -Exudate Amt Medium None Present -Exudate Type Serosanguineous -Wound Margin Distinct, Distinct, Outline Outline Attached Attached -Granulation Amt None Present (0 %) -Granulation Quality [place] -Slough/Fibrin Yes -Necrosis Amt None Present (0 Small (1-33%) %) -Necrotic Tissue Type Eschar -Structure Exposed N/A -Texture (Pao-wound Skin Appearance) No Abnormality, Assessed, Assessed Scarring -Moisture (Pao-wound Skin Appearance) No Abnormality, Assessed Assessed -Color (Pao-wound Skin Appearance) No Abnormality, Assessed Assessed -Temperature (Pao-wound Skin No Abnormality No Abnormality Appearance) (Pt Warm) (Pt Warm) -Tenderness on Palpation (Pao-wound No No Skin Appearance) -Ulcer Cleansing Soap and Water Rinsed/ Irrigated with Saline -Foul Odor after Cleansing No No -Anesthetic Used 4% Lidocaine 5% Lidocaine Solution Gel WC - Nurse 2 - General Ulcer CM Notes Start: 01/08/22 10:35 Freq: Status: Active Protocol: Activity Type Activity Date Activity User E-sign Co-sign Detail Recorded Client Recorded Date Recorded By Document 01/08/22 10:57 JOVON [id number] 01/08/22 11:01 JOVON Edit Result 01/08/22 10:57 JOVON (1) [id number] 01/09/22 07:29 PL Document 01/22/22 10:26 JOVON [id number] 01/22/22 10:33 JOVON (1) 7-left buttucks - Debridement - Subq, 1st 20sq cm Yes => No 01/08/22 01/22/22 10:57 10:26 Wound Center Nurse 2 7-left buttucks -Time 10:57 -Correct Patient No -Correct Side, Site, Position No -Correct Procedure No -Procedure Performed No -Post Debridement (cm) - Length 0 -Post Debridement (cm) - Width 0 -Post Debridement (cm) - Depth 0 -Total Square (Post) (cm) 0 -Area of Debridement (cm) - Length 0 -Area of Debridement (cm) - Width 0 -Total Square (Area) (cm) 0 -Tunneling No -Undermining/Tunneling No -Circular Undermining No -Wound/Ulcer Outcome Healed- Epithelialized -Ulcer Cleansing Rinsed/ Irrigated with Saline -Foul Odor after Cleansing No -Bioengineered Tissue No -Bleeding Controlled with Pressure -Treatment Response Procedure Tolerated Well -Offloading No -Debridement - Subq, 1st 20sq cm No #6 sacral -Time 10:58 10:26 -Correct Patient Yes Yes -Correct Side, Site, Position Yes Yes -Correct Procedure Yes Yes -Procedure Performed Yes Yes -Type of Procedure Debridement Debridement -Clinical Debridement Subcutaneous Subcutaneous -Tissue Removed Subcutaneous Subcutaneous -Post Debridement (cm) - Length 1.0 0.4 -Post Debridement (cm) - Width 0.5 0.4 -Post Debridement (cm) - Depth 0.1 0.1 -Total Square (Post) (cm) 0.50 0.16 -Area of Debridement (cm) - Length 1.0 0.4 -Area of Debridement (cm) - Width 0.5 0.4 -Total Square (Area) (cm) 0.50 0.16 -Tunneling No No -Undermining/Tunneling No No -Circular Undermining No No -Wound/Ulcer Outcome Not Healed Not Healed -Ulcer Cleansing Rinsed/ Rinsed/ Irrigated with Irrigated with Saline Saline -Foul Odor after Cleansing No No -Bioengineered Tissue No No -Bleeding Controlled with Pressure Pressure -Treatment Response Procedure Procedure Tolerated Well Tolerated Well -Offloading No No -Debridement - Subq, 1st 20sq cm Yes Yes Pain Scale: 0-10 Numeric Is Patient Pain Free? Yes Yes WC - Nurse 3 - General Ulcer D/C NN Start: 01/08/22 10:35 Freq: Status: Active Protocol: Activity Type Activity Date Activity User E-sign Co-sign Detail Recorded Client Recorded Date Recorded By Document 01/08/22 11:08 [id number] 01/08/22 11:08 RB Document 01/22/22 10:36 [facility] [id number] 01/22/22 10:37 BM 01/08/22 01/22/22 11:08 10:36 Wound Care Nurse 3 #6 sacral -Ulcer Cleansing Rinsed/ Irrigated with Saline -Foul Odor after Cleansing No -Primary Dressing Applied Mepilex Border C Hydrogel ($), Mepilex Border -Other Dressing richie DRSG PER [place] CHANGE MANAGEMENT COORDINATOR -Mepilex Border 1 1 Treatment Response Procedure Procedure Tolerated Well Tolerated Well Pain Scale: 0-10 Numeric Is Patient Pain Free? Yes Yes - Visit Discharge Discharge Condition Stable Stable Ambulatory Status Wheelchair Wheelchair Transportation Private Auto Private Auto Accompanied by Medication Reconcilliation completed & No provided to patient/care provider Clinical Summary of Care Provided Yes Assessment/Plan Assessment/Plan (1) Decubitus ulcer of coccyx, stage 2: CODE(S): L89.152 - Pressure ulcer of sacral region, stage 2 (2) Open wound of left buttock: CODE(S): S31.829A - Unspecified open wound of left buttock, initial encounter (3) Degenerative disc disease at L5-S1 level: CODE(S): M51.36 - Other intervertebral disc degeneration, lumbar region (4) Malnutrition: CODE(S): E46 - Unspecified protein-calorie malnutrition (5) Difficulty walking: CODE(S): R26.2 - Difficulty in walking, not elsewhere classified PLAN: Plan Patient was evaluated at the wound center. There is a thickened scab over the ulcered area. Wound care - Collagen hydrogel covered with [place] SAP daily after washing with soap and water to the sacral ulcer. Moisturize pao wound with A&D ointment, Aquaphor or Vaseline daily and as needed. His states that he is incontinent of stool and often there is dry stool in the ulcer in the morning when he wakes up. She is having him sit in a sitz bath to help loosen the stool so she does not have to scrub so hard to remove it. After he uses the sitz bath, she wipes him with Dakin's 0.25% moistened gauze before applying the Richie and top dressing. Due to him having multiple stools per day, she may replace the [place] SAP with dry gauze if needed. Try to off load off the sacral area to prevent further pressure. Discussed increasing protein intake with supplements. Supplements are not to replace meals, they are in addition to meals. He is drinking Brendan 2 x per day and sometime drinking Ensure also. Follow up two week. Call or come in sooner if develop any concerns.
== END 2022-01-31 23:59 | disposition home or self-care (01) ==
LOC: WC 10:15
PROVIDERS: PCP Family Medicine; Visit Provider Nurse Practitioner Family
DX: L89.152 Pressure ulcer of sacral region, stage 2 (principal); J44.9 Chronic obstructive pulmonary disease, unspecified; M51.37 Other intervertebral disc degeneration, lumbosacral region; R29.6 Repeated falls; Z79.1 Long term (current) use of non-steroidal anti-inflammatories (NSAID); Z79.899 Other long term (current) drug therapy; Z87.891 Personal history of nicotine dependence
CPT/HCPCS: 11042

== ENCOUNTER 2022-02-05 10:09 | Outpatient (RCR) | payer MEDICARE, OTHER, SELFPAY ==
[2022-02-01 00:11] VITALS: BP 152/80; PULSE 113; RESP 16; TEMP 35.9
[2022-02-05 10:11] VITALS: BP 159/97; PULSE 109; RESP 18; TEMP 36.3
--- NOTE | 2022-02-05 12:40 | PCM.WC.PN ---
History of Present Illness Date of Service: 02/05/22 Chief Complaint: Sacral ulcer History of Wound: 86-year-old white male emaciated living at home with his with many comorbidities. Patient has spinal stenosis so bad that he has no feeling in his rectum. Patient needs to straight cath several times a day to make sure his bladder is empty and he often has stool incontinence at night, which has caused him to have sacral ulcer which started over the past 1-2 weeks. Patient has frequent falls, history of smoking, has macular degeneration, along with the spinal stenosis, COPD and chronic steroids. He has difficulty eating food that requires a lot of chewing. He eats a lot of soft foods. He does not like to eat meat but will eat peanut butter, eggs and beans for sources of protein. He will occasionally drink supplemental protein shakes. He sleeps in a hospital bed with an air mattress. Progress of Wound: Sacral ulcer is healed today. Objective Data Objective Data Vital Signs: Vital Signs Temp Pulse Resp BP 97.3 F L 109 H 18 159/97 H 02/05/22 10:11 02/05/22 10:11 02/05/22 10:11 02/05/22 10:11 Charges/Coding Visit Charges Office Visits / Consults: [id number] OV L3 Est Physical Exam Const alert and oriented x3 Nutritional Appearance: underweight and thin HEENT normocephalic Eyes Alignment: alignment normal Lymph Lymphatic: no lymphedema noted Resp normal respiratory effort and normal air movement Cardio regular rate Extremity normal capillary refill Skin Wound Narrative: Sacral ulcer is healed. Some dry scabbing was removed from the area. Neuro oriented x3 Speech: speech normal Psych mental status grossly normal and affect normal Debridement Note Debridement Note No debridement was completed: No debridement was completed today Post-Debridement Measurements and Additional Note: Post-Debridement Measurements/Treatment ETHAN - Nurse 1 - General Ulcer Assessment Start: 02/05/22 10:11 Freq: Status: Active Protocol: CANDIDO Activity Type Activity Date Activity User E-sign Co-sign Detail Recorded Client Recorded Date Recorded By Document 02/05/22 10:11 USAMA [id number] 02/05/22 10:17 DL 02/05/22 10:11 WC - Today's Visit Information Type of service 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 Any new allergies or adverse reactions No Had a fall/change in ADL's that may No increase risk of falls Signs or symptoms of abuse and/or No neglect since last visit Have you been in the hospital since your No last visit? Has dressing in place as prescribed Yes Has compression in place as prescribed N/A Has offloadiing in place as prescribed Yes Experienced any changes in pain level or No management Pain Scale: 0-10 Numeric Is Patient Pain Free? Yes WC - Nurse 1 - General Ulcer Measurement Start: 02/05/22 10:11 Freq: Status: Active Protocol: Activity Type Activity Date Activity User E-sign Co-sign Detail Recorded Client Recorded Date Recorded By Document 02/05/22 10:11 DL [id number] 02/05/22 10:17 DL 02/05/22 10:11 Wound Center Nurse 1 #6 sacral -Current Size (cm) - Length 0.1 -Current Size (cm) - Width 0.1 -Current Size (cm) - Depth 0.1 -Total Square Cm 0.01 -Photo Taken Yes -Exudate Amt None Present -Wound Margin Thickened -Granulation Amt Large (67-100%) -Granulation Quality Pale -Necrosis Amt Small (1-33%) -Necrotic Tissue Type Eschar -Structure Exposed N/A -Texture (Pao-wound Skin Appearance) Scarring -Moisture (Pao-wound Skin Appearance) No Abnormality -Color (Pao-wound Skin Appearance) No Abnormality -Temperature (Pao-wound Skin No Abnormality Appearance) (Pt Warm) -Tenderness on Palpation (Pao-wound No Skin Appearance) -Ulcer Cleansing Rinsed/ Irrigated with Saline -Foul Odor after Cleansing No -Anesthetic Used 5% Lidocaine Gel WC - Nurse 2 - General Ulcer CM Notes Start: 02/05/22 10:11 Freq: Status: Active Protocol: Activity Type Activity Date Activity User E-sign Co-sign Detail Recorded Client Recorded Date Recorded By Document 02/05/22 10:43 JOVON [id number] 02/05/22 10:45 02/05/22 10:43 Wound Center Nurse 2 -Correct Patient No -Correct Side, Site, Position No -Correct Procedure No -Procedure Performed No -Post Debridement (cm) - Length 0 -Post Debridement (cm) - Width 0 -Post Debridement (cm) - Depth 0 -Total Square (Post) (cm) 0 -Area of Debridement (cm) - Length 0 -Area of Debridement (cm) - Width 0 -Total Square (Area) (cm) 0 -Wound/Ulcer Outcome Healed- Epithelialized Pain Scale: 0-10 Numeric Is Patient Pain Free? Yes - Nurse 3 - General Ulcer D/C NN Start: 02/05/22 10:11 Freq: Status: Active Protocol: Activity Type Activity Date Activity User E-sign Co-sign Detail Recorded Client Recorded Date Recorded By Document 02/05/22 10:46 [id number] 02/05/22 10:46 02/05/22 10:46 Is Patient Pain Free? Yes WC - Visit Discharge Discharge Condition Stable Ambulatory Status Ambulatory, Wheelchair Transportation Private Auto Medication Reconcilliation completed & Yes provided to patient/care provider Clinical Summary of Care Provided Yes Assessment/Plan Assessment/Plan (1) Decubitus ulcer of coccyx, stage 2: CODE(S): L89.152 - Pressure ulcer of sacral region, stage 2 (2) Open wound of left buttock: CODE(S): S31.829A - Unspecified open wound of left buttock, initial encounter (3) Degenerative disc disease at L5-S1 level: CODE(S): M51.36 - Other intervertebral disc degeneration, lumbar region (4) Malnutrition: CODE(S): E46 - Unspecified protein-calorie malnutrition (5) Difficulty walking: CODE(S): R26.2 - Difficulty in walking, not elsewhere classified PLAN: Plan Patient was evaluated at the wound center. There is a thickened scab over the ulcered area that once removed, there was healed tissue under the scabbing. Encouraged to continue to moisturize pao wound and healed ulcer area with A&D ointment, Aquaphor or Vaseline daily and as needed to use as a skin barrier and moisturizer. Try to off load off the sacral area to prevent further pressure. Continue proper nutrition to help prevent future breakdown. Follow up as needed.
== END 2022-02-07 13:33 | disposition home or self-care (01) ==
LOC: WC 10:09
PROVIDERS: PCP Family Medicine; Visit Provider Nurse Practitioner Family
DX: Z09 Encounter for follow-up examination after completed treatment for conditions other than malignant neoplasm (principal); J44.9 Chronic obstructive pulmonary disease, unspecified; H35.30 Unspecified macular degeneration; M51.36 Other intervertebral disc degeneration, lumbar region; M48.00 Spinal stenosis, site unspecified; R26.2 Difficulty in walking, not elsewhere classified; R29.6 Repeated falls; Z79.52 Long term (current) use of systemic steroids; Z79.899 Other long term (current) drug therapy; Z87.891 Personal history of nicotine dependence
CPT/HCPCS: 99213; G0463